=== PATIENT | male | born 1970 | race African-American/Black ===

== ENCOUNTER 2017-12-08 19:09 | Observation (INO) | payer SELFPAY ==
[2017-12-08 20:01] LABS: Absolute Monocytes 0.8 K/uL (0.1-1.3); Absolute Neutrophil 5.7 K/uL (1.8-8.0); Basophils % 0.7 % (0-1.3); Eosinophils % 4.2 % (0-4.4); Hematocrit 38.6 % (39.6-49.0); Lymphocytes % 22.3 % (15.3-44.8); MCH 29.9 pg (27.0-35.0); MCV 87.7 fL (80-100); MPV 8.3 fL (7.6-11.3); Monocytes % 9.2 % (3.3-12.3)
[2017-12-08 20:06] LABS: Protime INR 1.02
[2017-12-08 20:14] LABS: Potassium 3.6 mEq/L (3.6-5.0)
--- NOTE | 2017-12-08 20:21 | RAD REPORT ---
EXAM DESCRIPTION: CT - Head Brain Wo Cont - 12/08/2017 8:05 pm CLINICAL HISTORY: Seizure COMPARISON: none TECHNIQUE: Computed axial tomography of the head was obtained. IV contrast was not requested. All CT scans are performed using dose optimization technique as appropriate and may include automated exposure control or mA/KV adjustment according to patient size. FINDINGS: An intracranial bleed is not seen . The ventricles are normal in caliber. No extra-axial fluid collection is noted. A vague ill-defined low-density area is present within the right parietal lobe. Fluid within the sinuses/ mastoids is not seen. IMPRESSION: Vague ill-defined low-density area within the deep and subcortical white matter of the r ight parietal lobe. This is of uncertain etiology. . It is recommended that the patient have an MRI t he brain with contrast for further evaluation
--- NOTE | 2017-12-08 22:07 | EDPHYS ---
Physician Documentation [facility] Name: Vince Blackmon Age: 47 yrs Sex: Male : 1970 Arrival Date: 12/08/2017 Time: 19:10 Bed 17 Private MD: ED Physician Efra Velez HPI: 12/08 20:38 This 47 yrs old Black Male presents to ER via Ambulatory with complaints of Probable rn Seizure. 20:38 The patient presents with a history of multiple seizures. Seizure onset: 2 days ago. rn Associated injury: The patient did not suffer any apparent associated injury. Current symptoms:. The patient has experienced similar episodes in the past. Reports hx of seizures but last seizure 6 years ago, has had 2 seizures in last 2 days, last night assoc with cocaine use. Has seizures outside of cocaine use. Reports right leg weakness that is normally not present with his seizures. + headache for last week.. Historical: - Allergies: 19:24 ACETAMINOPHEN; lk1 - PMHx: 19:24 urinary stricture; Hypertension; Seizures; lk1 - PSHx: 19:24 None; lk1 - Immunization history:: Adult Immunizations up to date. - Social history:: Smoking status: Patient/guardian denies using tobacco. - Family history:: not pertinent. - Hospitalizations: : No recent hospitalization is reported. ROS: 20:38 Constitutional: Negative for fever, chills, and weight loss, Eyes: Negative for injury, rn pain, redness, and discharge, Neck: Negative for injury, pain, and swelling, Cardiovascular: Negative for chest pain, palpitations, and edema, Respiratory: Negative for shortness of breath, cough, wheezing, and pleuritic chest pain, Abdomen/GI: Negative for abdominal pain, nausea, vomiting, diarrhea, and constipation, Back: Negative for injury and pain, MS/Extremity: Negative for injury and deformity, Skin: Negative for injury, rash, and discoloration, Neuro: Negative for numbness, tingling Exam: 20:38 Constitutional: This is a well developed, well nourished patient who is awake, alert, rn and in no acute distress. Head/Face: Normocephalic, atraumatic. Eyes: Pupils equal round and reactive to light, extra-ocular motions intact. Lids and lashes normal. Conjunctiva and sclera are non-icteric and not injected. Cornea within normal limits. Periorbital areas with no swelling, redness, or edema. Neck: Trachea midline, no thyromegaly or masses palpated, and no cervical lymphadenopathy. Supple, full range of motion without nuchal rigidity, or vertebral point tenderness. No Meningismus. Cardiovascular: Regular rate and rhythm with a normal S1 and S2. No gallops, murmurs, or rubs. Normal PMI, no JVD. No pulse deficits. Respiratory: Lungs have equal breath sounds bilaterally, clear to auscultation and percussion. No rales, rhonchi or wheezes noted. No increased work of breathing, no retractions or nasal flaring. Abdomen/GI: Soft, non-tender, with normal bowel sounds. No distension or tympany. No guarding or rebound. No evidence of tenderness throughout. Skin: Warm, dry with normal turgor. Normal color with no rashes, no lesions, and no evidence of cellulitis. MS/ Extremity: Pulses equal, no cyanosis. Neurovascular intact. Neuro: Awake and alert, GCS 15, oriented to person, place, time, and situation. Cranial nerves II-XII grossly intact. Motor strength 4/5 in RLE, 5/5 in all other extremities. Sensory grossly intact. Cerebellar exam normal. Vital Signs: 19:24 BP 145 / 81; Pulse 93; Resp 15; Temp 98.1(O); Pulse Ox 98% on R/A; Weight 113.4 kg (R); lk1 Height 5 ft. 9 in. (175.26 cm) (R); Pain 0/10; 20:12 BP 165 / 92; Pulse 93; Resp 18 S; Pulse Ox 99% ; Pain 0/10; jd3 21:04 BP 127 / 98; Pulse 94; Resp 17 S; Pulse Ox 95% on R/A; jd3 22:07 BP 119 / 66; Pulse 92; Resp 17 S; Pulse Ox 99% on R/A; Pain 0/10; jd3 23:50 BP 97 / 84; Pulse 90; Resp 17 S; Pulse Ox 99% on R/A; Pain 0/10; jd3 19:24 Body Mass Index 36.92 (113.40 kg, 175.26 cm) lk1 Anil Coma Score: 19:24 Eye Response: spontaneous(4). Verbal Response: oriented(5). Motor Response: obeys lk1 commands(6). Total: 15. MDM: 19:32 Patient medically screened. rn 22:05 Differential diagnosis: cerebral vascular accident, drug overdose, seizure. Data rn reviewed: vital signs, nurses notes, lab test result(s), EKG, radiologic studies, CT scan, and as a result, I will admit patient. Counseling: I had a detailed discussion with the patient and/or guardian regarding: the historical points, exam findings, and any diagnostic results supporting the discharge/admit diagnosis, lab results, radiology results, the need for further work-up and treatment in the hospital. Admission orders: after a detailed discussion of the patient's condition and case, the admit orders are written by me. ED course: Pt with abnormal finding on ct head with weakness of RLE, will admit to Dr. Toth for mri in AM and neuro consult.. 12/08 19:40 Order name: UDS rn 12/08 19:40 Order name: Basic Metabolic Panel; Complete Time: 20:28 rn 12/08 19:40 Order name: CBC with Diff; Complete Time: 20:28 rn 12/08 19:40 Order name: Protime (+inr); Complete Time: 20:28 rn 12/08 19:40 Order name: Ptt, Activated; Complete Time: 20:28 rn 12/08 19:40 Order name: Troponin (emerg Dept Use Only); Complete Time: 20:28 rn 12/08 19:40 Order name: CT Head Brain wo Cont; Complete Time: 20:28 rn 12/08 19:40 Order name: EKG; Complete Time: 19:41 rn 12/08 19:40 Order name: Cardiac monitoring; Complete Time: 19:44 rn 12/08 19:40 Order name: EKG - Nurse/Tech; Complete Time: 19:56 rn 12/08 19:40 Order name: IV Saline Lock; Complete Time: 19:56 rn 12/08 19:40 Order name: Labs collected and sent; Complete Time: 19:56 rn 12/08 19:40 Order name: NPO; Complete Time: 19:44 rn 12/08 19:40 Order name: O2 Per Protocol; Complete Time: 19:44 rn 12/08 19:40 Order name: O2 Sat Monitoring; Complete Time: 19:44 rn Administered Medications: 22:22 Drug: Keppra 1000 mg Route: IV; Rate: 1 calculated rate; Site: right antecubital; jd3 23:51 Follow up: Response: No adverse reaction; IV Status: Completed infusion jd3 Disposition: 12/08/17 22:07 Hospitalization ordered by Elijah Burdick for Observation. Preliminary diagnosis are Epileptic seizures related to external causes, Cocaine abuse. - Bed requested for Telemetry/MedSurg (observation). - Status is Observation. jd3 - Condition is Stable. - Problem is new. - Symptoms have improved. UTI on Admission? No Signatures: Dispatcher [employer] EDRadha Hernandez RN RN kl Nieto, Roman, MD MD rn Kluge, Leah, RN RN lk1 Curly Gillespie RN RN jd3
--- NOTE | 2017-12-08 22:07 | ER ---
Nurse's Notes [facility] Name: Vince Blackmon Age: 47 yrs Sex: Male : 1970 Arrival Date: 12/08/2017 Time: 19:10 Bed 17 Private MD: Diagnosis: Epileptic seizures related to external causes;Cocaine abuse Presentation: 12/08 19:22 Presenting complaint: Patient states: "The last two nights I have had seizures. Last lk1 night I came out here, but didn't sign in. I have not had seizures in years and I am getting scared.". Transition of care: patient was not received from another setting of care. Onset of symptoms was December 06, 2017. Care prior to arrival: None. 19:22 Method Of Arrival: Ambulatory lk1 19:22 Acuity: COBY 3 lk1 Triage Assessment: 19:24 General: Appears in no apparent distress. Behavior is calm, cooperative, appropriate lk1 for age. Pain: Denies pain. Neuro: Level of Consciousness is awake, alert, obeys commands, Oriented to person, place, time, situation, Moves all extremities. Full function Gait is steady, Speech is normal, Facial symmetry appears normal. Historical: - Allergies: 19:24 ACETAMINOPHEN; lk1 - PMHx: 19:24 urinary stricture; Hypertension; Seizures; lk1 - PSHx: 19:24 None; lk1 - Immunization history:: Adult Immunizations up to date. - Social history:: Smoking status: Patient/guardian denies using tobacco. - Family history:: not pertinent. - Hospitalizations: : No recent hospitalization is reported. Screenin:12 Abuse screen: Denies threats or abuse. Nutritional screening: No deficits noted. jd3 Tuberculosis screening: No symptoms or risk factors identified. Fall Risk IV access (20 points). Ambulatory Aid- None/Bed Rest/Nurse Assist (0 pts). Gait- Normal/Bed Rest/Wheelchair (0 pts) Total Dutton Fall Scale indicates No Risk (0-24 pts). Assessment: 19:42 General: Appears in no apparent distress. Behavior is calm, cooperative, appropriate jd3 for age, Reports having seizures the last two nighsts. Pain: Denies pain. Neuro: Level of Consciousness is awake, alert, obeys commands, Oriented to person, place, time, situation, Moves all extremities. Gait is steady, Speech is normal, Facial symmetry appears normal, Pupils are PERRLA, Intact. Cardiovascular: Heart tones S1 S2 present Capillary refill < 3 seconds Patient's skin is warm and dry. Respiratory: Airway is patent Respiratory effort is even, unlabored, Respiratory pattern is regular, symmetrical, Breath sounds are clear bilaterally. GI: Abdomen is round Patient currently denies abdominal pain, diarrhea, nausea, vomiting. : No signs and/or symptoms were reported regarding the genitourinary system. EENT: No signs and/or symptoms were reported regarding the EENT system. Derm: Skin is intact, Skin is dry, Skin is normal, Skin temperature is warm. Musculoskeletal: Circulation, motion, and sensation intact. Range of motion: intact in all extremities. 20:43 Reassessment: Patient appears in no apparent distress at this time. Patient and/or jd3 family updated on plan of care and expected duration. Pain level reassessed. Patient is alert, oriented x 3, equal unlabored respirations, skin warm/dry/pink. pt calling food delivery services after being told of NPO status, pt states "I won't eat until after I am discharged." pt reminded of NPO status. 21:06 Reassessment: Patient appears in no apparent distress at this time. Patient and/or jd3 family updated on plan of care and expected duration. Pain level reassessed. Patient is alert, oriented x 3, equal unlabored respirations, skin warm/dry/pink. 22:07 Reassessment: Patient appears in no apparent distress at this time. Patient and/or jd3 family updated on plan of care and expected duration. Pain level reassessed. Patient is alert, oriented x 3, equal unlabored respirations, skin warm/dry/pink. 23:50 Reassessment: Patient appears in no apparent distress at this time. Patient and/or jd3 family updated on plan of care and expected duration. Pain level reassessed. Patient is alert, oriented x 3, equal unlabored respirations, skin warm/dry/pink. pt resting in bed with eyes closed even and unlabored respirations, no distress noted at this time. 12/09 00:45 Reassessment: Patient appears in no apparent distress at this time. Patient and/or jd3 family updated on plan of care and expected duration. Pain level reassessed. Patient is alert, oriented x 3, equal unlabored respirations, skin warm/dry/pink. 01:23 Reassessment: Patient appears in no apparent distress at this time. Patient and/or jd3 family updated on plan of care and expected duration. Pain level reassessed. Patient is alert, oriented x 3, equal unlabored respirations, skin warm/dry/pink. Vital Signs: 12/08 19:24 BP 145 / 81; Pulse 93; Resp 15; Temp 98.1(O); Pulse Ox 98% on R/A; Weight 113.4 kg (R); lk1 Height 5 ft. 9 in. (175.26 cm) (R); Pain 0/10; 20:12 BP 165 / 92; Pulse 93; Resp 18 S; Pulse Ox 99% ; Pain 0/10; jd3 21:04 BP 127 / 98; Pulse 94; Resp 17 S; Pulse Ox 95% on R/A; jd3 22:07 BP 119 / 66; Pulse 92; Resp 17 S; Pulse Ox 99% on R/A; Pain 0/10; jd3 23:50 BP 97 / 84; Pulse 90; Resp 17 S; Pulse Ox 99% on R/A; Pain 0/10; jd3 19:24 Body Mass Index 36.92 (113.40 kg, 175.26 cm) lk1 Anil Coma Score: 19:24 Eye Response: spontaneous(4). Verbal Response: oriented(5). Motor Response: obeys lk1 commands(6). Total: 15. ED Course: 19:10 Patient arrived in ED. am2 19:23 Triage completed. lk1 19:26 Arm band placed on left wrist. lk1 19:32 Efra Velez MD is Attending Physician. rn 19:41 Curly Gillespie RN is Primary Nurse. jd3 19:55 Initial lab(s) drawn, by al, sent to lab. Inserted saline lock: 18 gauge in right cb2 antecubital area, using aseptic technique. Blood collected. 20:05 CT Head Brain wo Cont In Process Unspecified. EDMS 20:13 Patient has correct armband on for positive identification. Placed in gown. Bed in low jd3 position. Call light in reach. Side rails up X2. Adult w/ patient. 20:13 Seizure precautions initiated. jd3 22:06 Elijah Burdick MD is Hospitalizing Provider. rn 12/09 00:19 No provider procedures requiring assistance completed. Patient admitted, IV remains in jd3 place. Administered Medications: 12/08 22:22 Drug: Keppra 1000 mg Route: IV; Rate: 1 calculated rate; Site: right antecubital; jd3 23:51 Follow up: Response: No adverse reaction; IV Status: Completed infusion jd3 Outcome: 22:07 Decision to Hospitalize by Provider. rn 12/09 00:50 Admitted to Med/surg accompanied by nurse, via wheelchair, room 224, with chart, Report jd3 called to Elda ESQUIVEL Condition: stable Instructed on the need for admit, Demonstrated understanding of instructions. 01:23 Patient left the ED. jd3 Signatures: Dispatcher [employer] EDMS Efra Velez MD MD rn Kluge, Leah RN RN tim1 Rebecca Jeffrey Christian cb2 Davies, Jonathon RN RN jd3
[2017-12-08] MEDS ORDERED: NA CHLORIDE 0.9% 100 ML IV ONE (22:33)
[2017-12-08] MEDS ORDERED: LEVETIRACETAM 500 MG/5 ML VIAL IV ONE (22:33)
[2017-12-09] MEDS ORDERED: ONDANSETRON 4 MG/2 ML VIAL IV PRN (01:25)
[2017-12-09 01:27] VITALS: BMI 36.6
[2017-12-09] MEDS: NA CHLORIDE 0.9% 1,000 ML IV SCH ×2 (02:00→09:51)
[2017-12-09 04:47] LABS: Absolute Lymphocytes (CBC) 1.9 K/uL (0.7-4.9); Absolute Monocytes 0.9 K/uL (0.1-1.3); Absolute Neutrophil 3.6 K/uL (1.8-8.0); Basophils % 0.5 % (0-1.3); Hematocrit 36.6 % (39.6-49.0); MCH 29.4 pg (27.0-35.0); MCV 88.8 fL (80-100); MPV 8.8 fL (7.6-11.3); Monocytes % 13.8 % (3.3-12.3); RBC Red Blood Cell Count 4.12 M/uL (4.33-5.43)
[2017-12-09 05:04] LABS: Potassium 3.9 mEq/L (3.6-5.0)
--- NOTE | 2017-12-09 05:40 | P.HP ---
Certification for Inpatient Patient admitted to: Observation With expected LOS: <2 Midnights Practitioner: I am a practitioner with admitting privileges, knowledge of patient current condition, hospital course, and medical plan of care. Services: Services provided to patient in accordance with Admission requirements found in Title 42 Section 412.3 of the Code of Federal Regulations Patient History Date of Service: 12/08/17 Reason for admission: seizure History of Present Illness: Mr Blackmon is a 47 years old male with history of HTN, seizure disorder, who discontinue his medications several years ago. Last reported seizure about 6 years ago. 2 days ago, he start having seizures again. Today he has a new seizure episode after consume cocaine. He denied any fever or chills. He is also complaining of right leg weakness which is not usual when he has seizure. In ER lab work shows normal WBC count. Chemestry remarkable for elevated creatinine 1.74. CT head was abnormal, reporting a vague ill-defined low- density area within the deep and subcortical white matter of the right parietal lobe. This is of uncertain etiology. At my encounter he was alert and oriented in non-distress. Allergies acetaminophen [From Tylenol] Allergy (Mild, Verified 12/09/17 02:17) Rash aspirin Allergy (Verified 12/09/17 02:17) Unknown ibuprofen Allergy (Verified 12/09/17 02:17) Unknown ketorolac Allergy (Verified 12/09/17 02:17) Unknown Home Medications: NK [No Home Meds] 12/09/17 - Past Medical/Surgical History Has patient received pneumonia vaccine in the past: No Diabetic: No -: htn -: urination retention -: seizures -: drug abuse -: cystoscopy - Family History Father -: Hypertension Notes: no family history of illness Mother -: Hypertension - Social History Smoking Status: Never smoker Alcohol use: No CD- Drugs: Yes Caffeine use: Yes Place of Residence: Home Review of Systems 10-point ROS is otherwise unremarkable Physical Examination - Vital Signs Temperature: 99.5 F Blood Pressure: 149/92 Pulse: 80 Respirations: 18 Pulse Ox (%): 96 - Physical Exam General: Alert, In no apparent distress HEENT: Atraumatic, PERRLA, Mucous membr. moist/pink, EOMI, Sclerae nonicteric Neck: Supple, 2+ carotid pulse no bruit, No LAD, Without JVD or thyroid abnormality Respiratory: Clear to auscultation bilaterally, Normal air movement Cardiovascular: Regular rate/rhythm, Normal S1 S2 Gastrointestinal: Normal bowel sounds, No tenderness Musculoskeletal: No tenderness Integumentary: No rashes Neurological: Normal speech, Normal tone, Normal affect, Abnormal strength ( right leg 4/5, rest of the limbs 5/5) Lymphatics: No axilla or inguinal lymphadenopathy - Studies Laboratory Data (last 24 hrs) 12/08/17 19:52: PT 12.0, INR 1.02, APTT 31.7 12/08/17 19:52: WBC 9.0, Hgb 13.2 L, Hct 38.6 L, Plt Count 391 12/08/17 19:52: Sodium 140, Potassium 3.6, BUN 17, Creatinine 1.74 H, Glucose 98 Assessment and Plan - Problems (Diagnosis) (1) Seizure disorder Current Visit: Yes Status: Acute (2) HTN (hypertension) Current Visit: Yes Status: Acute Qualifiers: Hypertension type: unspecified Qualified Code(s): I10 - Essential (primary ) hypertension (3) Cocaine abuse Current Visit: Yes Status: Acute - Plan The patient will be admitted to the hospital due to seizure episode. CT head is abnormal, will order a brain MRI for better assessment. He has been loaded with Keppra in ED, will continue this medication. Will order EEG, and neurology consult. Seizure precautions. Pending toxicology report. - Advance Directives Does patient have a Living Will: No Does patient have a Durable POA for Healthcare: No - Code Status/Comfort Care Code Status Assessed: Yes Code Status: Full Code
[2017-12-09 05:49] LABS: Magnesium 1.8 mg/dL (1.8-2.5)
[2017-12-09] MEDS ORDERED: KCL 20 MEQ/100 mL IVPB 20 MEQ/100 ML BAG IV SCH (06:00)
[2017-12-09] MEDS ORDERED: MAGNESIUM SULFATE 1 gm IVPB 1 GM/100 ML BAG IV ONE (09:00)
[2017-12-09] MEDS: levETIRAcetam 500 MG TAB PO SCH ×2 (09:51→21:00)
--- NOTE | 2017-12-09 10:09 | EKG ---
Test Date: 2017-12-08 Test Time: 19:55:49 Road Manager: AIME MEASUREMENT RESULTS: Intervals: Rate: 90 MD: 142 QRSD: 74 QT: 358 QTc: 437 [place]: P: 83 MD: 142 QRS: 40 T: -8 INTERPRETIVE STATEMENTS: Normal sinus rhythm Nonspecific T wave abnormality Abnormal ECG Compared to ECG 10/08/2017 08:45:47 T-wave abnormality now present Left ventricular hypertrophy no longer present Electronically Signed On 12-09-17 10:07:44 CDT by Mohan Rodriguez
--- NOTE | 2017-12-09 10:54 | RAD REPORT ---
EXAM DESCRIPTION: MRI - Brain Wo Cont - 12/09/2017 9:20 am CLINICAL HISTORY: Slurred speech COMPARISON: none TECHNIQUE: Axial, sagittal, and coronal magnetic images of the brain were obtained. Contrast was not requested FINDINGS: Vague curvilinear area abnormal signal is present within the white matter of the right par ietal/occipital region. This present 12 lesser extent on the left. The parahippocampal gyri are normal caliber and signal. Diffusion-weighted/ADC mapping does not reveal evidence of acute infarction. The ventricles are normal caliber. An extra-axial fluid collection is not present A mucus retention cyst is present within the right maxillary sinus. Mild ethmoid sinusitis is seen. T he mastoids are clear IMPRESSION: Curvilinear areas of abnormal signal within the parietal/occipital regions bilaterally r ight greater than left may be secondary to ischemic changes secondary to small vessel disease, a demy elinating process or inflammation. If clinically indicated further evaluation with an MRI with contra st may be helpful to determine if there is enhancement to suggest an acute process
--- NOTE | 2017-12-09 13:44 | P.DS ---
Admission Date: 12/08/17 Discharge Date: 12/09/17 Primary Care Provider: none Disposition: ROUTINE DISCHARGE Discharge Condition: FAIR Reason for Admission: seizure Consultations: Neurology Dr. Lim Brief History of Present Illness: From H&P Mr Blackmon is a 47 years old male with history of HTN, seizure disorder, who discontinue his medications several years ago. Last reported seizure about 6 years ago. 2 days ago, he start having seizures again. Today he has a new seizure episode after consume cocaine. He denied any fever or chills. He is also complaining of right leg weakness which is not usual when he has seizure. In ER lab work shows normal WBC count. Chemestry remarkable for elevated creatinine 1.74. CT head was abnormal, reporting a vague ill-defined low- density area within the deep and subcortical white matter of the right parietal lobe. This is of uncertain etiology. Hospital Course: Patient was admitted to the hospital for seizure episode after cocaine abuse. Patient to a was loaded with Keppra and was placed on seizure precautions. Neurology was consulted. EEG was ordered and MRI of the brain was done due to abnormal head CT scan MRI did not show any acute issues however may have some chronic ischemic changes related to his chronic cocaine use. Patient was counseled extensively against using cocaine however patient stated that he will continue to use cocaine and does not believe that he has any relation to his seizures. Patient was seen by neurology and was cleared for discharge. Patient have any further seizure episodes. Vital Signs/Physical Exam: Temp Pulse Resp BP Pulse Ox 99.7 F 72 16 138/90 97 12/09/17 12:00 12/09/17 12:00 12/09/17 12:00 12/09/17 12:00 12/09/17 12:00 Other Physical/Emotional Findings: Please see progress note dictated on the day of discharge for physical exam findings Laboratory Data at Discharge: WBC 6.8 K/uL (4.3-10.9) D 12/09/17 04:17 Hgb 12.1 g/dL (13.6-17.9) L 12/09/17 04:17 Hct 36.6 % (39.6-49.0) L 12/09/17 04:17 Plt Count 357 K/uL (152-406) 12/09/17 04:17 PT 12.0 SECONDS (9.5-12.5) 12/08/17 19:52 INR 1.02 12/08/17 19:52 APTT 31.7 SECONDS (24.3-36.9) 12/08/17 19:52 Sodium 138 mEq/L (135-145) 12/09/17 04:17 Potassium 3.9 mEq/L (3.6-5.0) 12/09/17 04:17 BUN 16 mg/dL (6-20) 12/09/17 04:17 Creatinine 1.35 mg/dL (0.61-1.24) H 12/09/17 04:17 Glucose 121 mg/dL (65-120) H 12/09/17 04:17 Magnesium 1.8 mg/dL (1.8-2.5) 12/09/17 04:17 Imagings Data: MRI brain: Curvilinear areas of abnormal signal within the parietal/occipital regions bilaterally right greater than left may be secondary to ischemic changes secondary to small vessel disease, a demyelinating process or inflammation. If clinically indicated further evaluation with an MRI with contrast may be helpful to determine if there is enhancement to suggest an acute process Home Medications: Levetiracetam [Keppra*] 500 mg PO BID #60 tab 12/09/17 New Medications: Levetiracetam [Keppra*] 500 mg PO BID #60 tab Patient Discharge Instructions: Establish care with a primary care physician within 1-2 weeks. Follow up with neurologist Dr. Lim in 2 weeks. Return to ER for worsening condition Diet: AHA Activity: Seizure precautions no driving [place]
[2017-12-09 15:12] LABS: Barbiturates NEGATIVE; Benzodiazepines NEGATIVE; Cocaine POSITIVE; METHAMPHETAM NEGATIVE; Opiates NEGATIVE; Phencyclidine NEGATIVE; THC Cannibis NEGATIVE
--- NOTE | 2017-12-09 15:33 | PN ---
Date of Progress Note: 12/09/2017 Subjective: The patient seen and examined, chart reviewed, and case discussed with RN. The patient states that, he has not been on his medications for several years. Review of Systems: Negative except as above. Medications: Reviewed. Physical Examination: Vital Signs: Temperature 99.5, heart rate 80, blood pressure 149/92, respirations 18, and O2 96% on room air. General: awake, alert, oriented x3. No acute distress. Obese male. BMI 36. CV: S1, S2. No murmurs. Regular rate and rhythm. Peripheral pulses present. Respiratory: Moving air well bilaterally. No wheezing. Gastrointestinal: Soft abdomen. Nontender, nondistended. Positive bowel sounds. Extremities: No clubbing, cyanosis, or edema. Neurologic: Nonfocal. Laboratory Data: Sodium 138, potassium 3.9, chloride 107, CO2 27, BUN 16, creatinine 1.35, glucose 1 21, and calcium 8.9. WBC 6.8, H and H 12.1, 36.6, and platelets 357. UDS is pending. MRI of the br ain is pending. CT scan of the head shows vague, ill-defined low-density area within the deep and regalado bcortical white matter of the right parietal lobe, uncertain etiology. Assessment And Plan: A 47-year-old male with; 1.Acute seizure. The patient is on Keppra. EEG pending. Neurology has been consulted. 2.Essential hypertension. Resume home medications. 3.Cocaine abuse, counseled. 4.Obesity, body mass index 36.7. 5.Ill-defined opacity, right parietal lobe. MRI of the brain has been obtained. 6.Acute kidney injury. Creatinine is improving. We will continue to monitor. Continue IV fluids. SA/MODL Voice ID: [id number] Report ID: [id number]
--- NOTE | 2017-12-09 16:20 | EEG ---
CHART: [id number] TEST ID#: [id number] DATE OF STUDY: 12/09/2017 THE EEG WAS RECORDED PORTABLE IN THE PATIENT'S ROOM ON A 17 CHANNEL MACHINE. ELECTRODES WERE APPLIED IN THE USUAL MANNER USING THE INTERNATIONAL 10-20 SYSTEM. THE WAKING BACKGROUND RHYTHM IN THIS RECORD CONSISTS OF FAIRLY WELL DEVELOPED AND FAIRLY WELL ORGANIZED WAVES OF 10 HZ., MAXIMAL IN THE POSTERIOR HEAD REGIONS WHICH ATTENUATE NORMALLY WITH EYE OPENING. EXCESS LOW-VOLTAGE 18-22 HZ ACTIVITY IS EXPRESSED IN ALL REGIONS. THERE ARE NO FOCAL OR LATERALIZING FEATURES. NO EPILEPTIFORM ACTIVITY APPEARS. SLEEP DID NOT OCCUR. HYPERVENTILATION WAS NOT PERFORMED. PHOTIC STIMULATION PRODUCED POOR DRIVING BILATERALLY. IMPRESSION: THIS TIA A NORMAL AWAKE EEG. THERE IS NO FOCAL, LATERALIZING OR EPILEPTIFORM ACTIVTY RECORDED. THE PRESENCE OF EXCESS FAST ACTIVITY IS CONSISTENT WITH A MEDICATION EFFECT.
[2017-12-09] MEDS ORDERED: ENOXAPARIN 30 MG/0.3 ML SQ SCH (17:00)
[2017-12-09] MEDS ORDERED: BENZONATATE 100 MG CAP PO PRN (17:38)
[2017-12-09 20:31] VITALS: BP 155/85; TEMP 100.3
[2017-12-09 21:48] VITALS: O2SAT 98
--- NOTE | 2017-12-09 22:12 | CON ---
Reason For Consultation: Consultation called because of seizures. History Of Present Illness: Mr. Blackmon is a 47-year-old patient with a long history of cocaine abuse and seizures. The patient has reported prior seizures around 6 years ago related to the usie of cocaine while not taking antiepileptic medications. His current admission followed another seizure consisting of generalized tonic-clonic activity after using cocaine. Since the seizure, he has had some right-sided weakness in the arm and leg and headache. His head CT scan at [facility] showed vague ill-defined low density area in the right parietal lobe. Subsequent brain MRI stroke protocol done today showed curvilinear areas of abnormal signal in the parietal occipital region bilaterally with the right being more noticeable than the left. These were felt to be secondary to small vessel ischemic disease thought the report indicated possible demyelinating or inflammatory process may also be of similar appearance. The patient does note that his right-sided weakness has improved slightly since his admission. He did have an EEG done and the study was normal. It was remarkable for a low voltage fast activity consistent with a medication effect. His toxicology screen was positive for cocaine and a review of the patient's prior hospitalizations did indicate he is positive for cocaine in [id number] and again today. Otherwise, his complete blood count with differential remarkable for a slightly low hematocrit, normal white blood cell, normal platelets. His coagulation panel is normal. Chemistry is remarkable for dehydration with elevated creatinine of 1.4 on admission. After hydration, creatinine of 1.35. Glucose of 221. Magnesium normal at 1.8. Sodium, potassium, chloride, carbon dioxide, and BUN were normal. The rest of his drug screen was unremarkable. His electrocardiogram showed normal sinus rhythm with nonspecific T-wave abnormalities. Past Medical History: Hypertension, epilepsy. Past Surgical History: None. Allergies: ACETAMINOPHEN. Medications: Denied medications. Social History: The patient smokes and uses cocaine on a regular basis. Family History: Noncontributory. Review of Systems: He denies any recent fevers, chills, nausea, vomiting, myalgias, arthralgias, headaches, weight change, rash, psychiatric complaints. No gastrointestinal or genitourinary issues. Physical Examination: Vital Signs: Blood pressure 139/78, pulse 81, respiratory rate 16, temperature 99.7, oxygen saturation 95%. Weight 248 pounds. Height 5 feet 9 inches. General: Mr. Strauther is resting in bed. He is in no acute distress. HEENT: He is normocephalic and atraumatic. Sclerae anicteric. Oropharynx pink and moist. Neck: Supple. Chest: Clear. Heart: Regular. Extremities: Show no clubbing, cyanosis, or edema. Neurologic: He is alert and oriented to situation, place, and person. He has no expressive or receptive aphasias. Cranial nerves 2 through 12 are intact by exam. Motor examination: The upper extremities show full strength proximally and distally 5/5. Lower extremity; right knee has 5- out of 5 strength proximally and distally. On the left side, 5/5 strength. Sensory exam is intact to light touch temperature in the arms and legs. Reflexes 1+ in the upper extremities. 1 to +2 in lower extremities and symmetric in the upper and lower extremities. Gait, some right leg circumduction. Assessment: Mr. Blackmon is a 47-year-old patient with a long history of cocaine abuse, tobacco use. He had another seizure after using cocaine. The patient said he is not planning on stopping cocaine and does not believe cocaine is the cause of his seizures. He was given a loading dose of Keppra while in the emergency room and was given magnesium, potassium and has been since hospitalization on Lovenox 40 mg subcutaneously for DVT prophylaxis. Plan: 1. The patient should go home on Keppra 500 mg twice daily. 2. He should follow up with neurologist in 2 weeks of discharge for blood level check and Keppra. 3. The patient was strongly counseled on stopping the use of cocaine. 4. The patient may be discharged home. He was told that he should also be on a small aspirin, although the chance of using the aspirin along with cocaine, his bleeding risk is high. He actually is not to take the aspirin as perhaps even the Keppra may not be taken. He plans to continue using cocaine. He may follow up again in [address] Lim's office. MAXIMILIANO/DUKE Voice ID: [id number] Report ID: [id number] ZAID
== END 2017-12-09 22:00 | disposition home or self-care (01) ==
LOC: ER 19:09 → ERHOLD 22:09 → 2ND 12-09 00:16
PROVIDERS: ADMIT Internal Medicine; ATTEND Internal Medicine
DX: G40.909 Epilepsy, unspecified, not intractable, without status epilepticus (principal); I10 Essential (primary) hypertension; F14.10 Cocaine abuse, uncomplicated; N17.9 Acute kidney failure, unspecified; E66.9 Obesity, unspecified; Z68.36 Body mass index [BMI] 36.0-36.9, adult; Z88.6 Allergy status to analgesic agent
CPT/HCPCS: 36415; 70450; 70551; 80048; 80307; 83735; 84484; 85025; 85610; 85730; 93005; 95816; 96365; 99285; G0378; J1953; J3475; J7030

== ENCOUNTER 2018-01-02 23:25 | Emergency (ER) | payer SELFPAY ==
[2018-01-03] MEDS ORDERED: NA CHLORIDE 0.9% 1,000 ML ONE (00:01)
[2018-01-03] MEDS ORDERED: LEVETIRACETAM 500 MG/5 ML VIAL IV ONE (00:01)
[2018-01-03] MEDS ORDERED: NA CHLORIDE 0.9% 250 ML ONE (00:08)
[2018-01-03 00:13] LABS: Potassium 3.8 mEq/L (3.6-5.0)
[2018-01-03 00:15] LABS: Absolute Lymphocytes (CBC) 2.5 K/uL (0.7-4.9); Absolute Neutrophil 3.2 K/uL (1.8-8.0); Basophils % 0.7 % (0-1.3); Eosinophils % 6.3 % (0-4.4); Hematocrit 39.3 % (39.6-49.0); Lymphocytes % 34.5 % (15.3-44.8); MCH 29.3 pg (27.0-35.0); Monocytes % 13.4 % (3.3-12.3); RBC Red Blood Cell Count 4.42 M/uL (4.33-5.43)
--- NOTE | 2018-01-03 01:41 | ER ---
Nurse's Notes [facility] Name: Vince Blackmon Age: 47 yrs Sex: Male : 1970 Arrival Date: 01/02/2018 Time: 23:26 Bed 24 Private MD: Diagnosis: Epileptic seizures related to external causes Presentation: 01/02 23:48 Presenting complaint: Patient states: he has hx of seizures but has had a seizure each bb of the last two nights pt states last seizure before that was 3 weeks ago. Transition of care: patient was not received from another setting of care. Onset of symptoms was December 31, 2017. Initial Sepsis Screen: Does the patient meet any 2 criteria? No. Patient's initial sepsis screen is negative. Does the patient have a suspected source of infection? No. Patient's initial sepsis screen is negative. Care prior to arrival: None. 23:48 Method Of Arrival: Ambulatory bb 23:48 Acuity: COBY 4 bb Triage Assessment: 23:58 General: Appears. General: Behavior is calm, cooperative, appropriate for age. tl3 Historical: - Allergies: 23:50 ACETAMINOPHEN; bb - Home Meds: 23:50 Keppra Oral [Active]; bb - PMHx: 23:50 Hypertension; Seizures; urinary stricture; bb - PSHx: 23:50 None; bb - Immunization history:: Adult Immunizations unknown. - Social history:: Smoking status: Patient/guardian denies using tobacco, Patient uses alcohol, occasionally. street drugs, cocaine, marijuana. - Family history:: not pertinent. - Hospitalizations: : No recent hospitalization is reported. Screenin:57 Abuse screen: Denies threats or abuse. Nutritional screening: No deficits noted. tl3 Tuberculosis screening: No symptoms or risk factors identified. Fall Risk None identified. Assessment: 23:57 Pain: Denies pain. Neuro: Level of Consciousness is awake, alert, obeys commands, tl3 Oriented to person, place, time, situation, Appropriate for age. 01/03 01:02 Reassessment: Patient appears in no apparent distress at this time. No changes from tl3 previously documented assessment. Patient and/or family updated on plan of care and expected duration. Pain level reassessed. Patient is alert, oriented x 3, equal unlabored respirations, skin warm/dry/pink. pt still unable to provide urine after several requests, EKG complete, new order for troponin placed and lab called, they have enough blood in the lab so no redraw will be required. 02:00 Reassessment: Pt. does not have a ride home \T\ this time... Per charge nurse okay for rk2 pt. to remain in room until picked up. Pt. sleeping \T\ this time, appears to be in no obvious distress. No needs voiced. 03:00 Reassessment: pt appears to be sleeping, eyes closed, resp unlabored, arouses easily bb A\T\O x 4, awaiting transport home. 05:31 Reassessment: pt appears to be sleeping, eyes closed, resp unlabored, arouses easily, bb verbalized understanding of and agrees to plan of care discharge instructions given pt ambulated with steady gait to exit spouse will be picking him up. Vital Signs: 01/02 23:50 BP 144 / 83; Pulse 70; Resp 18 S; Temp 98.2(O); Pulse Ox 99% on R/A; Weight 115.67 kg bb (R); Height 5 ft. 9 in. (175.26 cm) (R); 01/03 01:02 BP 129 / 70; Pulse 71; Resp 18; Pulse Ox 98% ; tl3 02:02 BP 125 / 68; Pulse 69; Resp 17; Pulse Ox 98% on R/A; rk2 05:32 BP 136 / 80; Pulse 71; Resp 18 S; Temp 97.8(O); Pulse Ox 100% on R/A; bb 01/02 23:50 Body Mass Index 37.66 (115.67 kg, 175.26 cm) bb [place] Coma Score: 01/02 23:58 Eye Response: spontaneous(4). Verbal Response: oriented(5). Motor Response: obeys tl3 commands(6). Total: 15. ED Course: 23:26 Patient arrived in ED. ds1 23:38 Efra Velez MD is Attending Physician. rn 23:49 Triage completed. bb 23:50 Arm band placed on Patient placed in an exam room, on a stretcher, on pulse oximetry. bb 23:57 Ivy Jordan RN is Primary Nurse. tl3 23:57 No apparent distress. Awaiting lab results. tl3 23:57 Patient has correct armband on for positive identification. Bed in low position. Call tl3 light in reach. Side rails up X 1. Pulse ox on. NIBP on. 23:57 No provider procedures requiring assistance completed. Initial lab(s) drawn, by me, tl3 sent to lab. Inserted saline lock: 22 gauge in right antecubital area, using aseptic technique. Blood collected. 23:59 Seizure precautions initiated. tl3 01/03 01:05 Report given to Eunice ESQUIVEL. tl3 05:32 IV discontinued, intact, bleeding controlled, No redness/swelling at site. Pressure bb dressing applied. Administered Medications: 00:50 Drug: NS 0.9% 1000 ml Route: IV; Rate: 1000 ml; Site: right antecubital; Delivery: tl3 Primary tubing; 01:25 Follow up: Response: No adverse reaction; IV Status: Completed infusion rk2 00:50 Drug: Keppra 1000 mg Route: IV; Rate: calculated rate; Site: right antecubital; tl3 Delivery: Primary tubing; 01:25 Follow up: Response: No adverse reaction; IV Status: Completed infusion rk2 Outcome: 01:41 Discharge ordered by . rn 02:00 Condition: good rk2 02:00 Discharged to home rk2 02:00 Discharge instructions given to patient. 05:33 Patient left the ED. bb Signatures: Natalie Basurto ds1 Sheila Madden, RN RN bb Efra Velez MD MD rn Kidder, Rhonda, RN RN rk2 Ivy Jordan RN RN tl3
--- NOTE | 2018-01-03 01:41 | EDPHYS ---
Physician Documentation [facility] Name: Vince Blackmon Age: 47 yrs Sex: Male : 1970 Arrival Date: 01/02/2018 Time: 23:26 Bed 24 Private MD: ED Physician Efra Velez HPI: 01/03 00:39 This 47 yrs old Black Male presents to ER via Ambulatory with complaints of Seizure. rn 00:39 The patient presents after having a single isolated seizure. Seizure onset: today. rn Associated injury: The patient did not suffer any apparent associated injury. The patient has experienced similar episodes in the past. The patient has been recently seen by a physician:. Recently admitted to our hospital for seizures 3 weeks ago, changed meds to keppra, neurology believes is cocaine related, patient reports compliant with keppra, had 1 seizure last night, another one tonight, no injuries. Happened while in bed. Also not sleeping much.. Historical: - Allergies: 01/02 23:50 ACETAMINOPHEN; bb - Home Meds: 23:50 Keppra Oral [Active]; bb - PMHx: 23:50 Hypertension; Seizures; urinary stricture; bb - PSHx: 23:50 None; bb - Immunization history:: Adult Immunizations unknown. - Social history:: Smoking status: Patient/guardian denies using tobacco, Patient uses alcohol, occasionally. street drugs, cocaine, marijuana. - Family history:: not pertinent. - Hospitalizations: : No recent hospitalization is reported. ROS: 01/03 00:39 Constitutional: Negative for fever, chills, and weight loss, Eyes: Negative for injury, rn pain, redness, and discharge, Neck: Negative for injury, pain, and swelling, Cardiovascular: Negative for chest pain, palpitations, and edema, Respiratory: Negative for shortness of breath, cough, wheezing, and pleuritic chest pain, Abdomen/GI: Negative for abdominal pain, nausea, vomiting, diarrhea, and constipation, Back: Negative for injury and pain, MS/Extremity: Negative for injury and deformity, Skin: Negative for injury, rash, and discoloration, Neuro: Negative for headache, weakness, numbness, tingling Exam: 00:39 Constitutional: This is a well developed, well nourished patient who is awake, alert, rn and in no acute distress. Head/Face: Normocephalic, atraumatic. Eyes: Pupils equal round and reactive to light, extra-ocular motions intact. Lids and lashes normal. Conjunctiva and sclera are non-icteric and not injected. Cornea within normal limits. Periorbital areas with no swelling, redness, or edema. Neck: Trachea midline, no thyromegaly or masses palpated, and no cervical lymphadenopathy. Supple, full range of motion without nuchal rigidity, or vertebral point tenderness. No Meningismus. Cardiovascular: Regular rate and rhythm with a normal S1 and S2. No gallops, murmurs, or rubs. Normal PMI, no JVD. No pulse deficits. Respiratory: Lungs have equal breath sounds bilaterally, clear to auscultation and percussion. No rales, rhonchi or wheezes noted. No increased work of breathing, no retractions or nasal flaring. Abdomen/GI: Soft, non-tender, with normal bowel sounds. No distension or tympany. No guarding or rebound. No evidence of tenderness throughout. MS/ Extremity: Pulses equal, no cyanosis. Neurovascular intact. Full, normal range of motion. Equal circumference. Neuro: Awake and alert, GCS 15, oriented to person, place, time, and situation. Cranial nerves II-XII grossly intact. Motor strength 5/5 in all extremities. Sensory grossly intact. Cerebellar exam normal. Normal gait. Vital Signs: 01/02 23:50 BP 144 / 83; Pulse 70; Resp 18 S; Temp 98.2(O); Pulse Ox 99% on R/A; Weight 115.67 kg bb (R); Height 5 ft. 9 in. (175.26 cm) (R); 01/03 01:02 BP 129 / 70; Pulse 71; Resp 18; Pulse Ox 98% ; tl3 02:02 BP 125 / 68; Pulse 69; Resp 17; Pulse Ox 98% on R/A; rk2 05:32 BP 136 / 80; Pulse 71; Resp 18 S; Temp 97.8(O); Pulse Ox 100% on R/A; bb 01/02 23:50 Body Mass Index 37.66 (115.67 kg, 175.26 cm) bb Anil Coma Score: 01/02 23:58 Eye Response: spontaneous(4). Verbal Response: oriented(5). Motor Response: obeys tl3 commands(6). Total: 15. MDM: 23:38 Patient medically screened. rn 01/03 01:39 Differential diagnosis: drug overdose, seizure. Data reviewed: vital signs, nurses rn notes, lab test result(s), EKG, and as a result, I will discharge patient. Counseling: I had a detailed discussion with the patient and/or guardian regarding: the historical points, exam findings, and any diagnostic results supporting the discharge/admit diagnosis, lab results, the need for outpatient follow up, to return to the emergency department if symptoms worsen or persist or if there are any questions or concerns that arise at home. Response to treatment: the patient's condition has returned to base line, the patient is now symptom free. Special discussion: I discussed with the patient/guardian in detail that at this point there is no indication for admission to the hospital. It is understood, however, that if the symptoms persist or worsen the patient needs to return immediately for re-evaluation. Based on the history and exam findings, there is no indication for further emergent testing or inpatient evaluation. I discussed with the patient/guardian the need to see the neurologist for further evaluation of the symptoms. 01:39 ED course: Pt refuses to give urine sample, will dc home with continuation of romy, rn recommended cessation of drugs and better sleep. . 01/02 23:45 Order name: CBC with Diff; Complete Time: 00:57 rn 01/02 23:45 Order name: Basic Metabolic Panel; Complete Time: 00:57 rn 01/03 01:01 Order name: Troponin (emerg Dept Use Only); Complete Time: 01:39 rn 01/02 23:45 Order name: IV Start; Complete Time: 00:00 rn 01/02 23:46 Order name: EKG - Nurse/Tech; Complete Time: 01:06 rn Administered Medications: 00:50 Drug: NS 0.9% 1000 ml Route: IV; Rate: 1000 ml; Site: right antecubital; Delivery: tl3 Primary tubing; :25 Follow up: Response: No adverse reaction; IV Status: Completed infusion rk2 00:50 Drug: Keppra 1000 mg Route: IV; Rate: calculated rate; Site: right antecubital; tl3 Delivery: Primary tubing; :25 Follow up: Response: No adverse reaction; IV Status: Completed infusion rk2 Disposition: 01/03/18 01:41 Discharged to Home. Impression: Epileptic seizures related to external causes. - Condition is Stable. - Discharge Instructions: Seizure, Adult. - Medication Reconciliation Form, Thank You Letter, Antibiotic Education, Prescription Opioid Use form. - Follow up: Private Physician; When: As needed; Reason: Recheck today's complaints, Re-evaluation by your physician. - Problem is an acute exacerbation. - Symptoms have improved. Signatures: Dispatcher [employer] Sheila Hicks, RN RN Efra Vasquez MD MD rn Lowrey, Tammy, RN RN tl3 Eunice Friedman RN rk2
[2018-01-03 05:40] VITALS: BP 136/80; TEMP 97.8; O2SAT 100
--- NOTE | 2018-01-03 07:15 | EKG ---
Test Date: 2018-01-03 Test Time: 00:57:34 Construction Grip: TL MEASUREMENT RESULTS: Intervals: Rate: 73 PA: 132 QRSD: 86 QT: 414 QTc: 456 [place]: P: 43 PA: 132 QRS: 7 T: -28 INTERPRETIVE STATEMENTS: Normal sinus rhythm Minimal voltage criteria for LVH, may be normal variant ST elevation, consider early repolarization, pericarditis, or injury T wave abnormality, consider inferior ischemia Abnormal ECG Compared to ECG 12/08/2017 19:55:49 Left ventricular hypertrophy now present ST (T wave) deviation now present Possible ischemia now present T-wave abnormality still present Electronically Signed On 01-03-18 07:14:30 CDT by Juan M Hernandez
--- NOTE | 2018-01-03 10:31 | EKG ---
Test Date: 2018-01-03 Test Time: 00:56:59 Forge Shop Supervisor: TL MEASUREMENT RESULTS: Intervals: Rate: 75 UT: 130 QRSD: 82 QT: 406 QTc: 453 [place]: P: 41 UT: 130 QRS: 6 T: -32 INTERPRETIVE STATEMENTS: Normal sinus rhythm Minimal voltage criteria for LVH, may be normal variant ST elevation, consider early repolarization, pericarditis, or injury T wave abnormality, consider inferior ischemia Abnormal ECG Compared to ECG 12/08/2017 19:55:49 Left ventricular hypertrophy now present ST (T wave) deviation now present Possible ischemia now present T-wave abnormality still present Electronically Signed On 01-03-18 10:31:25 CDT by Juan M Hernandez
== END 2018-01-03 05:33 | disposition home or self-care (01) ==
LOC: ER 23:25
DX: G40.509 Epileptic seizures related to external causes, not intractable, without status epilepticus (principal); Z88.6 Allergy status to analgesic agent
CPT/HCPCS: 36415; 80048; 84484; 85025; 93005; 96365; 99284; J1953; J7030

== ENCOUNTER 2018-01-03 10:14 | Emergency (ER) | payer SELFPAY ==
[2018-01-03] MEDS ORDERED: LORazepam 2 MG/ML VIAL ONE (10:58)
[2018-01-03 11:11] LABS: Absolute Lymphocytes (CBC) 1.8 K/uL (0.7-4.9); Absolute Monocytes 0.6 K/uL (0.1-1.3); Absolute Neutrophil 2.1 K/uL (1.8-8.0); Eosinophils % 7.4 % (0-4.4); Lymphocytes % 37.1 % (15.3-44.8); MCH 29.2 pg (27.0-35.0); MCV 89.5 fL (80-100); MPV 8.9 fL (7.6-11.3); Monocytes % 12.3 % (3.3-12.3); RBC Red Blood Cell Count 4.36 M/uL (4.33-5.43)
[2018-01-03 11:13] LABS: Protime INR 0.92
--- NOTE | 2018-01-03 11:13 | RAD REPORT ---
EXAM DESCRIPTION: CT - Head Brain Wo Cont - 01/03/2018 11:04 am CLINICAL HISTORY: Multiple seizures COMPARISON: CT December 08, MR December 09 TECHNIQUE: Axial 5 mm thick images of the head were obtained without IV contrast. All CT scans are performed using dose optimization technique as appropriate and may include automated exposure control or mA/KV adjustment according to patient size. FINDINGS: No intracranial hemorrhage, mass, edema or shift of mid-line structures. No acute cortical based infarction. Patchy ill-defined areas of diminished attenuation are present in the right cerebr al white matter and minimally on the left. These are similar to the prior studies and may be areas of old ischemic insult. No abnormal extra-axial fluid collections. Ventricles are normal. Mastoid air cells and visualized portions of the paranasal sinuses are clear. No acute bony findings. IMPRESSION: No hemorrhage, mass or acute intracranial finding. Above detailed findings are similar to prior imaging.
[2018-01-03 11:35] LABS: ALT/SGPT 28 IU/L (10-60); AST/SGOT 29 IU/L (10-42); Albumin 3.8 g/dL (3.2-5.5); Alkaline Phosphatase 90 IU/L (42-121); BUN Blood Urea Nitrogen 18 mg/dL (6-20); Bicarbonate 31 mEq/L (21-31); Bilirubin Direct 0.1 mg/dL (0-0.2); Bilirubin Total 0.6 mg/dL (0.3-1.2); CKMB Creatine Kinase MB 6.5 ng/ml (0.3-4.0); Creatine Phosphokinase 500 IU/L (22-269); Glucose Level 72 mg/dL (65-120); Magnesium 1.8 mg/dL (1.8-2.5); Potassium 3.9 mEq/L (3.6-5.0); Protein, Total 6.9 g/dL (6.0-8.3); Sodium Level 137 mEq/L (135-145)
[2018-01-03 11:39] LABS: Alcohol Serum/Plasma < 10 mg/dl; Salicylates Level < 4.0 mg/dl (<30)
--- NOTE | 2018-01-03 12:22 | RAD REPORT ---
EXAM DESCRIPTION: RAD - Chest Single View - 01/03/2018 11:49 am CLINICAL HISTORY: Seizure, shortness of breath cough and congestion COMPARISON: October 2013 TECHNIQUE: AP portable chest image was obtained 1108 hours . FINDINGS: No peripheral mass or consolidation. Heart size is upper normal. Vascular and central lung markings are minimally prominent. Trachea is midline. No measurable pleural effusion and no pneumoth orax. No gross bony abnormality seen. No acute aortic findings suspected. IMPRESSION: Central vasculature and lung markings are minimally prominent. This could be very minima l failure or volume overload if there are matching clinical findings.
--- NOTE | 2018-01-03 12:48 | EKG ---
Test Date: 2018-01-03 Test Time: 10:52:37 Electronics Processor: DOLORES MEASUREMENT RESULTS: Intervals: Rate: 64 NM: 136 QRSD: 76 QT: 406 QTc: 418 [place]: P: 50 NM: 136 QRS: 9 T: -12 INTERPRETIVE STATEMENTS: Normal sinus rhythm T wave abnormality, consider inferior ischemia Abnormal ECG Compared to ECG 01/03/2018 00:57:34 Left ventricular hypertrophy no longer present ST (T wave) deviation no longer present T-wave abnormality still present Possible ischemia still present Electronically Signed On 01-03-18 12:47:42 CDT by Juan M Hernandez
[2018-01-03 13:06] LABS: Urine Blood NEGATIVE (NEG); Urine Glucose NEGATIVE (NEG); Urine Protein TRACE (NEG); Urine Specific Gravity >1.030 (1.005-1.030)
[2018-01-03 13:09] LABS: Barbiturates NEGATIVE; Benzodiazepines NEGATIVE; Cocaine POSITIVE; Opiates NEGATIVE; Phencyclidine NEGATIVE; THC Cannibis POSITIVE
[2018-01-03 13:13] LABS: METHAMPHETAM POSITIVE
--- NOTE | 2018-01-03 13:49 | ER ---
Nurse's Notes [facility] Name: Vince Blackmon Age: 47 yrs Sex: Male : 1970 Arrival Date: 01/03/2018 Time: 10:20 Bed 8 Private MD: None, None Diagnosis: Epilepsy and recurrent seizures;Cystitis;Abuse of non-psychoactive substances;Adverse effect of amphetamines;Cocaine abuse Presentation: 01/03 10:30 Presenting complaint: Patient states: "I've had about 3 seizures in the past 24 hours, sv last one was at 730 this morning." Pt stated they switched him to Keppra about 3-4 weeks ago. Transition of care: patient was not received from another setting of care. Onset of symptoms was January 03, 2018. Care prior to arrival: None. 10:30 Method Of Arrival: Wheelchair sv 10:30 Acuity: COBY 3 sv 10:31 Initial Sepsis Screen: Does the patient meet any 2 criteria? No. Patient's initial sv sepsis screen is negative. Does the patient have a suspected source of infection? No. Patient's initial sepsis screen is negative. Triage Assessment: 10:39 General: Appears in no apparent distress. comfortable, well developed, Behavior is sv calm, cooperative, appropriate for age. Pain: Denies pain. EENT: No signs and/or symptoms were reported regarding the EENT system. Neuro: Level of Consciousness is awake, alert, obeys commands, Oriented to person, place, time, situation, Moves all extremities. Full function Gait is steady, Speech is normal, Facial symmetry appears normal. Cardiovascular: Patient's skin is warm and dry. Respiratory: Respiratory effort is even, unlabored, Respiratory pattern is regular, symmetrical. Derm: Skin is normal, black. Musculoskeletal: Range of motion: intact in all extremities. Historical: - Allergies: 10:39 ACETAMINOPHEN; sv - Home Meds: 10:39 Keppra Oral [Active]; unk BP med [Active]; sv - PMHx: 10:39 Seizures; Hypertension; urinary stricture; sv - PSHx: 10:39 None; sv - Immunization history:: Adult Immunizations up to date. - Family history:: not pertinent. Screenin:03 Abuse screen: Denies threats or abuse. Denies injuries from another. Nutritional sv screening: No deficits noted. Tuberculosis screening: No symptoms or risk factors identified. Fall Risk None identified. Assessment: 11:03 Reassessment: See triage assessment. sv 12:30 Reassessment: Patient appears in no apparent distress at this time. No changes from sv previously documented assessment. Patient and/or family updated on plan of care and expected duration. Pain level reassessed. Patient is alert, oriented x 3, equal unlabored respirations, skin warm/dry/pink. 14:02 Reassessment: Pt to get Keppra infusion and antibiotic before discharge. sv 19:03 Reassessment: attempted to call patient to tell him that he left discharge papers with hb two prescriptions in ER department. The number on file is not a working number. Vital Signs: 10:40 BP 145 / 98; Pulse 69; Resp 18; Temp 97(TE); Pulse Ox 100% on R/A; Weight 113.4 kg (R); sv Height 5 ft. 9 in. (175.26 cm) (R); Pain 0/10; 12:45 BP 143 / 105; Pulse 72; Resp 17; Pulse Ox 99% on R/A; jb1 13:50 BP 145 / 84; Pulse 66; Resp 12; Pulse Ox 100% ; sv 10:40 Body Mass Index 36.92 (113.40 kg, 175.26 cm) sv [place] Coma Score: 10:39 Eye Response: spontaneous(4). Verbal Response: oriented(5). Motor Response: obeys sv commands(6). Total: 15. ED Course: 10:20 Patient arrived in ED. sb2 10:31 Piyush Khan MD is Attending Physician. gs 10:35 Patient has correct armband on for positive identification. Bed in low position. Call sv light in reach. Side rails up X2. Seizure precautions initiated. Pulse ox on. NIBP on. Door closed. Head of bed elevated. 10:36 Jeanne Amaya, ALVIN is Primary Nurse. sv 10:38 Triage completed. sv 10:41 Arm band placed on right wrist. sv 10:42 None, None is Private Physician. sv 10:44 Attending Physician role handed off by Piyush Khan MD james 10:44 Nato Francois MD is Attending Physician. james 11:04 CT Head Brain wo Cont In Process Unspecified. EDMS 11:04 CT completed. Patient tolerated procedure well. Patient moved to CT via stretcher. Patient moved back from CT. 11:04 EKG done, by biotechnician. reviewed by Nato Francois MD. at1 11:49 XRAY Chest (1 view) In Process Unspecified. EDMS 12:45 Urine collected: clean catch specimen, cloudy, anastasia colored. jb1 13:50 Reynold Hughes MD is Referral Physician. james 15:09 No provider procedures requiring assistance completed. IV discontinued, intact, hb bleeding controlled, No redness/swelling at site. Pressure dressing applied. Administered Medications: 11:08 Drug: Ativan 1 mg Route: IVP; Site: right antecubital; sv 13:50 CANCELLED (Duplicate Order): Rocephin - (cefTRIAXone) 1 grams IVPB once over 30 mins; sv (mix in 50 mL NS) 14:39 Drug: Keppra 1000 mg Route: IV; Rate: per protocol; Site: right antecubital; sv 14:40 Drug: Rocephin 1 grams Route: IV; Rate: calculated rate; Site: right antecubital; sv Outcome: 13:49 Discharge ordered by MD. james 15:09 Patient left the ED. sg 15:09 Discharged to home ambulatory. hb 15:09 Condition: good 15:09 Discharge instructions given to patient, family, Instructed on discharge instructions, follow up and referral plans. medication usage, Demonstrated understanding of instructions, follow-up care, medications, Prescriptions given X 2. Signatures: Dispatcher [employer] EDMS Demetris Rawls jb1 Jeanne Amaya RN RN sv Blade Munguia RN RN Nato Francois MD MD cha Jones, Susan sj gonzales, Amanda, circus agent EKG Tat1 Tasneem Forbes, ALVIN RN Piyush Khan MD MD gs Billeau, Sheri sb2
--- NOTE | 2018-01-03 13:49 | EDPHYS ---
Physician Documentation [facility] Name: Vince Blackmon Age: 47 yrs Sex: Male : 1970 Arrival Date: 01/03/2018 Time: 10:20 Bed 8 Private MD: None, None ED Physician Nato Francois HPI: 01/03 13:45 This 47 yrs old Black Male presents to ER via Wheelchair with complaints of Probable james Seizure. 13:45 The patient presents after having a single isolated seizure, that lasted 1 minute(s), james with a history of multiple seizures, a total of 3. Character of seizure(s): Loss of consciousness: the patient did not lose consciousness, Motor activity: generalized. Seizure onset: past 24 hours. Context: the seizure(s) was witnessed, by family, occurred at home. Seizure Hx: Last seizure: The patient's last seizure was approximately 1 day(s) ago. Associated injury: The patient did not suffer any apparent associated injury. The patient has experienced similar episodes in the past, multiple times. Historical: - Allergies: 10:39 ACETAMINOPHEN; sv - Home Meds: 10:39 Keppra Oral [Active]; unk BP med [Active]; sv - PMHx: 10:39 Seizures; Hypertension; urinary stricture; sv - PSHx: 10:39 None; sv - Immunization history:: Adult Immunizations up to date. - Family history:: not pertinent. ROS: 13:45 Constitutional: Negative for fever, chills, and weight loss, Eyes: Negative for injury, james pain, redness, and discharge, ENT: Negative for injury, pain, and discharge, Neck: Negative for injury, pain, and swelling, Cardiovascular: Negative for chest pain, palpitations, and edema, Respiratory: Negative for shortness of breath, cough, wheezing, and pleuritic chest pain, Abdomen/GI: Negative for abdominal pain, nausea, vomiting, diarrhea, and constipation, Back: Negative for injury and pain, : Negative for injury, bleeding, discharge, and swelling, MS/Extremity: Negative for injury and deformity, Skin: Negative for injury, rash, and discoloration, Psych: Negative for depression, anxiety, suicide ideation, homicidal ideation, and hallucinations, Allergy/Immunology: Negative for hives, rash, and allergies, Endocrine: Negative for neck swelling, polydipsia, polyuria, polyphagia, and marked weight changes, Hematologic/Lymphatic: Negative for swollen nodes, abnormal bleeding, and unusual bruising. 13:45 Neuro: Positive for seizure activity, weakness. Exam: 13:45 Constitutional: This is a well developed, well nourished patient who is awake, alert, james and in no acute distress. Head/Face: Normocephalic, atraumatic. Eyes: Pupils equal round and reactive to light, extra-ocular motions intact. Lids and lashes normal. Conjunctiva and sclera are non-icteric and not injected. Cornea within normal limits. Periorbital areas with no swelling, redness, or edema. ENT: Nares patent. No nasal discharge, no septal abnormalities noted. Tympanic membranes are normal and external auditory canals are clear. Oropharynx with no redness, swelling, or masses, exudates, or evidence of obstruction, uvula midline. Mucous membranes moist. Neck: Trachea midline, no thyromegaly or masses palpated, and no cervical lymphadenopathy. Supple, full range of motion without nuchal rigidity, or vertebral point tenderness. No Meningismus. Chest/axilla: Normal chest wall appearance and motion. Nontender with no deformity. No lesions are appreciated. Cardiovascular: Regular rate and rhythm with a normal S1 and S2. No gallops, murmurs, or rubs. Normal PMI, no JVD. No pulse deficits. Respiratory: Lungs have equal breath sounds bilaterally, clear to auscultation and percussion. No rales, rhonchi or wheezes noted. No increased work of breathing, no retractions or nasal flaring. Abdomen/GI: Soft, non-tender, with normal bowel sounds. No distension or tympany. No guarding or rebound. No evidence of tenderness throughout. Back: No spinal tenderness. No costovertebral tenderness. Full range of motion. Male : Normal genitalia with no discharge or lesions. Skin: Warm, dry with normal turgor. Normal color with no rashes, no lesions, and no evidence of cellulitis. MS/ Extremity: Pulses equal, no cyanosis. Neurovascular intact. Full, normal range of motion. Neuro: Awake and alert, GCS 15, oriented to person, place, time, and situation. Cranial nerves II-XII grossly intact. Motor strength 5/5 in all extremities. Sensory grossly intact. Cerebellar exam normal. Normal gait. Psych: Awake, alert, with orientation to person, place and time. Behavior, mood, and affect are within normal limits. Vital Signs: 10:40 BP 145 / 98; Pulse 69; Resp 18; Temp 97(TE); Pulse Ox 100% on R/A; Weight 113.4 kg (R); sv Height 5 ft. 9 in. (175.26 cm) (R); Pain 0/10; 12:45 BP 143 / 105; Pulse 72; Resp 17; Pulse Ox 99% on R/A; jb1 13:50 BP 145 / 84; Pulse 66; Resp 12; Pulse Ox 100% ; sv 10:40 Body Mass Index 36.92 (113.40 kg, 175.26 cm) sv [place] Coma Score: 10:39 Eye Response: spontaneous(4). Verbal Response: oriented(5). Motor Response: obeys sv commands(6). Total: 15. MDM: 10:44 Patient medically screened. [facility] 13:47 Data reviewed: vital signs, nurses notes, lab test result(s), EKG, radiologic studies, [facility] CT scan, plain films. 01/03 10:46 Order name: Basic Metabolic Panel; Complete Time: 13:01/03 10:46 Order name: BNP; Complete Time: 13:01/03 10:46 Order name: CBC with Diff; Complete Time: :01/03 10:46 Order name: Ckmb; Complete Time: 13:01/03 10:46 Order name: CPK; Complete Time: 13:43 01/03 10:46 Order name: LFT's; Complete Time: 13:01/03 10:46 Order name: Magnesium; Complete Time: 13:43 01/03 10:46 Order name: PT-INR; Complete Time: 13:43 [facility] 01/03 10:46 Order name: Ptt, Activated; Complete Time: 13:43 [facility] 01/03 10:46 Order name: Troponin (emerg Dept Use Only); Complete Time: 13:43 01/03 10:46 Order name: Acetaminophen; Complete Time: 13:43 01/03 10:46 Order name: ETOH Level; Complete Time: 13:43 01/03 10:46 Order name: Salicylate; Complete Time: 13:01/03 10:46 Order name: Urine Drug Screen; Complete Time: 13:43 [facility] 01/03 10:46 Order name: XRAY Chest (1 view); Complete Time: 13:43 [facility] 01/03 10:46 Order name: EKG; Complete Time: 10:47 [facility] 01/03 10:46 Order name: Cardiac monitoring; Complete Time: 10:54 [facility] 01/03 10:46 Order name: EKG - Nurse/Tech; Complete Time: 10:54 [facility] 01/03 10:46 Order name: IV Saline Lock; Complete Time: 10:55 [facility] 01/03 10:46 Order name: Labs collected and sent; Complete Time: 10:55 [facility] 01/03 10:46 Order name: O2 Per Protocol; Complete Time: 10:55 [facility] 01/03 10:46 Order name: O2 Sat Monitoring; Complete Time: 10:55 [facility] 01/03 10:46 Order name: Urine Dipstick-Ancillary (obtain specimen); Complete Time: 12:45 [facility] 01/03 10:46 Order name: CT Head Brain wo Cont; Complete Time: 13:43 [facility] 01/03 10:46 Order name: Urine Culture 01/03 12:46 Order name: Urine Dipstick--Ancillary (enter results); Complete Time: 13:43 01/03 10:46 Order name: Seizure Precautions; Complete Time: 10:48 [facility] Administered Medications: 11:08 Drug: Ativan 1 mg Route: IVP; Site: right antecubital; sv 13:50 CANCELLED (Duplicate Order): Rocephin - (cefTRIAXone) 1 grams IVPB once over 30 mins; sv (mix in 50 mL NS) 14:39 Drug: Keppra 1000 mg Route: IV; Rate: per protocol; Site: right antecubital; sv 14:40 Drug: Rocephin 1 grams Route: IV; Rate: calculated rate; Site: right antecubital; sv Disposition: 01/03/18 13:49 Discharged to Home. Impression: Epilepsy and recurrent seizures, Cystitis, Abuse of non-psychoactive substances, Adverse effect of amphetamines, Cocaine abuse. - Condition is Stable. - Discharge Instructions: Stimulant Use Disorder-Cocaine, Dysuria, Polysubstance Abuse, Seizure, Adult, Urinary Tract Infection, Methamphetamine Mouth. - Prescriptions for Bactrim DS 800- 160 mg Oral Tablet - take 1 tablet by ORAL route every 12 hours for 7 days; 14 tablet. Keppra 750 mg Oral Tablet - take 1 tablet by ORAL route every 12 hours; 20 tablet. - Medication Reconciliation Form, Thank You Letter, Antibiotic Education, Prescription Opioid Use form. - Follow up: Private Physician; When: 2 - 3 days; Reason: Recheck today's complaints, Continuance of care, Re-evaluation by your physician. Follow up: Reynold Hughes MD; When: 2 - 3 days; Reason: Recheck today's complaints, Continuance of care, Re-evaluation by your physician. - Problem is new. - Symptoms have improved. Signatures: Dispatcher [employer] Jeanne Banda RN RN sv Gay, Steven, RN RN sg Anderson, Corey, MD MD cha Corrections: (The following items were deleted from the chart) 13:50 13:45 Rocephin - (cefTRIAXone) 1 grams IVPB once over 30 mins; (mix in 50 mL NS) sv ordered. james
[2018-01-03] MEDS ORDERED: CEFTRIAXONE/SWI 1gm 1 GM/10 ML SYR ONE (13:58)
[2018-01-03] MEDS ORDERED: levETIRAcetam 1,000 MG in NA CHLORIDE 0.9% 100 ML IV ONE (14:00)
[2018-01-03 15:13] VITALS: TEMP 97
[2018-01-03 15:15] VITALS: BP 145/84; O2SAT 100
== END 2018-01-03 15:09 | disposition home or self-care (01) ==
LOC: ER 10:14
DX: G40.802 Other epilepsy, not intractable, without status epilepticus (principal); N30.90 Cystitis, unspecified without hematuria; F55.8 Abuse of other non-psychoactive substances; F14.10 Cocaine abuse, uncomplicated; I10 Essential (primary) hypertension; T43.625A Adverse effect of amphetamines, initial encounter; Z88.6 Allergy status to analgesic agent
CPT/HCPCS: 36415; 70450; 71045; 80048; 80076; 80307; 80320; 80329; 81003; 82550; 82553; 83735; 83880; 84484; 85025; 85610; 85730; 87086; 87088; 93005; 96374; 96375; 99284; J0696; J1953

== ENCOUNTER 2018-01-20 17:48 | Emergency (ER) | payer SELFPAY ==
--- NOTE | 2018-01-20 18:37 | ER ---
Nurse's Notes [facility] Name: Vince Blackmon Age: 47 yrs Sex: Male : 1970 Arrival Date: 01/20/2018 Time: 17:52 Bed Waiting Private MD: Diagnosis: ED Course: 01/20 17:52 Patient arrived in ED. mr 18:24 Patient's name was called from ER lobby. No response. aj 18:28 Patient's name was called from ER lobby. No response. aj 18:36 Efra Velez MD is Attending Physician. aj 18:36 Patient's name was called from ER lobby. No response. aj Administered Medications: No medications were administered Outcome: 18:36 Patient left the ED. aj Signatures: Rebecca Heller, RN RN Drea Thompson mr
== END 2018-01-20 18:36 | disposition left against medical advice (07) ==
LOC: ER 17:48
DX: Z53.21 Procedure and treatment not carried out due to patient leaving prior to being seen by health care provider (principal)

== ENCOUNTER 2018-02-19 11:00 | Emergency (ER) | payer SELFPAY ==
--- NOTE | 2018-02-19 14:28 | ER ---
Nurse's Notes [facility] Name: Vince Blackmon Age: 47 yrs Sex: Male : 1970 Arrival Date: 02/19/2018 Time: 11:03 Bed 23 Private MD: None, None Diagnosis: Unspecified urinary incontinence Presentation: 02/19 11:18 Presenting complaint: Patient states: Unable to urinate effeciently since 0100 today. sv Pt reports having a hx of a stricture. Denies hematuria. Transition of care: patient was not received from another setting of care. Onset of symptoms was February 19, 2018 at 01:00. Care prior to arrival: None. 11:18 Method Of Arrival: Ambulatory sv 11:18 Acuity: COBY 3 sv 13:14 Risk Assessment: Do you want to hurt yourself or someone else? Patient reports no kr2 desire to harm self or others. Initial Sepsis Screen: Does the patient meet any 2 criteria? No. Patient's initial sepsis screen is negative. Does the patient have a suspected source of infection? No. Patient's initial sepsis screen is negative. Triage Assessment: 11:18 General: Appears in no apparent distress. uncomfortable, Behavior is calm, cooperative, sv appropriate for age. Pain: Complains of pain in pelvis Pain currently is 6 out of 10 on a pain scale. EENT: No signs and/or symptoms were reported regarding the EENT system. Neuro: Level of Consciousness is awake, alert, obeys commands, Oriented to person, place, time, situation, Moves all extremities. Gait is steady, Speech is normal. Respiratory: Respiratory effort is even, unlabored, Respiratory pattern is regular, symmetrical. : Reports pain with urination. Derm: Skin is normal. Historical: - Allergies: 11:19 ACETAMINOPHEN; sv - Home Meds: 11:19 Keppra Oral [Active]; unk BP med [Active]; sv - PMHx: 11:19 Hypertension; Seizures; urinary stricture; sv - PSHx: 11:19 None; sv - Immunization history:: Adult Immunizations up to date. - Social history:: Smoking status: Patient/guardian denies using tobacco. - Ebola Screening: : No symptoms or risks identified at this time. Screenin:14 Abuse screen: Denies threats or abuse. Denies injuries from another. Nutritional kr2 screening: No deficits noted. Tuberculosis screening: No symptoms or risk factors identified. Fall Risk None identified. Assessment: 13:12 General: Appears in no apparent distress. comfortable, well groomed, well developed, kr2 well nourished, Behavior is calm, cooperative, appropriate for age. Pain: Complains of pain in pelvis Pain does not radiate. Pain currently is 6 out of 10 on a pain scale. Quality of pain is described as pressure, tender, Is continuous, Alleviated by urination Aggravated by bladder filling. Neuro: Level of Consciousness is awake, alert, obeys commands, Oriented to person, place, time, situation, Appropriate for age. Cardiovascular: Capillary refill < 3 seconds in bilateral fingers Patient's skin is warm and dry. Respiratory: Airway is patent Respiratory effort is even, unlabored, Respiratory pattern is regular, symmetrical. GI: Abdomen is flat, non-distended. : Reports inability to void, history of strictures. EENT: Oral mucosa is moist. Derm: Skin is intact, is healthy with good turgor, Skin is pink, warm \T\ dry. Musculoskeletal: Circulation, motion, and sensation intact. 14:08 Reassessment: Patient appears in no apparent distress at this time. Patient and/or kr2 family updated on plan of care and expected duration. Pain level reassessed. Patient is alert, oriented x 3, equal unlabored respirations, skin warm/dry/pink. Prepared to insert thurman catheter and patient states that he does not want thurman inserted and wants to speak with the provider again. Huber Yuan NP notified. 14:38 Reassessment: Patient became angry and left facility without signing discharge kr2 paperwork. Provider notified. Vital Signs: 11:19 BP 145 / 99; Pulse 74; Resp 18; Temp 98.2; Pulse Ox 99% ; Weight 109.77 kg (M); Height sv 5 ft. 8 in. (172.72 cm); Pain 6/10; 13:15 BP 139 / 91; Pulse 60; Resp 16; Pulse Ox 100% on R/A; kr2 11:19 Body Mass Index 36.80 (109.77 kg, 172.72 cm) sv ED Course: 11:03 Patient arrived in ED. sb2 11:03 None, None is Private Physician. sb2 11:19 Triage completed. sv 11:21 Arm band placed on left wrist. Patient placed in waiting room, Patient notified of wait sv time. 12:08 Patient's name was called from ER lobby. No response. sv 13:02 [facility] pm1 13:02 Piyush Khan MD is Attending Physician. pm1 13:11 Antionette Berkowitz, RN is Primary Nurse. kr2 13:14 Patient has correct armband on for positive identification. Bed in low position. Call kr2 light in reach. Side rails up X 1. Pulse ox on. NIBP on. Door closed. Warm blanket given. Head of bed elevated. 13:30 Bladder scan completed. 312mL. kr2 14:27 Torrey Ocampo MD is Referral Physician. pm1 14:38 No provider procedures requiring assistance completed. Patient did not have IV access kr2 during this emergency room visit. Administered Medications: No medications were administered Outcome: 14:28 Discharge ordered by MD. pm1 14:39 Discharged to kr2 14:39 Discharged to home 14:39 Condition: stable 14:39 Discharge instructions given to Patient left without receiving instructions and without signing paperwork 14:40 Patient left the ED. kr2 Signatures: Jeanne Amaya RN RN sv Mayito Duran NP UTILITY SALES REPRESENTATIVE pm1 Antionette Berkowitz RN RN kr2 Jaqueline Wilson sb2 Corrections: (The following items were deleted from the chart) 11:21 11:19 BP 145 / 99; Pulse 74bpm; Resp 18bpm; Pulse Ox 99%; Temp 98.2F; Height 5 ft. 8 sv in.; Pain 6/10; sv
--- NOTE | 2018-02-19 14:29 | EDPHYS ---
Physician Documentation [facility] Name: Vince Blackmon Age: 47 yrs Sex: Male : 1970 Arrival Date: 02/19/2018 Time: 11:03 Bed 23 Private MD: None, None ED Physician Piyush Khan HPI: 02/19 14:00 This 47 yrs old Black Male presents to ER via Ambulatory with complaints of Urinary pm1 Problem. 14:00 The patient presents with urinary symptoms, dribbling of urine, incontinence of urine. pm1 Onset: The symptoms/episode began/occurred today. Modifying factors: The symptoms are alleviated by nothing, the symptoms are aggravated by nothing. Associated signs and symptoms: Pertinent negatives: abdominal pain, dysuria, fever, nausea, vomiting. Severity of symptoms: in the emergency department the symptoms are actually worse. The patient has experienced similar episodes in the past, chronically. Patient with complaints of dribbling urine. Patient with a history of urinary retention for multiple years. Patient last seen by urology in October. Patient did not follow up as directed by Dr. Ocampo to [facility] for urethroplasty. Historical: - Allergies: 11:19 ACETAMINOPHEN; sv - Home Meds: 11:19 Keppra Oral [Active]; unk BP med [Active]; sv - PMHx: 11:19 Hypertension; Seizures; urinary stricture; sv - PSHx: 11:19 None; sv - Immunization history:: Adult Immunizations up to date. - Social history:: Smoking status: Patient/guardian denies using tobacco. - Ebola Screening: : No symptoms or risks identified at this time. ROS: 14:00 Constitutional: Negative for fever, chills, and weight loss, Eyes: Negative for injury, pm1 pain, redness, and discharge, ENT: Negative for injury, pain, and discharge, Neck: Negative for injury, pain, and swelling, Cardiovascular: Negative for chest pain, palpitations, and edema, Respiratory: Negative for shortness of breath, cough, wheezing, and pleuritic chest pain, Abdomen/GI: Negative for abdominal pain, nausea, vomiting, diarrhea, and constipation, Back: Negative for injury and pain. 14:00 MS/Extremity: Negative for injury and deformity, Skin: Negative for injury, rash, and discoloration, Neuro: Negative for headache, weakness, numbness, tingling, and seizure. 14:00 : Positive for difficulty urinating, Negative for burning with urination. Exam: 14:00 Constitutional: This is a well developed, well nourished patient who is awake, alert, pm1 and in no acute distress. Head/Face: Normocephalic, atraumatic. Eyes: Pupils equal round and reactive to light, extra-ocular motions intact. Lids and lashes normal. Conjunctiva and sclera are non-icteric and not injected. Cornea within normal limits. Periorbital areas with no swelling, redness, or edema. ENT: Nares patent. No nasal discharge, no septal abnormalities noted. Tympanic membranes are normal and external auditory canals are clear. Oropharynx with no redness, swelling, or masses, exudates, or evidence of obstruction, uvula midline. Mucous membranes moist. Neck: Trachea midline, no thyromegaly or masses palpated, and no cervical lymphadenopathy. Supple, full range of motion without nuchal rigidity, or vertebral point tenderness. No Meningismus. Chest/axilla: Normal chest wall appearance and motion. Nontender with no deformity. No lesions are appreciated. Cardiovascular: Regular rate and rhythm with a normal S1 and S2. No gallops, murmurs, or rubs. Normal PMI, no JVD. No pulse deficits. Respiratory: Lungs have equal breath sounds bilaterally, clear to auscultation and percussion. No rales, rhonchi or wheezes noted. No increased work of breathing, no retractions or nasal flaring. 14:00 Back: No spinal tenderness. No costovertebral tenderness. Full range of motion. Skin: Warm, dry with normal turgor. Normal color with no rashes, no lesions, and no evidence of cellulitis. MS/ Extremity: Pulses equal, no cyanosis. Neurovascular intact. Full, normal range of motion. 14:00 Abdomen/GI: Inspection: abdomen appears normal, Bowel sounds: normal, Palpation: abdomen is soft and non-tender, in the suprapubic area, right upper quadrant, left upper quadrant, right lower quadrant and left lower quadrant, mass, is not appreciated, rebound tenderness, is not appreciated. 14:00 Neuro: Orientation: is normal, Motor: is normal, Sensation: is normal, no obvious gross deficits. Vital Signs: 11:19 BP 145 / 99; Pulse 74; Resp 18; Temp 98.2; Pulse Ox 99% ; Weight 109.77 kg (M); Height sv 5 ft. 8 in. (172.72 cm); Pain 6/10; 13:15 BP 139 / 91; Pulse 60; Resp 16; Pulse Ox 100% on R/A; kr2 11:19 Body Mass Index 36.80 (109.77 kg, 172.72 cm) sv MDM: 13:03 Patient medically screened. pm1 14:00 ED course: Discussed the case with Attending physician. Patient without abdominal pm1 tenderness and the ability to urinate and empty his bladder. Patient discharged to follow up with Dr. Ocampo or go to [facility] as planned in October 2017. Patient refused thurman catheter. 14:25 Data reviewed: vital signs. Data interpreted: Pulse oximetry: on room air is 100 %. pm1 Interpretation: normal. Counseling: I had a detailed discussion with the patient and/or guardian regarding: the historical points, exam findings, and any diagnostic results supporting the discharge/admit diagnosis, the need for outpatient follow up, a urologist, to return to the emergency department if symptoms worsen or persist or if there are any questions or concerns that arise at home. 02/19 13:19 Order name: Bladder Scanner; Complete Time: 13:49 pm1 Administered Medications: No medications were administered Disposition: 19:05 Co-signature as Attending Physician, Piyush Khan MD. Disposition: 02/19/18 14:28 Discharged to Home. Impression: Unspecified urinary incontinence. - Condition is Stable. - Discharge Instructions: Urinary Incontinence. - Medication Reconciliation Form, Thank You Letter form. - Follow up: Emergency Department; When: As needed; Reason: Worsening of condition. Follow up: Torrey Ocampo MD; When: 2 - 3 days; Reason: Recheck today's complaints, Continuance of care, Re-evaluation by your physician. - Problem is new. - Symptoms are unchanged. Signatures: Jeanne Amaya, ALVIN RN Mayito Duran, SAF[employer] VAULT INSTALLER S[employer] INSTALLER pm1 Piyush Khan MD MD Antionette Berkowitz RN RN kr2 Corrections: (The following items were deleted from the chart) 14:40 14:28 02/19/2018 14:28 Discharged to Home. Impression: Unspecified urinary kr2 incontinence. Condition is Stable. Forms are Medication Reconciliation Form, Thank You Letter, Antibiotic Education, Prescription Opioid Use. Follow up: Emergency Department; When: As needed; Reason: Worsening of condition. Follow up: Torrey Ocampo; When: 2 - 3 days; Reason: Recheck today's complaints, Continuance of care, Re-evaluation by your physician. Problem is new. Symptoms are unchanged. pm1
[2018-02-19 15:29] VITALS: TEMP 98.2
[2018-02-19 15:30] VITALS: BP 139/91; O2SAT 100
== END 2018-02-19 14:40 | disposition home or self-care (01) ==
LOC: ER 11:00
DX: R32 Unspecified urinary incontinence (principal); I10 Essential (primary) hypertension; G40.909 Epilepsy, unspecified, not intractable, without status epilepticus; Z88.6 Allergy status to analgesic agent
CPT/HCPCS: 99283

== ENCOUNTER 2018-12-07 03:33 | Emergency (ER) | payer SELFPAY ==
--- OUTSIDE RECORDS SUMMARY | 2018-12-07 03:35 | XMS REPORT ---
:1970 [facility] Address [address] [place] [address] Dr. England [address] [place] [id number] Care Team Providers Name Role Phone Unavailable Unavailable Unavailable Problems This patient has no known problems. Allergies, Adverse Reactions, Alerts This patient has no known allergies or adverse reactions. Medications This patient has no known medications.
[2018-12-07 04:04] LABS: Absolute Monocytes 0.9 K/uL (0.1-1.3); Absolute Neutrophil 6.2 K/uL (1.8-8.0); Basophils % 0.5 % (0-1.3); Eosinophils % 1.7 % (0-4.4); Hematocrit 39.9 % (39.6-49.0); Lymphocytes % 21.5 % (15.3-44.8); MPV 8.8 fL (7.6-11.3); Monocytes % 9.8 % (3.3-12.3); RBC Red Blood Cell Count 4.48 M/uL (4.33-5.43)
[2018-12-07 04:13] LABS: Protime INR 1.05
[2018-12-07 04:25] LABS: ALT/SGPT 32 U/L (12-78); AST/SGOT 22 U/L (15-37); Albumin 4.1 g/dL (3.4-5.0); Alkaline Phosphatase 113 U/L (45-117); BUN Blood Urea Nitrogen 18 mg/dL (7-18); Bicarbonate 28 mmol/L (21-32); Bilirubin Direct 0.1 mg/dL (0-0.2); Bilirubin Total 0.5 mg/dL (0.2-1.0); Glucose Level 93 mg/dL (74-106); Magnesium 2.2 mg/dL (1.8-2.4); NT PRO-BNP 192 pg/mL (<125); Potassium 3.7 mmol/L (3.5-5.1); Sodium Level 143 mmol/L (136-145); Troponin (Emerg Dept Use Only) < 0.02 ng/mL (0.0-0.045)
--- NOTE | 2018-12-07 04:40 | EDPHYS ---
Physician Documentation [facility] Name: Vince Blackmon Age: 48 yrs Sex: Male : 1970 Arrival Date: 12/07/2018 Time: 03:34 Bed 16 Private MD: ED Physician Buster Padilla HPI: 12/07 06:04 This 48 yrs old Black Male presents to ER via EMS with complaints of Chest Pain. tw4 06:04 The patient or guardian reports chest pain that is located primarily in the anterior tw4 chest wall. Onset: yesterday. The pain does not radiate. Associated signs and symptoms: The patient has no apparent associated signs or symptoms. The chest pain is described as dull. Duration: The patient or guardian reports a single episode, that is now resolved. Modifying factors: The symptoms are alleviated by nothing. the symptoms are aggravated by nothing. Severity of pain: At its worst the pain was moderate in the emergency department the pain is unchanged. Historical: - Allergies: 03:37 ACETAMINOPHEN; tl2 03:59 Toradol; cc3 - Home Meds: 03:37 Keppra Oral [Active]; tl2 - PMHx: 03:37 Hypertension; Seizures; urinary stricture; tl2 - Immunization history:: Adult Immunizations up to date. - Social history:: Smoking status: Patient uses tobacco products. - Ebola Screening: : No symptoms or risks identified at this time. ROS: 06:04 Constitutional: Negative for fever, chills, and weight loss, Eyes: Negative for injury, tw4 pain, redness, and discharge, Respiratory: Negative for shortness of breath, cough, wheezing, and pleuritic chest pain. 06:04 Abdomen/GI: Negative for abdominal pain, nausea, vomiting, diarrhea, and constipation, Back: Negative for injury and pain, MS/Extremity: Negative for injury and deformity, Skin: Negative for injury, rash, and discoloration, Neuro: Negative for headache, weakness, numbness, tingling, and seizure. 06:04 Cardiovascular: Positive for chest pain, Negative for edema, orthopnea, palpitations. Exam: 06:04 Constitutional: This is a well developed, well nourished patient who is awake, alert, tw4 and in no acute distress. Head/Face: Normocephalic, atraumatic. Cardiovascular: Regular rate and rhythm with a normal S1 and S2. No gallops, murmurs, or rubs. Normal PMI, no JVD. No pulse deficits. Respiratory: Lungs have equal breath sounds bilaterally, clear to auscultation and percussion. No rales, rhonchi or wheezes noted. No increased work of breathing, no retractions or nasal flaring. Abdomen/GI: Soft, non-tender, with normal bowel sounds. No distension or tympany. No guarding or rebound. No evidence of tenderness throughout. Back: No spinal tenderness. No costovertebral tenderness. Full range of motion. MS/ Extremity: Pulses equal, no cyanosis. Neurovascular intact. Full, normal range of motion. Neuro: Awake and alert, GCS 15, oriented to person, place, time, and situation. Cranial nerves II-XII grossly intact. Motor strength 5/5 in all extremities. Sensory grossly intact. Cerebellar exam normal. Normal gait. 06:04 Chest/axilla: Inspection: normal, Palpation: tenderness, that is moderate, that totally reproduces the patient's complaints. Vital Signs: 03:37 BP 129 / 95; Pulse 100; Resp 18; Temp 98.2(O); Pulse Ox 99% on R/A; Weight 113.4 kg; tl2 Height 6 ft. 0 in. (182.88 cm); Pain 8/10; 04:25 BP 125 / 87; Pulse 101; Resp 18 S; Pulse Ox 99% on R/A; cc3 03:37 Body Mass Index 33.91 (113.40 kg, 182.88 cm) tl2 MDM: 03:41 Patient medically screened. tw4 06:04 Differential diagnosis: abnormal EKG, acute myocardial infarction, acute pericarditis, tw4 cholecystitis, Cholelithiasis costochondritis, herpes zoster, hiatal hernia, pulmonary embolus, stable angina, thoracic aortic disection. Data reviewed: vital signs, nurses notes. Data interpreted: hospice community liaison: not applicable for this patient encounter. Test interpretation: by ED physician or midlevel provider: ECG. Counseling: I had a detailed discussion with the patient and/or guardian regarding: the historical points, exam findings, and any diagnostic results supporting the discharge/admit diagnosis. Refusal of service: The patient/guardian displays adequate decision making capability and despite a detailed discussion of alternatives, benefits, risks, and consequences refuses: Admission to the hospital for further work-up and treatment, CT Scan, all lab tests. 12/07 03:38 Order name: Basic Metabolic Panel tw4 12/07 03:38 Order name: CBC with Diff; Complete Time: 04:33 tw4 12/07 04:33 Interpretation: Within normal limits. 12/07 03:38 Order name: LFT's; Complete Time: 04:33 4 12/07 04:33 Interpretation: Normal except: GLOB 3.9. 12/07 03:38 Order name: Magnesium; Complete Time: 04:33 4 12/07 03:38 Order name: NT PRO-BNP; Complete Time: 04:33 tw4 12/07 04:33 Interpretation: Normal except: NT PRO-BNP 192. 12/07 03:38 Order name: PT-INR; Complete Time: 04:33 tw4 12/07 04:34 Interpretation: Normal except: PT 12.4. 12/07 03:38 Order name: Troponin (emerg Dept Use Only) 12/07 03:38 Order name: XRAY Chest (1 view) 12/07 03:38 Order name: EKG; Complete Time: 03:38 4 12/07 03:38 Order name: Cardiac monitoring; Complete Time: 03:54 tw4 12/07 03:38 Order name: EKG - Nurse/Tech; Complete Time: 03:55 tw4 12/07 03:38 Order name: IV Saline Lock; Complete Time: 03:55 tw4 12/07 03:38 Order name: Labs collected and sent; Complete Time: 03:58 tw4 12/07 03:38 Order name: O2 Per Protocol; Complete Time: 03:55 tw4 12/07 03:38 Order name: O2 Sat Monitoring; Complete Time: 03:55 tw4 Administered Medications: No medications were administered Disposition: 12/07/18 04:40 Patient has left against medical advice. Impression: atypical chest pain. - Patients states they are going to Home. - Condition is Stable. Follow up: Private Physician; When: Upon discharge from the Emergency Department; Reason: If symptoms return, Recheck today's complaints, Continuance of care. - Problem is an ongoing problem. - Symptoms are unchanged. Signatures: Dispatcher [employer] EDRain Jauregui, RN RN tl2 Buster Padilla MD MD tw4 Tasha Vance cc3 Corrections: (The following items were deleted from the chart) 04:41 04:40 12/07/2018 04:40 Patients has left against medical advice. Impression: atypical cc3 chest pain. Patient states they are going to Home. Condition is Stable. Follow up: Private Physician; When: Upon discharge from the Emergency Department; Reason: If symptoms return, Recheck today's complaints, Continuance of care. Problem is an ongoing problem. Symptoms are unchanged. tw4
--- NOTE | 2018-12-07 04:40 | ER ---
Nurse's Notes [facility] Name: Vince Blackmon Age: 48 yrs Sex: Male : 1970 Arrival Date: 12/07/2018 Time: 03:34 Bed 16 Private MD: Diagnosis: atypical chest pain Presentation: 12/07 03:34 Presenting complaint: Patient states: left sided chest pain that radiates to left tl2 shoulder. constant for 2 days but worse today. Transition of care: patient was not received from another setting of care. Onset of symptoms was December 05, 2018. Risk Assessment: Do you want to hurt yourself or someone else? Patient reports no desire to harm self or others. Initial Sepsis Screen: Does the patient meet any 2 criteria? No. Patient's initial sepsis screen is negative. Does the patient have a suspected source of infection? No. Patient's initial sepsis screen is negative. Care prior to arrival: None. 03:34 Method Of Arrival: EMS: [facility] tl2 03:34 Acuity: COBY 3 tl2 Triage Assessment: 03:37 General: Appears in no apparent distress. uncomfortable, Behavior is calm, cooperative, tl2 appropriate for age. Pain: Complains of pain in anterior aspect of left upper chest and left breast Pain radiates to anterior aspect of left shoulder Pain currently is 8 out of 10 on a pain scale. Pain began 2-3 days ago. Is continuous. Neuro: Level of Consciousness is awake, alert, obeys commands, Oriented to person, place, time, situation. Historical: - Allergies: 03:37 ACETAMINOPHEN; tl2 03:59 Toradol; cc3 - Home Meds: 03:37 Keppra Oral [Active]; tl2 - PMHx: 03:37 Hypertension; Seizures; urinary stricture; tl2 - Immunization history:: Adult Immunizations up to date. - Social history:: Smoking status: Patient uses tobacco products. - Ebola Screening: : No symptoms or risks identified at this time. Screenin:50 Abuse screen: Denies threats or abuse. Denies injuries from another. Nutritional cc3 screening: No deficits noted. Tuberculosis screening: No symptoms or risk factors identified. Fall Risk Ambulatory Aid- None/Bed Rest/Nurse Assist (0 pts). Gait- Normal/Bed Rest/Wheelchair (0 pts) Mental Status- Oriented to own ability (0 pts). Assessment: 03:50 General: Appears in no apparent distress. comfortable, Behavior is calm, cooperative, cc3 appropriate for age. Pain: Complains of pain in left arm and anterior aspect of left upper chest Pain radiates to left arm. Neuro: Level of Consciousness is awake, alert, obeys commands, Oriented to person, place, time, situation, Appropriate for age. Cardiovascular: Patient's skin is warm and dry. Respiratory: Airway is patent Respiratory effort is even, unlabored, Respiratory pattern is regular, symmetrical. GI: Abdomen is round non-distended. : No signs and/or symptoms were reported regarding the genitourinary system. EENT: No signs and/or symptoms were reported regarding the EENT system. Derm: No signs and/or symptoms reported regarding the dermatologic system. Musculoskeletal: Circulation, motion, and sensation intact. Range of motion: intact in all extremities. 04:28 Reassessment: Patient appears in no apparent distress at this time. Patient and/or cc3 family updated on plan of care and expected duration. Pain level reassessed. Patient is alert, oriented x 3, equal unlabored respirations, skin warm/dry/pink. Patient asking for pain medication Dr. Padilla said to give Motrin but patient said he cannot take Motrin nor Advil. Asked if what he's taking for pain but he cannot tell. Dr. Padilla said he cannot just give narcotics to the patient. Asked Dr. Padilla to come and talk to the patient but he said he'll not come again to the patient's room. 04:35 Reassessment: Patient now wanting to remove his IV cannula then leave, informed Dr. aarti Padilla and charge nurse Елена. Dr. Padilla said he'll not come to the patient anymore and if the patient wants to leave let him sign the AMA form. Patient opted to sign the AMA form though risks and consequences explained. IV cannula removed and patient left ER vitally stable and ambulatory. Charge nurse Елена aware. Vital Signs: 03:37 BP 129 / 95; Pulse 100; Resp 18; Temp 98.2(O); Pulse Ox 99% on R/A; Weight 113.4 kg; tl2 Height 6 ft. 0 in. (182.88 cm); Pain 8/10; 04:25 BP 125 / 87; Pulse 101; Resp 18 S; Pulse Ox 99% on R/A; cc3 03:37 Body Mass Index 33.91 (113.40 kg, 182.88 cm) tl2 ED Course: 03:30 EKG completed in triage. Results shown to MD. franci 03:34 Patient arrived in ED. tl2 03:35 Triage completed. tl2 03:37 Arm band placed on right wrist. tl2 03:40 Initial lab(s) drawn, by me, sent to lab. EKG done, by ED staff, reviewed by Buster Padilla MD. Inserted saline lock: 20 gauge in left forearm, using aseptic technique. Blood collected. 03:41 Buster Padilla MD is Attending Physician. tw4 03:50 Tasha Vance is Primary Nurse. cc3 03:50 Patient has correct armband on for positive identification. Placed in gown. Bed in low cc3 position. Call light in reach. Side rails up X 1. fisher gill net on. Pulse ox on. NIBP on. 03:50 Patient maintains SpO2 saturation greater than 95% on room air. cc3 03:57 X-ray completed. Portable x-ray completed in exam room. Patient tolerated procedure kw well. 03:58 XRAY Chest (1 view) In Process Unspecified. EDMS 04:35 No provider procedures requiring assistance completed. IV discontinued, intact, cc3 bleeding controlled, No redness/swelling at site. Pressure dressing applied. Administered Medications: No medications were administered Outcome: 04:35 AMA AMA form signed cc3 04:35 Condition: stable 04:35 Discharge instructions given to patient, Instructed on discharge instructions, follow up and referral plans. Demonstrated understanding of instructions. 04:41 Patient left the ED. cc3 Signatures: Dispatcher [employer] EDMS Sheila Madden RN RN Licha Woody Taylor RN RN 2 Buster Padilla MD MD tw4 Tasha Vance cc3 Corrections: (The following items were deleted from the chart) 05:16 04:28 Reassessment: Patient asking for pain medication Dr. Padilla said to give Motrin cc3 but patient said he cannot take Motrin nor Advil. Asked if what he's taking for pain but he cannot tell. Dr. Padilla said he cannot just give narcotics to the patient. cc3 05:21 04:28 Reassessment: Patient asking for pain medication Dr. Padilla said to give Motrin cc3 but patient said he cannot take Motrin nor Advil. Asked if what he's taking for pain but he cannot tell. Dr. Padilla said he cannot just give narcotics to the patient. Asked Dr. Padilla to come and talk to the patient but he said he'll not come again to the patient's room. cc3
--- NOTE | 2018-12-07 08:22 | RAD REPORT ---
EXAM DESCRIPTION: RAD - Chest Single View - 12/07/2018 3:58 am CLINICAL HISTORY: CHEST PAIN Chest pain. COMPARISON: Chest Single View dated 01/03/2018; CHEST SINGLE VIEW dated 10/29/2013; CHEST SINGLE VIEW dated 06/25/2012; CHEST SINGLE VIEW dated 07/02/2010 FINDINGS: Portable technique limits examination quality. The lungs are grossly clear. The heart is normal in size. No displaced fractures. IMPRESSION: No acute intrathoracic process suspected.
[2018-12-07 13:02] VITALS: BP 129/95; TEMP 98.2; O2SAT 99
== END 2018-12-07 04:41 | disposition left against medical advice (07) ==
LOC: ER 03:33
DX: R07.9 Chest pain, unspecified (principal); I10 Essential (primary) hypertension; Z72.0 Tobacco use; Z53.29 Procedure and treatment not carried out because of patient's decision for other reasons
CPT/HCPCS: 36415; 71045; 80048; 80076; 83735; 83880; 84484; 85025; 85610; 93005; 99285

== ENCOUNTER 2019-01-12 03:03 | Emergency (ER) | payer SELFPAY ==
--- OUTSIDE RECORDS SUMMARY | 2019-01-12 03:05 | XMS REPORT ---
:1970 [facility] Address [address] [place] [address] Dr. England [address] [place] [id number] Care Team Providers Name Role Phone Unavailable Unavailable Unavailable Problems This patient has no known problems. Allergies, Adverse Reactions, Alerts This patient has no known allergies or adverse reactions. Medications This patient has no known medications.
--- NOTE | 2019-01-12 04:29 | EDPHYS ---
Physician Documentation [facility] Name: Vince Blackmon Age: 48 yrs Sex: Male : 1970 Arrival Date: 01/12/2019 Time: 03:08 Bed 18 Private MD: ED Physician Piyush Khan HPI: 01/12 06:10 This 48 yrs old Black Male presents to ER via EMS with complaints of Chest Pain. gs 06:10 The patient or guardian reports chest pain that is located primarily in the anterior gs chest wall. Onset: 1 week(s) ago. The pain does not radiate. Associated signs and symptoms: Pertinent negatives: diaphoresis, shortness of breath. The chest pain is described as dull. Duration: The patient or guardian reports multiple episodes, that are intermittent, that wax and wane, with no pattern. Modifying factors: the symptoms are aggravated by movement, twisting torso. Severity of pain: At its worst the pain was moderate in the emergency department the pain is unchanged. The patient has experienced similar episodes in the past, multiple times. Historical: - Allergies: 03:11 ACETAMINOPHEN; bb 03:11 Toradol; bb 03:11 Ibuprofen; bb - Home Meds: 03:11 Dilantin Oral [Active]; bb - PMHx: 03:11 Hypertension; Seizures; urinary stricture; bb - PSHx: 03:11 None; bb - Immunization history:: Adult Immunizations up to date. - Social history:: Smoking status: Patient uses tobacco products, denies chronic smoking, but will smoke occasionally, Patient uses alcohol, occasionally. Patient/guardian denies using street drugs. - Ebola Screening: : No symptoms or risks identified at this time. ROS: 06:10 All other systems are negative. gs Exam: 06:10 Head/Face: Normocephalic, atraumatic. Eyes: Pupils equal round and reactive to light, gs extra-ocular motions intact. Lids and lashes normal. Conjunctiva and sclera are non-icteric and not injected. Cornea within normal limits. Periorbital areas with no swelling, redness, or edema. ENT: Nares patent. No nasal discharge, no septal abnormalities noted. Tympanic membranes are normal and external auditory canals are clear. Oropharynx with no redness, swelling, or masses, exudates, or evidence of obstruction, uvula midline. Mucous membranes moist. Neck: Trachea midline, no thyromegaly or masses palpated, and no cervical lymphadenopathy. Supple, full range of motion without nuchal rigidity, or vertebral point tenderness. No Meningismus. Chest/axilla: Normal chest wall appearance and motion. Nontender with no deformity. No lesions are appreciated. Cardiovascular: Regular rate and rhythm with a normal S1 and S2. No gallops, murmurs, or rubs. Normal PMI, no JVD. No pulse deficits. Respiratory: Lungs have equal breath sounds bilaterally, clear to auscultation and percussion. No rales, rhonchi or wheezes noted. No increased work of breathing, no retractions or nasal flaring. Abdomen/GI: Soft, non-tender, with normal bowel sounds. No distension or tympany. No guarding or rebound. No evidence of tenderness throughout. Back: No spinal tenderness. No costovertebral tenderness. Full range of motion. Skin: Warm, dry with normal turgor. Normal color with no rashes, no lesions, and no evidence of cellulitis. MS/ Extremity: Pulses equal, no cyanosis. Neurovascular intact. Full, normal range of motion. Neuro: Awake and alert, GCS 15, oriented to person, place, time, and situation. Cranial nerves II-XII grossly intact. Motor strength 5/5 in all extremities. Sensory grossly intact. Cerebellar exam normal. Normal gait. 06:10 Constitutional: The patient appears alert, awake. 06:10 ECG was reviewed by the Attending Physician. Vital Signs: 03:11 BP 163 / 95; Pulse 96; Resp 18 S; Temp 98.4(O); Pulse Ox 97% on R/A; Weight 117.93 kg bb (R); Height 5 ft. 9 in. (175.26 cm) (R); Pain 7/10; 03:30 BP 152 / 78; Pulse 92; Resp 18; Pulse Ox 99% on R/A; lp1 04:00 BP 155 / 95; Pulse 87; Resp 20; Pulse Ox 100% on R/A; lp1 04:30 BP 161 / 91; Pulse 83; Resp 14; Pulse Ox 99% on R/A; Pain 1/10; lp1 03:11 Body Mass Index 38.39 (117.93 kg, 175.26 cm) franci MDM: 03:18 Patient medically screened. gs 06:10 Differential diagnosis: abnormal EKG, acute myocardial infarction, coronary artery gs disease chest wall pain. HEART Score: History: Slightly Suspicious (0), ECG: Non specific repolarization disturbance / LBTB / PM (1), Age: > 45 and < 65 years (1), Risk Factors: 1 or 2 risk factors (1), [Hypertension] Troponin: < or = 1 x Normal Limit (0). Data reviewed: vital signs, nurses notes. Counseling: I had a detailed discussion with the patient and/or guardian regarding: the historical points, exam findings, and any diagnostic results supporting the discharge/admit diagnosis, the need for outpatient follow up. Response to treatment: the patient's symptoms have resolved after treatment, the patient's pain is gone, the patient's condition has returned to base line. 01/12 03:21 Order name: Troponin (emerg Dept Use Only); Complete Time: 04:14 01/12 03:21 Order name: EKG - Nurse/Tech; Complete Time: 03:45 EC:10 Rate is 98 beats/min. Rhythm is regular. CT interval is normal. QRS interval is normal. gs QT interval is normal. T waves are Inverted. Clinical impression: NSR w/ Non-specific ST/T Changes and Abnormal EKG without significant change. No change from previous ECG on December 07, 2018. Interpreted by me. Administered Medications: 03:50 Drug: Dilaudid 0.5 mg Route: IVP; Site: left antecubital; lp1 04:30 Follow up: Response: Pain is decreased lp1 Disposition: 01/12/19 04:28 Discharged to Home. Impression: Chest pain, unspecified, Essential (primary) hypertension. - Condition is Stable. - Discharge Instructions: Nonspecific Chest Pain, Managing Your Hypertension. - Work release form, Medication Reconciliation Form, Thank You Letter, Antibiotic Education, Prescription Opioid Use form. - Follow up: Juan M Hernandez MD; When: 2 - 3 days; Reason: Re-evaluation by your physician. Signatures: Dispatcher [employer] EDMS Sheila Madden RN RN bb Fina Oneil RN RN 1 Piyush Khan MD MD Corrections: (The following items were deleted from the chart) 04:48 04:28 01/12/2019 04:28 Discharged to Home. Impression: Chest pain, unspecified; lp1 Essential (primary) hypertension. Condition is Stable. Forms are Medication Reconciliation Form, Thank You Letter, Antibiotic Education, Prescription Opioid Use. Follow up: Juan M Hernandez; When: 2 - 3 days; Reason: Re-evaluation by your physician. gs
--- NOTE | 2019-01-12 04:29 | ER ---
Nurse's Notes [facility] Name: Vince Blackmon Age: 48 yrs Sex: Male : 1970 Arrival Date: 01/12/2019 Time: 03:08 Bed 18 Private MD: Diagnosis: Chest pain, unspecified;Essential (primary) hypertension Presentation: 01/12 03:08 Presenting complaint: EMS states: they were toned out for report of pt having chest bb pain since yesterday worsening tonight. Transition of care: patient was not received from another setting of care. Onset of symptoms was January 11, 2019. Risk Assessment: Do you want to hurt yourself or someone else? Patient reports no desire to harm self or others. Initial Sepsis Screen: Does the patient meet any 2 criteria? No. Patient's initial sepsis screen is negative. Does the patient have a suspected source of infection? No. Patient's initial sepsis screen is negative. Care prior to arrival: None. 03:08 Method Of Arrival: EMS: [facility] bb 03:08 Acuity: COBY 3 bb Historical: - Allergies: 03:11 ACETAMINOPHEN; bb 03:11 Toradol; bb 03:11 Ibuprofen; bb - Home Meds: 03:11 Dilantin Oral [Active]; bb - PMHx: 03:11 Hypertension; Seizures; urinary stricture; bb - PSHx: 03:11 None; bb - Immunization history:: Adult Immunizations up to date. - Social history:: Smoking status: Patient uses tobacco products, denies chronic smoking, but will smoke occasionally, Patient uses alcohol, occasionally. Patient/guardian denies using street drugs. - Ebola Screening: : No symptoms or risks identified at this time. Screenin:44 Abuse screen: Denies threats or abuse. Denies injuries from another. Nutritional lp1 screening: No deficits noted. Tuberculosis screening: No symptoms or risk factors identified. Fall Risk None identified. Assessment: 03:42 General: Appears uncomfortable, Behavior is appropriate for age. Pain: Complains of lp1 pain in chest Pain does not radiate. Pain currently is 8 out of 10 on a pain scale. Quality of pain is described as sharp, Pain began 2-3 days ago. Neuro: Level of Consciousness is awake, alert, obeys commands, Oriented to person, place, time, situation. Cardiovascular: Patient's skin is warm and dry. Respiratory: Respiratory effort is even, unlabored, Breath sounds are clear bilaterally. GI: No signs and/or symptoms were reported involving the gastrointestinal system. : No signs and/or symptoms were reported regarding the genitourinary system. EENT: No signs and/or symptoms were reported regarding the EENT system. Derm: Skin is intact, Skin is dry, Skin is normal. Musculoskeletal: No deficits noted. 04:47 Reassessment: Patient appears in no apparent distress at this time. Patient and/or lp1 family updated on plan of care and expected duration. Pain level reassessed. Patient is alert, oriented x 3, equal unlabored respirations, skin warm/dry/pink. Patient denies pain at this time. Patient states feeling better. Patient states symptoms have improved. Vital Signs: 03:11 BP 163 / 95; Pulse 96; Resp 18 S; Temp 98.4(O); Pulse Ox 97% on R/A; Weight 117.93 kg bb (R); Height 5 ft. 9 in. (175.26 cm) (R); Pain 7/10; 03:30 BP 152 / 78; Pulse 92; Resp 18; Pulse Ox 99% on R/A; lp1 04:00 BP 155 / 95; Pulse 87; Resp 20; Pulse Ox 100% on R/A; lp1 04:30 BP 161 / 91; Pulse 83; Resp 14; Pulse Ox 99% on R/A; Pain 1/10; lp1 03:11 Body Mass Index 38.39 (117.93 kg, 175.26 cm) bb ED Course: 03:08 Patient arrived in ED. bb 03:09 Triage completed. bb 03:11 Arm band placed on Patient placed in an exam room, on a stretcher, on monitoring and evaluation advisor, bb on pulse oximetry. EKG completed in triage. Results shown to MD. 03:13 Torrey Ocampo MD is Private Physician. ds1 03:14 Piyush Khan MD is Attending Physician. gs 03:21 Fina Oneil, ALVIN is Primary Nurse. lp1 03:44 Patient has correct armband on for positive identification. Placed in gown. Bed in low lp1 position. school lunch monitor on. Pulse ox on. NIBP on. 03:44 Patient maintains SpO2 saturation greater than 95% on room air. lp1 03:47 Inserted saline lock: 20 gauge in left antecubital area, using aseptic technique. Blood ar5 collected. 04:28 Juan M Hernandez MD is Referral Physician. 04:48 No provider procedures requiring assistance completed. IV discontinued, No lp1 redness/swelling at site. Pressure dressing applied. Administered Medications: 03:50 Drug: Dilaudid 0.5 mg Route: IVP; Site: left antecubital; lp1 04:30 Follow up: Response: Pain is decreased lp1 Outcome: 04:28 Discharge ordered by . 04:48 Discharged to home ambulatory, with friend. lp1 04:48 Condition: good 04:48 Discharge instructions given to patient, Instructed on discharge instructions, follow up and referral plans. Demonstrated understanding of instructions, follow-up care. 04:48 Patient left the ED. lp1 Signatures: Natalie Basurto ds1 Sheila Madden RN RN bb Fina Oneil RN RN lp1 Piyush Khan MD MD gs Robles, Autumn ar5
[2019-01-12 04:53] VITALS: TEMP 98.4
[2019-01-12 04:57] VITALS: BP 161/91; O2SAT 99
--- NOTE | 2019-01-12 08:34 | EKG ---
Test Date: 2019-01-12 Test Time: 03:07:07 Regulatory Affairs Specialist: GAEL MEASUREMENT RESULTS: Intervals: Rate: 98 RI: 148 QRSD: 78 QT: 348 QTc: 444 [place]: P: 58 RI: 148 QRS: 13 T: -36 INTERPRETIVE STATEMENTS: Normal sinus rhythm Minimal voltage criteria for LVH, may be normal variant T wave abnormality, consider inferior ischemia Abnormal ECG Compared to ECG 12/07/2018 03:33:10 No significant changes Electronically Signed On 01-12-19 08:33:40 CDT by Mohan Rodriguez
== END 2019-01-12 04:48 | disposition home or self-care (01) ==
LOC: ER 03:03
DX: R07.9 Chest pain, unspecified (principal); I10 Essential (primary) hypertension; Z88.6 Allergy status to analgesic agent; Z72.0 Tobacco use
CPT/HCPCS: 36415; 84484; 93005; 96374; 99285

== ENCOUNTER 2019-03-01 17:19 | Emergency (ER) | payer SELFPAY ==
--- OUTSIDE RECORDS SUMMARY | 2019-03-01 17:23 | XMS REPORT ---
:1970 [facility] Address [address] [place] [address] Dr. England [address] [place] [id number] Care Team Providers Name Role Phone Unavailable Unavailable Unavailable Problems This patient has no known problems. Allergies, Adverse Reactions, Alerts This patient has no known allergies or adverse reactions. Medications This patient has no known medications.
[2019-03-01] MEDS ORDERED: NA CHLORIDE 0.9% 100 ML IV ONE (18:51)
[2019-03-01] MEDS ORDERED: NA CHLORIDE 0.9% 1,000 ML ONE (18:51)
[2019-03-01 19:19] LABS: Potassium 3.9 mmol/L (3.5-5.1)
--- NOTE | 2019-03-01 20:14 | ER ---
Nurse's Notes [facility] Name: Vince Blackmon Age: 48 yrs Sex: Male : 1970 Arrival Date: 03/01/2019 Time: 17:23 Bed 27 Private MD: Diagnosis: Epilepsy and recurrent seizures Presentation: 03/01 17:33 Presenting complaint: Patient states: Reports seizure today while sleeping. Patient has aj not had seizure medication for 1 year. Care prior to arrival: None. 17:33 Acuity: COBY 3 aj 19:15 Transition of care: patient was not received from another setting of care. Onset of mg2 symptoms was March 01, 2019. Risk Assessment: Do you want to hurt yourself or someone else? Patient reports no desire to harm self or others. Initial Sepsis Screen: Does the patient meet any 2 criteria? No. Patient's initial sepsis screen is negative. Does the patient have a suspected source of infection? No. Patient's initial sepsis screen is negative. 19:15 Method Of Arrival: Ambulatory mg2 Triage Assessment: 17:34 General: Appears in no apparent distress. comfortable, Behavior is calm, cooperative, aj appropriate for age. Neuro: Level of Consciousness is awake, alert, obeys commands, Oriented to person, place, time, situation, Appropriate for age Seizure activity reported prior to arrival. Historical: - Allergies: 17:34 ACETAMINOPHEN; aj 17:34 Toradol; aj 17:34 Ibuprofen; aj - PMHx: 17:34 Hypertension; Seizures; urinary stricture; aj - Immunization history:: Flu vaccine status is unknown. - Family history:: not pertinent. - Social history:: Smoking status: unknown. - Ebola Screening: : No symptoms or risks identified at this time. - Hospitalizations: : No recent hospitalization is reported. Screenin:48 Abuse screen: Denies threats or abuse. Denies injuries from another. Nutritional mg2 screening: No deficits noted. Tuberculosis screening: No symptoms or risk factors identified. Fall Risk Secondary diagnosis (15 points) seizures, IV access (20 points). Assessment: 19:13 General: Appears in no apparent distress. comfortable, Behavior is calm, cooperative. mg2 Pain: Denies pain. Neuro: Level of Consciousness is awake, alert, obeys commands, Oriented to person, place, time, situation. Neuro: Seizure activity reported prior to arrival. Cardiovascular: Capillary refill < 3 seconds Patient's skin is warm and dry. Respiratory: Airway is patent Respiratory effort is even, unlabored, Respiratory pattern is regular, symmetrical. GI: No signs and/or symptoms were reported involving the gastrointestinal system. : No signs and/or symptoms were reported regarding the genitourinary system. EENT: No signs and/or symptoms were reported regarding the EENT system. Derm: Skin is intact, is healthy with good turgor, Skin is pink, warm \T\ dry. normal. Musculoskeletal: Circulation, motion, and sensation intact. Capillary refill < 3 seconds. 19:15 Reassessment: Patient appears in no apparent distress at this time. Patient and/or cc3 family updated on plan of care and expected duration. Pain level reassessed. Patient is alert, oriented x 3, equal unlabored respirations, skin warm/dry/pink. Received this male patient from morning shift ALVIN Bernal as a case of seizure with IV cannula gauge 20 at the right ACV with ongoing IVF bolus of NS 1 liter and Phenytoin 1 gram both infusing well. Patient denies pain at this time. 20:20 Reassessment: Patient appears in no apparent distress at this time. Patient and/or cc3 family updated on plan of care and expected duration. Pain level reassessed. Patient is alert, oriented x 3, equal unlabored respirations, skin warm/dry/pink. Dr. Velez discharged the patient home with prescription given. IV cannula removed and patient left ER vitally stable and ambulatory. No valuables left bedside. Patient denies pain at this time. Patient states feeling better. Patient states symptoms have improved. Vital Signs: 17:34 BP 146 / 83; Pulse 86; Resp 19; Temp 97.8; Pulse Ox 99% on R/A; Weight 117.93 kg; aj Height 5 ft. 9 in. (175.26 cm); 19:25 BP 139 / 87; Pulse 85; Resp 17 S; Temp 97.9(O); Pulse Ox 98% on R/A; cc3 20:10 BP 141 / 82; Pulse 88; Resp 18 S; Pulse Ox 98% on R/A; cc3 17:34 Body Mass Index 38.39 (117.93 kg, 175.26 cm) aj Webster Coma Score: 17:34 Eye Response: spontaneous(4). Verbal Response: oriented(5). Motor Response: obeys aj commands(6). Total: 15. ED Course: 17:23 Patient arrived in ED. rg4 17:33 Triage completed. aj 17:34 Arm band placed on left wrist. Patient placed in an exam room. aj 17:37 Felicity Salamanca, RN is Primary Nurse. ca1 18:22 Efra Velez MD is Attending Physician. rn 18:48 No provider procedures requiring assistance completed. Inserted saline lock: 20 gauge mg2 in right antecubital area, using aseptic technique. Blood collected. 19:16 Seizure precautions initiated. radiation monitor on. Pulse ox on. NIBP on. Door closed. mg2 Warm blanket given. 20:20 IV discontinued, intact, bleeding controlled, No redness/swelling at site. Pressure cc3 dressing applied. Administered Medications: 18:47 Drug: Phenytoin 1 grams Route: IVPB; Site: right antecubital; mg2 20:00 Follow up: Response: No adverse reaction; IV Status: Completed infusion cc3 18:47 Drug: NS 0.9% 1000 ml Route: IV; Rate: 1000 ml; Site: right antecubital; mg2 20:15 Follow up: Response: No adverse reaction; IV Status: Completed infusion; IV Intake: cc3 1000ml Intake: 20:15 IV: 1000ml; Total: 1000ml. cc3 Outcome: 20:13 Discharge ordered by . rn 20:20 Discharged to home ambulatory. cc3 20:20 Condition: stable 20:20 Discharge instructions given to patient, Instructed on discharge instructions, follow up and referral plans. medication usage, Demonstrated understanding of instructions, follow-up care, medications, Prescriptions given X 1. 20:23 Patient left the ED. cc3 Signatures: Rebecca Heller RN Efra Akhtar MD MD rn Garcia, Rubi rg4 Gabe Rose RN RN mg2 Tasha Vance cc3 Felicity Salamanca, RN RN ca1 Corrections: (The following items were deleted from the chart) 22:50 19:15 Reassessment: Patient appears in no apparent distress at this time. Patient cc3 and/or family updated on plan of care and expected duration. Pain level reassessed. Patient is alert, oriented x 3, equal unlabored respirations, skin warm/dry/pink. Received this male patient from morning shift ALVIN Bernal as a case of seizure with IV cannula gauge 20 at the right ACV with ongoing IVF bolus of NS 1 liter and cc3
--- NOTE | 2019-03-01 20:14 | EDPHYS ---
Physician Documentation [facility] Name: Vince Blackmon Age: 48 yrs Sex: Male : 1970 Arrival Date: 03/01/2019 Time: 17:23 Bed 27 Private MD: ED Physician Efra Velez HPI: 03/01 18:41 This 48 yrs old Black Male presents to ER via Unassigned with complaints of Probable rn Seizure. 18:41 The patient presents after having a single isolated seizure. Seizure onset: today. rn Associated injury: The patient did not suffer any apparent associated injury. Current symptoms: Currently, the patient is not experiencing any symptoms. The patient has experienced similar episodes in the past. Reports not taking dilantin for 1 year, thinks had another seizure today, found on ground by brother, reports has seizures every 2-3 weeks, reports diarrhea yesterday, no fever, no injury or trauma previous to seizure or after seizure. Denies chest pain/sob/abd pain/vomiting. No focal neurological complaint.. Historical: - Allergies: 17:34 ACETAMINOPHEN; aj 17:34 Toradol; aj 17:34 Ibuprofen; aj - PMHx: 17:34 Hypertension; Seizures; urinary stricture; aj - Immunization history:: Flu vaccine status is unknown. - Family history:: not pertinent. - Social history:: Smoking status: unknown. - Ebola Screening: : No symptoms or risks identified at this time. - Hospitalizations: : No recent hospitalization is reported. ROS: 18:41 Constitutional: Negative for fever, chills, and weight loss, Eyes: Negative for injury, rn pain, redness, and discharge, Neck: Negative for injury, pain, and swelling, Cardiovascular: Negative for chest pain, palpitations, and edema, Respiratory: Negative for shortness of breath, cough, wheezing, and pleuritic chest pain, Abdomen/GI: Negative for abdominal pain, nausea, vomiting, and constipation, MS/Extremity: Negative for injury and deformity, Skin: Negative for injury, rash, and discoloration, Neuro: Negative for headache, weakness, numbness, tingling Exam: 18:41 Constitutional: This is a well developed, well nourished patient who is awake, alert, rn and in no acute distress. Laying on side using cell phone. Head/Face: Normocephalic, atraumatic. Eyes: Pupils equal round and reactive to light, extra-ocular motions intact. Lids and lashes normal. Conjunctiva and sclera are non-icteric and not injected. Cornea within normal limits. Periorbital areas with no swelling, redness, or edema. ENT: dry MM, no tongue or oral trauma. Neck: Trachea midline, no thyromegaly or masses palpated, and no cervical lymphadenopathy. Supple, full range of motion without nuchal rigidity, or vertebral point tenderness. No Meningismus. Cardiovascular: Regular rate and rhythm. No pulse deficits. Respiratory: Lungs have equal breath sounds bilaterally, clear to auscultation Abdomen/GI: Soft, non-tender MS/ Extremity: Pulses equal, no cyanosis. Neurovascular intact. Full, normal range of motion. Equal circumference. Neuro: Awake and alert, GCS 15, oriented to person, place, time, and situation. Cranial nerves II-XII grossly intact. Motor strength 5/5 in all extremities. Sensory grossly intact. Cerebellar exam normal. Vital Signs: 17:34 BP 146 / 83; Pulse 86; Resp 19; Temp 97.8; Pulse Ox 99% on R/A; Weight 117.93 kg; aj Height 5 ft. 9 in. (175.26 cm); 19:25 BP 139 / 87; Pulse 85; Resp 17 S; Temp 97.9(O); Pulse Ox 98% on R/A; cc3 20:10 BP 141 / 82; Pulse 88; Resp 18 S; Pulse Ox 98% on R/A; cc3 17:34 Body Mass Index 38.39 (117.93 kg, 175.26 cm) Anil Coma Score: 17:34 Eye Response: spontaneous(4). Verbal Response: oriented(5). Motor Response: obeys aj commands(6). Total: 15. MDM: 18:22 Patient medically screened. rn 20:13 Differential diagnosis: seizure. Data reviewed: vital signs, nurses notes, lab test rn result(s), EKG, and as a result, I will discharge patient. Counseling: I had a detailed discussion with the patient and/or guardian regarding: the historical points, exam findings, and any diagnostic results supporting the discharge/admit diagnosis, lab results, radiology results, the need for outpatient follow up, to return to the emergency department if symptoms worsen or persist or if there are any questions or concerns that arise at home. Response to treatment: the patient's condition has returned to base line, the patient is now symptom free, and as a result, I will discharge patient. Special discussion: I discussed with the patient/guardian in detail that at this point there is no indication for admission to the hospital. It is understood, however, that if the symptoms persist or worsen the patient needs to return immediately for re-evaluation. 03/01 18:28 Order name: BMP; Complete Time: 20:05 rn 03/01 18:28 Order name: IV Start; Complete Time: 18:47 rn 03/01 18:28 Order name: EKG; Complete Time: 18:36 rn 03/01 18:28 Order name: EKG - Nurse/Tech; Complete Time: 18:47 rn Administered Medications: 18:47 Drug: Phenytoin 1 grams Route: IVPB; Site: right antecubital; mg2 20:00 Follow up: Response: No adverse reaction; IV Status: Completed infusion cc3 18:47 Drug: NS 0.9% 1000 ml Route: IV; Rate: 1000 ml; Site: right antecubital; mg2 20:15 Follow up: Response: No adverse reaction; IV Status: Completed infusion; IV Intake: cc3 1000ml Disposition: 03/01/19 20:13 Discharged to Home. Impression: Epilepsy and recurrent seizures. - Condition is Stable. - Discharge Instructions: Seizure, Adult. - Prescriptions for Phenytoin Sodium Extended 100 mg Oral Capsule - take 1 capsule by ORAL route every 8 hours; 60 capsule. - Medication Reconciliation Form, Thank You Letter, Antibiotic Education, Prescription Opioid Use form. - Follow up: Private Physician; When: As needed; Reason: Recheck today's complaints, Re-evaluation by your physician. - Problem is new. - Symptoms have improved. Signatures: Dispatcher [employer] Rebecca Hendricks RN RN aj Nieto, Roman, MD MD rn Gardose, Michele, RN RN mg2 Cordel, Charlene cc3 Corrections: (The following items were deleted from the chart) 20:23 20:13 03/01/2019 20:13 Discharged to Home. Impression: Epilepsy and recurrent seizures. cc3 Condition is Stable. Forms are Medication Reconciliation Form, Thank You Letter, Antibiotic Education, Prescription Opioid Use. Follow up: Private Physician; When: As needed; Reason: Recheck today's complaints, Re-evaluation by your physician. Problem is new. Symptoms have improved. rn
[2019-03-01 20:33] VITALS: BP 146/83; TEMP 97.8; O2SAT 99
--- NOTE | 2019-03-02 10:09 | EKG ---
Test Date: 2019-03-01 Test Time: 18:57:11 Petroleum Production Engineer: MEASUREMENT RESULTS: Intervals: Rate: 75 DE: 142 QRSD: 80 QT: 372 QTc: 415 [place]: P: 51 DE: 142 QRS: 6 T: -20 INTERPRETIVE STATEMENTS: Normal sinus rhythm Minimal voltage criteria for LVH, may be normal variant Borderline ECG Compared to ECG 01/12/2019 03:07:07 T-wave abnormality no longer present Possible ischemia no longer present Electronically Signed On 03-02-19 10:09:00 CDT by Mohan Rodriguez
== END 2019-03-01 20:23 | disposition home or self-care (01) ==
LOC: ER 17:19
DX: G40.909 Epilepsy, unspecified, not intractable, without status epilepticus (principal); Z88.6 Allergy status to analgesic agent; I10 Essential (primary) hypertension
CPT/HCPCS: 36415; 80048; 93005; 96365; 99284; J1165; J7030

== ENCOUNTER 2019-04-06 09:13 | Emergency (ER) | payer SELFPAY ==
--- OUTSIDE RECORDS SUMMARY | 2019-04-06 09:18 | XMS REPORT ---
:1970 [facility] Address [address] [place] [address] Dr. England [address] [place] [id number] Care Team Providers Name Role Phone Unavailable Unavailable Unavailable Problems This patient has no known problems. Allergies, Adverse Reactions, Alerts This patient has no known allergies or adverse reactions. Medications This patient has no known medications.
--- NOTE | 2019-04-06 10:22 | EDPHYS ---
Physician Documentation [facility] Name: Vince Blackmon Age: 48 yrs Sex: Male : 1970 Arrival Date: 04/06/2019 Time: 09:16 Bed 8 Private MD: ED Physician Daryl Ashley HPI: 04/06 09:41 This 48 yrs old Black Male presents to ER via Ambulatory with complaints of Urinary jr8 Retention. 09:41 Onset: The symptoms/episode began/occurred acutely, today. Associated signs and jr8 symptoms: The patient has no apparent associated signs or symptoms. Modifying factors: The patient symptoms are alleviated by nothing, the patient symptoms are aggravated by nothing. The patient has experienced similar episodes in the past, several times. The patient has not recently seen a physician. Patient with history of urethral stricture. Stated that he has not been able to urinate. Stopped at Dr. Parks office who is out of town till Wednesday. Patient has been to ED several times for this and has to go to OR to have stricture removed and then thurman placed. Unable to pass any sort of catheter in ED. Historical: - Allergies: 09:30 ACETAMINOPHEN; ss 09:30 Ibuprofen; ss 09:30 Toradol; ss - PMHx: 09:30 Hypertension; Seizures; urinary stricture; ss - Immunization history:: Adult Immunizations up to date. - Social history:: Smoking status: Patient/guardian denies using tobacco. - Ebola Screening: : Patient denies exposure to infectious person Patient denies travel to an Ebola-affected area in the 21 days before illness onset. ROS: 09:41 Eyes: Negative for injury, pain, redness, and discharge, ENT: Negative for injury, jr8 pain, and discharge, Neck: Negative for injury, pain, and swelling, Cardiovascular: Negative for chest pain, palpitations, and edema, Respiratory: Negative for shortness of breath, cough, wheezing, and pleuritic chest pain, Abdomen/GI: Negative for abdominal pain, nausea, vomiting, diarrhea, and constipation, Back: Negative for injury and pain, MS/Extremity: Negative for injury and deformity, Skin: Negative for injury, rash, and discoloration, Neuro: Negative for headache, weakness, numbness, tingling, and seizure. 09:41 : Positive for urinary symptoms, difficulty urinating. Exam: 09:41 Eyes: Pupils equal round and reactive to light, extra-ocular motions intact. Lids and jr8 lashes normal. Conjunctiva and sclera are non-icteric and not injected. Cornea within normal limits. Periorbital areas with no swelling, redness, or edema. ENT: Nares patent. No nasal discharge, no septal abnormalities noted. Tympanic membranes are normal and external auditory canals are clear. Oropharynx with no redness, swelling, or masses, exudates, or evidence of obstruction, uvula midline. Mucous membranes moist. Neck: Trachea midline, no thyromegaly or masses palpated, and no cervical lymphadenopathy. Supple, full range of motion without nuchal rigidity, or vertebral point tenderness. No Meningismus. Cardiovascular: Regular rate and rhythm with a normal S1 and S2. No gallops, murmurs, or rubs. Normal PMI, no JVD. No pulse deficits. Respiratory: Lungs have equal breath sounds bilaterally, clear to auscultation and percussion. No rales, rhonchi or wheezes noted. No increased work of breathing, no retractions or nasal flaring. Abdomen/GI: Soft, non-tender, with normal bowel sounds. No distension or tympany. No guarding or rebound. No evidence of tenderness throughout. Back: No spinal tenderness. No costovertebral tenderness. Full range of motion. Skin: Warm, dry with normal turgor. Normal color with no rashes, no lesions, and no evidence of cellulitis. MS/ Extremity: Pulses equal, no cyanosis. Neurovascular intact. Full, normal range of motion. Neuro: Awake and alert, GCS 15, oriented to person, place, time, and situation. Cranial nerves II-XII grossly intact. Motor strength 5/5 in all extremities. Sensory grossly intact. Cerebellar exam normal. Normal gait. Vital Signs: 09:30 Pulse 88; Resp 18; Temp 97.4(TE); Pulse Ox 96% on R/A; Height 5 ft. 9 in. (175.26 cm); ss Pain 6/10; 09:31 BP 166 / 98; ss MDM: 09:32 Patient medically screened. jr8 10:20 Data reviewed: vital signs, nurses notes, and as a result, I will discharge patient. jr8 Data interpreted: Pulse oximetry: on room air is 96 %. Interpretation: normal. Counseling: I had a detailed discussion with the patient and/or guardian regarding: the historical points, exam findings, and any diagnostic results supporting the discharge/admit diagnosis, the need to transfer to another facility, [facility] does not immediately have the required specialist. ED course: Spoke with Urology at [place] who excepted to ED for thurmna placement . 04/06 09:43 Order name: Bladder Scanner; Complete Time: 09:50 jr8 Administered Medications: No medications were administered Disposition: 14:21 Co-signature as Attending Physician, Daryl Ashley MD I agree with the assessment and kdr plan of care. Disposition: 04/06/19 10:22 Transfer ordered to [facility]. Diagnosis are Retention of urine, Other urethral stricture. - Reason for transfer: Higher level of care. - Accepting physician is Dr. Virgen . - Condition is Stable. - Problem is new. - Symptoms are unchanged. Signatures: Daryl Ashley MD MD [facility] [place] Colon RN RN Rocael Gama PA PA jr8 Tasneem Forbes RN RN hb Corrections: (The following items were deleted from the chart) 09:43 09:43 Thurman ordered. jr8 jr8 11:13 10:22 04/06/2019 10:22 Transfer ordered to [facility]. jr8 Diagnosis is Retention of urine; Other urethral stricture. Reason for transfer: Higher level of care. Accepting physician is Mir. Condition is Stable. Problem is new. Symptoms are unchanged. jr8 11:52 11:13 04/06/2019 10:22 Transfer ordered to [facility]. hb Diagnosis is Retention of urine; Other urethral stricture. Reason for transfer: Higher level of care. Accepting physician is Dr. Virgen . Condition is Stable. Problem is new. Symptoms are unchanged. jr8
--- NOTE | 2019-04-06 10:22 | ER ---
Nurse's Notes [facility] Name: Vince Blackmon Age: 48 yrs Sex: Male : 1970 Arrival Date: 04/06/2019 Time: 09:16 Bed 8 Private MD: Diagnosis: Retention of urine;Other urethral stricture Presentation: 04/06 09:28 Presenting complaint: Patient states: unable to urinate since last night. PAtient has a ss history of urinary retention and attempted to see Dr. Ocampo with urology, but reports he is out of town. Transition of care: patient was not received from another setting of care. Onset of symptoms was April 05, 2019. Risk Assessment: Do you want to hurt yourself or someone else? Patient reports no desire to harm self or others. Initial Sepsis Screen: Does the patient meet any 2 criteria? No. Patient's initial sepsis screen is negative. Does the patient have a suspected source of infection? No. Patient's initial sepsis screen is negative. Care prior to arrival: None. 09:28 Method Of Arrival: Ambulatory ss 09:28 Acuity: COBY 3 ss Historical: - Allergies: 09:30 ACETAMINOPHEN; ss 09:30 Ibuprofen; ss 09:30 Toradol; ss - PMHx: 09:30 Hypertension; Seizures; urinary stricture; ss - Immunization history:: Adult Immunizations up to date. - Social history:: Smoking status: Patient/guardian denies using tobacco. - Ebola Screening: : Patient denies exposure to infectious person Patient denies travel to an Ebola-affected area in the 21 days before illness onset. Screenin:43 Abuse screen: Denies threats or abuse. Denies injuries from another. Nutritional sv screening: No deficits noted. Tuberculosis screening: No symptoms or risk factors identified. Fall Risk None identified. Assessment: 09:40 General: Appears in no apparent distress. Behavior is calm, cooperative. Pain: Pain hb currently is 6 out of 10 on a pain scale. Neuro: Level of Consciousness is awake, alert, obeys commands, Oriented to person, place, time, situation. Cardiovascular: Capillary refill < 3 seconds Patient's skin is warm and dry. Respiratory: Airway is patent Respiratory effort is even, unlabored, Respiratory pattern is regular, symmetrical. GI: No signs and/or symptoms were reported involving the gastrointestinal system. : Reports inability to void, since last night. EENT: No signs and/or symptoms were reported regarding the EENT system. Derm: Skin is intact, is healthy with good turgor, Skin is pink, warm \T\ dry. Musculoskeletal: No signs and/or symptoms reported regarding the musculoskeletal system. 10:30 Reassessment: Patient appears in no apparent distress at this time. No changes from hb previously documented assessment. Patient and/or family updated on plan of care and expected duration. Pain level reassessed. Patient is alert, oriented x 3, equal unlabored respirations, skin warm/dry/pink. Vital Signs: 09:30 Pulse 88; Resp 18; Temp 97.4(TE); Pulse Ox 96% on R/A; Height 5 ft. 9 in. (175.26 cm); ss Pain 6/10; 09:31 BP 166 / 98; ss ED Course: 09:16 Patient arrived in ED. as 09:29 Triage completed. ss 09:30 Arm band placed on right wrist. ss 09:32 [facility] jr8 09:32 Daryl Ashley MD is Attending Physician. jr8 09:43 Jeanne Amaya, RN is Primary Nurse. sv 09:43 Patient has correct armband on for positive identification. Bed in low position. Call sv light in reach. Door closed. Head of bed elevated. 09:46 initiated a transfer with Talisha at the [facility] transfer center. eb 09:50 Bladder scan completed. 263 ml. hb 09:58 Talisha from [facility] called to decline patient in transfer due to the facility being at eb capacity. 10:01 initiated a transfer with Hawa from the [facility]. eb 10:16 connected the urologist hotel concierge Dr. Virgen for [facility] with Rocael ZAMORA for patient transfer consultation. 10:20 administrative approval given by Hawa Whaley transfer coord/ patient has been accepted to [facility] ER/ Keturah Underwood has accepted the patient in transfer/ report to be called to [phone]. 11:52 No provider procedures requiring assistance completed. Patient did not have IV access sv during this emergency room visit. Administered Medications: No medications were administered Outcome: 10:22 ER care complete, transfer ordered by . jr8 11:52 Patient left the ED. hb 11:52 Transferred by ground EMS to [facility], Transfer form completed. 11:52 Condition: stable 11:52 Instructed on the need for transfer. Signatures: Jeanne Amaya, RN Akila Wick Shelby, RN RN Rocael Gama PA PA jr8 Tasneem Forbes RN RN Ashlee Andre Corrections: (The following items were deleted from the chart) 09:33 09:28 Acuity: COBY 2 [facility]
[2019-04-06 12:22] VITALS: TEMP 97.4; O2SAT 96
[2019-04-06 12:23] VITALS: BP 166/98
== END 2019-04-06 11:52 | disposition short-term general hospital (02) ==
LOC: ER 09:13
DX: R33.9 Retention of urine, unspecified (principal); N35.819 Other urethral stricture, male, unspecified site; I10 Essential (primary) hypertension; Z88.6 Allergy status to analgesic agent
CPT/HCPCS: 99285

== ENCOUNTER 2019-04-11 21:42 | Observation (INO) | payer SELFPAY ==
--- OUTSIDE RECORDS SUMMARY | 2019-04-11 21:44 | XMS REPORT ---
:1970 [facility] Address [address] [place] [address] Dr. England [address] [place] [id number] Care Team Providers Name Role Phone Unavailable Unavailable Unavailable Problems This patient has no known problems. Allergies, Adverse Reactions, Alerts This patient has no known allergies or adverse reactions. Medications This patient has no known medications. Encounters Start End Encounter Admission Attending Care Care Encounter Date/Time Date/Time Type Type Clinicians Facility Department ID 2019-04-06 2019-04-[address] [facility] [id number] 11:15:00 11:15:00
--- NOTE | 2019-04-12 00:21 | ER ---
Nurse's Notes [facility] Name: Vince Blackmon Age: 48 yrs Sex: Male : 1970 Arrival Date: 04/11/2019 Time: 21:45 Bed 14 Private MD: Diagnosis: Urinary retention;Urethral stricture Presentation: 04/11 21:47 Presenting complaint: Patient states: "I'm having problems urinating" Patient reports aj1 that the last time he peed was sometime today but he is unsure when. Reports that he was just here last week for the same issue. Reports that he see's Dr. Ocampo. Transition of care: patient was not received from another setting of care. Onset of symptoms was April 11, 2019. Risk Assessment: Do you want to hurt yourself or someone else? Patient reports no desire to harm self or others. Initial Sepsis Screen: Does the patient meet any 2 criteria? No. Patient's initial sepsis screen is negative. Does the patient have a suspected source of infection? No. Patient's initial sepsis screen is negative. Care prior to arrival: None. 21:47 Method Of Arrival: Ambulatory aj1 21:47 Acuity: COBY 3 aj1 21:56 Note Patient states that he has to run home to unlock his door, and he will be back. aj1 Triage Assessment: 21:49 General: Appears in no apparent distress. uncomfortable, Behavior is calm, cooperative, aj1 appropriate for age. Pain: Complains of pain in suprapubic area Pain currently is 7 out of 10 on a pain scale. Neuro: Level of Consciousness is awake, alert, obeys commands, Oriented to person, place, time, situation. Cardiovascular: Patient's skin is warm and dry. Respiratory: Airway is patent Respiratory effort is even, unlabored, Respiratory pattern is regular, symmetrical. Historical: - Allergies: 21:49 ACETAMINOPHEN; aj1 21:49 Ibuprofen; aj1 21:49 Toradol; aj1 - Home Meds: 21:49 Dilantin Oral [Active]; Keppra Oral [Active]; aj1 - PMHx: 21:49 Hypertension; Seizures; urinary stricture; aj1 - Immunization history:: Flu vaccine is not up to date. - Social history:: Smoking status: Patient/guardian denies using tobacco. - Ebola Screening: : Patient denies travel to an Ebola-affected area in the 21 days before illness onset. - Family history:: not pertinent. - Hospitalizations: : Patient was recently seen at [facility]. Screenin:45 Abuse screen: Denies threats or abuse. Denies injuries from another. Nutritional aa1 screening: No deficits noted. Tuberculosis screening: No symptoms or risk factors identified. Fall Risk None identified. Assessment: 23:45 General: Appears in no apparent distress. comfortable, Behavior is calm, cooperative, aa1 appropriate for age. Pain: Complains of pain in suprapubic area. Neuro: Level of Consciousness is awake, alert, obeys commands, Oriented to person, place, time, situation, Gait is steady. Respiratory: Airway is patent Respiratory effort is even, unlabored, Respiratory pattern is regular, symmetrical. GI: No signs and/or symptoms were reported involving the gastrointestinal system. : Reports difficulty voiding. EENT: No signs and/or symptoms were reported regarding the EENT system. Derm: Skin is intact, is healthy with good turgor, Skin is pink, warm \\T\\ dry. Musculoskeletal: Circulation, motion, and sensation intact. Capillary refill < 3 seconds. 04/12 00:30 Reassessment: Patient appears in no apparent distress at this time. Patient and/or aa1 family updated on plan of care and expected duration. Pain level reassessed. Patient is alert, oriented x 3, equal unlabored respirations, skin warm/dry/pink. Pt to be admitted; awaiting bed assignment. 01:30 Reassessment: Patient appears in no apparent distress at this time. Patient is alert, aa1 oriented x 3, equal unlabored respirations, skin warm/dry/pink. Pt taken to 228 at this time. Vital Signs: 04/11 21:49 BP 162 / 84; Pulse 92; Resp 18; Temp 97.9; Pulse Ox 98% on R/A; Weight 124.28 kg (R); aj1 Height 5 ft. 9 in. (175.26 cm) (R); 23:55 BP 155 / 70; Pulse 73; Resp 20; Pulse Ox 100% on R/A; aa1 04/12 01:17 BP 144 / 75; Pulse 69; Resp 18; Temp 98.1; Pulse Ox 99% on R/A; Pain 6/10; aa1 04/11 21:49 Body Mass Index 40.46 (124.28 kg, 175.26 cm) aj1 ED Course: 04/11 21:45 Patient arrived in ED. cl3 21:49 Triage completed. aj1 21:49 Arm band placed on Patient placed in waiting room. aj1 22:41 Efra Velez MD is Attending Physician. rn 23:45 Patient has correct armband on for positive identification. Bed in low position. Call aa1 light in reach. Pulse ox on. NIBP on. Warm blanket given. 04/12 00:15 Moshe Reed DO is Hospitalizing Provider. rn 00:50 Inserted saline lock: 20 gauge in right antecubital area, using aseptic technique. aa1 01:16 Gaviota Covarrubias, ALVIN is Primary Nurse. aa1 01:30 No provider procedures requiring assistance completed. Patient admitted, IV remains in aa1 place. Administered Medications: No medications were administered Outcome: 00:15 Decision to Hospitalize by Provider. rn 01:30 Admitted to Med/surg accompanied by nurse, via wheelchair, room 228, with chart, Report aa1 called to ALVIN Nair 01:30 Condition: good 01:30 Discharge instructions given to patient, Instructed on the need for admit, Demonstrated understanding of instructions. 01:34 Patient left the ED. aa1 Signatures: Abeba Cardoso RN RN aj Gaviota Covarrubias RN RN aa1 Efra Velez MD MD rn Lewis, Charde cl3
--- NOTE | 2019-04-12 00:22 | EDPHYS ---
Physician Documentation [facility] Name: Vince Blackmon Age: 48 yrs Sex: Male : 1970 Arrival Date: 04/11/2019 Time: 21:45 Bed 14 Private MD: ED Physician Efra Velez HPI: 04/12 00:10 This 48 yrs old Black Male presents to ER via Ambulatory with complaints of Urinary rn Problem. 00:10 The patient presents with urinary symptoms, retention, unable to void. Onset: The rn symptoms/episode began/occurred today. Modifying factors: The symptoms are alleviated by nothing, the symptoms are aggravated by nothing. Severity of symptoms: At their worst the symptoms were mild. The patient has experienced similar episodes in the past. Reports unable to urinate today, recently seen at [facility] and refused suprapubic cath. Has seen dr ocampo several times and states we are never able to get thurman in, has ureteral strictures and needs OR. . Historical: - Allergies: 04/11 21:49 ACETAMINOPHEN; aj1 21:49 Ibuprofen; aj1 21:49 Toradol; aj1 - Home Meds: 21:49 Dilantin Oral [Active]; Keppra Oral [Active]; aj1 - PMHx: 21:49 Hypertension; Seizures; urinary stricture; aj1 - Immunization history:: Flu vaccine is not up to date. - Social history:: Smoking status: Patient/guardian denies using tobacco. - Ebola Screening: : Patient denies travel to an Ebola-affected area in the 21 days before illness onset. - Family history:: not pertinent. - Hospitalizations: : Patient was recently seen at [facility]. ROS: 04/12 00:10 Constitutional: Negative for fever, chills, and weight loss, Cardiovascular: Negative rn for chest pain, palpitations, and edema, Respiratory: Negative for shortness of breath, cough, wheezing, and pleuritic chest pain, Abdomen/GI: + lower abd pain : unable to urinate Exam: 00:10 Constitutional: This is a well developed, well nourished patient who is awake, alert, rn and in no acute distress. Abdomen/GI: soft, + mild suprapubic tenderness and fullness Neuro: Awake and alert, GCS 15, oriented to person, place, time, and situation. Cranial nerves II-XII grossly intact. Motor strength 5/5 in all extremities. Sensory grossly intact. Cerebellar exam normal. Normal gait. Vital Signs: 04/11 21:49 BP 162 / 84; Pulse 92; Resp 18; Temp 97.9; Pulse Ox 98% on R/A; Weight 124.28 kg (R); aj1 Height 5 ft. 9 in. (175.26 cm) (R); 23:55 BP 155 / 70; Pulse 73; Resp 20; Pulse Ox 100% on R/A; aa1 04/12 01:17 BP 144 / 75; Pulse 69; Resp 18; Temp 98.1; Pulse Ox 99% on R/A; Pain 6/10; aa1 04/11 21:49 Body Mass Index 40.46 (124.28 kg, 175.26 cm) aj1 MDM: 04/11 22:41 Patient medically screened. rn 04/12 00:10 Differential diagnosis: urinary retention. Data reviewed: vital signs, nurses notes, rn and as a result, I will admit patient. Counseling: I had a detailed discussion with the patient and/or guardian regarding: the historical points, exam findings, and any diagnostic results supporting the discharge/admit diagnosis, the need for further work-up and treatment in the hospital. Admission orders: after a detailed discussion of the patient's condition and case, the admit orders are written by me. ED course: Consulted with Dr. Ocampo, states admit to hospitalist, fluid restriction and pain meds, and will take to OR in AM.. Administered Medications: No medications were administered Disposition: 04/12/19 00:15 Hospitalization ordered by Moshe Reed for Observation. Preliminary diagnosis are Urinary retention, Urethral stricture. - Bed requested for Telemetry/MedSurg (observation). - Status is Observation. aa1 - Condition is Stable. - Problem is new. - Symptoms are unchanged. UTI on Admission? No Signatures: Abeba Cardoso RN RN aj1 Carola Jones RN RN Gaviota Covarrubias RN RN aa1 Efra Velez MD MD inspector returned materials: (The following items were deleted from the chart) 00:31 00:15 Hospitalization Ordered by Moshe Reed DO for Observation. Preliminary diagnosis is Urinary retention; Urethral stricture. Bed requested for Telemetry/MedSurg (observation). Status is Observation. Condition is Stable. Problem is new. Symptoms are unchanged. UTI on Admission? No. rn 01:34 00:31 04/12/2019 00:15 Hospitalization Ordered by Moshe Reed DO for Observation. aa1 Preliminary diagnosis is Urinary retention; Urethral stricture. Bed requested for Telemetry/MedSurg (observation). Status is Observation. Condition is Stable. Problem is new. Symptoms are unchanged. UTI on Admission? No. mw
--- NOTE | 2019-04-12 00:32 | P.HP ---
Certification for Inpatient Patient admitted to: Observation With expected LOS: <2 Midnights Patient will require the following post-hospital care: None Practitioner: I am a practitioner with admitting privileges, knowledge of patient current condition, hospital course, and medical plan of care. Services: Services provided to patient in accordance with Admission requirements found in Title 42 Section 412.3 of the Code of Federal Regulations Patient History Date of Service: 04/12/19 Primary Care Provider: Dr. Ocampo-Urology Reason for admission: Urinary retention History of Present Illness: 48-year-old male presented to the emergency room with urinary retention. Patient with history of urinary strictures requiring Walter catheter. Patient was recently evaluated in the emergency room and transferred to [facility] for evaluation of his urinary strictures. He actually had been sent home with a Walter catheter. He decided to remove the catheter earlier today as it was irritating him. After that this event patient noted urinary retention. Patient came to the ER for further evaluation. In the ER patient evaluated. ER physician discussed case with Urology. Urology recommends to a admit patient to the hospital for urological intervention in the morning. Anticipate further evaluation of urinary strictures likely with placement of Walter catheter. Patient with underlying hypertension and seizure disorder. Patient is well-known to urology. Allergies acetaminophen [From Tylenol] Allergy (Mild, Verified 12/09/17 02:17) Rash aspirin Allergy (Verified 12/09/17 02:17) Unknown ibuprofen Allergy (Verified 12/09/17 02:17) Unknown ketorolac Allergy (Verified 12/09/17 02:17) Unknown Home medications list reviewed: Yes Home Medications: levETIRAcetam [Keppra*] 500 mg PO BID #60 tab 12/09/17 - Past Medical/Surgical History Diabetic: No -: Hypertension -: Urinary retention -: Seizure disorder -: History of drug abuse -: cystoscopy Psychosocial/ Personal History: Patient is single - Family History Family History: Reviewed- Non-Contributory - Family History Father -: Hypertension Notes: no family history of illness Mother -: Hypertension - Social History Smoking Status: Current every day smoker Counseled patient to stop smoking for: less than 10 minutes Smoking therapy provided: Yes Patient receptive to therapy: Yes Alcohol use: No CD- Drugs: Yes Caffeine use: Yes Place of Residence: Home Review of Systems General: As per HPI Eyes: Unremarkable ENT: Unremarkable Respiratory: Unremarkable Cardiovascular: Unremarkable Gastrointestinal: Unremarkable Genitourinary: Retention, As per HPI Musculoskeletal: Unremarkable Integumentary: Unremarkable Neurological: Unremarkable Lymphatics: Unremarkable Physical Examination - Physical Exam General: Alert, In no apparent distress, Oriented x3, Cooperative HEENT: Atraumatic, Normocephalic, PERRLA, Mucous membr. moist/pink Neck: Supple, No Thyromegaly Respiratory: Clear to auscultation bilaterally Cardiovascular: Normal pulses, Regular rate/rhythm Gastrointestinal: Normal bowel sounds, Soft and benign, Non-distended, No tenderness, No masses, No rebound, No guarding Musculoskeletal: No erythema, No tenderness, No warmth Integumentary: No erythema, No warmth, No cyanosis Neurological: Normal speech, Normal strength at 5/5 x4 extr, Normal tone, Normal affect Assessment and Plan - Plan Impression: Urinary retention with history of urinary strictures Hypertension Seizure disorder Plan: Urinary retention with history of urinary strictures: Patient will be admitted for further evaluation and treatment by urology. ER discuss case with Urology. Urological intervention is planned in the morning. Will keep the patient NPO. No IV fluids is recommended at this time. Anticipate placement of Walter catheter. Likely discharge later today if okay with urology. Daytime hospitalist team will follow along with urology. Hypertension: Continue medication of Norvasc. Will monitor and adjust appropriately. Seizure disorder: Continue home medication of Dilantin 100 mg b.i.d.. Discharge Plan: Home Plan to discharge in: 24 Hours - Advance Directives Does patient have a Living Will: No Does patient have a Durable POA for Healthcare: No - Code Status/Comfort Care Code Status Assessed: Yes (Patient is full code) Time Spent Managing Pts Care (In Minutes): 55
[2019-04-12] MEDS: MORPHINE 2 MG/ML SYR IV PRN ×2 (02:12→11:37)
[2019-04-12 02:50] VITALS: BMI 40.4
[2019-04-12] MEDS ORDERED: MORPHINE 2 MG/ML SYR IV ONE (06:01)
[2019-04-12 06:11] LABS: Absolute Lymphocytes (CBC) 2.6 K/uL (0.7-4.9); Basophils % 0.6 % (0-1.3); Hematocrit 37.2 % (39.6-49.0); Lymphocytes % 41.1 % (15.3-44.8); MPV 8.7 fL (7.6-11.3); RBC Red Blood Cell Count 4.13 M/uL (4.33-5.43)
[2019-04-12 06:33] LABS: Magnesium 2.2 mg/dL (1.8-2.4); Potassium 3.9 mmol/L (3.5-5.1)
[2019-04-12] MEDS ORDERED: PHENYTOIN ER 100 MG CAP PO SCH (09:00)
[2019-04-12] MEDS ORDERED: AMLODIPINE 5 MG TAB PO SCH (09:00)
[2019-04-12] MEDS ORDERED: Ringers Lactate 1,000 ML IV ONE (12:22)
[2019-04-12] MEDS ORDERED: PROPOFOL 200 MG/20 ML VIAL IV ONE (13:12)
[2019-04-12] MEDS ORDERED: FENTANYL CITR 100 MCG/2 ML ONE (13:13)
[2019-04-12] MEDS ORDERED: ONDANSETRON 4 MG/2 ML VIAL ONE (13:14)
[2019-04-12] MEDS ORDERED: MIDAZOLAM HCL 2 MG/2 ML INJ ONE (13:14)
[2019-04-12] MEDS ORDERED: GENTAMICIN 100 MG/100 ML BAG 100 ML IV ONE (13:14)
[2019-04-12] MEDS ORDERED: LIDOCAINE 1% MPF 5 ML VIAL ONE (13:14)
[2019-04-12] MEDS ORDERED: Phenylephrine HCl 10 MG/ML 1 ML VIAL ONE (13:53)
[2019-04-12] MEDS ORDERED: NS 0.9% VIAL 10 ML ONE (13:53)
[2019-04-12] MEDS ORDERED: EPHEDRINE SULF 50 MG/ML VIAL ONE (13:54)
[2019-04-12 14:59] VITALS: O2SAT 96
[2019-04-12 16:15] VITALS: BP 151/71; TEMP 97.1
--- NOTE | 2019-04-12 18:46 | CON ---
History Of Present Illness: A 48-year-old gentleman with history of urethral stricture, history of b eing in and out of retirement. He had a DVIU, Walter catheter placement for urine at [place]. He present s tonight with obstruction, cannot be able to pee. It was impossible to pass a catheter in the ER, s o I am going to do a cysto, DVIU. I am going to cath the patient. He just recently got a job, but t he plan was also to start working today, so I gave him a Walter plug to go home. Allergies: TYLENOL, ASPIRIN, IBUPROFEN, KETOROLAC. Medications: Takes Keppra 500 b.i.d. Past Medical History: Hypertension, urinary retention, urethral stricture, seizure disorder, history of drug abuse, cystoscopy, DVIU, Walter catheter placement. Family History: Mother has hypertension. Father has hypertension. Social History: Smokes every day, was told to stop. Review of Systems: Otherwise unremarkable. Physical Examination: Vital Signs: Afebrile. General: No acute distress. Oriented x3. Cooperative. HEENT: Atraumatic, normocephalic. Respiratory: Clear. Cardiovascular: S1, S2. Gastrointestinal: Normal bowel sounds. Looks to be slightly distended. Urinary retention. Laboratory Data: White count normal at 6.3, H and H 12 and 37, platelet count 334. Chemistry: [place] um 142, potassium 3.9, chloride 108, carbon dioxide 28, BUN 18, creatinine 1.26, GFR 74, glucose 91, calcium 8.1. Magnesium 2.2. Assessment: Urinary retention, urethral stricture. Plan: For cysto, DVIU, and Walter placement. CHARO/MODL Voice ID: [id number] Report ID: [id number]
--- NOTE | 2019-04-12 18:55 | RAD REPORT ---
EXAM DESCRIPTION: RAD - Urethrocystogrphy Retrograde - 04/12/2019 2:34 pm FINDINGS: There were 7 fluoroscopic KUB images obtained. Fluoro time was 7 seconds. Images show wire catheter placement and scoping of the bladder. No suspicious or unexpected finding.
== END 2019-04-12 18:46 | disposition home or self-care (01) ==
LOC: ER 21:42 → ERHOLD 04-12 00:18 → 2ND 04-12 01:17
PROVIDERS: ADMIT Family Medicine; ATTEND Family Medicine
PROC: 0TND8ZZ Release Urethra, Via Natural or Artificial Opening Endoscopic (ICD-10-PCS; principal; 2019-04-12 12:30)
DX: N35.919 Unspecified urethral stricture, male, unspecified site (principal); R33.8 Other retention of urine; I10 Essential (primary) hypertension; G40.909 Epilepsy, unspecified, not intractable, without status epilepticus; F17.200 Nicotine dependence, unspecified, uncomplicated; Z79.899 Other long term (current) drug therapy; Z91.19 Patient's noncompliance with other medical treatment and regimen
CPT/HCPCS: 36415; 51610; 74450; 80048; 80185; 83735; 85025; 99285; G0378; J1580; J2250; J2270; J2370; J2405; J2704; J3010

== ENCOUNTER 2019-05-13 04:32 | Emergency (ER) | payer SELFPAY ==
--- OUTSIDE RECORDS SUMMARY | 2019-05-13 04:36 | XMS REPORT | Continuity of Care Document ---
:1970 Author Organization [employer] Care Team Providers Name Role Phone [employer] Unavailable Unavailable Problems Problem Status Onset Classification Date Comments Source Date Reported ACUTE URINARY Active 04/06/20 [facility] RETENTION [address] [place] [address] Cocaine abuse Active 12/10/19 Finding 12/10/[address] [facility] [place] Seizure disorder Active 12/10/19 Finding 12/10/[address] [facility] [place] HTN Active 12/10/19 Finding 12/10/[address] [facility] (hypertension[facility] 18 - [place] Hypertension Active 12/10/19 Finding 12/10/[address] [facility] [place] Urethral Active 07/07/20 Finding 12/10/[address] [facility] stricture [facility] - [place] Urinary Active 07/07/20 Finding 12/10/[address] [facility] retention 16 - [place] Hypertensive Active Problem 04/09/2019 [facility] arterial (disorder) OTHER RETENTION Active [facility] Medications Medication Details Route Status Patient Ordering Order Source Instructions Provider Date metoprolol 50 mg, 1 Inactive [facility] extended release tab, 019 Medical Route: [place] PO, Drug form: ERTAB, Daily, Start date: 04/07/19 9:00:00 CDT, Duration: 30 day, Stop date: 05/06/19 9:00:00 CDT, 0 Dilantin 100 mg, 1 Inactive [facility] cap, 019 Medical Route: [place] PO, Drug form: ERCAP, Q8H, Dosing Weight 122.727, kg, Start date: 04/07/19 0:00:00 CDT, Duration: 30 day, Stop date: 05/06/19 16:00:00 CDT, 0Notes: (Same as: Dilantin) Do not open, crush, or chew. Ibuprofen 400 mg, 1 No Longer [facility] tab, Active 019 Medical Route: [place] PO, Drug form: TAB, Q4H, Dosing Weight 122.727, kg, PRN Pain Score 1-3, Start date: 04/06/19 22:05:00 CDT, Duration: 30 day, Stop date: 05/06/19 22:04:00 CDT, 0Notes: (Same as: Motrin) "Do Not Crush" Give with food. Dextrose 50% 25 gm, 50 No Longer [facility] Syringe mL, Active [facility] Medical Route: Center IVP, Drug Form: INJ, Dosing Weight 122.727, kg, PRN, PRN Blood Glucose Results, Start date: 04/06/19 19:17:00 CDT, Duration: 30 day, Stop date: 05/06/19 19:16:00 CDT, 0 Glucagon 1 mg, No Longer [facility] Route: Active [address] [place] [address] IM, Drug Center form: PDR/INJ, PRN, Dosing Weight 122.727, kg, PRN Blood Glucose Results, Start date: 04/06/19 19:17:00 CDT, Duration: 30 day, Stop date: 05/06/19 19:16:00 CDT, 0 morphine 0.5 4 mg, Inactive [facility] mg/mL Route: [address] [place] [address] preservative-ciara IVP, [place] e injectable ONCE, solution Dosing Weight 122.727, kg, Priority: STAT, Start date: 04/06/19 18:30:00 CDT, Stop date: 04/06/19 18:30:00 CDT Epinephrine 0.01 20 mL, Inactive [facility] MG/ML / Route: [address] [place] [address] Lidocaine SUB-Q, [place] Hydrochloride 10 Drug MG/ML Injectable Form: Solution INJ, Dosing Weight 122.727, kg, ONCALL, Start date: 04/06/19 16:00:00 CDT, Duration: 30 day, Stop date: 05/06/19 15:59:00 CDT, 0 EPINEPHrine-lido 20 mL, Inactive Pauline joe Route: [facility] Medical 1:100,000-2% SUB-Q, Center injectable Dosing solution Weight 122.727, kg, ONCALL, PRN Procedure , Start date: 04/06/19 15:09:00 CDT, Duration: 30 day, Stop date: 05/06/19 15:08:00 CDT Levetiracetam TWICE Active [facility] [place] Allergies, Adverse Reactions, Alerts Substance Category Reaction Severity Reaction Status Date Comments Source type Reported acetaminophen Rash Mild Allergy to Active [facility] [place] aspirin Unknown Allergy to Active [facility] [place] ketorolac Unknown Allergy to Active [facility] [place] ibuprofen Assertion Drug Active [facility] Tylenol Assertion Drug Active [facility] Immunizations No Data Provided for This Section Results Order Name Results Value Reference Date Interpretation Comments Source Range CHEM PANEL eGFR 84 04/07 Result Comment: The Medical eGFR is Center calculated using the CKD-EPI formula. In most young, healthy individuals the eGFR will be >90 mL/min/1.73m2 . The eGFR declines with age. An eGFR of 60-89 may be normal in some populations, particularly the elderly, for whom the CKD-EPI formula has not been extensively validated. Use of the eGFR is not recommended in the following populations:< br/>
Sharmila viduals with unstable creatinine concentration s, including patients and those with serious co-morbid conditions.<b r/>
Patie nts with extremes in muscle mass or diet.

The data above are obtained from the National Kidney Disease Education Program (NKDEP) which additionally recommends that when the eGFR is used in patients with extremes of body mass index for purposes of drug dosing, the eGFR should be multiplied by the estimated BMI. CHEM PANEL Bili Total 0.6 0.2 - 1.3 04/07 [facility] CHEM PANEL AST 13 0 - 37 04/07 [facility]2018 [facility] CHEM PANEL Alk Phos 104 39 - 136 04/07 [facility]2018 [facility] CHEM PANEL Sodium Lvl 139 135 - 145 04/[address] CHEM PANEL Creatinine 1.17 0.50 - 08 [facility] 1.40 [facility] CHEM PANEL Potassium 3.8 3.5 - 5.1 04/07 [facility] CHEM PANEL Chloride Lvl 104 95 - 109 04/[address] CHEM PANEL Glucose Lvl 82 70 - 99 04/[address] CHEM PANEL BUN 16 7 - 22 04/[address] CHEM PANEL ALT 27 0 - [address] CHEM PANEL Albumin Lvl 3.3 3.5 - 5.0 04/[address] CHEM PANEL CO2 26 24 - 32 04/[address] CHEM PANEL Calcium Lvl 8.5 8.5 - 10.5 04/[address] CHEM PANEL Total 6.9 6.4 - 8.4 04/07 [facility] Protein [facility] CHEM PANEL A/G Ratio 0.9 0.7 - 1.6 04/[address] CHEM PANEL B/C Ratio 14 6 - 25 04/[address] CHEM PANEL AGAP 12.8 10.0 - 08 [place] 20.0 [facility] CHEM PANEL Globulin 3.6 2.7 - 4.2 04/[address] HEMATOLOGY WBC 5.9 3.7 - 10.4 04/[address] HEMATOLOGY Hgb 13.2 14.0 - 08 [facility] 18.0 2019 [facility] HEMATOLOGY RBC 4.29 4.70 - 04/07 [facility] 6.10 [facility] HEMATOLOGY RDW 14.1 11.5 - 08 [facility] 14.5 2019 [facility] HEMATOLOGY MCHC 34.5 32.0 - 08 [place] 36.0 2019 [facility] HEMATOLOGY MCH 30.7 27.0 - 08 [facility] 31.0 2019 [facility] HEMATOLOGY MCV 89.2 80.0 - 04/07 [facility] 94.0 2019 [facility] HEMATOLOGY Hct 38.2 42.0 - 08 [place] 54.0 2019 [facility] HEMATOLOGY MPV 8.6 7.4 - 10.4 04/[address] HEMATOLOGY Platelet 346 133 - [address] HEMATOLOGY Neutrophils 2.6 1.5 - 8.1 04/07 [facility] # /2018 [facility] HEMATOLOGY Basophils 0.7 0.0 - 1.0 04/07 [facility]2018 [facility] HEMATOLOGY Eosinophils 5.5 0.0 - 4.0 04/07 [facility] /2019 [facility] HEMATOLOGY Lymphocytes 2.3 1.0 - 5.5 08/ [facility] /2019 [facility] HEMATOLOGY Eosinophils 0.3 0.0 - 0.5 08/ [facility] # /2019 [facility] HEMATOLOGY Monocytes # 0.7 0.0 - 0.8 08/ [facility] /2019 [facility] HEMATOLOGY Lymphocytes 38.7 20.0 - 08/ [facility] 40.0 /2019 [facility] HEMATOLOGY Monocytes 11.4 2.0 - 12.0 08/ [facility] /2018 [facility] HEMATOLOGY Segs 43.7 45.0 - 08/ [facility] 75.0 /2019 [facility] Laboratory Urine Urine 12/[address] [facility] St Studies Phencyclidin Phencyclid /2017 [facility] - e Screen ine Screen [place] Laboratory Urine Urine 12/09 [facility] Studies Barbiturates Barbiturat /2017 [facility] - Screen es Screen [place] Laboratory Ur Ur 12/09 [facility] Studies Tetrahydroca Tetrahydro /2017 [facility] - nnabinol cannabinol [place] (THC) Scrn (THC) Scrn Laboratory Oxycodone Oxycodone 12/[address] [facility] St. Studies Screen Screen /2018 [facility] [place] Laboratory Opiates Opiates 12/[address] [facility] St. Studies Screen Screen /2018 [facility] [place] Laboratory MDMA MDMA 12/09 [facility]. Studies (Ecstasy) (Ecstasy) /2018 [facility] - Screen Screen [place] Laboratory Cocaine Cocaine 12/[address] [facility] St. Studies Screen Screen /2018 [facility] [place] Laboratory Benzodiazepi Benzodiaze 12/09 [facility]. Studies martin Screen pines /2017 [facility] - Screen [place] Laboratory Amphetamines Amphetamin 12/[address] [facility] St. Studies Screen es Screen /2018 [facility] [place] Laboratory Magnesium 1.8 1.8 - 2.5 12/[address] [facility] St. Studies Level /2018 [facility] [place] Laboratory Sodium Level 138 135 - 145 12/[address] [facility] St. Studies /2018 [facility] [place] Laboratory Potassium 3.9 3.6 - 5.0 12/[address] [facility] St. Studies Level /2018 [facility] [place] Laboratory Glucose 121 65 - [address] [facility] St. Studies Level /2018 [facility] [place] Laboratory Estimat 68 [address] [facility] St. Studies Glomerular /2018 [facility] - Filtration [place] Rate Laboratory Creatinine 1.35 0.61 - 04 [facility]. Studies 1.24 /2017 [facility] [place] Laboratory Chloride 107 101 - 111 12/[address] [facility] St. Studies Level /2017 [facility] [place] Laboratory Carbon 27 21 - 31 04 [facility]. Studies Dioxide /2017 [facility] - Level [place] Laboratory Calcium 8.9 8.5 - 10.5 12/[address] [facility] St. Studies Level /2017 [facility] [place] Laboratory Blood Urea 16 6 - 20 04 [facility]. Studies Nitrogen /2017 [facility] [place] Laboratory White Blood 6.8 4.3 - 10.9 12/09 [facility]. Studies Count /2017 [facility] [place] Laboratory Red Cell 13.5 12.1 - 12/09 [facility]. Studies Distribution 15.2 /2017 [facility] - Width [place] Laboratory Red Blood 4.12 4.33 - 04 [facility]. Studies Count 5.43 /2017 [facility] [place] Laboratory Platelet 357 152 - 406 12/09 [facility]. Studies Count /2017 [facility] [place] Laboratory Neutrophils 52.7 41.7 - 04 [facility]. Studies % 73.7 /2017 [facility] [place] Laboratory Monocytes % 13.8 3.3 - 12.3 12/09 [facility]. Studies /2018 [facility] [place] Laboratory Mean 8.8 7.6 - 11.3 12/09 [facility]. Studies Platelet /2017 [facility] - Volume [place] Laboratory Mean 88.8 80 - 100 12/09 [facility]. Studies Corpuscular /2017 [facility] - Volume [place] Laboratory Mean 33.1 32.0 - 04 [facility]. Studies Corpuscular 36.0 /2017 [facility] - Hemoglobin [place] Concent Laboratory Mean 29.4 27.0 - 04 [facility]. Studies Corpuscular 35.0 /2017 [facility] - Hemoglobin [place] Laboratory Lymphocytes 28.0 15.3 - 12/09 [facility]. Studies % 44.8 /2017 [facility] [place] Laboratory Hemoglobin 12.1 13.6 - [address] [facility] St. Studies 17.9 /2017 [facility] [place] Laboratory Hematocrit 36.6 39.6 - 12/[address] [facility] St. Studies 49.0 /2017 [facility] [place] Laboratory Eosinophils 5.0 0 - 4.4 12/[address] Studies % /2018 [facility] [place] Laboratory Basophils % 0.5 0 - 1.3 12/[address] Studies /2017 [facility] [place] Laboratory Absolute 3.6 1.8 - 8.0 12/[address] Studies Neutrophil /2017 [facility] [place] Laboratory Absolute 0.9 0.1 - 1.3 12/[address] [facility] St. Studies Monocytes /2017 [facility] - (CBC) [place] Laboratory Absolute 1.9 0.7 - 4.9 12/[address] [facility] St. Studies Lymphocytes /2017 [facility] - (CBC) [place] Laboratory Absolute 0.3 0 - 0.5 12/[address] [facility] St. Studies Eosinophils /2017 [facility] - (CBC) [place] Laboratory Absolute 0.0 0 - 0.5 12/[address] [facility] St. Studies Basophils [facility] - (CBC) [place] Laboratory Rapid <0.[address] [facility] St. Studies Troponin I /2017 [facility] [place] Laboratory Prothrombin 12.0 9.5 - 12.5 12/[address] [facility] St. Studies Time /2017 [facility] [place] Laboratory INR 1.02 12/[address] [facility] St. Studies Internationa [facility] - l Normalized [place] Ratio Laboratory Activated 31.7 24.3 - 12/[address] [facility] St. Studies Partial 36.9 2018 [facility] - Thromboplast [place] Time Pathology Reports No Data Provided for This Section Diagnostic Reports No Data Provided for This Section Consultation Notes No Data Provided for This Section Discharge Summaries No Data Provided for This Section History and Physicals No Data Provided for This Section Vital Signs Vital Sign Value Date Comments Source Heart Rate 70 04/07/2019 [facility] Respitory Rate 18 04/07/2019 [facility] Temperature Oral (F) 97.1 F 04/07/2019 [facility] Systolic (mm Hg) 135 04/07/2019 [facility] Diastolic (mm Hg) 96 04/07/2019 [facility] Respitory Rate 18 04/07/2019 [facility] Heart Rate 73 04/07/2019 [facility] Temperature Oral (F) 97.8 F 04/07/2019 [facility] Systolic (mm Hg) 137 04/07/2019 [facility] Diastolic (mm Hg) 86 04/07/2019 [facility] Systolic (mm Hg) 148 04/07/2019 [facility] Diastolic (mm Hg) 93 04/07/2019 [facility] Respitory Rate 18 04/07/2019 [facility] Heart Rate 69 04/07/2019 [facility] Temperature Oral (F) 96.6 F 04/07/2019 [facility] Weight 122.727 04/06/2019 [facility] BMI Calculated 39.96 04/06/2019 [facility] Height 175.26 cm 04/06/2019 [facility] Temperature Oral (F) 100.3 F 12/09/[address] [facility] [place] Heart Rate 82 12/09/[address] [facility] [place] Respitory Rate 20 12/09/[address] [facility] [place] Systolic (mm Hg) 155 12/09/[address] [facility] [place] Diastolic (mm Hg) 85 12/09/[address] [facility] [place] Height 69 12/09/[address] [facility] [place] Weight 248 12/09/[address] [facility] [place] Encounters Location Location Encounter Encounter Reason Attending ADM DC Status Source Details Type Number For Provider Date Date Visit [facility] [id number] 09/11 09/[address] [facility] [place] [facility] [id number] 10[facility]08 10/[address] [facility] [place] [facility] [id number] 10/08 10/[address] [facility] [place] [facility] [place] [facility] [id number] 12/08 12/[address] [facility] [place] [facility] [id number] Daryl 04/06 04/07 [facility] 3 [facility] Procedures Procedure Code Date Perfomer Comments Source Head Brain Wo [id number] [facility] St[facility] Vicki - Cont 8 [place] RELEASE [id number] [facility] URETHRA, ENDO 8 [place] CYSTOSCOPY [place] [id number] [facility] - TREATMENT 8 [place] Assessment and Plan Assessment and Plan Date Source Extracted from:Title: History and Physical 04/07/2019 [facility] Author: Luisa Ramsey MD Date: 04/06/19 1.Acute urinary retention(R33.8) Urology consulted IR consulted plan for SPC in AM Ordered: Admit/Condition, 04/06/19 19:17:00 CDT, Status: Out Patient with Observation Services, Acute, Expected LOS: 1 Midnight, Fabian Escobar MD, Admit MD Review/Approve Yes, Isolation: No Isolation/Standard Precautions, Acute urinary retention 2.Hypertension(I10) resumeBB 3.Seizure(R56.9) resume dilantin scds dc likely in AM Extracted from:Title: Urology consultation note Author: Terry Rivera MD Date: 04/06/19 Urology Consultation Note Attenging: Dr. Carolina Chief Complaint: Acute urinary retention HPI: 48 yo male with 10+ year hx of urethral stricture managed by serial dilation at OSH present with Acute urinary retention. Patient report last urination was around 11PM last night with mild dribbling. Ilia matson last surgery was about 7 months ago with primary urology DVIU vs Balloon dilation. Patient stated every time he had urinary retention, he would present to the ED where his primary urologist would perform urethral dilation. He did not receive any definitive surgery for urethral stricture due to insurance reason. Has a hx of indwelling SPT however, patient is very hesitant on manage his urethral s tricture with SPT. Currently, patient complains of mild discomfort. Denies any recent fever, chill, nausea, emesis, hematuria. ROS: 12 point ROS negative other than noted in HPI Problems Active Hypertension No qualifying data available Tobacco Details: Use: Unknown if ever smoked. Tobacco smoke exposure: None. Did the Patient Smoke Cigarettes Anytime During the Last 365 Days? Unable to obtain. Cessation Counseling Provided? No. Substance Abuse Details: Use: Current. Type: Cocaine. No qualifying data available Objective: Vitals Tmp(F) Pulse BP RR SpO2 FIO2 04/06 14:16 ---- 64 151/95 14 95 --- 04/06 12:55 97.3 68 157/94 18 100 --- 24 Hr Tmax: 97.3F (36.28c) at 04/06 12:55 Vital Signs are the last 5 in the past 48 hours. Physical Exam General: Alert and oriented, No acute distress. Eye: Extraocular movements are intact. HENT: Normocephalic. Respiratory: Lungs are clear to auscultation, Respirations are non-labored, Breath sounds are equal, Symmetrical chest wall expansion. Cardiovascular: Normal rate, Regular rhythm, No murmur, No edema, bilateral symmetrical radial pulses Gastrointestinal: Soft, Non-tender, mildly distended in the lower abdomen Integumentary: Warm, Dry. Neurologic: Alert, Oriented, Psychiatric: Cooperative, Medications (0) Active Scheduled Meds: None Unscheduled Meds: None PRN Meds: None One Time Meds: None Continuous Infusions: None No qualifying data available. No qualifying data available. Imaging Studies (last 36 hours) Assessment/Plan: 48 yo male with 10+ year hx of urethral stricture managed by serial dilation at OSH present with Acute urinary retention Plan: - Discussed possible option in ED with patient. strongly recommend SPT placement for urinary diversion prior to definitive procedure. However, patient refused bedside SPT placement. Patient is hesitant regarding penitentiary drainage tube placement. - Bedside catheter placement attempted, patient was unable to tolerate placement and refused any further intervention from urology team at bedside - Recommend IR consult for evaluation of SPT placement under sedation Terry Quiroga MD PGY-2 Urology Plan of Care Plan of Care Date Source Instructions 12/10/[address] [facility] [place] Stimulant Use Disorder-Cocaine Levetiracetam tablets Seizure, Adult Instructions 12/10/[address] [facility] [place] Stimulant Use Disorder-Cocaine Levetiracetam tablets Seizure, Adult Social History Social History Date Source Social History TypeResponse 04/06/2019 [facility] Substance Abuse Use: Current. Type: Cocaine. Alcohol Alcohol use interferes with work or home: No. Smoking Status Unknown if ever smoked; Exposure to Tobacco Smoke None; Cigarette Smoking Last 365 Days Unable to obtain; Reg Smoking Cessation Counseling No entered on: 04/06/19 Query Response Date Recorded Comment 12/10/[address] [facility] [place] Alcohol Use? No December 09, 2017 5:45am CD- Drugs? Yes December 09, 2017 5:45am Query Response Start Date Stop Date Smoking Status Never smoker Family History Value Date Source Query Response Instance Date Recorded Comment 12/10/2017 [facility] Burch Nurses notes no family history of illness Father December 09, 2017 5:45am Medical History Hypertension Mother December 09, 2017 5:45am Medical History Hypertension Father December 09, 2017 5:45am Nurses notes no family history of illness July 07, 2016 2:34pm Advance Directives Order Name Results Value Date Source Advance Directives Advance Directives Advance Directive Response Recorded Date/Time 12/10/2017 BANG Martínez - Does Patient Have Living Will [place] No December 09, 2017 6:00pm Durable Power of Supervisor [facility] No December 09, 2017 5:45am Would you like additional information No December 09, 2017 2:30am Functional Status No Data Provided for This Section
--- OUTSIDE RECORDS SUMMARY | 2019-05-13 04:37 | XMS REPORT ---
:1970 [facility] Address [address] [place] [address] Dr. England [address] [place] [id number] Care Team Providers Name Role Phone Unavailable Unavailable Unavailable Problems This patient has no known problems. Allergies, Adverse Reactions, Alerts This patient has no known allergies or adverse reactions. Medications This patient has no known medications. Encounters Start End Encounter Admission Attending Care Care Encounter Date/Time Date/Time Type Type Clinicians Facility Department ID 2019-04-06 2019-04-06 Outpatient E [facility] [id number] 11:15:00 11:15:00
--- OUTSIDE RECORDS SUMMARY | 2019-05-13 04:37 | XMS REPORT | Summary of Care ---
:1970 Author Organization [facility] Address [address] [place] [id number]- Encounter HQ Encntr_rosemary(FIN) [id number] Date(s): 04/06/19 - 04/07/[address] Professional Services provided by [facility] [place] [address]- Discharge Disposition: Home or Self Care Attending Physician: Fabian Escobar MD Admitting Physician: Fabian Escobar MD Referring Physician: Daryl Ashley MD Vital Signs Most recent to oldest [Reference 1 2 3 Range]: Height 175.26 cm (04/06/19 12:55 PM) Temperature Oral [96.4-99.1 DegF] 97.1 DegF 97.8 DegF 96.6 DegF (04/07/19 11:18 AM) (04/07/19 7:21 AM) (04/07/19 4:04 AM) Blood Pressure [90-140/60-90 135/96 mmHg 137/86 mmHg 148/93 mmHg mmHg] (04/07/19 11:18 AM) (04/07/19 7:21 AM) *HI* (04/07/19 4:04 AM) Respiratory Rate [14-20 BRMIN] 18 BRMIN 18 BRMIN 18 BRMIN (04/07/19 11:18 AM) (04/07/19 7:21 AM) (04/07/19 4:04 AM) Peripheral Pulse Rate [60-100 70 bpm 73 bpm 69 bpm bpm] (04/07/19 11:18 AM) (04/07/19 7:21 AM) (04/07/19 4:04 AM) Weight 122.727 kg (04/06/19 12:55 PM) Body Mass Index 39.96 m2 (04/06/19 12:55 PM) Problem List Condition Effective Dates Status Health Status Informant Hypertension(Confirmed) Active Allergies, Adverse Reactions, Alerts Substance Reaction Severity Status ibuprofen Active Tylenol Active Medications Dextrose 50% Syringe 25 gm, 50 mL, Route: IVP, Drug Form: INJ, Dosing Weight 122.727, kg, PRN, PRN Blood Glucose Results,Start date: 04/06/19 19:17:00 CDT, Duration: 30 day, Stop date: 05/06/19 19:16:00 CDT, 0 Start Date: 04/06/19 Stop Date: 04/07/19 Status: DiscontinuedDextrose 50% Syringe 12.5 gm, 25 mL, Route: IVP, Drug Form: INJ, Dosing Weight 122.727, kg, PRN, PRN Blood Glucose Results, Start date: 04/06/19 19:17:00 CDT, Duration: 30 day, Stop date: 05/06/19 19:16:00 CDT, 0 Start Date: 04/06/19 Stop Date: 04/07/19 Status: DiscontinuedDilantin 100 mg, 1 cap, Route: PO, Drug form: ERCAP, Q8H, Dosing Weight 122.727, kg, Start date: 04/07/19 0:00:00 CDT, Duration: 30 day, Stop date: 05/06/19 16:00: 00 CDT, 0 Notes: (Same as: Dilantin) Do not open, crush, or chew. Start Date: 04/07/19 Stop Date: 04/07/19 Status: DiscontinuedEPINEPHrine-lidocaine 1:100,000-1% injectable solution 20 mL, Route: SUB-Q, Drug Form: INJ, Dosing Weight 122.727, kg, ONCALL, Start date: 04/06/19 16:00:00 CDT, Duration: 30 day, Stop date: 05/06/19 15:59:00 CDT , 0 Start Date: 04/06/19 Stop Date: 04/06/19 Status: CompletedEPINEPHrine-lidocaine 1:100,000-2% injectable solution 20 mL, Route: SUB-Q, Dosing Weight 122.727, kg, ONCALL, PRN Procedure, Start date: 04/06/19 15:09:00CDT, Duration: 30 day, Stop date: 05/06/19 15:08:00 CDT Start Date: 04/06/19 Stop Date: 04/06/19 Status: Discontinuedglucagon 1 mg, Route: IM, Drug form: PDR/INJ, PRN, Dosing Weight 122.727, kg, PRN Blood Glucose Results, Start date: 04/06/19 19:17:00 CDT, Duration: 30 day, Stop date : 05/06/19 19:16:00 CDT, 0 Start Date: 04/06/19 Stop Date: 04/07/19 Status: Discontinuedibuprofen 400 mg, 1 tab, Route: PO, Drug form: TAB, Q4H, Dosing Weight 122.727, kg, PRN Pain Score 1-3, Start date: 04/06/19 22:05:00 CDT, Duration: 30 day, Stop date: 05/06/19 22:04:00 CDT, 0 Notes: (Same as: Motmarian)"Do Not Crush" Give with food. Start Date: 04/06/19 Stop Date: 04/07/19 Status: Discontinuedmetoprolol extended release 50 mg, 1 tab, Route: PO, Drug form: ERTAB, Daily, Start date: 04/07/19 9:00:00 CDT, Duration: 30 day, Stop date: 05/06/19 9:00:00 CDT, 0 Start Date: 04/07/19 Stop Date: 04/07/19 Status: Discontinuedmorphine 0.5 mg/mL preservative-free injectable solution 4 mg, Route: IVP, ONCE, Dosing Weight 122.727, kg, Priority: STAT, Start date: 04/06/19 18:30:00 CDT, Stop date: 04/06/19 18:30:00 CDT Start Date: 04/06/19 Stop Date: 04/06/19 Status: Completed Results Most recent to oldest [Reference Range]: 1 Neutrophils # [1.5-8.1 K/CMM] 2.6 K/CMM (04/07/19 4:12 AM) Lymphocytes # [1.0-5.5 K/CMM] 2.3 K/CMM (04/07/19 4:12 AM) Monocytes # [0.0-0.8 K/CMM] 0.7 K/CMM (04/07/19 4:12 AM) Eosinophils # [0.0-0.5 K/CMM] 0.3 K/CMM (04/07/19 4:12 AM) eGFR 84 mL/min/1.73m2 1 *NA* (04/07/19 4:12 AM) A/G Ratio [0.7-1.6] 0.9 (04/07/19 4:12 AM) Albumin Lvl [3.5-5.0 g/dL] 3.3 g/dL *LOW* (04/07/19 4:12 AM) Alk Phos [39-136 unit/L] 104 unit/L (04/07/19 4:12 AM) ALT [0-65 unit/L] 27 unit/L (04/07/19 4:12 AM) AGAP [10.0-20.0 mEq/L] 12.8 mEq/L (04/07/19 4:12 AM) AST [0-37 unit/L] 13 unit/L (04/07/19 4:12 AM) B/C Ratio [6-25] 14 (04/07/19 4:12 AM) Basophils [0.0-1.0 %] 0.7 % (04/07/19 4:12 AM) BUN [7-22 mg/dL] 16 mg/dL (04/07/19 4:12 AM) Calcium Lvl [8.5-10.5 mg/dL] 8.5 mg/dL (04/07/19 4:12 AM) Chloride Lvl [95-109 mEq/L] 104 mEq/L (04/07/19 4:12 AM) CO2 [24-32 mEq/L] 26 mEq/L (04/07/19 4:12 AM) Creatinine Lvl [0.50-1.40 mg/dL] 1.17 mg/dL (04/07/19 4:12 AM) Eosinophils [0.0-4.0 %] 5.5 % *HI* (04/07/19 4:12 AM) Globulin [2.7-4.2 g/dL] 3.6 g/dL (04/07/19 4:12 AM) Glucose Lvl [70-99 mg/dL] 82 mg/dL (04/07/19 4:12 AM) Hct [42.0-54.0 %] 38.2 % *LOW* (04/07/19 4:12 AM) Hgb [14.0-18.0 g/dL] 13.2 g/dL *LOW* (04/07/19 4:12 AM) Potassium Lvl [3.5-5.1 mEq/L] 3.8 mEq/L (04/07/19 4:12 AM) Lymphocytes [20.0-40.0 %] 38.7 % (04/07/19 4:12 AM) MCH [27.0-31.0 pg] 30.7 pg (04/07/19 4:12 AM) MCHC [32.0-36.0 g/dL] 34.5 g/dL (04/07/19 4:12 AM) MCV [80.0-94.0 fL] 89.2 fL (04/07/19 4:12 AM) Monocytes [2.0-12.0 %] 11.4 % (04/07/19 4:12 AM) MPV [7.4-10.4 fL] 8.6 fL (04/07/19 4:12 AM) Sodium Lvl [135-145 mEq/L] 139 mEq/L (04/07/19 4:12 AM) Platelet [133-450 K/CMM] 346 K/CMM (04/07/19 4:12 AM) Segs [45.0-75.0 %] 43.7 % *LOW* (04/07/19 4:12 AM) Total Protein [6.4-8.4 g/dL] 6.9 g/dL (04/07/19 4:12 AM) RBC [4.70-6.10 M/CMM] 4.29 M/CMM *LOW* (04/07/19 4:12 AM) RDW [11.5-14.5 %] 14.1 % (04/07/19 4:12 AM) Bili Total [0.2-1.3 mg/dL] 0.6 mg/dL (04/07/19 4:12 AM) WBC [3.7-10.4 K/CMM] 5.9 K/CMM (04/07/19 4:12 AM) 1Result Comment: The eGFR is calculated using the CKD-EPI formula. In most young , healthy individualsthe eGFR will be >90 mL/min/1.73m2. The eGFR declines with age. An eGFR of 60-89 may be normal insome populations, particularly the elderly, for whom the CKD-EPI formula has not been extensively validated. Use of the eGFR is not recommended in the following populations: Individuals with unstable creatinine concentrations, including patients and those with serious co-morbid conditions. Patients with extremes in muscle mass or diet. The data above are obtained from the National Kidney Disease Education Program ( NKDEP) which additionally recommends that when the eGFR is used in patients with extremes of body mass index for purposesof drug dosing, the eGFR should be multiplied by the estimated BMI. Immunizations No data available for this section Procedures No data available for this section Social History Social History Type Response Substance Abuse Use: Current. Type: Cocaine. Alcohol Alcohol use interferes with work or home: No. Smoking Status Unknown if ever smoked; Exposure to Tobacco Smoke None; Cigarette Smoking Last 365 Days Unable to obtain; Reg Smoking Cessation Counseling No entered on: 04/06/19 Assessment and Plan Extracted from: Title: History and Physical Author: Luisa Ramsey MD Date: 04/06/19 1.Acute urinary retention(R33.8) Urology consulted IR consulted plan for SPC in AM Ordered: Admit/Condition, 04/06/19 19:17:00 CDT, Status: Out Patient with Observation Services, Acute, Expected LOS: 1 Midnight, Fabian Escobar MD, Admit MD Review/Approve Yes, Isolation: No Isolation/Standard Precautions, Acute urinary retention 2.Hypertension(I10) resumeBB 3.Seizure(R56.9) resume dilantin scds dc likely in AM Extracted from: Title: Urology consultation note Author: Terry Rivera MD [...] bedside SPT placement. Patient is hesitant regarding long-term drainage tube placement. - Bedside catheter placement attempted, patient was unable to tolerate placement and refused any further intervention from urology team at bedside - Recommend IR consult for evaluation of SPT placement under sedation Terry Quiroga MD PGY-2 Urology
[2019-05-13] MEDS ORDERED: ALBUTEROL 2.5 MG/3 ML NEB SOL ONE (05:31)
[2019-05-13 05:58] LABS: Absolute Lymphocytes (CBC) 2.1 K/uL (0.7-4.9); Basophils % 0.4 % (0-1.3); Hematocrit 39.7 % (39.6-49.0); Lymphocytes % 18.5 % (15.3-44.8); MPV 8.5 fL (7.6-11.3); RBC Red Blood Cell Count 4.42 M/uL (4.33-5.43)
[2019-05-13 05:59] LABS: Protime INR 1.18
[2019-05-13 06:25] LABS: ALT/SGPT 33 U/L (12-78); AST/SGOT 15 U/L (15-37); Albumin 4.3 g/dL (3.4-5.0); Alkaline Phosphatase 139 U/L (45-117); BUN Blood Urea Nitrogen 11 mg/dL (7-18); Bicarbonate 28 mmol/L (21-32); Bilirubin Direct 0.2 mg/dL (0-0.2); Bilirubin Total 0.4 mg/dL (0.2-1.0); Glucose Level 104 mg/dL (74-106); Magnesium 2.1 mg/dL (1.8-2.4); NT PRO-BNP 104 pg/mL (<125); Potassium 3.8 mmol/L (3.5-5.1); Protein, Total 8.1 g/dL (6.4-8.2); Sodium Level 140 mmol/L (136-145); Troponin (Emerg Dept Use Only) < 0.02 ng/mL (0.0-0.045)
[2019-05-13] MEDS ORDERED: DIAZEPAM 10 MG/2 ML INJ SYRINGE ONE (06:32)
[2019-05-13 07:08] LABS: Phenytoin (Dilantin) Level < 0.4 ug/mL (10.0-20.0)
[2019-05-13] MEDS ORDERED: METOPROLOL TAR 25 MG TAB ONE (07:31)
[2019-05-13] MEDS ORDERED: FOSPHENYTOIN PE 1,000 MG in NA CHLORIDE 0.9% 100 ML IV ONE (08:00)
[2019-05-13] MEDS ORDERED: DIPHENHYDRAMINE 50 MG/ML VIAL ONE (08:01)
--- NOTE | 2019-05-13 09:44 | ER ---
Nurse's Notes [facility] Name: Vince Blackmon Age: 48 yrs Sex: Male : 1970 Arrival Date: 05/13/2019 Time: 04:35 Bed 20 Private MD: Diagnosis: Chest pain, unspecified;Subtherapeutic dilantin level Presentation: 05/13 04:37 Presenting complaint: EMS states: " he has been having difficulty breathing X 30 min. jd3 he reports that he doesn't really have any pain, just shortness of breath.". Transition of care: patient was not received from another setting of care. Onset of symptoms was May 13, 2019. Risk Assessment: Do you want to hurt yourself or someone else? Patient reports no desire to harm self or others. Initial Sepsis Screen: Does the patient meet any 2 criteria? No. Patient's initial sepsis screen is negative. Does the patient have a suspected source of infection? No. Patient's initial sepsis screen is negative. Care prior to arrival: None. 04:37 Method Of Arrival: EMS: [facility] jd3 04:37 Acuity: COBY 3 jd3 Triage Assessment: 04:35 General: Appears in no apparent distress. comfortable, Behavior is calm, cooperative, cc3 appropriate for age. Pain: Denies pain. EENT: No signs and/or symptoms were reported regarding the EENT system. Neuro: Level of Consciousness is awake, alert, obeys commands, Oriented to person, place, time, situation, Appropriate for age. Cardiovascular: Denies chest pain, Heart tones S1 S2 present Capillary refill < 3 seconds Patient's skin is warm and dry. Respiratory: Reports shortness of breath at rest on exertion since 30 minutes ago Airway is patent Respiratory effort is even, unlabored, Respiratory pattern is regular, symmetrical, Onset: The symptoms/episode began/occurred suddenly, the patient has mild shortness of breath. GI: Abdomen is round non-distended. : No signs and/or symptoms were reported regarding the genitourinary system. Derm: Skin is intact, is healthy with good turgor, Skin is normal, black, noticed a lump at the right scapular area which has been there for 3 years as per patient. Musculoskeletal: Circulation, motion, and sensation intact. Range of motion: intact in all extremities. Historical: - Allergies: 04:42 ACETAMINOPHEN; jd3 04:42 Ibuprofen; jd3 04:42 Toradol; jd3 - Home Meds: 04:42 Dilantin Oral [Active]; jd3 - PMHx: 04:42 Hypertension; Seizures; urinary stricture; jd3 - PSHx: 04:42 None; jd3 - Immunization history:: Adult Immunizations up to date. - Social history:: Smoking status: Patient uses tobacco products, smokes one-half pack cigarettes per day. - Ebola Screening: : Patient negative for fever greater than or equal to 101.5 degrees Fahrenheit, and additional compatible Ebola Virus Disease symptoms. Screenin:35 Abuse screen: Denies threats or abuse. Denies injuries from another. Nutritional cc3 screening: No deficits noted. Tuberculosis screening: No symptoms or risk factors identified. Fall Risk Ambulatory Aid- None/Bed Rest/Nurse Assist (0 pts). Gait- Normal/Bed Rest/Wheelchair (0 pts) Mental Status- Oriented to own ability (0 pts). Assessment: 04:35 Cardiovascular: Rhythm is sinus tachycardia. Respiratory: Airway is patent Respiratory cc3 effort is even, unlabored, Respiratory pattern is regular, symmetrical, Breath sounds are clear bilaterally. 05:35 Reassessment: Patient appears in no apparent distress at this time. Patient and/or cc3 family updated on plan of care and expected duration. Pain level reassessed. Patient is alert, oriented x 3, equal unlabored respirations, skin warm/dry/pink. Patient said he doesn't have chest pain earlier but he's beginning now to have mild chest pain, ECG done and shown to Dr. Khan. 06:10 Reassessment: Patient appears in no apparent distress at this time. Patient and/or cc3 family updated on plan of care and expected duration. Pain level reassessed. Patient is alert, oriented x 3, equal unlabored respirations, skin warm/dry/pink. Patient said he felt relief from the breathing treatment. Patient states feeling better. Patient states symptoms have improved. 06:18 Reassessment: Patient complains of chest pain, Dr. Khan and [employer] Charlette informed. cc3 07:10 Reassessment: Received call from lab for a Dilantin level <0.4. COY Whittington notified. rb1 07:15 Reassessment: reports mid substernal chest pain, denies nausea vomiting, rates pain em 03/15, provider notified. 08:00 Reassessment: Patient appears in no apparent distress at this time. Patient and/or em family updated on plan of care and expected duration. Pain level reassessed. Patient is alert, oriented x 3, equal unlabored respirations, skin warm/dry/pink. 09:20 Reassessment: Patient appears in no apparent distress at this time. Patient and/or em family updated on plan of care and expected duration. Pain level reassessed. Patient is alert, oriented x 3, equal unlabored respirations, skin warm/dry/pink. 09:20 Reassessment: called dietary to notify them of pt tray, no answer, will call again back em later. 09:40 Reassessment: called dietary to notify them of pt tray, no answer, will call again back em later. 10:00 Reassessment: pt not in room at this time. em 10:11 Reassessment: Patient appears in no apparent distress at this time. Patient and/or em family updated on plan of care and expected duration. Pain level reassessed. Patient is alert, oriented x 3, equal unlabored respirations, skin warm/dry/pink. pt reports going to the cafeteria looking for coffee and his breakfast tray. 10:15 Reassessment: breakfast tray given. em Vital Signs: 04:43 BP 147 / 86; Pulse 104; Resp 20 S; Temp 98.6(O); Pulse Ox 98% on R/A; Weight 120.2 kg jd3 (R); Height 5 ft. 9 in. (175.26 cm) (R); Pain 2/10; 05:39 BP 160 / 91; Pulse 101; Resp 22 S; Pulse Ox 100% on R/A; cc3 06:00 BP 171 / 106; Pulse 104; Resp 23 S; Pulse Ox 100% on R/A; cc3 06:51 BP 154 / 97; Pulse 102; Resp 22 S; Pulse Ox 98% on R/A; cc3 07:20 BP 155 / 86; Pulse 100; Resp 20; Pulse Ox 99% on R/A; Pain 7/10; em 08:05 BP 153 / 89; Pulse 91; Resp 18; Pulse Ox 99% on R/A; Pain 7/10; em 09:00 BP 156 / 90; Pulse 92; Resp 20; Pulse Ox 100% on R/A; em 10:00 em 04:43 Body Mass Index 39.13 (120.20 kg, 175.26 cm) jd3 10:00 not in room at this time em ED Course: 04:35 Patient arrived in ED. ds1 04:35 Patient has correct armband on for positive identification. Bed in low position. Call cc3 light in reach. Side rails up X 1. Pulse ox on. NIBP on. 04:36 Curly Gillespie, RN is Primary Nurse. jd3 04:36 Primary Nurse role handed off by Curly Gillespie RN cc3 04:36 Tasha Vance is Primary Nurse. cc3 04:40 Triage completed. jd3 04:44 Arm band placed on. jd3 05:35 Inserted saline lock: 20 gauge in right antecubital area, using aseptic technique. cc3 Blood collected. 05:50 XRAY Chest (1 view) In Process Unspecified. EDMS 06:11 Charlette Gannon FNP-C is PHCP. snw 06:12 Piyush Khan MD is Attending Physician. snw 07:00 Report given to COY Whittington. cc3 07:03 Pk Vuong LVN is Primary Nurse. em 09:01 Repeat lab(s) drawn. by me, sent to lab. EKG done, by ED staff, reviewed by Charlette em Teressa LYNN. 10:17 No provider procedures requiring assistance completed. IV discontinued, intact, em bleeding controlled, No redness/swelling at site. Pressure dressing applied. Administered Medications: 05:30 Drug: Albuterol 2.5 mg Route: Inhalation; cc3 06:03 Follow up: Response: No adverse reaction; Marked relief of symptoms cc3 06:30 Drug: Valium 5 mg Route: IVP; Site: right antecubital; cc3 06:38 Follow up: Response: No adverse reaction cc3 07:32 Drug: Metoprolol 25 mg Route: PO; em 08:43 Follow up: Response: No adverse reaction em 07:44 Drug: Fosphenytoin 1 grams Route: IVPB; Site: right antecubital; em 07:55 Follow up: Response: Other; reports itchiness, denies shortness of breath, no hives em noted, provider notified, new medication orders received 08:10 Follow up: IV Status: Completed infusion; IV Intake: 100ml em 08:05 Drug: Benadryl 12.5 mg Route: IVP; Site: right antecubital; ss 08:18 Follow up: Response: No adverse reaction; Marked relief of symptoms em Intake: 08:10 IV: 100ml; Total: 100ml. em Outcome: 09:43 Discharge ordered by MD. moct[place] 10:17 Discharged to home ambulatory. em 10:17 Condition: good 10:17 Discharge instructions given to patient, Instructed on discharge instructions, follow up and referral plans. medication usage, Demonstrated understanding of instructions, follow-up care, medications, Prescriptions given X 10:29 Patient left the ED. em Signatures: Dispatcher [employer] EDMS Charlette Gannon, ANDRE-C NEEDLE LOOM TENDER-Csnw Pk Vuong, SHIPPING RECEIVING MANAGER SHIPPING RECEIVING MANAGER em Natalie Basurto ds1 Brooklyn Colon RN RN Isabel Duckworth, RN RN rb1 Curly Gillespie RN RN jd3 Tasha Vance cc3 Corrections: (The following items were deleted from the chart) 06:04 04:35 Cardiovascular: Rhythm is regular cc3 cc3 06:15 04:35 Derm: Skin is intact, is healthy with good turgor, Skin is normal, black, cc3 cc3 06:19 06:10 Reassessment: Patient appears in no apparent distress at this time. Patient cc3 and/or family updated on plan of care and expected duration. Pain level reassessed. Patient is alert, oriented x 3, equal unlabored respirations, skin warm/dry/pink. Patient said he felt relief from the breathing treatment. cc3 10:18 09:20 Reassessment: called dietary to notify them of pt tray, no answer, will call em again back later em
--- NOTE | 2019-05-13 09:45 | EDPHYS ---
Physician Documentation [facility] Name: Vince Blackmon Age: 48 yrs Sex: Male : 1970 Arrival Date: 05/13/2019 Time: 04:35 Bed 20 Private MD: ED Physician Piyush Khan HPI: 05/13 06:47 This 48 yrs old Black Male presents to ER via EMS with complaints of Breathing snw Difficulty. 06:47 The patient has shortness of breath at rest. Onset: The symptoms/episode began/occurred snw suddenly, this morning, and improved post neb tx in ED. Duration: The symptoms are continuous. Associated signs and symptoms: The patient has no apparent associated signs or symptoms. Severity of symptoms: At their worst the symptoms were moderate in the emergency department the symptoms have improved. The patient has experienced similar episodes in the past. The patient has not recently seen a physician, and does not have an established primary care provider, the patient generally uses the emergency department for all medical complaints. Historical: - Allergies: 04:42 ACETAMINOPHEN; jd3 04:42 Ibuprofen; jd3 04:42 Toradol; jd3 - Home Meds: 04:42 Dilantin Oral [Active]; jd3 - PMHx: 04:42 Hypertension; Seizures; urinary stricture; jd3 - PSHx: 04:42 None; jd3 - Immunization history:: Adult Immunizations up to date. - Social history:: Smoking status: Patient uses tobacco products, smokes one-half pack cigarettes per day. - Ebola Screening: : Patient negative for fever greater than or equal to 101.5 degrees Fahrenheit, and additional compatible Ebola Virus Disease symptoms. ROS: 06:39 Constitutional: Negative for fever, chills, and weight loss, Eyes: Negative for injury, snw pain, redness, and discharge, ENT: Negative for injury, pain, and discharge, Neck: Negative for injury, pain, and swelling. 06:39 Respiratory: Negative for cough, wheezing, and pleuritic chest pain, positive sudden shortness of breath this am Abdomen/GI: Negative for abdominal pain, nausea, vomiting, diarrhea, and constipation, Back: Negative for injury and pain, : Negative for injury, bleeding, discharge, and swelling, MS/Extremity: Negative for injury and deformity, Skin: Negative for injury, rash, and discoloration, Neuro: Negative for headache, weakness, numbness, tingling, and seizure. 06:39 Cardiovascular: Positive for chest pain, described as sharp, intermittent. Exam: 06:37 Constitutional: This is a well developed, well nourished patient who is awake, alert, snw and in no acute distress. Head/Face: Normocephalic, atraumatic. Eyes: Pupils equal round and reactive to light, extra-ocular motions intact. Lids and lashes normal. Conjunctiva and sclera are non-icteric and not injected. Cornea within normal limits. Periorbital areas with no swelling, redness, or edema. ENT: Nares patent. No nasal discharge, no septal abnormalities noted. Tympanic membranes are normal and external auditory canals are clear. Oropharynx with no redness, swelling, or masses, exudates, or evidence of obstruction, uvula midline. Mucous membranes moist. Neck: Trachea midline, no thyromegaly or masses palpated, and no cervical lymphadenopathy. Supple, full range of motion without nuchal rigidity, or vertebral point tenderness. No Meningismus. Chest/axilla: Normal chest wall appearance and motion. Nontender with no deformity. No lesions are appreciated. 06:37 Respiratory: Lungs have equal breath sounds bilaterally, clear to auscultation and percussion. No rales, rhonchi or wheezes noted. No increased work of breathing, no retractions or nasal flaring. Abdomen/GI: Soft, non-tender, with normal bowel sounds. No distension or tympany. No guarding or rebound. No evidence of tenderness throughout. Back: No spinal tenderness. No costovertebral tenderness. Full range of motion. Skin: Warm, dry with normal turgor. Normal color with no rashes, no lesions, and no evidence of cellulitis. MS/ Extremity: Pulses equal, no cyanosis. Neurovascular intact. Full, normal range of motion. Neuro: Awake and alert, GCS 15, oriented to person, place, time, and situation. Cranial nerves II-XII grossly intact. Motor strength 5/5 in all extremities. Sensory grossly intact. Cerebellar exam normal. Normal gait. 06:37 Cardiovascular: Rate: tachycardic, Rhythm: regular, Pulses: no pulse deficits are appreciated, Heart sounds: normal. Vital Signs: 04:43 BP 147 / 86; Pulse 104; Resp 20 S; Temp 98.6(O); Pulse Ox 98% on R/A; Weight 120.2 kg jd3 (R); Height 5 ft. 9 in. (175.26 cm) (R); Pain 2/10; 05:39 BP 160 / 91; Pulse 101; Resp 22 S; Pulse Ox 100% on R/A; cc3 06:00 BP 171 / 106; Pulse 104; Resp 23 S; Pulse Ox 100% on R/A; cc3 06:51 BP 154 / 97; Pulse 102; Resp 22 S; Pulse Ox 98% on R/A; cc3 07:20 BP 155 / 86; Pulse 100; Resp 20; Pulse Ox 99% on R/A; Pain 7/10; em 08:05 BP 153 / 89; Pulse 91; Resp 18; Pulse Ox 99% on R/A; Pain 7/10; em 09:00 BP 156 / 90; Pulse 92; Resp 20; Pulse Ox 100% on R/A; em 10:00 em 04:43 Body Mass Index 39.13 (120.20 kg, 175.26 cm) jd3 10:00 not in room at this time em MDM: 06:12 Patient medically screened. snw 09:46 Data reviewed: vital signs, nurses notes. Data interpreted: Pulse oximetry: on room air snw is 99 %. Interpretation: normal. Counseling: I had a detailed discussion with the patient and/or guardian regarding: the historical points, exam findings, and any diagnostic results supporting the discharge/admit diagnosis, the presence of at least one elevated blood pressure reading (>120/80) during this emergency department visit, lab results, radiology results, the need for outpatient follow up, to return to the emergency department if symptoms worsen or persist or if there are any questions or concerns that arise at home. Response to treatment: the patient's symptoms have markedly improved after treatment. Special discussion: Based on the patient's history, exam, and Dx evaluation, there is no indication for emergent intervention or inpatient Tx. It is understood by the patient/guardian that if the Sx's persist or worsen they need to return immediately for re-evaluation. I have referred the patient to see his PCP for further evaluation of high blood pressure. Based on the history and exam findings, there is no indication for further emergent testing or inpatient evaluation. I discussed with the patient/guardian the need to see the primary care provider for further evaluation of the symptoms. 05/13 05:27 Order name: Basic Metabolic Panel; Complete Time: 07:23 gs 05/13 05:27 Order name: CBC with Diff; Complete Time: 06:18 gs 05/13 05:27 Order name: LFT's; Complete Time: 07:23 gs 05/13 05:27 Order name: Magnesium; Complete Time: 07:23 gs 05/13 05:27 Order name: NT PRO-BNP; Complete Time: 07:23 gs 05/13 05:27 Order name: PT-INR; Complete Time: 06:18 gs 05/13 05:27 Order name: Troponin (emerg Dept Use Only); Complete Time: 07:23 gs 05/13 05:27 Order name: XRAY Chest (1 view) gs 05/13 05:38 Order name: D-Dimer; Complete Time: 06:18 gs 05/13 06:25 Order name: Add On-Lab snw 05/13 06:34 Order name: Phenytoin (Dilantin) Level; Complete Time: 07:23 EDMS 05/13 08:44 Order name: Troponin (emerg Dept Use Only); Complete Time: 09:42 em 05/13 05:27 Order name: EKG; Complete Time: 05:28 gs 05/13 05:27 Order name: Cardiac monitoring; Complete Time: 05:28 gs 05/13 05:27 Order name: EKG - Nurse/Tech; Complete Time: 05:38 gs 05/13 05:27 Order name: IV Saline Lock; Complete Time: 05:53 gs 05/13 05:27 Order name: Labs collected and sent; Complete Time: 05:53 gs 05/13 05:27 Order name: O2 Per Protocol; Complete Time: 05:28 gs 05/13 05:27 Order name: O2 Sat Monitoring; Complete Time: 05:28 gs 05/13 08:44 Order name: EKG - Nurse/Tech; Complete Time: 09:00 em 05/13 08:44 Order name: EKG; Complete Time: 08:45 em 05/13 09:00 Order name: Diet Heart Healthy; Complete Time: 09:01 em Administered Medications: 05:30 Drug: Albuterol 2.5 mg Route: Inhalation; cc3 06:03 Follow up: Response: No adverse reaction; Marked relief of symptoms cc3 06:30 Drug: Valium 5 mg Route: IVP; Site: right antecubital; cc3 06:38 Follow up: Response: No adverse reaction cc3 07:32 Drug: Metoprolol 25 mg Route: PO; em 08:43 Follow up: Response: No adverse reaction em 07:44 Drug: Fosphenytoin 1 grams Route: IVPB; Site: right antecubital; em 07:55 Follow up: Response: Other; reports itchiness, denies shortness of breath, no hives em noted, provider notified, new medication orders received 08:10 Follow up: IV Status: Completed infusion; IV Intake: 100ml em 08:05 Drug: Benadryl 12.5 mg Route: IVP; Site: right antecubital; ss 08:18 Follow up: Response: No adverse reaction; Marked relief of symptoms em Disposition: 05/13/19 09:43 Discharged to Home. Impression: Chest pain, unspecified, Subtherapeutic dilantin level. - Condition is Stable. - Discharge Instructions: Nonspecific Chest Pain, Hypertension, Form - Blood Pressure Record Sheet. - Prescriptions for Protonix 40 mg Oral Tablet - take 1 tablet by ORAL route once daily; 30 tablet. - Work release form, Medication Reconciliation Form, Thank You Letter, Antibiotic Education, Prescription Opioid Use form. - Follow up: Private Physician; When: 2 - 3 days; Reason: Recheck today's complaints, Continuance of care, Re-evaluation by your physician. Follow up: Emergency Department; When: As needed; Reason: Worsening of condition. Signatures: Dispatcher [employer] EDNC Charlette Gannon, ANDRE-C DEMAND INSPECTOR-Csnw Pk Vuong, DRILL PUNCH OPERATOR DRILL PUNCH OPERATOR em Brooklyn Colon RN RN ss Piyush Khan MD MD gs Davies, Jonathon, RN RN Tasha Mckenzie cc3 Corrections: (The following items were deleted from the chart) 10:29 09:43 05/13/2019 09:43 Discharged to Home. Impression: Chest pain, unspecified; em Subtherapeutic dilantin level. Condition is Stable. Forms are Medication Reconciliation Form, Thank You Letter, Antibiotic Education, Prescription Opioid Use. Follow up: Private Physician; When: 2 - 3 days; Reason: Recheck today's complaints, Continuance of care, Re-evaluation by your physician. Follow up: Emergency Department; When: As needed; Reason: Worsening of condition. w
--- NOTE | 2019-05-13 10:38 | RAD REPORT ---
EXAM DESCRIPTION: RAD - Chest Single View - 05/13/2019 5:49 am CLINICAL HISTORY: Shortness of breath COMPARISON: December 07, 2018 TECHNIQUE: AP portable chest image was obtained 0540 hours . FINDINGS: No focal lung parenchymal process. Lung markings match comparison. Heart and vasculature a re normal. No measurable pleural effusion and no pneumothorax. No acute bony abnormality seen. No acu te aortic findings suspected. IMPRESSION: No acute cardiopulmonary process. No significant interval change.
[2019-05-13 10:45] VITALS: TEMP 98.6
[2019-05-13 10:51] VITALS: BP 156/90; O2SAT 100
--- NOTE | 2019-05-13 15:33 | EKG ---
Test Date: 2019-05-13 Test Time: 05:36:08 Supervisor Tan Room: GAVINO MEASUREMENT RESULTS: Intervals: Rate: 102 VA: 150 QRSD: 80 QT: 350 QTc: 456 [place]: P: 62 VA: 150 QRS: 7 T: -1 INTERPRETIVE STATEMENTS: Sinus tachycardia Minimal voltage criteria for LVH, may be normal variant Nonspecific T wave abnormality Abnormal ECG Compared to ECG 03/01/2019 18:57:11 T-wave abnormality now present Sinus rhythm no longer present Electronically Signed On 05-13-19 15:32:55 CDT by Juan M Hernandez
--- NOTE | 2019-05-14 09:33 | EKG ---
Test Date: 2019-05-13 Test Time: 08:50:54 Supervisor [employer]: EVELIN MEASUREMENT RESULTS: Intervals: Rate: 75 OH: 152 QRSD: 82 QT: 386 QTc: 431 [place]: P: 65 OH: 152 QRS: 12 T: -16 INTERPRETIVE STATEMENTS: Normal sinus rhythm T wave abnormality, consider inferior ischemia Abnormal ECG Compared to ECG 05/13/2019 05:36:08 Possible ischemia now present Sinus tachycardia no longer present Left ventricular hypertrophy no longer present T-wave abnormality still present Electronically Signed On 05-14-19 09:33:00 CDT by Juan M Hernandez
== END 2019-05-13 10:29 | disposition home or self-care (01) ==
LOC: ER 04:32
DX: R07.9 Chest pain, unspecified (principal); F17.210 Nicotine dependence, cigarettes, uncomplicated
CPT/HCPCS: 36415; 71045; 80048; 80076; 80185; 83735; 83880; 84484; 85025; 85379; 85610; 93005; 96365; 96375; 99285; J3360; Q2009

== ENCOUNTER 2019-07-27 13:39 | Emergency (ER) | payer SELFPAY ==
--- OUTSIDE RECORDS SUMMARY | 2019-07-27 13:40 | XMS REPORT ---
:1970 [facility] Address [address] [place] [address] [address] Care Team Providers Name Role Phone Unavailable Unavailable Unavailable Problems This patient has no known problems. Allergies, Adverse Reactions, Alerts This patient has no known allergies or adverse reactions. Medications This patient has no known medications. Encounters Start End Encounter Admission Attending Care Care Encounter Date/Time Date/Time Type Type Clinicians Facility Department ID 2019-04-06 2019-04-06 Outpatient E [facility] [id number] 11:15:00 11:15:00
--- NOTE | 2019-07-27 15:13 | ER ---
Nurse's Notes [facility] Name: Vince Blcakmon Age: 48 yrs Sex: Male : 1970 Arrival Date: 07/27/2019 Time: 13:41 Bed Waiting Private MD: None, None Diagnosis: Presentation: 07/27 13:49 Presenting complaint: Patient states: I have a urethral stricture and I cannot urinate, la1 have not been able to since 0900 this morning. Transition of care: patient was not received from another setting of care. Onset of symptoms was July 27, 2019. Risk Assessment: Do you want to hurt yourself or someone else? Patient reports no desire to harm self or others. Initial Sepsis Screen: Does the patient meet any 2 criteria? No. Patient's initial sepsis screen is negative. Does the patient have a suspected source of infection? No. Patient's initial sepsis screen is negative. Care prior to arrival: None. 13:49 Method Of Arrival: Ambulatory la1 13:49 Acuity: COBY 3 la1 Historical: - Allergies: 13:50 ACETAMINOPHEN; la1 13:50 Ibuprofen; la1 13:50 Toradol; la1 - PMHx: 13:50 Seizures; Hypertension; urinary stricture; la1 - Immunization history:: Adult Immunizations up to date. - Social history:: Smoking status: Patient/guardian denies using tobacco. - Ebola Screening: : No symptoms or risks identified at this time. Vital Signs: 13:50 BP 139 / 92; Pulse 88; Resp 16; Temp 98.2; Pulse Ox 100% on R/A; Weight 117.93 kg; la1 Height 5 ft. 8 in. (172.72 cm); 13:50 Body Mass Index 39.53 (117.93 kg, 172.72 cm) la1 ED Course: 13:41 Patient arrived in ED. ag5 13:41 None, None is Private Physician. ag5 13:49 Triage completed. la1 13:50 Arm band placed on right wrist. la1 14:46 Isabel Duckworth, RN is Primary Nurse. rb1 Administered Medications: No medications were administered Outcome: 15:12 Patient left the ED. la1 Signatures: Yrn Calvert RN RN la1 Isabel Duckworth RN RN rb1 Lenora, Ajare ag5
[2019-07-27 16:09] VITALS: BP 139/92; TEMP 98.2; O2SAT 100
== END 2019-07-27 15:12 | disposition left against medical advice (07) ==
LOC: ER 13:39
DX: Z53.21 Procedure and treatment not carried out due to patient leaving prior to being seen by health care provider (principal)
CPT/HCPCS: 99281

== ENCOUNTER 2019-09-07 16:54 | Emergency (ER) | payer SELFPAY ==
--- OUTSIDE RECORDS SUMMARY | 2019-09-07 16:55 | XMS REPORT ---
:1970 [facility] Address [address] [place] [address] [address] Care Team Providers Name Role Phone Unavailable Unavailable Unavailable Problems This patient has no known problems. Allergies, Adverse Reactions, Alerts This patient has no known allergies or adverse reactions. Medications This patient has no known medications. Encounters Start End Encounter Admission Attending Care Care Encounter Date/Time Date/Time Type Type Clinicians Facility Department ID 2019-04-06 2019-04-[address] [facility] [id number] 11:15:00 11:15:00
[2019-09-07] MEDS ORDERED: MORPHINE 4 MG/ML SYR ONE ×3 (17:35→21:21)
[2019-09-07 17:40] LABS: Basophils % 1.1 % (0-1.3); Hematocrit 39.4 % (39.6-49.0); Lymphocytes % 32.4 % (15.3-44.8); MPV 8.9 fL (7.6-11.3)
[2019-09-07 17:55] LABS: Potassium 4.1 mmol/L (3.5-5.1)
[2019-09-07] MEDS ORDERED: PIPER/TAZO/NS 3.375gm 3.375 GM/100 ML BAG ONE (20:19)
--- NOTE | 2019-09-07 20:31 | EDPHYS ---
Physician Documentation [facility] Name: Vince Blackmon Age: 49 yrs Sex: Male : 1970 Arrival Date: 09/07/2019 Time: 16:55 Bed 7 Private MD: ED Physician Daryl Ashley HPI: 09/07 17:20 This 49 yrs old Black Male presents to ER via Ambulatory with complaints of Urinary snw Retention. 17:20 Onset: The symptoms/episode began/occurred at 10:00. Associated signs and symptoms: snw Pertinent positives: abdominal pain. Modifying factors: The patient symptoms are alleviated by nothing. The patient has experienced a previous episode. It is unknown whether or not the patient has recently seen a physician. Pt states last seizure 2 weeks ago, has not taken BP medications x 2-3 months. Historical: - Allergies: 17:00 ACETAMINOPHEN; sv 17:00 Ibuprofen; sv 17:00 Toradol; sv - PMHx: 17:00 Hypertension; Seizures; urinary stricture; sv - Immunization history:: Adult Immunizations up to date. - Ebola Screening: : Patient denies travel to an Ebola-affected area in the 21 days before illness onset. ROS: 17:18 Constitutional: Negative for fever, chills, and weight loss, Eyes: Negative for injury, snw pain, redness, and discharge, ENT: Negative for injury, pain, and discharge, Neck: Negative for injury, pain, and swelling, Cardiovascular: Negative for chest pain, palpitations, and edema, Respiratory: Negative for shortness of breath, cough, wheezing, and pleuritic chest pain, Abdomen/GI: Negative for abdominal pain, nausea, vomiting, diarrhea, and constipation, Back: Negative for injury and pain, MS/Extremity: Negative for injury and deformity, Skin: Negative for injury, rash, and discoloration, Neuro: Negative for headache, weakness, numbness, tingling, and seizure, Psych: Negative for depression, anxiety, suicide ideation, homicidal ideation, and hallucinations. 17:18 : Positive for difficulty urinating, recent urinary retention with transfer to [place]. Told he needs procedure second to urinary stricture. Pt declined. Exam: 17:16 Constitutional: This is a well developed, well nourished patient who is awake, alert, snw and in no acute distress. Head/Face: Normocephalic, atraumatic. Eyes: Pupils equal round and reactive to light, extra-ocular motions intact. Lids and lashes normal. Conjunctiva and sclera are non-icteric and not injected. Cornea within normal limits. Periorbital areas with no swelling, redness, or edema. ENT: Nares patent. No nasal discharge, no septal abnormalities noted. Tympanic membranes are normal and external auditory canals are clear. Oropharynx with no redness, swelling, or masses, exudates, or evidence of obstruction, uvula midline. Mucous membranes moist. Neck: Trachea midline, no thyromegaly or masses palpated, and no cervical lymphadenopathy. Supple, full range of motion without nuchal rigidity, or vertebral point tenderness. No Meningismus. Chest/axilla: Normal chest wall appearance and motion. Nontender with no deformity. No lesions are appreciated. Cardiovascular: Regular rate and rhythm with a normal S1 and S2. No gallops, murmurs, or rubs. Normal PMI, no JVD. No pulse deficits. Respiratory: Lungs have equal breath sounds bilaterally, clear to auscultation and percussion. No rales, rhonchi or wheezes noted. No increased work of breathing, no retractions or nasal flaring. Abdomen/GI: Soft, tender, with normal bowel sounds. Pt moving about the room, uncomfortble. No distension or tympany. Back: No spinal tenderness. No costovertebral tenderness. Full range of motion. Skin: Warm, dry with normal turgor. Normal color with no rashes, no lesions, and no evidence of cellulitis. MS/ Extremity: Pulses equal, no cyanosis. Neurovascular intact. Full, normal range of motion. Neuro: Awake and alert, GCS 15, oriented to person, place, time, and situation. Cranial nerves II-XII grossly intact. Motor strength 5/5 in all extremities. Sensory grossly intact. Cerebellar exam normal. Normal gait. Psych: Awake, alert, with orientation to person, place and time. Behavior, mood, and affect are within normal limits. Vital Signs: 17:00 BP 159 / 90; Pulse 83; Resp 20; Temp 97.8; Pulse Ox 96% ; Weight 117.93 kg; Height 5 sv ft. 9 in. (175.26 cm); 18:00 BP 175 / 92; Pulse 92; Resp 18; Pulse Ox 97% ; aj1 19:00 BP 157 / 95; Pulse 75; Resp 20; Pulse Ox 98% on R/A; aj1 20:34 BP 145 / 93; Pulse 72; Resp 20; Temp 98.0(O); Pulse Ox 97% on R/A; oe 17:00 Body Mass Index 38.39 (117.93 kg, 175.26 cm) sv MDM: 17:05 Patient medically screened. snw 19:01 Data reviewed: vital signs, nurses notes. Data interpreted: Pulse oximetry: on room air snw is 96 %. Interpretation: acceptable. Counseling: I had a detailed discussion with the patient and/or guardian regarding: the historical points, exam findings, and any diagnostic results supporting the discharge/admit diagnosis, the presence of at least one elevated blood pressure reading (>120/80) during this emergency department visit, lab results, the need to transfer to another facility, [facility] does not immediately have the required specialist. 20:24 Physician consultation: Dr. Larose was called at 19:50, was contacted at 19:50, snw regarding regarding transfer, Dr. Larose kindly accepts pt but requests admission to Hospitalist services 2nd to hx of seizure disorder. Spoke with Dr. Meek and he kindly accepts pt in transfer. patient's condition. 09/07 17:04 Order name: Basic Metabolic Panel; Complete Time: 18:27 snw 09/07 17:04 Order name: CBC with Diff; Complete Time: 18:27 snw 09/07 17:24 Order name: Dilantin; Complete Time: 18:27 snw 09/07 17:04 Order name: IV Saline Lock; Complete Time: 17:29 snw 09/07 17:04 Order name: Labs collected and sent; Complete Time: 17:30 snw 09/07 17:24 Order name: Bladder Scanner; Complete Time: 17:49 snw 09/07 19:52 Order name: NPO; Complete Time: 20:03 snw Administered Medications: 17:49 Drug: morphine 4 mg Route: IVP; Site: left antecubital; aj1 21:26 Follow up: Response: No adverse reaction; RASS: Alert and Calm (0) aj 20:26 Drug: Zosyn 3.375 grams Route: IVPB; Infused Over: 60 mins; Site: right antecubital; 21:26 Follow up: IV Status: Completed infusion; IV Intake: 100ml :22 Drug: morphine 4 mg Route: IVP; Site: right antecubital; 21:26 Follow up: Response: No adverse reaction; RASS: Alert and Calm (0) Disposition: 09/08 07:32 Co-signature as Attending Physician, Daryl Ashley MD I agree with the assessment and kdr plan of care. Disposition: 09/07/19 20:30 Transfer ordered to [facility]. Diagnosis are Urethral stricture, Urinary retention. - Reason for transfer: Specialty. - Accepting physician is Dr. Meek. - Condition is Stable. - Problem is an acute exacerbation. - Symptoms are unchanged. Signatures: Dispatcher [employer] EDAbeba Jin RN RN aj1 Jeanne Amaya RN RN sv Rittger, Kevin, MD MD [facility] Charlette Gannon, CARE ASST-C CARE ASST-Csnw Corrections: (The following items were deleted from the chart) 09/07 21:27 20:30 09/07/2019 20:30 Transfer ordered to [facility]. Diagnosis is aj1 Urethral stricture; Urinary retention. Reason for transfer: Specialty. Accepting physician is Dr. Meek. Condition is Stable. Problem is an acute exacerbation. Symptoms are unchanged. snw
--- NOTE | 2019-09-07 20:31 | ER ---
Nurse's Notes [facility] Name: Vince Blackmon Age: 49 yrs Sex: Male : 1970 Arrival Date: 09/07/2019 Time: 16:55 Bed 7 Private MD: Diagnosis: Urethral stricture;Urinary retention Presentation: 09/07 16:59 Presenting complaint: Patient states: unable to urinate since 1000 today, reports he's sv had this happen before and they never found out what was going on. Transition of care: patient was not received from another setting of care. Onset of symptoms was September 07, 2019. Care prior to arrival: None. 16:59 Method Of Arrival: Ambulatory sv 16:59 Acuity: COBY 3 sv 20:34 Risk Assessment: Do you want to hurt yourself or someone else? Patient reports no aj1 desire to harm self or others. Initial Sepsis Screen: Does the patient meet any 2 criteria? No. Patient's initial sepsis screen is negative. Does the patient have a suspected source of infection? Yes: Other: urinary retention. Historical: - Allergies: 17:00 ACETAMINOPHEN; sv 17:00 Ibuprofen; sv 17:00 Toradol; sv - PMHx: 17:00 Hypertension; Seizures; urinary stricture; sv - Immunization history:: Adult Immunizations up to date. - Ebola Screening: : Patient denies travel to an Ebola-affected area in the 21 days before illness onset. Screenin:30 Abuse screen: Denies threats or abuse. Denies injuries from another. Nutritional aj1 screening: No deficits noted. Tuberculosis screening: No symptoms or risk factors identified. 21:26 Fall Risk None identified. aj1 Assessment: 17:30 General: Appears in no apparent distress. uncomfortable, Behavior is cooperative, aj1 restless. Pain: Complains of pain in suprapubic area Pain does not radiate. Pain currently is 9 out of 10 on a pain scale. Neuro: Level of Consciousness is awake, alert, obeys commands, Oriented to person, place, time, situation. Cardiovascular: Patient's skin is warm and dry. Respiratory: Airway is patent Respiratory effort is even, unlabored, Respiratory pattern is regular, symmetrical. GI: No signs and/or symptoms were reported involving the gastrointestinal system. : Reports inability to void. EENT: No signs and/or symptoms were reported regarding the EENT system. Derm: No signs and/or symptoms reported regarding the dermatologic system. Skin is pink, warm \T\ dry. normal. Musculoskeletal: No signs and/or symptoms reported regarding the musculoskeletal system. Circulation, motion, and sensation intact. 17:50 Reassessment: Attempted to place 12 F thurman, unable to advance catheter. Patient states aj1 that they are never able to get a catheter, he has strictures and they have to take him to the OR to place the thurman. 18:30 Reassessment: Patient appears in no apparent distress at this time. No changes from aj1 previously documented assessment. Patient and/or family updated on plan of care and expected duration. Pain level reassessed. Patient is alert, oriented x 3, equal unlabored respirations, skin warm/dry/pink. 19:30 Reassessment: Patient and/or family updated on plan of care and expected duration. Pain aj1 level reassessed. General: Appears in no apparent distress. uncomfortable, Behavior is calm, cooperative, appropriate for age. Pain: Complains of pain in suprapubic area. Neuro: Level of Consciousness is awake, alert, obeys commands, Oriented to person, place, time, situation. Cardiovascular: Patient's skin is warm and dry. Respiratory: Airway is patent Respiratory effort is even, unlabored, Respiratory pattern is regular, symmetrical. : Reports inability to void. Derm: Skin is pink, warm \T\ dry. normal. Musculoskeletal: Circulation, motion, and sensation intact. 20:28 Reassessment: Patient appears in no apparent distress at this time. No changes from aj1 previously documented assessment. Patient and/or family updated on plan of care and expected duration. Pain level reassessed. Patient is alert, oriented x 3, equal unlabored respirations, skin warm/dry/pink. Patient is agitated that he has not been transferred yet. Explained transfer process to patient and that we will get him to another facility as quickly as possible. Patient remains agitated at this time. 21:26 Reassessment: Patient appears in no apparent distress at this time. No changes from aj1 previously documented assessment. Patient and/or family updated on plan of care and expected duration. Pain level reassessed. Patient is alert, oriented x 3, equal unlabored respirations, skin warm/dry/pink. Vital Signs: 17:00 BP 159 / 90; Pulse 83; Resp 20; Temp 97.8; Pulse Ox 96% ; Weight 117.93 kg; Height 5 sv ft. 9 in. (175.26 cm); 18:00 BP 175 / 92; Pulse 92; Resp 18; Pulse Ox 97% ; aj1 19:00 BP 157 / 95; Pulse 75; Resp 20; Pulse Ox 98% on R/A; aj1 20:34 BP 145 / 93; Pulse 72; Resp 20; Temp 98.0(O); Pulse Ox 97% on R/A; oe 17:00 Body Mass Index 38.39 (117.93 kg, 175.26 cm) sv ED Course: 16:55 Patient arrived in ED. as 17:00 Triage completed. sv 17:00 Arm band placed on. sv 17:03 Charlette Gannon FNP-C is PHCP. snw 17:03 Daryl Ashley MD is Attending Physician. snw 17:20 Abeba Cardoso, ALVIN is Primary Nurse. aj1 17:30 Patient has correct armband on for positive identification. Bed in low position. Call aj1 light in reach. 17:30 No provider procedures requiring assistance completed. aj1 19:54 Bladder scan completed. 371 mLs. bb 21:26 Patient transferred, IV remains in place. aj1 Administered Medications: 17:49 Drug: morphine 4 mg Route: IVP; Site: left antecubital; aj1 21:26 Follow up: Response: No adverse reaction; RASS: Alert and Calm (0) aj1 20:26 Drug: Zosyn 3.375 grams Route: IVPB; Infused Over: 60 mins; Site: right antecubital; aj1 21:26 Follow up: IV Status: Completed infusion; IV Intake: 100ml aj1 21:22 Drug: morphine 4 mg Route: IVP; Site: right antecubital; aj1 21:26 Follow up: Response: No adverse reaction; RASS: Alert and Calm (0) aj1 Intake: 21:26 IV: 100ml; Total: 100ml. aj1 Outcome: 20:30 ER care complete, transfer ordered by . snw 21:27 Transferred by ground EMS to [facility]. aj1 21:27 Condition: good 21:27 Discharge instructions given to patient, Instructed on the need for transfer, Demonstrated understanding of instructions. 21:27 Patient left the ED. aj1 Signatures: Abeba Cardoso, RN RN aj1 Jeanne Amaya RN RN Charlette Sanchez, DOG CATCHER-C DOG CATCHER-Csnw Akila Miller Brenda, RN RN Ganga Balbuena
[2019-09-07 21:41] VITALS: BP 145/93; TEMP 98; O2SAT 97
== END 2019-09-07 21:27 | disposition short-term general hospital (02) ==
LOC: ER 16:54
DX: N35.919 Unspecified urethral stricture, male, unspecified site (principal); I10 Essential (primary) hypertension; Z88.5 Allergy status to narcotic agent; Z88.6 Allergy status to analgesic agent
CPT/HCPCS: 36415; 80048; 80185; 85025; 99285; J2543

== ENCOUNTER 2019-10-11 08:08 | Emergency (ER) | payer SELFPAY ==
--- OUTSIDE RECORDS SUMMARY | 2019-10-11 08:10 | XMS REPORT ---
:1970 [facility] Address [address] [place] [address] [address] [place] [address] Care Team Providers Name Role Phone LIBBY ALCARAZ Unavailable Unavailable Problems This patient has no known problems. Allergies, Adverse Reactions, Alerts This patient has no known allergies or adverse reactions. Medications This patient has no known medications. Encounters Start End Encounter Admission Attending Care Care Encounter Date/Time Date/Time Type Type Clinicians Facility Department ID 2019-04-06 2019-04-06 Outpatient E [facility] MED [id number] 11:15:00 11:15:00 Results Test Description Test Time Test Comments Text Results Atomic Results Result Comments FLCHRISTIANO, 2019-09-08 Reason for FINAL REPORT PATIENT NON-SPECIFIC, UP TO 07:34:00 exam:->Cystoscopy, direct ID: [id number] A 1 HOUR vision internal fluoroscopic unit was utilized for a procedure performed in the operating room. No interpretation was requested. Please refer to the operative report regarding findings. Please refer to PACS for patient radiation dose information. Signed: JR Velázquez Robert MDReport Verified Date/Time: 09/08/2019 07:34:46 Reading Location: [facility] Radiology Reading Room TIC FUNCTION PANEL 2019-09-08 01:57:00 Test Item Value Reference Range Comments TOTAL PROTEIN (BEAKER) (test zqza=057) 7.5 gm/dL 6.0-8.3 ALBUMIN (BEAKER) (test eihq=6390) 4.3 g/dL 3.5-5.0 BILIRUBIN TOTAL (BEAKER) (test qvvu=194) 0.3 mg/dL 0.2-1.2 BILIRUBIN DIRECT (BEAKER) (test zpul=812) 0.1 mg/dL 0.1-0.5 ALKALINE PHOSPHATASE (BEAKER) (test jcbr=620) 95 U/L 40-150 AST (SGOT) (BEAKER) (test lgwq=602) 28 U/L 5-34 ALT (SGPT) (BEAKER) (test zizu=845) 29 U/L 6-55 BASIC METABOLIC [id number] 01:57:00 Test Item Value Reference Range Comments SODIUM (BEAKER) (test 139 meq/L 136-145 pvxh=084) POTASSIUM (BEAKER) (test 4.0 meq/L 3.5-5.1 auva=759) CHLORIDE (BEAKER) (test 104 meq/L 98-107 zlgn=829) CO2 (BEAKER) (test 26 meq/L 22-29 kljm=457) BLOOD UREA NITROGEN 18 mg/dL 7-21 (BEAKER) (test dvel=819) CREATININE (BEAKER) (test 1.42 mg/dL 0.57-1.25 gwgn=741) GLUCOSE RANDOM (BEAKER) 89 mg/dL 70-105 (test obgr=394) CALCIUM (BEAKER) (test 9.2 mg/dL 8.4-10.2 dqag=920) EGFR (BEAKER) (test 64 mL/min/1.73 sq m ESTIMATED GFR IS NOT ugxy=0299) ACCURATE CREATININE CLEARANCE IN PREDICTING GLOMERULAR FILTRATION RATE. ESTIMATED GFR IS NOT APPLICABLE FOR DIALYSIS PATIENTS. PROTHROMBIN TIME/[id number] 01:55:00 Test Item Value Reference Range Comments PROTIME (BEAKER) (test bfsw=490) 13.0 seconds 11.9-14.2 INR (BEAKER) (test wthc=269) 1.0 <=5.9 Effective 02/01/2019: PT Reference Range ChangeNew: 11.9-14.2 Previous: 11.7- 14.7RECOMMENDED COUMADIN/WARFARIN INR THERAPY RANGESSTANDARD DOSE: 2.0-3.0 Includes: PROPHYLAXIS for venous thrombosis, systemic embolization; TREATMENT for venous thrombosis and/or pulmonary embolus.HIGH RISK: Target INR is2.5-3.5 for patients wiht mechanical heart valves.CBC W/PLT COUNT & AUTO [id number] 01:33:00 Test Item Value Reference Range Comments WHITE BLOOD CELL COUNT (BEAKER) (test squb=723) 6.9 K/ L 3.5-10.5 RED BLOOD CELL COUNT (BEAKER) (test bhgl=388) 4.25 M/ L 4.63-6.08 HEMOGLOBIN (BEAKER) (test zxrm=643) 12.8 GM/DL 13.7-17.5 HEMATOCRIT (BEAKER) (test jjmb=027) 38.8 % 40.1-51.0 MEAN CORPUSCULAR VOLUME (BEAKER) (test jicy=601) 91.3 fL 79.0-92.2 MEAN CORPUSCULAR HEMOGLOBIN (BEAKER) (test 30.1 pg 25.7-32.2 ouke=195) MEAN CORPUSCULAR HEMOGLOBIN CONC (BEAKER) (test 33.0 GM/DL 32.3-36.5 mjbm=222) RED CELL DISTRIBUTION WIDTH (BEAKER) (test 14.3 % 11.6-14.4 buvu=782) PLATELET COUNT (BEAKER) (test buqw=027) 418 K/CU MM 150-450 MEAN PLATELET VOLUME (BEAKER) (test zetd=840) 10.3 fL 9.4-12.4 NUCLEATED RED BLOOD CELLS (BEAKER) (test 0 /100 WBC 0-0 prax=743) NEUTROPHILS RELATIVE PERCENT (BEAKER) (test 45 % yovp=539) LYMPHOCYTES RELATIVE PERCENT (BEAKER) (test 42 % qegg=946) MONOCYTES RELATIVE PERCENT (BEAKER) (test 10 % szhw=025) EOSINOPHILS RELATIVE PERCENT (BEAKER) (test 3 % bdkc=330) BASOPHILS RELATIVE PERCENT (BEAKER) (test 1 % aujg=069) NEUTROPHILS ABSOLUTE COUNT (BEAKER) (test 3.06 K/ L 1.78-5.38 sypd=766) LYMPHOCYTES ABSOLUTE COUNT (BEAKER) (test 2.84 K/ L 1.32-3.57 ymlq=511) MONOCYTES ABSOLUTE COUNT (BEAKER) (test 0.70 K/ L 0.30-0.82 uuvc=598) EOSINOPHILS ABSOLUTE COUNT (BEAKER) (test 0.18 K/ L 0.04-0.54 ugcd=514) BASOPHILS ABSOLUTE COUNT (BEAKER) (test 0.05 K/ L 0.01-0.08 kcie=867) IMMATURE GRANULOCYTES-RELATIVE PERCENT (BEAKER) 0 % 0-1 (test eiyl=1568)
[2019-10-11] MEDS ORDERED: TETRACAINE HCL 0.5% 4ML OPTH ONE (08:30)
--- NOTE | 2019-10-11 08:31 | EDPHYS ---
Physician Documentation [facility] Name: Vince Blackmon Age: 49 yrs Sex: Male : 1970 Arrival Date: 10/11/2019 Time: 08:11 Bed 7 Private MD: ED Physician Efra Velez HPI: 10/11 08:26 This 49 yrs old Black Male presents to ER via Ambulatory with complaints of Facial pain.[facility] 08:26 The patient presents with pain. Onset: The symptoms/episode began/occurred just prior jm to arrival. Modifying factors: The symptoms are alleviated by nothing, the symptoms are aggravated by nothing. This is a 49 year old male with a history of htn that presents to the ED with complaints of right ear pain. patient states pain began this morning and radiates across the right side of his face. Denies fever, denies cough. . Historical: - Allergies: 08:22 ACETAMINOPHEN; tw2 08:22 Ibuprofen; tw2 08:22 Toradol; tw2 08:22 Aspirin; tw2 - Home Meds: 08:22 Dilantin Oral [Active]; tw2 - PMHx: 08:22 Hypertension; Seizures; urinary stricture; drug abuse - cocaine; tw2 08:31 epilepsy; tw2 - Immunization history:: Adult Immunizations. - Coronavirus screen:: The patient has NOT traveled to [place], [place], or [place] in the past 14 days. - Social history:: Smoking status: . - Ebola Screening: : Patient denies travel to an Ebola-affected area in the 21 days before illness onset. ROS: 08:26 Constitutional: Negative for fever, chills, and weight loss. jmm 08:26 ENT: Positive for ear pain. 08:26 Neuro: Positive for headache. 08:26 All other systems are negative. Exam: 08:26 Head/Face: atraumatic. Eyes: EOMI, no conjunctival erythema appreciated jmm 08:26 Neck: Trachea midline, Supple Chest/axilla: Normal chest wall appearance and motion. Cardiovascular: Regular rate and rhythm. No edema appreciated Respiratory: Normal respirations, no respiratory distress appreciated Abdomen/GI: Non distended, soft Back: Normal ROM Skin: General appearance color normal MS/ Extremity: Moves all extremities, no obvious deformities appreciated, no edema noted to the lower extremities Neuro: Awake and alert, normal gait Psych: Behavior is normal, Mood is normal, Patient is cooperative and pleasant 08:26 Constitutional: The patient appears in no acute distress, alert, awake. 08:26 ENT: TM's: erythema, that is moderate, on the right. Vital Signs: 08:20 BP 158 / 116; Pulse 83; Resp 18; Pulse Ox 95% on R/A; Weight 117.93 kg (R); Height 5 tw2 ft. 9 in. (175.26 cm); Pain 10/10; 08:23 Temp 97.6(TE); tw2 08:35 BP 134 / 90; tw2 08:20 Body Mass Index 38.39 (117.93 kg, 175.26 cm) tw2 MDM: 08:23 Patient medically screened. [facility] 08:28 Data reviewed: vital signs, nurses notes. Counseling: I had a detailed discussion with isma the patient and/or guardian regarding: the historical points, exam findings, and any diagnostic results supporting the discharge/admit diagnosis, the need for outpatient follow up, to return to the emergency department if symptoms worsen or persist or if there are any questions or concerns that arise at home. ED course: PE exam findings consistent with OM. Patient exhibits drug seeking behavior. Advised to follow up with pcp for reevaluation. Patient is otherwise given strict return precautions. patient understood and agrees with the plan of care. . Administered Medications: 08:26 Not Given (contraindicated): traMADol 50 mg PO once; RASS on ADMIN: Combtv4, Very jmm Agttd3, Agttd2, Rstlss1, AlertClm0, Drwsy-1, Lt Sdtn-2, Mod Sdtn-3, Dp Sdtn-4, UnArsble-5 08:30 Drug: Tetracaine Solution (0.5 %) 1 application {Note: RIGHT ear per NOAH Lopez.} tw2 Route: Topical; Site: wound; Disposition: 12:12 Co-signature as Attending Physician, Efra Velez MD. rn Disposition: 10/11/19 08:31 Discharged to Home. Impression: Acute serous otitis media. - Condition is Stable. - Discharge Instructions: Otitis Media, Adult. - Prescriptions for Augmentin 875- 125 mg Oral Tablet - take 1 tablet by ORAL route every 12 hours for 10 days; 20 tablet. - Medication Reconciliation Form, Thank You Letter, Antibiotic Education, Prescription Opioid Use, Work release form form. - Follow up: Private Physician; When: 2 - 3 days; Reason: Recheck today's complaints, Continuance of care, Re-evaluation by your physician. Signatures: Oscar Paez PA PA jmm Nieto, Roman, MD MD rn Walton, ALVIN Howard RN tw2 Corrections: (The following items were deleted from the chart) 08:36 08:31 10/11/2019 08:31 Discharged to Home. Impression: Acute serous otitis media. tw2 Condition is Stable. Forms are Work release form, Medication Reconciliation Form, Thank You Letter, Antibiotic Education, Prescription Opioid Use. Follow up: Private Physician; When: 2 - 3 days; Reason: Recheck today's complaints, Continuance of care, Re-evaluation by your physician. isma
--- NOTE | 2019-10-11 08:31 | ER ---
Nurse's Notes [facility] Name: Vince Blackmon Age: 49 yrs Sex: Male : 1970 Arrival Date: 10/11/2019 Time: 08:11 Bed 7 Private MD: Diagnosis: Acute serous otitis media Presentation: 10/11 08:19 Presenting complaint: Patient states: right ear pain and pain on right side of head and tw2 face started 1 am. Transition of care: patient was not received from another setting of care. Onset of symptoms was October 11, 2019. Risk Assessment: Do you want to hurt yourself or someone else? Patient reports no desire to harm self or others. Initial Sepsis Screen: Does the patient meet any 2 criteria? No. Patient's initial sepsis screen is negative. Does the patient have a suspected source of infection? No. Patient's initial sepsis screen is negative. Care prior to arrival: None. 08:19 Method Of Arrival: Ambulatory tw2 08:19 Acuity: COBY 4 tw2 Triage Assessment: 08:20 General: Appears in no apparent distress. Behavior is calm, cooperative, appropriate tw2 for age. Pain: Complains of pain in right ear. Historical: - Allergies: 08:22 ACETAMINOPHEN; tw2 08:22 Ibuprofen; tw2 08:22 Toradol; tw2 08:22 Aspirin; tw2 - Home Meds: 08:22 Dilantin Oral [Active]; tw2 - PMHx: 08:22 Hypertension; Seizures; urinary stricture; drug abuse - cocaine; tw2 08:31 epilepsy; tw2 - Immunization history:: Adult Immunizations. - Coronavirus screen:: The patient has NOT traveled to [place], [place], or [place] in the past 14 days. - Social history:: Smoking status: . - Ebola Screening: : Patient denies travel to an Ebola-affected area in the 21 days before illness onset. Screenin:31 Abuse screen: Denies threats or abuse. Nutritional screening: No deficits noted. tw2 Tuberculosis screening: No symptoms or risk factors identified. Fall Risk None identified. Assessment: 08:31 General: Appears in no apparent distress. Behavior is calm, cooperative, appropriate tw2 for age. Pain: Complains of pain in right ear. Neuro: Level of Consciousness is awake, alert, obeys commands, Oriented to person, place, time, situation. Cardiovascular: Capillary refill < 3 seconds Patient's skin is warm and dry. Respiratory: Airway is patent Respiratory effort is even, unlabored, Respiratory pattern is regular, symmetrical, Denies cough. GI: No signs and/or symptoms were reported involving the gastrointestinal system. : No signs and/or symptoms were reported regarding the genitourinary system. EENT: Reports pain in right ear Denies nasal congestion, nasal discharge. Derm: No signs and/or symptoms reported regarding the dermatologic system. Musculoskeletal: Range of motion: intact in all extremities. 08:35 Reassessment: during discharge process pt states "you mean to tell me this is all they tw2 are going to give me, man, my momma told me not to bring my ass up here". Vital Signs: 08:20 BP 158 / 116; Pulse 83; Resp 18; Pulse Ox 95% on R/A; Weight 117.93 kg (R); Height 5 tw2 ft. 9 in. (175.26 cm); Pain 10/10; 08:23 Temp 97.6(TE); tw2 08:35 BP 134 / 90; tw2 08:20 Body Mass Index 38.39 (117.93 kg, 175.26 cm) tw2 ED Course: 08:11 Patient arrived in ED. mr 08:14 Oscar Paez PA is PHCP. jmm 08:14 Efra Velez MD is Attending Physician. jmm 08:19 Anita Walton, RN is Primary Nurse. tw2 08:19 Bed in low position. Call light in reach. tw2 08:20 Triage completed. tw2 08:20 Arm band placed on. tw2 08:35 No provider procedures requiring assistance completed. Patient did not have IV access tw2 during this emergency room visit. Administered Medications: 08:26 Not Given (contraindicated): traMADol 50 mg PO once; RASS on ADMIN: Combtv4, Very jmm Agttd3, Agttd2, Rstlss1, AlertClm0, Drwsy-1, Lt Sdtn-2, Mod Sdtn-3, Dp Sdtn-4, UnArsble-5 08:30 Drug: Tetracaine Solution (0.5 %) 1 application {Note: RIGHT ear per NOAH Lopez.} tw2 Route: Topical; Site: wound; Outcome: 08:31 Discharge ordered by . isma 08:36 Discharged to home ambulatory. tw2 08:36 Condition: stable 08:36 Discharge instructions given to patient, Instructed on discharge instructions, follow up and referral plans. medication usage, Demonstrated understanding of instructions, follow-up care, medications, Prescriptions given X 1. 08:36 Patient left the ED. tw2 Signatures: Oscar Paez PA PA jmm Rivera, Mary mr Anita Walton, RN RN tw2
[2019-10-11 11:15] VITALS: BP 158/116; O2SAT 95
[2019-10-11 11:16] VITALS: TEMP 97.6
== END 2019-10-11 08:36 | disposition home or self-care (01) ==
LOC: ER 08:08
DX: H65.01 Acute serous otitis media, right ear (principal); Z88.6 Allergy status to analgesic agent
CPT/HCPCS: 99283

== ENCOUNTER 2019-10-20 19:37 | Emergency (ER) | payer SELFPAY ==
--- OUTSIDE RECORDS SUMMARY | 2019-10-20 19:39 | XMS REPORT ---
:1970 Author Organization [facility] Address [address] [place] [address] [address] [place] [address] Care Team Providers Name Role Phone LIBBY ALCARAZ Unavailable Unavailable Problems This patient has no known problems. Allergies, Adverse Reactions, Alerts This patient has no known allergies or adverse reactions. Medications This patient has no known medications. Encounters Start End Encounter Admission Attending Care Care Encounter Date/Time Date/Time Type Type Clinicians Facility Department ID 2019-04-06 2019-04-06 Outpatient E [facility] MED [id number] 11:15:00 11:15:00 Results Test Description Test Time Test Comments Text Results Atomic Results Result Comments FLCHRISTIANO, 2019-09-08 Reason for FINAL REPORT PATIENT NON-SPECIFIC, UP TO 07:34:00 exam:->Cystoscopy, direct ID: [id number] A 1 HOUR vision internal fluoroscopic unit was utilized for a procedure performed in the operating room. No interpretation was requested. Please refer to the operative report regarding findings. Please refer to PACS for patient radiation dose information. Signed: JR Velázquez Robert MDReport Verified Date/Time: 09/08/2019 07:34:46 Reading Location: [facility] Radiology Reading Room TIC FUNCTION PANEL 2019-09-08 01:57:00 Test Item Value Reference Range Comments TOTAL PROTEIN (BEAKER) (test gznx=661) 7.5 gm/dL 6.0-8.3 ALBUMIN (BEAKER) (test puct=3612) 4.3 g/dL 3.5-5.0 BILIRUBIN TOTAL (BEAKER) (test brth=751) 0.3 mg/dL 0.2-1.2 BILIRUBIN DIRECT (BEAKER) (test wfpn=803) 0.1 mg/dL 0.1-0.5 ALKALINE PHOSPHATASE (BEAKER) (test ijkc=972) 95 U/L 40-150 AST (SGOT) (BEAKER) (test rhjo=476) 28 U/L 5-34 ALT (SGPT) (BEAKER) (test xyix=680) 29 U/L 6-55 BASIC METABOLIC [id number] 01:57:00 Test Item Value Reference Range Comments SODIUM (BEAKER) (test 139 meq/L 136-145 uopv=322) POTASSIUM (BEAKER) (test 4.0 meq/L 3.5-5.1 tnqx=861) CHLORIDE (BEAKER) (test 104 meq/L 98-107 sihk=941) CO2 (BEAKER) (test 26 meq/L 22-29 tcdg=199) BLOOD UREA NITROGEN 18 mg/dL 7-21 (BEAKER) (test fyek=481) CREATININE (BEAKER) (test 1.42 mg/dL 0.57-1.25 lzaj=592) GLUCOSE RANDOM (BEAKER) 89 mg/dL 70-105 (test kkca=178) CALCIUM (BEAKER) (test 9.2 mg/dL 8.4-10.2 hslu=875) EGFR (BEAKER) (test 64 mL/min/1.73 sq m ESTIMATED GFR IS NOT gvvl=3753) ACCURATE CREATININE CLEARANCE IN PREDICTING GLOMERULAR FILTRATION RATE. ESTIMATED GFR IS NOT APPLICABLE FOR DIALYSIS PATIENTS. PROTHROMBIN [id number] 01:55:00 Test Item Value Reference Range Comments PROTIME (BEAKER) (test zany=981) 13.0 seconds 11.9-14.2 INR (BEAKER) (test vwyp=137) 1.0 <=5.9 Effective 02/01/2019: PT Reference Range ChangeNew: 11.9-14.2 Previous: 11.7- 14.7RECOMMENDED COUMADIN/WARFARIN INR THERAPY RANGESSTANDARD DOSE: 2.0-3.0 Includes: PROPHYLAXIS for venous thrombosis, systemic embolization; TREATMENT for venous thrombosis and/or pulmonary embolus.HIGH RISK: Target INR is2.5-3.5 for patients wiht mechanical heart valves.CBC W/PLT COUNT & AUTO [id number] 01:33:00 Test Item Value Reference Range Comments WHITE BLOOD CELL COUNT (BEAKER) (test xmwg=085) 6.9 K/ L 3.5-10.5 RED BLOOD CELL COUNT (BEAKER) (test erup=978) 4.25 M/ L 4.63-6.08 HEMOGLOBIN (BEAKER) (test ofeq=380) 12.8 GM/DL 13.7-17.5 HEMATOCRIT (BEAKER) (test zomp=067) 38.8 % 40.1-51.0 MEAN CORPUSCULAR VOLUME (BEAKER) (test zjgg=347) 91.3 fL 79.0-92.2 MEAN CORPUSCULAR HEMOGLOBIN (BEAKER) (test 30.1 pg 25.7-32.2 jkud=489) MEAN CORPUSCULAR HEMOGLOBIN CONC (BEAKER) (test 33.0 GM/DL 32.3-36.5 mvkf=828) RED CELL DISTRIBUTION WIDTH (BEAKER) (test 14.3 % 11.6-14.4 hjyt=136) PLATELET COUNT (BEAKER) (test zrxh=697) 418 K/CU MM 150-450 MEAN PLATELET VOLUME (BEAKER) (test jflq=962) 10.3 fL 9.4-12.4 NUCLEATED RED BLOOD CELLS (BEAKER) (test 0 /100 WBC 0-0 ankg=576) NEUTROPHILS RELATIVE PERCENT (BEAKER) (test 45 % rupd=044) LYMPHOCYTES RELATIVE PERCENT (BEAKER) (test 42 % gwmb=053) MONOCYTES RELATIVE PERCENT (BEAKER) (test 10 % pbps=655) EOSINOPHILS RELATIVE PERCENT (BEAKER) (test 3 % gdii=180) BASOPHILS RELATIVE PERCENT (BEAKER) (test 1 % jcwv=515) NEUTROPHILS ABSOLUTE COUNT (BEAKER) (test 3.06 K/ L 1.78-5.38 ttba=246) LYMPHOCYTES ABSOLUTE COUNT (BEAKER) (test 2.84 K/ L 1.32-3.57 ooby=559) MONOCYTES ABSOLUTE COUNT (BEAKER) (test 0.70 K/ L 0.30-0.82 bhmf=869) EOSINOPHILS ABSOLUTE COUNT (BEAKER) (test 0.18 K/ L 0.04-0.54 gnsf=117) BASOPHILS ABSOLUTE COUNT (BEAKER) (test 0.05 K/ L 0.01-0.08 mjil=406) IMMATURE GRANULOCYTES-RELATIVE PERCENT (BEAKER) 0 % 0-1 (test umto=8436)
[2019-10-20] MEDS ORDERED: LIDOCAINE VISCOUS 2% SOLN 15 ML UDC ONE (20:08)
--- NOTE | 2019-10-20 20:41 | ER ---
Nurse's Notes [facility] Name: Vince Blackmon Age: 49 yrs Sex: Male : 1970 Arrival Date: 10/20/2019 Time: 19:41 Bed 23 Private MD: Diagnosis: Urinary stricture;Retention of urine-100ml Presentation: 10/20 19:42 Presenting complaint: Patient states: "I'm having problems urinating and I'm having a aj1 real bad headache" Patient states that he has been unable to void since 1400 today. Transition of care: patient was not received from another setting of care. Onset of symptoms was October 20, 2019. Risk Assessment: Do you want to hurt yourself or someone else? Patient reports no desire to harm self or others. Initial Sepsis Screen: Does the patient meet any 2 criteria? HR > 90 bpm. No. Patient's initial sepsis screen is negative. Does the patient have a suspected source of infection? No. Patient's initial sepsis screen is negative. Care prior to arrival: None. 19:42 Method Of Arrival: Ambulatory aj 19:42 Acuity: COBY 3 aj1 Triage Assessment: 19:43 Headache History: Denies prior headaches. General: Appears in no apparent distress. aj1 uncomfortable, Behavior is calm, cooperative, appropriate for age. Pain: Complains of pain in forehead Pain currently is 7 out of 10 on a pain scale. Pain began 2 hours ago. Also complains of no other associated symptoms. Neuro: Level of Consciousness is awake, alert, obeys commands. Cardiovascular: Patient's skin is warm and dry. Respiratory: Airway is patent Respiratory effort is even, unlabored, Respiratory pattern is regular, symmetrical. Historical: - Allergies: 19:43 ACETAMINOPHEN; aj1 19:43 Aspirin; aj1 19:43 Ibuprofen; aj1 19:43 Toradol; aj1 - Home Meds: 19:43 Dilantin Oral [Active]; aj1 - PMHx: 19:43 drug abuse - cocaine; epilepsy; Hypertension; Seizures; urinary stricture; aj1 - Immunization history:: Flu vaccine is not up to date. - Coronavirus screen:: The patient has NOT traveled to [place] in the past 14 days. - Social history:: Smoking status: Patient/guardian denies using tobacco. - Ebola Screening: : Patient denies travel to an Ebola-affected area in the 21 days before illness onset. Screenin:22 Abuse screen: Denies threats or abuse. Denies injuries from another. Nutritional hb screening: No deficits noted. Tuberculosis screening: No symptoms or risk factors identified. Fall Risk None identified. Assessment: 20:00 General: Appears in no apparent distress. Behavior is calm, cooperative. Pain: Pain hb currently is 5 out of 10 on a pain scale. Neuro: Level of Consciousness is awake, alert, obeys commands, Oriented to person, place, time, situation. 20:00 Cardiovascular: Capillary refill < 3 seconds Patient's skin is warm and dry. hb Respiratory: Airway is patent Respiratory effort is even, unlabored, Respiratory pattern is regular, symmetrical. GI: No signs and/or symptoms were reported involving the gastrointestinal system. : Reports suprapubic pain, difficulty urinating. EENT: No signs and/or symptoms were reported regarding the EENT system. Derm: Skin is healthy with good turgor. Musculoskeletal: No signs and/or symptoms reported regarding the musculoskeletal system. 21:00 Reassessment: Patient appears in no apparent distress at this time. No changes from hb previously documented assessment. Patient and/or family updated on plan of care and expected duration. Pain level reassessed. Patient is alert, oriented x 3, equal unlabored respirations, skin warm/dry/pink. 21:04 Reassessment: Discharge ordered, pt awaiting transportation at this time. hb Vital Signs: 19:43 BP 189 / 10; Pulse 110; Resp 20; Temp 98.2; Pulse Ox 100% on R/A; Weight 113.4 kg (R); aj1 Height 5 ft. 9 in. (175.26 cm) (R); Pain 7/10; 19:43 Body Mass Index 36.92 (113.40 kg, 175.26 cm) aj1 ED Course: 19:41 Patient arrived in ED. es 19:43 Triage completed. aj1 19:43 Arm band placed on Patient placed in an exam room. aj1 19:47 [facility]C [facility] snw 19:47 Nato Francois MD is Attending Physician. snw 19:55 Patient has correct armband on for positive identification. Placed in gown. Bed in low hb position. Call light in reach. Side rails up X 1. 20:18 Tasneem Forbes, RN is Primary Nurse. hb 20:20 attempted to insert 12f thurman catheter, was unsuccessful. Pt tolerated fair. DIE TURNER Charlette hb notified. 20:20 Bladder scan completed. 111 mls, DIE TURNER Charlette notified. hb 20:39 Torrey Ocampo MD is Referral Physician. snw 21:02 No provider procedures requiring assistance completed. Patient did not have IV access hb during this emergency room visit. Administered Medications: 20:39 Drug: Valium 5 mg Route: PO; hb 21:10 Follow up: Response: No adverse reaction hb Outcome: 20:40 Discharge ordered by . snw 21:02 Discharged to home ambulatory. hb 21:02 Condition: stable 21:02 Discharge instructions given to patient, Instructed on discharge instructions, follow up and referral plans. Demonstrated understanding of instructions, follow-up care. 21:14 Patient left the ED. hb Signatures: Abeba Cardoso RN RN aj1 Charlette Gannon, SIX HORSE HITCH DRIVER-C SIX HORSE HITCH DRIVER-Csnw Katiana Parker Heather, RN RN hb
[2019-10-20] MEDS ORDERED: DIAZEPAM 5 MG TABLET ONE (20:42)
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
[2019-10-20 23:03] VITALS: BP 189/10; TEMP 98.2; O2SAT 100
== END 2019-10-20 21:14 | disposition home or self-care (01) ==
LOC: ER 19:37
DX: N35.919 Unspecified urethral stricture, male, unspecified site (principal); R33.9 Retention of urine, unspecified; Z88.6 Allergy status to analgesic agent
CPT/HCPCS: 99283

== ENCOUNTER 2019-10-21 16:42 | Emergency (ER) | payer SELFPAY ==
--- OUTSIDE RECORDS SUMMARY | 2019-10-21 16:44 | XMS REPORT ---
:1970 Author Organization [facility] Address [address] [place] [address] [place] [address] Care Team Providers Name Role Phone LIBBY ALCARAZ Unavailable Unavailable Problems This patient has no known problems. Allergies, Adverse Reactions, Alerts This patient has no known allergies or adverse reactions. Medications This patient has no known medications. Encounters Start End Encounter Admission Attending Care Care Encounter Date/Time Date/Time Type Type Clinicians Facility Department ID 2019-04-06 2019-04-06 Outpatient E [facility] MED [id number] 11:15:00 11:15:00 Results Test Description Test Time Test Comments Text Results Atomic Results Result Comments FLCHRISTIANO, 2019-09-08 Reason for FINAL REPORT PATIENT NON-SPECIFIC, UP TO 07:34:00 exam:->Cystoscopy, direct ID: [id number] A 1 HOUR vision internal fluoroscopic unit was utilized for a procedure performed in the operating room. No interpretation was requested. Please refer to the operative report regarding findings. Please refer to PACS for patient radiation dose information. Signed: JR Velázquez Robert MDReport Verified Date/Time: 09/08/2019 07:34:46 Reading Location: [facility] Radiology Reading Room TIC FUNCTION PANEL 2019-09-08 01:57:00 Test Item Value Reference Range Comments TOTAL PROTEIN (BEAKER) (test irog=679) 7.5 gm/dL 6.0-8.3 ALBUMIN (BEAKER) (test gcjq=8204) 4.3 g/dL 3.5-5.0 BILIRUBIN TOTAL (BEAKER) (test kklw=590) 0.3 mg/dL 0.2-1.2 BILIRUBIN DIRECT (BEAKER) (test fzjm=697) 0.1 mg/dL 0.1-0.5 ALKALINE PHOSPHATASE (BEAKER) (test ewvj=071) 95 U/L 40-150 AST (SGOT) (BEAKER) (test ukmv=006) 28 U/L 5-34 ALT (SGPT) (BEAKER) (test ogtn=547) 29 U/L 6-55 BASIC METABOLIC [id number] 01:57:00 Test Item Value Reference Range Comments SODIUM (BEAKER) (test 139 meq/L 136-145 uprr=035) POTASSIUM (BEAKER) (test 4.0 meq/L 3.5-5.1 cjkr=130) CHLORIDE (BEAKER) (test 104 meq/L 98-107 fval=419) CO2 (BEAKER) (test 26 meq/L 22-29 dpsq=658) BLOOD UREA NITROGEN 18 mg/dL 7-21 (BEAKER) (test mbkf=308) CREATININE (BEAKER) (test 1.42 mg/dL 0.57-1.25 jkmk=307) GLUCOSE RANDOM (BEAKER) 89 mg/dL 70-105 (test pdmy=826) CALCIUM (BEAKER) (test 9.2 mg/dL 8.4-10.2 mezt=841) EGFR (BEAKER) (test 64 mL/min/1.73 sq m ESTIMATED GFR IS NOT dfqs=7437) ACCURATE CREATININE CLEARANCE IN PREDICTING GLOMERULAR FILTRATION RATE. ESTIMATED GFR IS NOT APPLICABLE FOR DIALYSIS PATIENTS. PROTHROMBIN [id number] 01:55:00 Test Item Value Reference Range Comments PROTIME (BEAKER) (test fply=782) 13.0 seconds 11.9-14.2 INR (BEAKER) (test godv=514) 1.0 <=5.9 Effective 02/01/2019: PT Reference Range ChangeNew: 11.9-14.2 Previous: 11.7- 14.7RECOMMENDED COUMADIN/WARFARIN INR THERAPY RANGESSTANDARD DOSE: 2.0-3.0 Includes: PROPHYLAXIS for venous thrombosis, systemic embolization; TREATMENT for venous thrombosis and/or pulmonary embolus.HIGH RISK: Target INR is2.5-3.5 for patients wiht mechanical heart valves.CBC W/PLT COUNT & AUTO [id number] 01:33:00 Test Item Value Reference Range Comments WHITE BLOOD CELL COUNT (BEAKER) (test vdvb=396) 6.9 K/ L 3.5-10.5 RED BLOOD CELL COUNT (BEAKER) (test zzog=890) 4.25 M/ L 4.63-6.08 HEMOGLOBIN (BEAKER) (test tsjo=459) 12.8 GM/DL 13.7-17.5 HEMATOCRIT (BEAKER) (test mesd=750) 38.8 % 40.1-51.0 MEAN CORPUSCULAR VOLUME (BEAKER) (test hwdq=129) 91.3 fL 79.0-92.2 MEAN CORPUSCULAR HEMOGLOBIN (BEAKER) (test 30.1 pg 25.7-32.2 rmuu=269) MEAN CORPUSCULAR HEMOGLOBIN CONC (BEAKER) (test 33.0 GM/DL 32.3-36.5 bnhd=929) RED CELL DISTRIBUTION WIDTH (BEAKER) (test 14.3 % 11.6-14.4 ujgk=422) PLATELET COUNT (BEAKER) (test ppop=843) 418 K/CU MM 150-450 MEAN PLATELET VOLUME (BEAKER) (test wjjn=829) 10.3 fL 9.4-12.4 NUCLEATED RED BLOOD CELLS (BEAKER) (test 0 /100 WBC 0-0 zmjm=126) NEUTROPHILS RELATIVE PERCENT (BEAKER) (test 45 % lgzl=000) LYMPHOCYTES RELATIVE PERCENT (BEAKER) (test 42 % zmdl=032) MONOCYTES RELATIVE PERCENT (BEAKER) (test 10 % hjim=060) EOSINOPHILS RELATIVE PERCENT (BEAKER) (test 3 % kksc=228) BASOPHILS RELATIVE PERCENT (BEAKER) (test 1 % kwqn=454) NEUTROPHILS ABSOLUTE COUNT (BEAKER) (test 3.06 K/ L 1.78-5.38 qpjn=501) LYMPHOCYTES ABSOLUTE COUNT (BEAKER) (test 2.84 K/ L 1.32-3.57 jrxn=412) MONOCYTES ABSOLUTE COUNT (BEAKER) (test 0.70 K/ L 0.30-0.82 vtkt=282) EOSINOPHILS ABSOLUTE COUNT (BEAKER) (test 0.18 K/ L 0.04-0.54 ifdo=709) BASOPHILS ABSOLUTE COUNT (BEAKER) (test 0.05 K/ L 0.01-0.08 bimx=192) IMMATURE GRANULOCYTES-RELATIVE PERCENT (BEAKER) 0 % 0-1 (test jcdc=8127)
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
[2019-10-21 17:56] VITALS: BP 157/80; TEMP 97.4; O2SAT 98
[2019-10-21] MEDS ORDERED: FUROSEMIDE 40 MG/4 ML VIAL ONE (18:36)
[2019-10-21] MEDS ORDERED: ASPIRIN 81 MG CHEWABLE TABLET ONE (18:36)
[2019-10-21] MEDS ORDERED: FAMOTIDINE 20 MG/2 ML VIAL IV ONE (18:36)
[2019-10-21] MEDS ORDERED: ENOXAPARIN 100 MG/ML SYR SQ ONE (18:36)
== END 2019-10-21 17:50 | disposition home or self-care (01) ==
LOC: ER 16:42
DX: S00.90XA Unspecified superficial injury of unspecified part of head, initial encounter (principal); S70.01XA Contusion of right hip, initial encounter; V43.52XA Car driver injured in collision with other type car in traffic accident, initial encounter; Y93.89 Activity, other specified; Y92.410 Unspecified street and highway as the place of occurrence of the external cause; Z88.6 Allergy status to analgesic agent; R56.9 Unspecified convulsions
CPT/HCPCS: 99284; J1650; J1940

== ENCOUNTER 2020-04-01 07:31 | Emergency (ER) | payer SELFPAY ==
--- OUTSIDE RECORDS SUMMARY | 2020-04-01 07:35 | XMS REPORT | Clinical Summary ---
:1970 Author Organization [facility] Address [address] [place] [address] Care Team Providers Name Role Phone Unavailable Primary Care Provider Unavailable Allergies Active Allergy Reactions Severity Noted Date Comments Acetaminophen Itching Medium 09/07/2019 Pt gets itchy Medications Medication Sig Dispensed Refills Start Date End Date Status Missing or . 0 Active Non-Formulary MedicationIndicat ions: pt takes dilantin, does not know dose traMADol (ULTRAM) Take 2 tablets (100 30 tablet 0 09/08/2019 0 09/18/2019 50 mg tablet mg total) by mouth every 6 (six) hours as needed for up to 10 days. Max Daily Amount: 400 mg docusate sodium Take 1 capsule (100 10 capsule 0 09/08/2019 (COLACE) 100 MG mg total) by mouth capsule 2 (two) times daily for 10 days. sulfamethoxazole- Take 1 tablet (80 20 tablet 0 09/08/2019 trimethoprim mg of trimethoprim (BACTRIM,SEPTRA) total) by mouth 2 400-80 mg per (two) times daily tablet for 10 days. Active Problems Problem Noted Date Urethral stricture 09/08/2019 Encounters Date Type Specialty Care Team Description 09/08/2019 Anesthesia Event Nikhil Rice, LUMBER PILER 09/08/2019 Surgery Manuel Larose CYSTOSCOPY,BA ROOSEVELT Arana MD DILATION URETER AL STRICTURE 09/08/2019 Orders Only General Internal Medicine 09/08/2019 Travel 09/07/2019 - Hospital Encounter General Internal Neo Meek Stri cture of male urethra, unspecified stricture type; 09/08/2019 Medicine Urinary retention Hortencia Mckeon MD after 04/01/2019 Social History Tobacco Use Types Packs/Day Years Used Date Never Smoker Smokeless Tobacco: Never Used Alcohol Use Drinks/Week oz/Week Comments No Alcohol Habits Answer Date Recorded How often do you have a drink containing alcohol? Never 09/08/2019 How many drinks containing alcohol do you have on a typical Not asked day when you are drinking? How often do you have six or more drinks on one occasion? No t asked Sex Assigned at Date Recorded Not on file Job Start Date Occupation Industry Not on file Not on file Not on file Travel History Travel Start Travel End No recent travel history available. Last Filed Vital Signs Vital Sign Reading Time Taken Blood Pressure 166/81 09/08/2019 8:[address] [facility] Pulse 77 09/08/2019 8:[address] [facility] Temperature 35 C (95 F) 09/08/2019 8:[address] [facility] Respiratory Rate 18 09/08/2019 8:[address] [facility] Oxygen Saturation 100% 09/08/2019 8:[address] [facility] Inhaled Oxygen Concentration - - Weight 117.9 kg (260 lb) 09/08/2019 12:[address] [facility] Height 175.3 cm (5' 9") 09/08/2019 12:[address] [facility] Body Mass Index 38.4 09/08/2019 12:[address] [facility] Plan of Treatment Not on file Procedures Procedure Name Priority Date/Time Associated Diagnosis Comme nts RHYTHM STRIP - SCAN 09/12/2019 10:[address] [facility] [place] FLUORO STAT 09/08/2019 7:15 AM Results for this NON-SPECIFIC UP TO [facility] procedure are in 1 HOUR the results section. CYSTOSCOPY,DIRECT 09/08/2019 5:30 AM Ureteral strictu re VISION INTERNAL [facility] URETHROTOMY/DVIU Special Needs REQ 0530AM;REQ 24 Fr Balloon Dilator(ureteral),Amplatz Dilator Set(straight),Amplatz Dilato r Set(curved),C-Arm,Resectoscope, Peoictric Cystoscope,Flexible Cystosco pe,5 [id number],Sersorwire CYSTOSCOPY,BALLOON DILATION URETERAL 09/08/2019 5:[address] [facility] Ureteral stricture STRICTURE Special Needs REQ 0530AM;REQ 24 Fr Balloon Dilator(ureteral),Amplatz Dilator Set(straight),Amplatz Dilato r Set(curved),C-Arm,Resectoscope, Peoictric Cystoscope,Flexible Cystosco pe,5 [id number],Sersorwire ECG 12-LEAD Routine 09/08/2019 4:[address] [facility] Procedure Note - Interface, External Ris In - 09/08/2019 4:[address] [facility] Ventricular Rate 74 BPM Atrial Rate 74 BPM P-R Interval 148 ms QRS Duration 86 ms Q-T Interval 380 ms QTC Calculation(Bazett) 421 ms P [place] 75 degrees R [place] 4 degrees T [place] -1 degrees Normal sinus rhythm Normal ECG No previous ECGs available ECG 12-LEAD Routine 09/08/2019 4:[address] [facility] Resu lts for this procedure are i n the results section . CBC W/PLT COUNT & AUTO STAT 09/08/2019 1:[address] [facility] Results for this DIFFERENTIAL procedure are i n the results section . PROTHROMBIN TIME/INR STAT 09/08/2019 1:[address] [facility] Results for this procedure are i n the results section . HEPATIC FUNCTION PANEL STAT 09/08/2019 1:[address] [facility] Results for this procedure are i n the results section . CBC W/PLT COUNT & AUTO STAT 09/08/2019 1:[address] [facility] Results for this DIFFERENTIAL procedure are i n the results section . BASIC METABOLIC PANEL (7) STAT 09/08/2019 1:[address] [facility] Results for this procedure are i n the results section . after 04/01/2019 Results RHYTHM STRIP - SCAN (09/12/2019 10:[address] [facility]) Narrative Performed At This result has an attachment that is no t available. [place] fluoro non-specific up to 1 hour (09/08/2019 7:[address] [facility]) Specimen Narrative Performed At FINAL REPORT RIS A fluoroscopic unit was utilized for a p rocedure performed in the operating room. No interpretation was re quested. Please refer to the operative report regarding findings. Ple ase refer to PACS for patient radiation dose information. Signed: JR Velázquez Robert MD Report Verified Date/Time:09/08/2019 07:34:46 Reading Location: [facility] Reading Room Procedure Note Interface, External Ris In - 09/08/2019 7:[address] [facility] FINAL REPORT A fluoroscopic unit was utilized for a p rocedure performed in the operating room. No interpretation was re quested. Please refer to the operative report regarding findings. Ple ase refer to PACS for patient radiation dose information. Signed: JR Velázquez Robert MD Report Verified Date/Time: 09/08/2019 0 7:34:46 Reading Location: [facility] Reading Room Performing Organization Address City/[facility] Cent[facility] Phone Number [facility]ES[facility] RIS ECG 12 lead (09/08/2019 4:[address] [facility]) Specimen Narrative Performed At Ventricular Rate 74 BPM GE MUSE Atrial Rate 74 BPM P-R Interval 148 ms QRS Duration 86 ms Q-T Interval 380 ms QTC Calculation(Bazett) 421 ms P [place] 75 degrees R Wal[place] 4 degrees T [place] -1 degrees Normal sinus rhythm Normal ECG No previous ECGs available Confirmed by MD PARRA MAJID ([id number]) on 09/08/19 8:34:50 AM Procedure Note Interface, External Ris In - 09/08/2019 8:[address] [facility] Ventricular Rate 74 BPM Atrial Rate 74 BPM P-R Interval 148 ms QRS Duration 86 ms Q-T Interval 380 ms QTC Calculation(Bazett) 421 ms P [place] 75 degrees R Walcott 4 degrees T [place] -1 degrees Normal sinus rhythm Normal ECG No previous ECGs available Confirmed by MD PARRA MAJID ( [id number]) on 09/08/2019 8:34:50 AM Performing Organization Address City/[facility] Phone Number GE MUSE CBC with platelet count + automated diff (09/08/2019 1:[address] [facility]) WBC 6.9 3.5 - 10.5 K/L [facility] RBC 4.25 (L) 4.63 - 6.08 M/L [facility] Hemoglobin 12.8 (L) 13.7 - 17.5 GM/DL [facility] Hematocrit 38.8 (L) 40.1 - 51.0 % [facility] MCV 91.3 79.0 - 92.2 fL [facility] MCH 30.1 25.7 - 32.2 pg [facility] MCHC 33.0 32.3 - 36.5 GM/DL [facility] RDW 14.3 11.6 - 14.4 % [facility] Platelets 418 150 - 450 K/CU MM [facility] MPV 10.3 9.4 - 12.[address] [facility] nRBC 0 0 - 0 /[address] [facility] % Neutros 45 % [facility] % Lymphs 42 % [facility] % Monos 10 % [facility] % Eos 3 % [facility] % Baso 1 % [facility] # Neutros 3.06 1.78 - 5.38 K/L [facility] # Lymphs 2.84 1.32 - 3.57 K/L [facility] # Monos 0.70 0.30 - 0.82 K/L [facility] # Eos 0.18 0.04 - 0.54 K/L [facility] # Baso 0.05 0.01 - 0.08 K/L [facility] Immature Granulocytes-Relative 0 0 - 1 % C HI [facility] Specimen Blood Performing Organization Address City/State/Zipcode Phone Number [facility] [address] [place] [address] CENTER Prothrombin time/INR (09/08/2019 1:[address] [facility]) Protime 13.0 11.9 - 14.2 seconds [facility] INR 1.0 <=5.9 [facility] Specimen Blood Narrative Performed At Effective 02/01/2019: PT Reference Range [facility] Change New: 11.9-14.2Previous: 11.7-14.7 RECOMMENDED COUMADIN/WARFARIN INR THERAPY RANGES STANDARD DOSE: 2.0-3.0Includes: PROPHYLAXIS for venous thrombosis, systemic embolization; TREATMENT for venous thrombosis and/or pulmonary embolus. HIGH RISK: Target INR is 2.5-3.5 for patients wiht mechanical heart valves. Performing Organization Address [facility] Phone Number [address] [address] [place] Hepatic function panel (09/08/2019 1:[address] [facility]) Protein, Total 7.5 6.0 - 8.3 gm/dL [facility] Albumin 4.3 3.5 - 5.0 g/dL [facility] Total Bilirubin 0.3 0.2 - 1.2 mg/dL [facility] Bilirubin, Direct 0.1 0.1 - 0.5 mg/dL [facility] Alkaline Phosphatase 95 40 - 150 U/L [facility] AST 28 5 - 34 U/L [facility] ALT 29 6 - 55 U/L [facility] Specimen Blood Performing Organization Address [facility] Phone Number [address] [address] [place] Basic Metabolic Panel (09/08/2019 1:[address] [facility]) Sodium 139 136 - 145 meq/L [facility] Potassium 4.0 3.5 - 5.1 meq/L [facility] Chloride 104 98 - 107 meq/L [facility] CO2 26 22 - 29 meq/L [facility] BUN 18 7 - 21 mg/dL [facility] Creatinine 1.42 (H) 0.57 - 1.25 mg/dL [facility] Glucose 89 70 - 105 mg/dL [facility] HE [facility] Calcium 9.2 8.4 - 10.2 mg/dL [facility] EGFR 64Comment: ESTIMATED GFR IS mL/min/1.73 sq m [facility] NOT ACCURATE CREATININE [facility] CENTER CLEARANCE IN PREDICTING GLOMERULAR FILTRATION RATE. ESTIMATED GFR IS NOT APPLICABLE FOR DIALYSIS PATIENTS. Specimen Blood Performing Organization Address City/State/Zipcode Phone Number [address] [phone] CENTER after 04/01/2019 Advance Directives For more information, please contact:[address] [phone] Code Status Date Activated Date Inactivated Comments Full Code 09/08/2019 8:25 AM 09/08/2019 11:52 AM This code status was determined by: Patient Full Code 09/08/2019 12:06 AM 09/08/2019 8:25 AM This code status was determined by: Patient
--- OUTSIDE RECORDS SUMMARY | 2020-04-01 07:36 | XMS REPORT | Continuity of Care Document ---
:1970 Author Organization [employer] Care Team Providers Name Role Phone [employer] Unavailable Un available Problems Problem Status Onset Classification Date Comments Sourc e Date Reported ACUTE URINARY Active [facility] Hypertensive Active Problem 04/09/2019 Shay as disorder, Medical systemic Center arterial (disorder) OTHER RETENTION Active [place] [facility] Medications Medication Details Route Status Patient Ordering Order Source Instructions Provider Date metoprolol 50 mg, 1 Inactive Pauline extended release tab, 019 Medical Route: PO, Center Drug form: ERTAB, Daily, Start date: 04/07/19 9:00:00 CDT, Duration: 30 day, Stop date: 05/06/19 9:00:00 CDT, 0 Dilantin Notes: Inactive [facility] (Same as: 019 [facility] Dilantin) Center Do not open, crush, or chew. Ibuprofen Notes: No Longer [facility] (Same as: Active [address] [place] [address] Motrin) Center "Do Not Crush" Give with food. Dextrose 50% 25 gm, 50 [facility] mL, Route: Active 019 Medical IVP, Drug Center Form: INJ, Dosing Weight 122.727, kg, PRN, PRN Blood Glucose Results, Start date: 04/06/19 19:17:00 CDT, Duration: 30 day, Stop date: 05/06/19 19:16:00 CDT, 0 Glucagon 1 mg, No Longer Pauline Route: IM, Active [facility] form: Center PDR/INJ, PRN, Dosing Weight 122.727, kg, PRN Blood Glucose Results, Start date: 04/06/19 19:17:00 CDT, Duration: 30 day, Stop date: 05/06/19 19:16:00 CDT, 0 morphine 0.5 4 mg, Inactive [place] mg/mL Route: 019 Medical preservative-ciara IVP, ONCE, Cent er e injectable Dosing solution Weight 122.727, kg, Priority: STAT, Start date: 04/06/19 18:30:00 CDT, Stop date: 04/06/19 18:30:00 CDT Epinephrine 0.01 20 mL, Inactive Shay as MG/ML / Route: 019 Medical Lidocaine SUB-Q, Center Hydrochloride 10 Drug Form: MG/ML Injectable INJ, Solution Dosing Weight 122.727, kg, ONCALL, Start date: 04/06/19 16:00:00 CDT, Duration: 30 day, Stop date: 05/06/19 15:59:00 CDT, 0 EPINEPHrine-lido 20 mL, Inactive Shay as joe Route: 019 Medical 1:100,000-2% SUB-Q, Center injectable Dosing solution Weight 122.727, kg, ONCALL, PRN Procedure, Start date: 04/06/19 15:09:00 CDT, Duration: 30 day, Stop date: 05/06/19 15:08:00 CDT Allergies, Adverse Reactions, Alerts Substance Category Reaction Severity Reaction Status Date Comments S ource type Reported ibuprofen Assertion Drug Active [place] allergy [facility] Tylenol Assertion Drug Active Shay as allergy [facility] Immunizations No Data Provided for This Section Results Order Name Results Value Reference Date Interpretation Comments Bethanie rce Range CHEM PANEL eGFR 84 04/07/ Result Pauline 2018 Comment: The Medical eGFR is Center calculated [...] PANEL Bili Total 0.6 0.2 - 1.[address] CHEM PANEL AST 13 0 - [address] CHEM PANEL Alk Phos 104 39 - [address] CHEM PANEL Sodium Lvl 139 135 - [address] CHEM PANEL Creatinine 1.17 0.50 - 1.40 [facility] as [address] CHEM PANEL Potassium Lvl 3.8 3.5 - 5.[address] CHEM PANEL Chloride Lvl 104 95 - [address] CHEM PANEL Glucose Lvl 82 70 - [address] CHEM PANEL BUN 16 7 - [address] CHEM PANEL ALT 27 0 - [address] CHEM PANEL Albumin Lvl 3.3 3.5 - 5.[address] CHEM PANEL CO2 26 24 - [address] CHEM PANEL Calcium Lvl 8.5 8.5 - 10.[address] CHEM PANEL Total Protein 6.9 6.4 - 8.[address] CHEM PANEL A/G Ratio 0.9 0.7 - 1.[address] CHEM PANEL B/C Ratio 14 6 - [address] CHEM PANEL AGAP 12.8 10.0 - 20.[address] CHEM PANEL Globulin 3.6 2.7 - 4.[address] HEMATOLOGY WBC 5.9 3.7 - 10.[address] HEMATOLOGY Hgb 13.2 14.0 - 18.[address] HEMATOLOGY RBC 4.29 4.70 - 6.[address] HEMATOLOGY RDW 14.1 11.5 - 14.[address] HEMATOLOGY MCHC 34.5 32.0 - 36.[address] HEMATOLOGY MCH 30.7 27.0 - 31.[address] HEMATOLOGY MCV 89.2 80.0 - 94.[address] HEMATOLOGY Hct 38.2 42.0 - 54.[address] HEMATOLOGY MPV 8.6 7.4 - 10.[address] HEMATOLOGY Platelet 346 133 - [address] HEMATOLOGY Neutrophils # 2.6 1.5 - 8.[address] HEMATOLOGY Basophils 0.7 0.0 - 1.[address] HEMATOLOGY Eosinophils 5.5 0.0 - 4.[address] HEMATOLOGY Lymphocytes # 2.3 1.0 - 5.[address] HEMATOLOGY Eosinophils # 0.3 0.0 - 0.[address] HEMATOLOGY Monocytes # 0.7 0.0 - 0.[address] HEMATOLOGY Lymphocytes 38.7 20.0 - 40.[address] HEMATOLOGY Monocytes 11.4 2.0 - 12.[address] HEMATOLOGY Segs 43.7 45.0 - 75.[address] Pathology Reports No Data Provided for This Section Diagnostic Reports No Data Provided for This Section Consultation Notes No Data Provided for This Section Discharge Summaries No Data Provided for This Section History and Physicals No Data Provided for This Section Vital Signs Vital Sign Value Date Comments Source Heart Rate 70 04/07/2019 [facility] Respitory Rate 18 04/07/2019 [facility] Temperature Oral (F) 97.1 F 04/07/2019 [facility] Systolic (mm Hg) 135 04/07/2019 [facility] Diastolic (mm Hg) 96 04/07/2019 [facility] Respitory Rate 18 04/07/2019 [facility] Heart Rate 73 04/07/2019 [facility] Temperature Oral (F) 97.8 F 04/07/2019 [facility] Systolic (mm Hg) 137 04/07/2019 [facility] Diastolic (mm Hg) 86 04/07/2019 [facility] Systolic (mm Hg) 148 04/07/2019 [facility] Diastolic (mm Hg) 93 04/07/2019 [facility] Respitory Rate 18 04/07/2019 [facility] Heart Rate 69 04/07/2019 [facility] Temperature Oral (F) 96.6 F 04/07/2019 [facility] Weight 122.727 04/06/2019 [facility] BMI Calculated 39.96 04/06/2019 [facility] Height 175.26 cm 04/06/2019 [facility] Encounters Location Location Encounter Encounter Reason Attending ADM DC Stat us Source Details Type Number For Provider Date Date Visit [facility] [id number] [facility] Procedures No Data Provided for This Section Assessment and Plan Assessment and Plan Date Source Extracted from:Title: History and Physical 04/07/2019 [facility] Author: Luisa Ramsey MD Date: [...] matson last surgery was about 7 months ag o with primary urology DVIU vs Balloon dilation. Patient stated every time he had urinary retention, he would present to the ED where his primary urologist would perform urethral dilation. He did not re ceive any definitive surgery for urethral stricture due to insurance reason. Has a hx of indwelling SPT however, patient is very hesitant on manage his urethral s tricture with SPT. Currently, patient co mplains of mild discomfort. Denies any recent fever, chill, nausea, emesis, hematuria. ROS: 12 point ROS negative other than noted in HPI Problems Active Hypertension No qualifying data available Tobacco Details: Use: Unknown if ever smoked. T obacco smoke exposure: None. Did the Patient Smoke Cigarettes Anytime During the Last 365 Days? Unable to obtain. Cessation Counseling Provided? No. Substance Abuse Details: Use: Current. Type: Cocaine. No qualifying data available Objective: Vitals Tmp(F) Pulse BP RR SpO2 FIO2 04/06 14:16 ---- 64 151/95 14 95 --- 04/06 12:55 97.3 68 157/94 18 100 --- 24 Hr Tmax: 97.3F (36.28c) at 04/06 12:5 5 Vital Signs are the last 5 in the past 48 hours. Physical Exam General: Alert and oriented, No acute distress . Eye: Extraocular movements are intact. HENT: Normocephalic. Respiratory: Lungs are clear to ausculta tion, Respirations are non-labored, Breath sounds are equal, Symmetrical chest wall expansion. Cardiovascular: Normal rate, Regular rhy thm, No murmur, No edema, bilateral symmetrical radial [...] - Discussed possible option in ED with p blanca. strongly recommend SPT placement for urinary diversion prior to definitive procedure. However, patient refused bedside SPT placement. 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 - Bedside catheter placement attempted, patient was unable to tolerate placement and refused any further intervention from urology team at bedside - Recommend IR consult for evaluation of SPT placement under sedation Terry Quiroga MD PGY-2 Urology Plan of Care No Data Provided for This Section Social History Social History Date Source Social History TypeResponse 04/06/2019 [facility] Substance Abuse Use: Current. Type: Cocaine. Alcohol Alcohol use interferes with work or home: No. 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
--- OUTSIDE RECORDS SUMMARY | 2020-04-01 07:37 | XMS REPORT | Continuity of Care Document ---
:1970 Author Organization [facility] t Address [address] [place] [address] Care Team Providers Name Role Phone Fantasma CRYSTAL Attending Clinician Linda CRYSTAL Attending Clinician Madeleine Rice CRNA Attending Clinician Sumit Larose MD Attending Clinician FANTASMA Attending Clinician Unavailable Harshil Escobar Attending Clinician FANTASMA Admitting Clinician Unavailable Harshil Escobar Admitting Clinician Problems Condition Condition Condition Status Onset Resolution Last Treating Co mments Source Name Details Category Date Date Treatment Clinician Date 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 ACUTE Diagnosis Active 2019-04-17 Mem [facility] URINARY 04-06 22:22:00 l RETENTION ACUTE 00:00: Ever n URINARY 00 RETENTION Active 04/06/2019 [facility] Hypertensi Problem Active 2019-04-09 M emoria ve 21:51:20 l disorder, [place] systemic Hypertensi arterial ve (disorder) disorder, systemic arterial (disorder) Active Problem 04/09/2019 [facility] OTHER Diagnosis Active 2019-04-17 Mem oria RETENTION 22:22:00 l OF URINE OTHER [place] RETENTION OF URINE Active [facility] Allergies, Adverse Reactions, Alerts Allergy Allergy Status Severity Reaction(s) Onset Inactive Treating Comm ents Source Name Type Date Date Clinician Acetamin Drug Active Itching Pt gets [facility] Allergy 1-02 [facility]chy [facility] ibuprofe ibuprofe Active [facility] Tylenol Tylenol Active [facility] Social History Social Habit Start Date Stop Date Quantity Comments Source History SDOH Alcohol [facility] - Std Drinks [facility] History SDOH Alcohol [facility] Binge [facility] Sex Assigned At [facility] kes - [facility] History SDOH Alcohol 2019-09-08 2019-09-08 1 [facility] - Frequency 00:00:00 00:00:00 Medical Leon Social History 2019-04-06 2019-04-06 [facility] surinder 18:26:15 18:26:15 Smoking Status Start Date Stop Date Source Never smoker [facility] Ordered Filled Start Stop Current Ordering Indication Dosage Frequency Signature Comments Components Source Medication Medication Date Date Medication? Clinician (SIG) Name Name Missing or Yes . [facility] Non-Formula 09-08 [facility] - ry :: Medical Medication 31 Leon traMADol 2019- No 100mg Take 2 [facility] (ULTRAM) 50 09-08 tablets Luke s - mg tablet 00:00: 23:59 (100 mg Medi shannon 00 :00 total) by Center mouth every 6 (six) hours as needed for up to 10 days. Max Daily Amount: 400 mg docusate No 100mg Q.5D Take 1 [facility] sodium 09-08 capsule [facility] - (COLACE) 00:00: 23:59 (100 mg Medic al 100 MG 00 :00 total) by Center capsule mouth 2 (two) times daily for 10 days. sulfamethox No 80mg{tr Q.5D Take 1 [facility] azole-trime 09-08 imethop tablet (80 [facility] - thoprim 00:00: 23:59 rim} mg of Medical (BACTRIM,SE 00 :00 trimethopr Ce nter PTRA) im total) 400-80 mg by mouth 2 per tablet (two) times daily for 10 days. metoprolol No 50 mg, 1 Mem oria extended 04-07 tab, l release 14:00: Route: PO, Herm braeden Drug form: ERTAB, Daily, Start date: 04/07/19 9:00:00 CDT, Duration: 30 day, Stop date: 05/06/19 9:00:00 CDT, 0 Dilantin 2019-0 No Notes: Memoria 04-07 (Same as: l 05:00: Dilantin) [place] 00 Do not open, crush, or chew. Ibuprofen 2018-0 No Notes: Memori a 04-07 (Same as: l 03:05: Motrin) [place] 00 "Do Not Crush" Give with food. Dextrose 2018-0 No 25 gm, 50 Rowdy chela 50% Syringe 04-07 mL, Route: l 00:17: IVP, Drug Mir 00 Form: INJ, Dosing Weight 122.727, kg, PRN, PRN Blood Glucose Results, Start date: 04/06/19 19:17:00 CDT, Duration: 30 day, Stop date: 05/06/19 19:16:00 CDT, 0 Glucagon 2018-0 No 1 mg, Memoria 04-07 Route: IM, l 00:17: Drug form: [place] PDR/INJ, PRN, Dosing Weight 122.727, kg, PRN Blood Glucose Results, Start date: 04/06/19 19:17:00 CDT, Duration: 30 day, Stop date: 05/06/19 19:16:00 CDT, 0 morphine 2019-0 No 4 mg, Memoria 0.5 mg/mL 04-06 Route: l preservativ 23:30: IVP, ONCE, [place] e-free Dosing injectable Weight solution 122.727, kg, Priority: STAT, Start date: 04/06/19 18:30:00 CDT, Stop date: 04/06/19 18:30:00 CDT Epinephrine 2019-0 No 20 mL, Rowdy chela 0.01 MG/ML 04-06 Route: l / Lidocaine 21:00: SUB-Q, Herm braeden Hydrochlori Drug Form: de 10 MG/ML INJ, Injectable Dosing Solution Weight 122.727, kg, ONCALL, Start date: 04/06/19 16:00:00 CDT, Duration: 30 day, Stop date: 05/06/19 15:59:00 CDT, 0 EPINEPHrine 2019-0 No 20 mL, Rowdy chela -lidocaine 04-06 Route: l 1:100,000-2 20:09: SUB-Q, Herm braeden % 00 Dosing injectable Weight solution 122.727, kg, ONCALL, PRN Procedure, Start date: 04/06/19 15:09:00 CDT, Duration: 30 day, Stop date: 05/06/19 15:08:00 CDT Vital Signs Vital Name Observation Time Observation Value Comments Source Systolic blood 2019-09-08 08:30:00 166 mm[Hg] [facility] Diastolic blood 2019-09-08 08:30:00 81 mm[Hg] [facility] Heart rate 2019-09-08 08:30:00 77 /min [facility] Body temperature 2019-09-08 08:30:00 35 Alisha [facility] Respiratory rate 2019-09-08 08:30:00 18 /min [facility] Oxygen saturation in 2019-09-08 08:30:00 100 /min [facility] Arterial blood by Medical Ce nter Pulse oximetry Body height 2019-09-08 00:00:00 175.3 cm [facility] Body weight Measured 2019-09-08 00:00:00 117.935 kg [facility] BMI 2019-09-08 00:00:00 38.40 kg/m2 [facility] Heart Rate 2019-04-07 16:18:00 [facility] Respitory Rate 2019-04-07 16:18:00 Memori al Mir Temperature Oral (F) 2019-04-07 16:18:00 97.1 F [facility] Systolic (mm Hg) 2019-04-07 16:18:00 Rowdy rial Mir Diastolic (mm Hg) 2019-04-07 16:18:00 Mem orial Mir Respitory Rate 2019-04-07 12:21:00 Memori al [place] Heart Rate 2019-04-07 12:21:00 [facility] Temperature Oral (F) 2019-04-07 12:21:00 97.8 F [facility] Systolic (mm Hg) 2019-04-07 12:21:00 Rowdy rial [place] Diastolic (mm Hg) 2019-04-07 12:21:00 Mem orial [place] Systolic (mm Hg) 2019-04-07 09:04:00 Rowdy Hester Diastolic (mm Hg) 2019-04-07 09:04:00 Sage [place] Respitory Rate 2019-04-07 09:04:00 Julius Veloz Heart Rate 2019-04-07 09:04:00 Hany [place] Temperature Oral (F) 2019-04-07 09:04:00 96.6 F Hany [place] Weight 2019-04-06 17:55:00 Hany [place] BMI Calculated 2019-04-06 17:55:00 Julius Veloz Height 2019-04-06 17:55:00 175.26 cm [facility] Procedures Procedure Date / Time Performed Performing Clinician [facility] e RHYTHM STRIP - SCAN 2019-09-12 10:50:46 Provider, Bhumi [facility] FL FLUORO NON-SPECIFIC 2019-09-08 07:15:00 Manuel Larose [facility] UP TO 1 HOUR [facility] CYSTOSCOPY,BALLOON 2019-09-08 05:30:00 Manuel Larose [facility] DILATION URETERAL [facility] STRICTURE CYSTOSCOPY,DIRECT VISION 2019-09-08 05:30:00 Manuel Larose [facility] INTERNAL [facility] URETHROTOMY/DVIU ECG 12-LEAD 2019-09-08 04:22:34 Unknown, Hl7 Doctor [facility] BASIC METABOLIC PANEL 2019-09-08 [facility]:27[facility] () [facility] HEPATIC FUNCTION PANEL 2019-09-08 01:27:00 Rudy Walden [facility] PROTHROMBIN TIME/INR 2019-09-08 01:27:00 Rudy Walden [facility] CBC W/PLT COUNT & AUTO 2019-09-08 01:27:00 [facility] Encounters Start End Encounter Admission Attending Care Care Encounter Source Date/Time Date/Time Type Type Clinicians Facility Department ID 2019-04-06 2019-04-07 Outpatient KONSTANTIN Escobar [facility] [id number] 11:15:00 14:45:00 Fabian Chua 2019-04-06 2019-04-06 Outpatient [facility] [id number] [facility] 11:15:00 11:15:00 Results Test Description Test Time Test Comments Results Result Sourc e Comments ECG 12 lead Interface, External Ris [facility] In - 09/08/2019 8:34 Sania es - 08:34:51 AM CSTVentricular Rate Me dical 74 BPMAtrial Rate 74 Cent er BPMP-R Interval 148 msQRS Duration 86 msQ-T Interval 380 msQTC Calculation(Bazett) 421 msP [place] 75 degreesR [place] 4 degreesT [place] -1 degreesNormal sinus rhythmNormal ECGNo previous ECGs availableConfirmed by MD FIDEL, TAYLOR ([id number]) on 09/08/2019 8:34:50 AM FL, FLUORO, Reason for FINAL REPORT PATIENT NON-SPECIFIC, UP 3 exam:->Cystos ID: [id number] A TO 1 HOUR 07:34:00 copy, direct fluoroscopic unit was vision utilized for a internal procedure performed in the operating room. No interpretation was requested. Please refer to the operative report regarding findings. Please refer to PACS for patient radiation dose information. Signed: JR Velázquez Robert MDReport Verified Date/Time: 09/08/2019 07:34:46 Reading Location: [facility] Reading Room fluoro Interface, External Ris [facility] non-specific up 3 In - 09/08/2019 7:36 [facility] - to 1 hour 07:34:00 AM CSTFINAL REPORT Medica l Ce nter A fluoroscopic unit was utilized for a procedure performed in the operating room. No interpretation was requested. Please refer to the operative report regarding findings. Please refer to PACS for patient radiation dose information. Signed: JR Velázquez Robert MDReport Verified Date/Time: 09/08/2019 07:34:46 Reading Location: [facility] Reading Room Basic Metabolic Panel 2019-09-08 01:57:00 Test Item Value Reference Range Interpretation Comme nts Sodium (test code = 2951-2) 139 meq/L 136-145 Potassium (test code = 2823-3) 4.0 meq/L 3.5-5.1 Chloride (test code = 2075-0) 104 meq/L 98-107 CO2 (test code = 2027-9) 26 meq/L 22-29 BUN (test code = 3094-0) 18 mg/dL 7-21 Creatinine (test code = 1.42 mg/dL 0.57-1.25 H 2160-0) Glucose (test code = 2345-7) 89 mg/dL 70-105 Calcium (test code = 91478-6) 9.2 mg/dL 8.4-10.2 EGFR (test code = 15984-2) 64 mL/min/1.73 sq m ESTIMATED GFR IS NOT ACCURATE CRE ATININE CLEARANCE IN [place] EDICTING GLOMERULAR FILT RATION RATE. ESTIMATED GFR IS NOT APPLICABLE FOR DIALYSIS PATIEN TS. Lab Interpretation (test code Abnormal = 26407-2) [facility] [id number] 01:57:00 Test Item Value Reference Range Interpretation Comments Protein, Total (test code = 2885-2) 7.5 6.0- 8.3 gm/dL Albumin (test code = 95756-8) 4.3 g/dL 3.5-5 Total Bilirubin (test code = 0.3 mg/dL 0.2-1.2 1974-2) Bilirubin, Direct (test code = 0.1 mg/dL 0.1-0.5 1967-7) Alkaline Phosphatase (test code = 95 U/L 40-150 6768-6) AST (test code = 1920-8) 28 U/L 5-34 ALT (test code = 1742-6) 29 U/L 6-55 Lab Interpretation (test code = Normal 07608-1) [facility] FUNCTION [id number] 01:57:00 Test Item Value Reference Range Interpretation Comments TOTAL PROTEIN (BEAKER) (test code = 7.5 gm/dL 6.0-8.3 770) ALBUMIN (BEAKER) (test code = 1145) 4.3 g/dL 3.5-5.0 BILIRUBIN TOTAL (BEAKER) (test code 0.3 mg/dL 0.2-1.2 = 377) BILIRUBIN DIRECT (BEAKER) (test 0.1 mg/dL 0.1-0.5 code = 706) ALKALINE PHOSPHATASE (BEAKER) (test 95 U/L 40-150 code = 346) AST (SGOT) (BEAKER) (test code = 28 U/L 5-34 353) ALT (SGPT) (BEAKER) (test code = 29 U/L 6-55 347) BASIC METABOLIC [id number] 01:57:00 Test Item Value Reference Range Interpretation Comments SODIUM (BEAKER) 139 meq/L 136-145 (test code = 381) POTASSIUM (BEAKER) 4.0 meq/L 3.5-5.1 (test code = 379) CHLORIDE (BEAKER) 104 meq/L 98-107 (test code = 382) CO2 (BEAKER) (test 26 meq/L 22-29 code = 355) BLOOD UREA NITROGEN 18 mg/dL 7-21 (BEAKER) (test code = 354) CREATININE (BEAKER) 1.42 mg/dL 0.57-1.25 H (test code = 358) GLUCOSE RANDOM 89 mg/dL 70-105 (BEAKER) (test code = 652) CALCIUM (BEAKER) 9.2 mg/dL 8.4-10.2 (test code = 697) EGFR (BEAKER) (test 64 mL/min/1.73 ESTIMA TARA GFR IS code = 1092) sq m NOT ACCURATE CREATININE CLEARANCE IN PREDICTING GLOMERULAR FILTRATION RATE . ESTIMATED GFR I S NOT APPLICABLE FOR DIALYSIS PATIEN TS. Prothrombin time/[id number] 01:55:00 Test Item Value Reference Range Interpretation Comments Protime (test code = 13.0 11.9- 14.2 5902-2) seconds INR (test code = 1.0 <=5.9 6301-6) FILIBERTO (test code = FILIBERTO) Effective 02/01/2019: PT Reference Range ChangeNew: 11.9-14.2 Previous: 11.7-14.7 RECOMMENDED COUMADIN/WARFARIN INR THERAPY RANGESSTANDARD DOSE: 2.0-3.0 Includes: PROPHYLAXIS for venous thrombosis, systemic embolization; TREATMENT for venous thrombosis and/or pulmonary embolus.HIGH RISK: Target INR is 2.5-3.5 for patients wiht mechanical heart valves. Lab Interpretation Normal (test code = 86600-8) [facility]ilion[facility] TIME/[id number] 01:55:00 Test Item Value Reference Range Interpretation Comments PROTIME (BEAKER) (test code = 13.0 seconds 11.9-14.2 759) INR (BEAKER) (test code = 370) 1.0 <=5.9 Effective 02/01/2019: PT Reference Range ChangeNew: 11.9-14.2 Previous: 11.7- 14.7RECOMMENDED COUMADIN/WARFARIN INR THERAPY RANGESSTANDARD DOSE: 2.0-3.0 Includes: PROPHYLAXIS for venous thrombosis, systemic embolization; TREATMENT for venous thrombosis and/or pulmonary embolus.HIGH RISK: Target INR is2.5-3.5 for patients wiht mechanical heart valves.CBC with platelet count + automated [id number] 01:33:00 Test Item Value Reference Range Interpretation Comments WBC (test code = 6690-2) 6.9 3.5- 10.5 K/L RBC (test code = 789-8) 4.25 4.63- 6.08 M/L L MCHC (test code = 786-4) 33.0 32.3- 36.5 GM/DL L Hematocrit (test code = 4544-3) 38.8 % 40.1-51 L MCV (test code = 787-2) 91.3 fL 79-92.2 MCH (test code = 785-6) 30.1 pg 25.7-32.2 RDW (test code = 788-0) 14.3 % 11.6-14.4 Platelets (test code = 777-3) 418 150- 450 K/CU MM MPV (test code = 90944-8) 10.3 fL 9.4-12.4 nRBC (test code = 413) 0 0- 0 /100 WBC % Neutros (test code = 429) 45 % % Lymphs (test code = 430) 42 % % Monos (test code = 431) 10 % % Eos (test code = 432) 3 % % Baso (test code = 437) 1 % # Neutros (test code = 670) 3.06 1.78- 5.38 K/L # Lymphs (test code = 414) 2.84 1.32- 3.57 K/L # Monos (test code = 415) 0.70 0.30- 0.82 K/L # Eos (test code = 416) 0.18 0.04- 0.54 K/L # Baso (test code = 417) 0.05 0.01- 0.08 K/L Immature Granulocytes-Relative 0 % 0-1 (test code = 2801) Lab Interpretation (test code = Abnormal 05274-6) [facility] W/PLT COUNT & AUTO [id number] 01:33:00 Test Item Value Reference Range Interpretation Comments WHITE BLOOD CELL COUNT (BEAKER) 6.9 K/ L 3.5-10.5 (test code = 775) RED BLOOD CELL COUNT (BEAKER) 4.25 M/ L 4.63-6.08 L (test code = 761) HEMOGLOBIN (BEAKER) (test code = 12.8 GM/DL 13.7-17.5 L 410) HEMATOCRIT (BEAKER) (test code = 38.8 % 40.1-51.0 L 411) MEAN CORPUSCULAR VOLUME (BEAKER) 91.3 fL 79.0-92.2 (test code = 753) MEAN CORPUSCULAR HEMOGLOBIN 30.1 pg 25.7-32.2 (BEAKER) (test code = 751) MEAN CORPUSCULAR HEMOGLOBIN CONC 33.0 GM/DL 32.3-36.5 (BEAKER) (test code = 752) RED CELL DISTRIBUTION WIDTH 14.3 % 11.6-14.4 (BEAKER) (test code = 412) PLATELET COUNT (BEAKER) (test 418 K/CU MM 150-450 code = 756) MEAN PLATELET VOLUME (BEAKER) 10.3 fL 9.4-12.4 (test code = 754) NUCLEATED RED BLOOD CELLS 0 /100 WBC 0-0 (BEAKER) (test code = 413) NEUTROPHILS RELATIVE PERCENT 45 % (BEAKER) (test code = 429) LYMPHOCYTES RELATIVE PERCENT 42 % (BEAKER) (test code = 430) MONOCYTES RELATIVE PERCENT 10 % (BEAKER) (test code = 431) EOSINOPHILS RELATIVE PERCENT 3 % (BEAKER) (test code = 432) BASOPHILS RELATIVE PERCENT 1 % (BEAKER) (test code = 437) NEUTROPHILS ABSOLUTE COUNT 3.06 K/ L 1.78-5.38 (BEAKER) (test code = 670) LYMPHOCYTES ABSOLUTE COUNT 2.84 K/ L 1.32-3.57 (BEAKER) (test code = 414) MONOCYTES ABSOLUTE COUNT (BEAKER) 0.70 K/ L 0.30-0.82 (test code = 415) EOSINOPHILS ABSOLUTE COUNT 0.18 K/ L 0.04-0.54 (BEAKER) (test code = 416) BASOPHILS ABSOLUTE COUNT (BEAKER) 0.05 K/ L 0.01-0.08 (test code = 417) IMMATURE GRANULOCYTES-RELATIVE 0 % 0-1 PERCENT (BEAKER) (test code = 2801) CHEM [id number] 09:12:0084[facility] [id number] 09:12:000.6 [facility]ann[facility] [id number] 09:12:0013[facility] HermannCHEM PANEL 2019-04-07 09:12:11574Gjxeegdt HermannCHEM [id number] 09:12:38013Akyxkcdv HermannCHEM [id number] 09:12:001.17[facility]annCHE[facility] [id number] 09:12:003.8[facility] [id number] 09:12:25777Xjvexzzs HermannCHEM [id number] 09:12:0082[facility]annCHEM [id number] 09:12:0016 [facility]ann[facility] [id number] 09:12:0027[facility]annCHEM PANEL 2019-04-07 09:12:003.3[facility]annCHEM [id number] 09:12:0026[facility]annCHE[facility] [id number] 09:12:008.5[facility]annCHE[facility] [id number] 09:12:006.9[facility] [id number] 09:12:00 Test Item Value Reference Range Interpretation Comments A/G Ratio (test code = A/G Ratio) 0.9 1 0.7-1.6 [facility] [id number] 09:12:00 Test Item Value Reference Range Interpretation Comments B/C Ratio (test code = B/C Ratio) 14 1 6-25 [facility] [id number] 09:12:0012.8[facility]annCHEM PANEL 2019-04-07 09:12:003.6[facility]orial [id number] 09:12:005.9[facility]orial VfsvcdkJHXVNDJBYW5442-02-83 09:12:0013.2[facility]orial AkzglpkRYLBEZWFVY6730-05-79 09:12:004.29[facility]orial LlfiageYMGNPDMIXS5747-10-51 09:12:0014.1[facility] Mir UXRVVCYLQW1445-11-28 09:12:0034.5[facility] [id number] 09:12:00 Test Item Value Reference Range Interpretation Comments MCH (test code = MCH) 30.7 pg 27.0-31.0 Memorial [id number] 09:12:0089.2[facility] HermannHEMATOLOGY 2019-04-07 09:12:0038.2[facility]orial NbtlzfsXRUORCGEVC8945-82-05 09:12:008.6[facility]orial [id number] 09:12:53508Vkhqgqdf XkndpxfVFGRWAYZHB1444-95-01 09:12:002.6[facility]orial SqqvnuuYJWWKHELZR4740-88-55 09:12:000.7[facility] Mir [id number] 09:12:005.5[facility] CgehedvWIEOUDSTFG2863-52-63 09:12:002.3 Memorial BeqlnnwNRKJYKCYVI1385-82-01 09:12:000.3[facility] HermannHEMATOLOGY 2019-04-07 09:12:000.7[facility]orial RyybkdaUIKBIDZYFI1496-19-77 09:12:0038.7[facility]orial QxodbxmFXWOOAHGCO4499-33-69 09:12:0011.4[facility] MekyeinOZMKPMPBHL5565-86-97 09:12:0043.7[facility] Mir
--- NOTE | 2020-04-01 08:31 | EDPHYS ---
Physician Documentation [facility] Name: Vince Blackmon Age: 49 yrs Sex: Male : 1970 Arrival Date: 04/01/2020 Time: 07:35 Bed 20 Private MD: ED Physician Efra Velez HPI: 04/01 07:42 This 49 yrs old Black Male presents to ER via Unassigned with complaints of Urinary rn Problem. 07:42 The patient presents with urinary symptoms, retention. Onset: The symptoms/episode rn began/occurred this morning. Modifying factors: The symptoms are alleviated by nothing, the symptoms are aggravated by nothing. Severity of symptoms: At their worst the symptoms were mild, in the emergency department the symptoms are unchanged. The patient has experienced similar episodes in the past. Reports last urinated at 0200, got to [facility], has not been able to urinate since then, no fever, no trauma, no back pain, has hx of urinary strictures with last admission for dilation a few months ago. . Historical: - Allergies: 07:58 ACETAMINOPHEN; jl7 07:58 Aspirin; jl7 07:58 Ibuprofen; jl7 07:58 Toradol; jl7 - Home Meds: 07:58 Dilantin Oral [Active]; jl7 - PMHx: 07:58 drug abuse - cocaine; epilepsy; Hypertension; Seizures; urinary stricture; jl7 - Immunization history:: Adult Immunizations not up to date. - Social history:: Smoking status: Patient denies any tobacco usage or history of. - Family history:: not pertinent. - Hospitalizations: : No recent hospitalization is reported. ROS: 07:42 Constitutional: Negative for fever, chills, and weight loss, Eyes: Negative for injury, rn pain, redness, and discharge, Cardiovascular: Negative for chest pain, palpitations, and edema, Respiratory: Negative for shortness of breath, cough, wheezing, and pleuritic chest pain, Abdomen/GI: Negative for nausea, vomiting, diarrhea, and constipation, : Negative for injury, bleeding, discharge, and swelling, MS/Extremity: Negative for injury and deformity, Skin: Negative for injury, rash, and discoloration, Neuro: Negative for headache, weakness, numbness, tingling, and seizure. Exam: 07:42 Constitutional: This is a well developed, well nourished patient who is awake, alert, rn and in no acute distress. Abdomen/GI: soft, non-tender Neuro: Awake and alert, GCS 15, oriented to person, place, time, and situation. Cranial nerves II-XII grossly intact. Motor strength 5/5 in all extremities. Sensory grossly intact. Cerebellar exam normal. Normal gait. Vital Signs: 07:56 BP 170 / 113; Pulse 75; Resp 17; Temp 97.8; Pulse Ox 99% ; Weight 108.86 kg; Pain 7/10; jl7 08:00 BP 173 / 107; Pulse 76; Resp 17; Pulse Ox 96% ; jl7 09:35 BP 148 / 93; Pulse 70; Resp 17; Pulse Ox 100% ; Pain 7/10; jl7 MDM: 07:36 Patient medically screened. rn 08:26 Differential diagnosis: urinary retention, urethral stricture. Data reviewed: vital rn signs, nurses notes, and as a result, I will admit patient. Counseling: I had a detailed discussion with the patient and/or guardian regarding: the historical points, exam findings, and any diagnostic results supporting the discharge/admit diagnosis, the need to transfer to another facility, for higher level of care, [facility] does not immediately have the required specialist. 08:27 ED course: Unable to pass thurman catheter, tried 8F and 12F, has happened multiple times rn in past, has required urological placement of thurman and procedure for stricture. Pt refuses to allow more attempts, will transfer given no urology here for further care. . 10:35 ED course: Pt now refuses transfer to [facility] or anywhere when EMS arrived, rn understands that needs dilation of stricture and likely not going to urinate until then, when notified that police were going to accompany him for transfer and not getting out of custody patient refused transfer. Told that would go to [facility], post bail, and then drive himself to [facility]. . 04/01 08:27 Order name: CBC with Diff; Complete Time: 09:01 rn 04/01 08:27 Order name: Basic Metabolic Panel; Complete Time: 09:01 rn 04/01 07:42 Order name: Bladder Scanner; Complete Time: 08:00 rn 04/01 08:27 Order name: IV Start; Complete Time: 08:43 rn Administered Medications: 08:42 Drug: Demerol 25 mg Route: IVP; Site: right antecubital; jl7 09:00 Follow up: Response: No adverse reaction; Pain is decreased jl7 08:43 Drug: Zofran (Ondansetron) 4 mg Route: IVP; Site: right antecubital; jl7 09:00 Follow up: Response: No adverse reaction jl7 Disposition: 04/01/20 11:02 Patient has left against medical advice. Impression: Urinary Retention, Other urethral stricture. - Patients states they are going to Home. - Condition is Stable. - Discharge Instructions: Acute Urinary Retention, Male. Follow up: Private Physician; When: As needed; Reason: Recheck today's complaints, Re-evaluation by your physician. - Problem is new. - Symptoms are unchanged. Signatures: Dispatcher [employer] EDMS Efra Velez MD MD rn Leal, Jahala, RN RN jl7 Corrections: (The following items were deleted from the chart) 11:02 08:30 04/01/2020 08:30 Transfer ordered to [facility]. rn Diagnosis is Urinary retention; Other urethral stricture. Reason for transfer: Higher level of care. Accepting physician is . Condition is Stable. Problem is chronic. Symptoms are unchanged. rn 11:05 11:02 04/01/2020 11:02 Patients has left against medical advice. Impression: Urinary jl7 Retention; Other urethral stricture. Patient states they are going to Home. Condition is Stable. Follow up: Private Physician; When: As needed; Reason: Recheck today's complaints, Re-evaluation by your physician. Problem is new. Symptoms are unchanged. rn
--- NOTE | 2020-04-01 08:31 | ER ---
Nurse's Notes [facility] Name: Vince Blackmon Age: 49 yrs Sex: Male : 1970 Arrival Date: 04/01/2020 Time: 07:35 Bed 20 Private MD: Diagnosis: Urinary Retention;Other urethral stricture Presentation: 04/01 07:56 Chief complaint: Patient states: Unable to void, last void about 0200. Coronavirus jl7 screen: Patient denies a cough. Patient denies shortness of breath or difficulty breathing. Patient denies measured and/or subjective temperature greater than 100.4F prior to today's visit. Patient denies travel on a cruise ship or to a country the [facility] currently lists as an affected area. Patient denies contact with known and/or suspected case of COVID-19. Proceed with normal triage. Ebola Screen: No symptoms or risks identified at this time. Initial Sepsis Screen: Does the patient meet any 2 criteria? No. Patient's initial sepsis screen is negative. Does the patient have a suspected source of infection? No. Patient's initial sepsis screen is negative. Risk Assessment: Do you want to hurt yourself or someone else? Patient reports no desire to harm self or others. Onset of symptoms was April 01, 2020 at 02:00. Care prior to arrival: None. Transition of care: patient was not received from another setting of care. 07:56 Method Of Arrival: Law Enforcement: [place] [id number] 07:56 Acuity: COBY 3 jl7 Triage Assessment: 07:58 General: Appears in no apparent distress. uncomfortable, Behavior is calm, cooperative. jl7 Pain: Complains of pain in groin Pain currently is 7 out of 10 on a pain scale. Neuro: Level of Consciousness is awake, alert, obeys commands, Oriented to person, place, time, situation. Cardiovascular: Patient's skin is warm and dry. Respiratory: Airway is patent Respiratory effort is even, unlabored, Respiratory pattern is regular, symmetrical. : Reports inability to void. Derm: Skin is pink, warm \T\ dry. Musculoskeletal: No signs and/or symptoms reported regarding the musculoskeletal system. Historical: - Allergies: 07:58 ACETAMINOPHEN; 7 07:58 Aspirin; 7 07:58 Ibuprofen; 07:58 Toradol; jl7 - Home Meds: 07:58 Dilantin Oral [Active]; jl7 - PMHx: 07:58 drug abuse - cocaine; epilepsy; Hypertension; Seizures; urinary stricture; jl7 - Immunization history:: Adult Immunizations not up to date. - Social history:: Smoking status: Patient denies any tobacco usage or history of. - Family history:: not pertinent. - Hospitalizations: : No recent hospitalization is reported. Screenin:59 Abuse screen: Denies threats or abuse. Denies injuries from another. Nutritional jl7 screening: No deficits noted. Tuberculosis screening: No symptoms or risk factors identified. Fall Risk None identified. Assessment: 07:59 General: See triage assessment. jl7 08:18 Reassessment: Attempted to place a thurman; unable to advance an 8 Fr and a 12 Fr at this jl7 time. TERRANCE notified. Pt reports Dr. Ocampo always has to take him to surgery to remove scar tissue. 10:30 Reassessment: [employer] at bedside to transport pt, pt refusing transport; ERD notified. A jl7 form signed. Vital Signs: 07:56 BP 170 / 113; Pulse 75; Resp 17; Temp 97.8; Pulse Ox 99% ; Weight 108.86 kg; Pain 7/10; jl7 08:00 BP 173 / 107; Pulse 76; Resp 17; Pulse Ox 96% ; jl7 09:35 BP 148 / 93; Pulse 70; Resp 17; Pulse Ox 100% ; Pain 7/10; jl7 ED Course: 07:35 Patient arrived in ED. jl7 07:36 Efra Velez MD is Attending Physician. rn 07:56 Rafaela Todd RN is Primary Nurse. jl7 07:57 Triage completed. jl7 07:58 Arm band placed on right wrist. jl7 07:59 Patient has correct armband on for positive identification. Bed in low position. Call [facility] light in reach. Side rails up X 1. Security at bedside. Pulse ox on. NIBP on. Warm blanket given. 07:59 Bladder scan completed. 487 mL. jl7 08:30 Initial lab(s) drawn, by me, sent to lab. Inserted saline lock: 20 gauge in right 7 antecubital area, using aseptic technique. Blood collected. 09:35 No provider procedures requiring assistance completed. Patient transferred, IV remains jl7 in place. intact, No redness/swelling at site. Administered Medications: 08:42 Drug: Demerol 25 mg Route: IVP; Site: right antecubital; jl7 09:00 Follow up: Response: No adverse reaction; Pain is decreased jl7 08:43 Drug: Zofran (Ondansetron) 4 mg Route: IVP; Site: right antecubital; jl7 09:00 Follow up: Response: No adverse reaction jl7 Outcome: 08:30 ER care complete, transfer ordered by . rn 10:30 AMA AMA form signed jl7 11:05 Patient left the ED. jl7 Signatures: Efra Velez MD MD rn Leal, Jahala, RN RN jl7
[2020-04-01] MEDS ORDERED: ONDANSETRON 4 MG/2 ML VIAL ONE (08:49)
[2020-04-01] MEDS ORDERED: MEPERIDINE HCL 50 MG/ML ONE (08:49)
[2020-04-01 08:51] LABS: Absolute Lymphocytes (CBC) 1.9 K/uL (0.7-4.9); Basophils % 0.7 % (0-1.3); Hematocrit 39.3 % (39.6-49.0); Lymphocytes % 20.1 % (15.3-44.8); RBC Red Blood Cell Count 4.41 M/uL (4.33-5.43)
[2020-04-01 08:59] LABS: BUN Blood Urea Nitrogen 19 mg/dL (7-18); Bicarbonate 28 mmol/L (21-32); Glucose Level 92 mg/dL (74-106); Potassium 3.9 mmol/L (3.5-5.1); Sodium Level 140 mmol/L (136-145)
[2020-04-01 11:18] VITALS: TEMP 97.8
[2020-04-01 11:28] VITALS: BP 148/93; O2SAT 100
== END 2020-04-01 11:05 | disposition left against medical advice (07) ==
LOC: ER 07:31
DX: N35.819 Other urethral stricture, male, unspecified site (principal); I10 Essential (primary) hypertension; G40.909 Epilepsy, unspecified, not intractable, without status epilepticus; Z88.5 Allergy status to narcotic agent; Z88.6 Allergy status to analgesic agent
CPT/HCPCS: 36415; 80048; 85025; 96374; 96375; 99284; J2175; J2405

== ENCOUNTER 2020-04-04 18:22 | Emergency (ER) | payer SELFPAY ==
--- OUTSIDE RECORDS SUMMARY | 2020-04-04 18:24 | XMS REPORT | Clinical Summary ---
:1970 Author Organization [facility] Address [address] [place] [address] Care Team Providers Name Role Phone Unavailable [...] Team Description 09/08/2019 Anesthesia Event Nikhil Rice, STATE APPELLATE CLERK 09/08/2019 Surgery Manuel Larose CYSTOSCOPY,BA ROOSEVELT Arana MD DILATION URETER AL STRICTURE 09/08/2019 Orders Only General Internal Medicine 09/08/2019 Travel 09/07/2019 - Hospital Encounter General Internal Neo Meek Stri cture of male urethra, unspecified stricture type; 09/08/2019 Medicine Urinary retention Hortencia Mckeon MD after 04/04/2019 Social History Tobacco Use Types Packs/Day Years [...] Taken Blood Pressure 166/81 09/08/2019 8:30 AM MECHANICAL ENGINEERING DRAFTSPERSON Pulse 77 09/08/2019 8:30 AM MECHANICAL ENGINEERING DRAFTSPERSON Temperature 35 C (95 F) 09/08/2019 8:30 AM MECHANICAL ENGINEERING DRAFTSPERSON Respiratory Rate 18 09/08/2019 8:30 AM MECHANICAL ENGINEERING DRAFTSPERSON Oxygen Saturation 100% 09/08/2019 8:30 AM MECHANICAL ENGINEERING DRAFTSPERSON Inhaled Oxygen Concentration - - Weight 117.9 kg (260 lb) 09/08/2019 12:00 AM MECHANICAL ENGINEERING DRAFTSPERSON Height 175.3 cm (5' 9") 09/08/2019 12:00 AM MECHANICAL ENGINEERING DRAFTSPERSON Body Mass Index 38.4 09/08/2019 12:00 AM MECHANICAL ENGINEERING DRAFTSPERSON Plan of Treatment Not on file Procedures Procedure Name Priority Date/Time Associated Diagnosis Comme nts RHYTHM STRIP - SCAN 09/12/2019 10:50 AM MECHANICAL ENGINEERING DRAFTSPERSON FL FLUORO STAT 09/08/2019 7:15 AM Results for this NON-SPECIFIC UP TO MECHANICAL ENGINEERING DRAFTSPERSON procedure are in 1 HOUR the results section. CYSTOSCOPY,DIRECT 09/08/2019 5:30 AM Ureteral strictu re VISION INTERNAL MECHANICAL ENGINEERING DRAFTSPERSON URETHROTOMY/DVIU Special Needs REQ 0530AM;REQ 24 Fr Balloon Dilator(ureteral),Amplatz Dilator Set(straight),Amplatz Dilato r Set(curved),C-Arm,Resectoscope, Peoictric Cystoscope,Flexible Cystosco pe,5 [id number],Sersorwire CYSTOSCOPY,BALLOON DILATION URETERAL 09/08/2019 5:30 AM MECHANICAL ENGINEERING DRAFTSPERSON Ureteral stricture STRICTURE Special Needs REQ 0530AM;REQ 24 Fr Balloon Dilator(ureteral),Amplatz Dilator Set(straight),Amplatz Dilato r Set(curved),C-Arm,Resectoscope, Peoictric Cystoscope,Flexible Cystosco pe,5 [id number],Sersorwire ECG 12-LEAD Routine 09/08/2019 4:22 AM MECHANICAL ENGINEERING DRAFTSPERSON Procedure Note - Interface, External Ris In - 09/08/2019 4:22 AM MECHANICAL ENGINEERING DRAFTSPERSON Ventricular Rate 74 BPM Atrial Rate 74 BPM P-R Interval 148 ms QRS Duration 86 ms Q-T Interval 380 ms QTC Calculation(Bazett) 421 ms P Luf[place] 75 degrees R Lufkin 4 degrees T [place]uf[place] -1 degrees Normal sinus rhythm Normal ECG No previous ECGs available ECG 12-LEAD Routine 09/08/2019 4:22 AM MECHANICAL ENGINEERING DRAFTSPERSON Resu lts for this procedure are i n the results section . CBC W/PLT COUNT & AUTO STAT 09/08/2019 1:27 AM MECHANICAL ENGINEERING DRAFTSPERSON Results for this DIFFERENTIAL procedure are i n the results section . PROTHROMBIN TIME/INR STAT 09/08/2019 1:27 AM MECHANICAL ENGINEERING DRAFTSPERSON Results for this procedure are i n the results section . HEPATIC FUNCTION PANEL STAT 09/08/2019 1:27 AM MECHANICAL ENGINEERING DRAFTSPERSON Results for this procedure are i n the results section . CBC W/PLT COUNT & AUTO STAT 09/08/2019 1:27 AM MECHANICAL ENGINEERING DRAFTSPERSON Results for this DIFFERENTIAL procedure are i n the results section . BASIC METABOLIC PANEL (7) STAT 09/08/2019 1:27 AM MECHANICAL ENGINEERING DRAFTSPERSON Results for this procedure are i n the results section . after 04/04/2019 Results RHYTHM STRIP - SCAN (09/12/2019 10:50 AM MECHANICAL ENGINEERING DRAFTSPERSON) Narrative Performed At This result has an attachment that is no t available. FL fluoro non-specific up to 1 hour (09/08/2019 7:15 AM MECHANICAL ENGINEERING DRAFTSPERSON) Specimen Narrative Performed At FINAL REPORT RIS A fluoroscopic unit was utilized for a p rocedure performed in the operating room. No interpretation was re quested. Please refer to the operative report regarding findings. Ple ase refer to PACS for patient radiation dose information. Signed: JR Velázquez Robert MD Report Verified Date/Time:09/08/2019 07:34:46 Reading Location: [facility] Reading Room Procedure Note Interface, External Ris In - 09/08/2019 7:36 AM MECHANICAL ENGINEERING DRAFTSPERSON FINAL REPORT A fluoroscopic unit was utilized for a p rocedure performed in the operating room. No interpretation was re quested. Please refer to the operative report regarding findings. Ple ase refer to PACS for patient radiation dose information. Signed: JR Velázquez Robert MD Report Verified Date/Time: 09/08/2019 0 7:34:46 Reading Location: [facility] Reading Room Performing Organization Address City/[facility] Phone Number [facility] [employer] RIS ECG 12 lead (09/08/2019 4:22 AM MECHANICAL ENGINEERING DRAFTSPERSON) Specimen Narrative Performed At Ventricular Rate 74 BPM GE MUSE Atrial Rate 74 BPM P-R Interval 148 ms QRS Duration 86 ms Q-T Interval 380 ms QTC Calculation(Bazett) 421 ms P Luf[place] 75 degrees R [place]uf[place] 4 degrees T [place]uf[place] -1 degrees Normal sinus rhythm Normal ECG No previous ECGs available Confirmed by MD PARRA MAJID ([id number]) on 09/08/19 8:34:50 AM Procedure Note Interface, External Ris In - 09/08/2019 8:34 AM MECHANICAL ENGINEERING DRAFTSPERSON Ventricular Rate 74 BPM Atrial Rate 74 BPM P-R Interval 148 ms QRS Duration 86 ms Q-T Interval 380 ms QTC Calculation(Bazett) 421 ms P [place] 75 degrees R [place]uf[place] 4 degrees T [place] -1 degrees Normal sinus rhythm Normal ECG No previous ECGs available Confirmed by MD PARRA MAJID ( [id number]) on 09/08/2019 8:34:50 AM Performing Organization Address City/[facility] Phone Number GE MUSE CBC with platelet count + automated diff (09/08/2019 1:27 AM MECHANICAL ENGINEERING DRAFTSPERSON) WBC 6.9 3.5 - 10.5 K/L [facility] RBC 4.25 (L) 4.63 - 6.08 M/L [facility] Hemoglobin 12.8 (L) 13.7 - 17.5 GM/DL [facility] Hematocrit 38.8 (L) 40.1 - 51.0 % [facility] MCV 91.3 79.0 - 92.2 fL [facility] MCH 30.1 25.7 - 32.2 pg [facility] MCHC 33.0 32.3 - 36.5 GM/DL [facility] RDW 14.3 11.6 - 14.4 % [facility] Platelets 418 150 - 450 K/CU MM [facility] MPV 10.3 9.4 - 12.4 fL [facility] nRBC 0 0 - 0 /100 WBC [facility] % Neutros 45 % [facility] % Lymphs 42 % [facility] % Monos 10 % [facility] % Eos 3 % [facility] % Baso 1 % [facility] # Neutros 3.06 1.78 - 5.38 K/L [facility] # Lymphs 2.84 1.32 - 3.57 K/L [facility] # Monos 0.70 0.30 - 0.82 K/L [facility] # Eos 0.18 0.04 - 0.54 K/L [facility] # Baso 0.05 0.01 - 0.08 K/L [facility] Immature Granulocytes-Relative 0 0 - 1 % C HI [facility] Specimen Blood Performing Organization Address City/State/Zipcode Phone Number [facility] [address] [place] [address] CENTER Prothrombin time/INR (09/08/2019 1:27 AM MECHANICAL ENGINEERING DRAFTSPERSON) Protime 13.0 11.9 - 14.2 seconds [facility] INR 1.0 <=5.9 [facility] Specimen Blood Narrative Performed At Effective 02/01/2019: PT Reference Range [facility] Change New: 11.9-14.2Previous: 11.7-14.7 RECOMMENDED COUMADIN/WARFARIN INR THERAPY RANGES STANDARD DOSE: 2.0-3.0Includes: PROPHYLAXIS for venous thrombosis, systemic embolization; TREATMENT for venous thrombosis and/or pulmonary embolus. HIGH RISK: Target INR is 2.5-3.5 for patients wiht mechanical heart valves. Performing Organization Address [facility] Phone Number [address] [address] [place] Hepatic function panel (09/08/2019 1:27 AM MECHANICAL ENGINEERING DRAFTSPERSON) Protein, Total 7.5 6.0 - 8.3 gm/dL [facility] Albumin 4.3 3.5 - 5.0 g/dL [facility] Total Bilirubin 0.3 0.2 - 1.2 mg/dL [facility] Bilirubin, Direct 0.1 0.1 - 0.5 mg/dL [facility] Alkaline Phosphatase 95 40 - 150 U/L [facility] AST 28 5 - 34 U/L [facility] ALT 29 6 - 55 U/L [facility] Specimen Blood Performing Organization Address [facility] Phone Number [address] [address] [place] Basic Metabolic Panel (09/08/2019 1:27 AM MECHANICAL ENGINEERING DRAFTSPERSON) Sodium 139 136 - 145 meq/L [facility] Potassium 4.0 3.5 - 5.1 meq/L [facility] Chloride 104 98 - 107 meq/L [facility] CO2 26 22 - 29 meq/L [facility] BUN 18 7 - 21 mg/dL [facility] Creatinine 1.42 (H) 0.57 - 1.25 mg/dL [facility] Glucose 89 70 - 105 mg/dL [facility] HE [facility] Calcium 9.2 8.4 - 10.2 mg/dL [facility] EGFR 64Comment: ESTIMATED GFR IS mL/min/1.73 sq m [facility] NOT ACCURATE CREATININE [facility] CLEARANCE IN PREDICTING GLOMERULAR FILTRATION RATE. ESTIMATED GFR IS NOT APPLICABLE FOR DIALYSIS PATIENTS. Specimen Blood Performing Organization Address City/State/Zipcode Phone Number [address] [phone] CENTER after 04/04/2019 Advance Directives For more information, please contact:[address] [phone] Code Status Date Activated Date Inactivated Comments Full Code 09/08/2019 8:25 AM 09/08/2019 11:52 AM This code status was determined by: Patient Full Code 09/08/2019 12:06 AM 09/08/2019 8:25 AM This code status was determined by: Patient
--- OUTSIDE RECORDS SUMMARY | 2020-04-04 18:24 | XMS REPORT | Continuity of Care Document ---
:1970 Author Organization [facility] Care Team Providers Name Role Phone [facility] Unavailable Un available Problems Problem Status Onset [...] 05/06/19 9:00:00 CDT, 0 Dilantin Notes: Inactive [facility] (Same as: 019 [facility] Dilantin) Center Do not open, crush, or chew. Ibuprofen Notes: No Longer [facility] (Same as: Active [address] [place] [address] Motrin) Center "Do Not Crush" Give with food. Dextrose 50% 25 gm, 50 [facility], Route: Active 019 Medical [...] ibuprofen Assertion Drug Active [place] allergy [facility] Tylenol Assertion Drug Active Shay as allergy [facility] Immunizations No Data Provided for This [...] PANEL Bili Total 0.6 0.2 - 1.[address] CHEM PANEL AST 13 0 - [address] CHEM PANEL Alk Phos 104 39 - [address] CHEM PANEL Sodium Lvl 139 135 - [address] CHEM PANEL Creatinine 1.17 0.50 - 1.40 [facility] as [address] CHEM PANEL Potassium Lvl 3.8 3.5 - 5.[address] CHEM PANEL Chloride Lvl 104 95 - [address] CHEM PANEL Glucose Lvl 82 70 - [address] CHEM PANEL BUN 16 7 - [address] CHEM PANEL ALT 27 0 - [address] CHEM PANEL Albumin Lvl 3.3 3.5 - 5.[address] CHEM PANEL CO2 26 24 - [address] CHEM PANEL Calcium Lvl 8.5 8.5 - 10.[address] CHEM PANEL Total Protein 6.9 6.4 - 8.[address] CHEM PANEL A/G Ratio 0.9 0.7 - 1.[address] CHEM PANEL B/C Ratio 14 6 - [address] CHEM PANEL AGAP 12.8 10.0 - 20.[address] CHEM PANEL Globulin 3.6 2.7 - 4.[address] HEMATOLOGY WBC 5.9 3.7 - 10.[address] HEMATOLOGY Hgb 13.2 14.0 - 18.[address] HEMATOLOGY RBC 4.29 4.70 - 6.[address] HEMATOLOGY RDW 14.1 11.5 - 14.[address] HEMATOLOGY MCHC 34.5 32.0 - 36.[address] HEMATOLOGY MCH 30.7 27.0 - 31.[address] HEMATOLOGY MCV 89.2 80.0 - 94.[address] HEMATOLOGY Hct 38.2 42.0 - 54.[address] HEMATOLOGY MPV 8.6 7.4 - 10.[address] HEMATOLOGY Platelet 346 133 - [address] HEMATOLOGY Neutrophils # 2.6 1.5 - 8.[address] HEMATOLOGY Basophils 0.7 0.0 - 1.[address] HEMATOLOGY Eosinophils 5.5 0.0 - 4.[address] HEMATOLOGY Lymphocytes # 2.3 1.0 - 5.[address] HEMATOLOGY Eosinophils # 0.3 0.0 - 0.[address] HEMATOLOGY Monocytes # 0.7 0.0 - 0.[address] HEMATOLOGY Lymphocytes 38.7 20.0 - 40.[address] HEMATOLOGY Monocytes 11.4 2.0 - 12.[address] HEMATOLOGY Segs 43.7 45.0 - 75.[address] Pathology Reports No Data Provided for This Section Diagnostic Reports No Data Provided for This Section Consultation Notes No Data Provided for This Section Discharge Summaries No Data Provided for This Section History and Physicals No Data Provided for This Section Vital Signs Vital Sign Value Date Comments Source Heart Rate 70 04/07/2019 [facility] Respitory Rate 18 04/07/2019 [facility] Temperature Oral (F) 97.1 F 04/07/2019 [facility] Systolic (mm Hg) 135 04/07/2019 [facility] Diastolic (mm Hg) 96 04/07/2019 [facility] Respitory Rate 18 04/07/2019 [facility] Heart Rate 73 04/07/2019 [facility] Temperature Oral (F) 97.8 F 04/07/2019 [facility] Systolic (mm Hg) 137 04/07/2019 [facility] Diastolic (mm Hg) 86 04/07/2019 [facility] Systolic (mm Hg) 148 04/07/2019 [facility] Diastolic (mm Hg) 93 04/07/2019 [facility] Respitory Rate 18 04/07/2019 [facility] Heart Rate 69 04/07/2019 [facility] Temperature Oral (F) 96.6 F 04/07/2019 [facility] Weight 122.727 04/06/2019 [facility] BMI Calculated 39.96 04/06/2019 [facility] Height 175.26 cm 04/06/2019 [facility] Encounters Location Location Encounter Encounter Reason Attending ADM DC Stat us Source Details Type Number For Provider Date Date Visit [facility] [id number] [facility] Procedures No Data Provided for This Section Assessment and Plan Assessment and Plan Date Source Extracted from:Title: History and Physical 04/07/2019 [facility] Author: Luisa Ramsey MD [...] bedside SPT placement. Patient is hesitant regarding termite treater helper drainage tube placement. - Bedside catheter placement attempted, patient was unable to tolerate placement and refused any further intervention from urology team at bedside - Recommend IR consult for evaluation of SPT placement under sedation Terry Quiroga MD PGY-2 Urology Plan of Care No Data Provided for This Section Social History Social History Date Source Social History TypeResponse 04/06/2019 [facility] Substance Abuse Use: Current. Type: Cocaine. Alcohol Alcohol use interferes with work or home: No. 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
--- OUTSIDE RECORDS SUMMARY | 2020-04-04 18:26 | XMS REPORT | Continuity of Care Document ---
:1970 Author Organization [facility] t Address [address] [place] [address] Care Team Providers Name Role Phone Fantasma [...] stricture 1-03 Luke s - 00:00: Medical 00 Center ACUTE Diagnosis Active 2019-04-17 Mem oria URINARY 04-06 22:22:00 l RETENTION ACUTE 00:00: Ever n URINARY 00 RETENTION Active 04/06/2019 [facility] Hypertensi Problem Active 2019-04-09 M emoria ve 21:51:20 l disorder, Mir systemic Hypertensi arterial ve (disorder) disorder, systemic arterial (disorder) Active Problem 04/09/2019 [facility] OTHER Diagnosis Active 2019-04-17 Mem oria RETENTION 22:22:00 l OF URINE OTHER [place] RETENTION OF URINE Active [facility] Allergies, Adverse Reactions, Alerts Allergy Allergy Status [...] Date Quantity Comments Source History SDOH Alcohol [facility] - Std Drinks [facility] History SDOH Alcohol [facility] - Binge [facility] Sex Assigned At [facility] kes - [facility] History SDOH Alcohol 2019-09-08 2019-09-08 1 [facility] - Frequency 00:00:00 00:00:00 Medical Tranquillity Social History 2019-04-06 2019-04-06 [facility] surinder 18:26:15 18:26:15 Smoking Status Start Date Stop Date Source Never smoker [facility] Ordered Filled Start Stop Current Ordering Indication Dosage Frequency Signature Comments Components Source Medication Medication Date Date Medication? Clinician (SIG) Name Name Missing or Yes . [facility] Non-Formula 09-08 [facility] - ry :: Medical Medication 31 Center traMADol No 100mg Take 2 [facility] [...] days. sulfamethox No 80mg{tr Q.5D Take [address] [facility] azole-trime 09-08 imethop tablet (80 [facility] - thoprim 00:00: 23:59 rim} mg of Medical (BACTRIM,SE 00 :00 trimethopr Ce nter PTRA) im total) 400-80 mg by mouth 2 per tablet (two) times daily for 10 days. metoprolol No 50 mg, 1 Mem oria extended 04-07 tab, l release 14:00: Route: PO, braeden Drug form: ERTAB, Daily, Start date: 04/07/19 9:00:00 CDT, Duration: 30 day, Stop date: 05/06/19 9:00:00 CDT, 0 Dilantin 2019-0 No Notes: Memoria 04-07 (Same as: l 05:00: Dilantin) Cidra 00 Do not open, crush, or chew. Ibuprofen 2018-0 No Notes: Memori a 04-07 (Same as: l 03:05: Motrin) Mir 00 "Do Not Crush" Give with food. Dextrose 2018-0 No 25 gm, 50 Rowdy chela 50% Syringe 04-07 mL, Route: l 00:17: IVP, Drug [place] 00 Form: INJ, Dosing Weight 122.727, kg, PRN, PRN Blood Glucose Results, Start date: 04/06/19 19:17:00 CDT, Duration: 30 day, Stop date: 05/06/19 19:16:00 CDT, 0 Glucagon 2018-0 No 1 mg, Memoria 04-07 Route: IM, l 00:17: Drug form: Mir PDR/INJ, PRN, Dosing Weight 122.727, kg, PRN Blood Glucose Results, Start date: 04/06/19 19:17:00 CDT, Duration: 30 day, Stop date: 05/06/19 19:16:00 CDT, 0 morphine 2019-0 No 4 mg, Memoria 0.5 mg/mL 04-06 Route: l preservativ 23:30: IVP, ONCE, C[place]ra e-free Dosing injectable Weight solution 122.727, kg, [...] Source Systolic blood 2019-09-08 08:30:00 166 mm[Hg] [facility] Diastolic blood 2019-09-08 08:30:00 81 mm[Hg] [facility] Heart rate 2019-09-08 08:30:00 77 /min [facility] Body temperature 2019-09-08 08:30:00 35 Alisha [facility] Respiratory rate 2019-09-08 08:30:00 18 /min [facility] Oxygen saturation in 2019-09-08 08:30:00 100 /min [facility] Arterial blood by Medical Ce nter Pulse oximetry Body height 2019-09-08 00:00:00 175.3 cm [facility] Body weight Measured 2019-09-08 00:00:00 117.935 kg [facility] BMI 2019-09-08 00:00:00 38.40 kg/m2 [facility] Heart Rate 2019-04-07 16:18:00 [facility] Respitory Rate 2019-04-07 16:18:00 Memori al [place] Temperature Oral (F) 2019-04-07 16:18:00 97.1 F [facility] Systolic (mm Hg) 2019-04-07 16:18:00 Rowdy rial [facility] Diastolic (mm Hg) 2019-04-07 16:18:00 Mem orial [place] Respitory Rate 2019-04-07 12:21:00 Memori al [place] Heart Rate 2019-04-07 12:21:00 [facility] Temperature Oral (F) 2019-04-07 12:21:00 97.8 F [facility] Systolic (mm Hg) 2019-04-07 12:21:00 Rowdy rial [facility] Diastolic (mm Hg) 2019-04-07 12:21:00 Mem orial [place] Systolic (mm Hg) 2019-04-07 09:04:00 Rowdy Hester Diastolic (mm Hg) 2019-04-07 09:04:00 Mem donavon Everettann Respitory Rate 2019-04-07 09:04:00 Julius Veloz Heart Rate 2019-04-07 09:04:00 Hany Hester Temperature Oral (F) 2019-04-07 09:04:00 96.6 F Hany Hester Weight 2019-04-06 17:55:00 Hany Hester BMI Calculated 2019-04-06 17:55:00 Julius Veloz Height 2019-04-06 17:55:00 175.26 [facility] Procedures Procedure Date / Time Performed Performing Clinician [facility] e RHYTHM STRIP - SCAN 2019-09-12 10:50:46 Provider, [facility] FL FLUORO NON-SPECIFIC 2019-09-08 07:15:[address] [facility] UP TO 1 HOUR [facility] CYSTOSCOPY,BALLOON 2019-09-08 05:30:00 Manuel Larose [facility] - DILATION URETERAL [facility] STRICTURE CYSTOSCOPY,DIRECT VISION 2019-09-08 05:30:[address] [facility] INTERNAL [facility] URETHROTOMY/DVIU ECG 12-LEAD 2019-09-08 04:22:34 Unknown, Hl7 Doctor [facility] BASIC METABOLIC PANEL 2019-09-08 01:27:00 [facility] () [facility] HEPATIC FUNCTION PANEL 2019-09-08 01:27:00 Rudy Walden [facility] PROTHROMBIN TIME/INR 2019-09-08 01:27:00 Rudy Walden [facility] CBC W/PLT COUNT & AUTO 2019-09-08 01:27:00 [facility] Encounters Start End Encounter Admission Attending Care Care Encounter Source Date/Time Date/Time Type Type Clinicians Facility Department ID 2019-04-06 2019-04-07 Outpatient [facility] [id number] 11:15:00 14:45:00 Fabian Chua 2019-04-06 2019-04-06 Outpatient E [facility] MED [id number] [facility] 11:15:00 11:15:00 Results Test Description Test Time Test Comments Results Result Sourc e Comments ECG 12 lead Interface, External Ris [facility] In - 09/08/2019 8:34 Sania es - 08:34:51 AM CSTVentricular Rate Me dical 74 BPMAtrial Rate 74 Cent er BPMP-R Interval 148 msQRS Duration 86 msQ-T Interval 380 msQTC Calculation(Bazett) 421 msP [place] 75 degreesR [place] 4 degreesT [place] -1 degreesNormal sinus rhythmNormal ECGNo previous ECGs availableConfirmed by MD PARRA MAJID ([id number]) on 09/08/2019 8:34:50 AM FL, FLUORO, Reason for FINAL REPORT PATIENT NON-SPECIFIC, UP 3 exam:->Cystos ID: [id number] A TO 1 HOUR 07:34:00 copy, direct fluoroscopic unit was vision utilized for a internal procedure performed in the operating room. No interpretation was requested. Please refer to the operative report regarding findings. Please refer to PACS for patient radiation dose information. Signed: JR Velázquez Robert MDReport Verified Date/Time: 09/08/2019 07:34:46 Reading Location: [facility] Radiology Reading Room fluoro Interface, External Ris [...] MDReport Verified Date/Time: 09/08/2019 07:34:46 Reading Location: [facility] Radiology Reading Room Basic Metabolic Panel 2019-09-08 [...] 89 mg/dL 70-105 Calcium (test code = 24363-4) 9.2 mg/dL 8.4-10.2 EGFR (test code = 55599-5) 64 mL/min/1.73 sq m ESTIMATED GFR IS NOT ACCURATE CRE ATININE CLEARANCE IN [place] EDICTING GLOMERULAR FILT RATION RATE. ESTIMATED GFR IS NOT APPLICABLE FOR DIALYSIS PATIEN TS. Lab Interpretation (test code Abnormal = 28698-2) [facility] [id number] 01:57:00 Test Item Value Reference Range Interpretation Comments Protein, Total (test code = 2885-2) 7.5 6.0- 8.3 gm/dL Albumin (test code = 85752-9) 4.3 g/dL 3.5-5 Total Bilirubin (test code = 0.3 mg/dL 0.2-1.2 1974-2) Bilirubin, Direct (test code = 0.1 mg/dL 0.1-0.5 1967-7) Alkaline Phosphatase (test code = 95 U/L 40-150 6768-6) AST (test code = 1920-8) 28 U/L 5-34 ALT (test code = 1742-6) 29 U/L 6-55 Lab Interpretation (test code = Normal 51151-8) [facility] [id number] 01:57:00 Test Item Value Reference Range Interpretation [...] = 29 U/L 6-55 347) BASIC METABOLIC [id number] 01:57:00 Test Item Value Reference Range Interpretation [...] NOT APPLICABLE FOR DIALYSIS PATIEN TS. Prothrombin time/[id number] 01:55:00 Test Item Value Reference Range Interpretation [...] valves. Lab Interpretation Normal (test code = 70057-5) [facility]PROT[facility] TIME/[id number] 01:55:00 Test Item Value Reference Range Interpretation [...] heart valves.CBC with platelet count + automated [id number] 01:33:00 Test Item Value Reference Range Interpretation [...] 450 K/CU MM MPV (test code = 49514-5) 10.3 fL 9.4-12.4 nRBC (test code = [...] 2801) Lab Interpretation (test code = Abnormal 08259-8) [facility] W/PLT COUNT & AUTO [id number] 01:33:00 Test Item Value Reference Range Interpretation [...] PERCENT (BEAKER) (test code = 2801) CHEM [id number] 09:12:0084[facility] [id number] 09:12:000.6 [facility]ann[facility] [id number] 09:12:0013[facility] HermannCHEM PANEL 2019-04-07 09:12:43910Fxdaztac HermannCHEM [id number] 09:12:90481Zpiatuxv HermannCHEM [id number] 09:12:001.17[facility]annCHEM [id number] 09:12:003.8[facility]annCHEM [id number] 09:12:80903Jlalwgjn HermannCHEM [id number] 09:12:0082[facility]annCHEM [id number] 09:12:0016 [facility]annCHE[facility] [id number] 09:12:0027[facility]annCHEM PANEL 2019-04-07 09:12:003.3[facility]annCHEM [id number] 09:12:0026[facility]annCHEM [id number] 09:12:008.5[facility]annCHEM [id number] 09:12:006.9[facility]annCHEM [id number] 09:12:00 Test Item Value Reference Range Interpretation Comments A/G Ratio (test code = A/G Ratio) 0.9 1 0.7-1.6 [facility]ann[facility] [id number] 09:12:00 Test Item Value Reference Range Interpretation Comments B/C Ratio (test code = B/C Ratio) 14 1 6-25 [facility]ann[facility] [id number] 09:12:0012.8[facility] HermannCHEM PANEL 2019-04-07 09:12:003.6[facility] MskpooyQDNWNNPYDY6105-91-08 09:12:005.9[facility] UulriaiLXPSEGCKTJ1285-24-77 09:12:0013.2[facility]orial FmdeqilNWKLQFATOM5507-32-42 09:12:004.29[facility]orial HrutbftKMTGRVUHCQ7073-44-07 09:12:0014.1[facility] [id number] 09:12:0034.5[facility] [id number] 09:12:00 Test Item Value Reference Range Interpretation Comments MCH (test code = MCH) 30.7 pg 27.0-31.0 Memorial XfpzdmiNNQXSUDFOO5852-20-67 09:12:0089.2[facility] HermannHEMATOLOGY 2019-04-07 09:12:0038.2[facility] YeqfittFHZAENUWLY4840-77-28 09:12:008.6[facility]orial VvplqsxRLYNQUAGAZ8405-61-86 09:12:55856Bwuaoyfm EszvikbUGYSRKMSIO2780-49-97 09:12:002.6[facility]orial IzefqcoBUTMKXQQWG5784-39-35 09:12:000.7[facility] Mir UANSJENXBG4933-32-12 09:12:005.5[facility]orial XfbanmfESMJYOJRES9267-61-97 09:12:002.3 Memorial XzpaemaYMXYIVBQWN6299-89-26 09:12:000.3[facility] HermannHEMATOLOGY 2019-04-07 09:12:000.7[facility]orial YqwfzwxITYTDLLAZP1551-80-12 09:12:0038.7[facility]orial IhthycoYNOACXWRYL9561-73-95 09:12:0011.4[facility]orial GzcvilxQXHFAWSXLA0525-19-10 09:12:0043.7[facility] Mir
--- NOTE | 2020-04-04 19:23 | ER ---
Nurse's Notes [facility] Name: Vince Blackmon Age: 49 yrs Sex: Male : 1970 Arrival Date: 04/04/2020 Time: 18:23 Bed Waiting Private MD: Diagnosis: ED Course: 04/04 18:23 Patient arrived in ED. ag5 19:11 Efra Velez MD is Attending Physician. rn 19:12 Patient's name was called from ER lobby. No response. Unable to locate patient. Will lp1 disposition as left without being seen by a provider. Administered Medications: No medications were administered Outcome: 19:22 Patient left the ED. lp1 Signatures: Efra Velez MD MD rn Pena, Laura, RN RN lp1 Tree Cooley ag5
--- NOTE | 2020-04-04 19:23 | EDPHYS ---
Physician Documentation [facility] Name: Vince Blackmon Age: 49 yrs Sex: Male : 1970 Arrival Date: 04/04/2020 Time: 18:23 Bed Waiting Private MD: ED Physician Administered Medications: No medications were administered Disposition: 04/04/20 19:22 Patient left the facility Before Triage. - Patient left due to unknown. Signatures: Efra Velez MD MD rn Pena, Laura, RN RN lp1 Corrections: (The following items were deleted from the chart) 04/04 19:15 19:11 Patient medically screened. rn rn
== END 2020-04-04 19:22 | disposition left against medical advice (07) ==
LOC: ER 18:22
DX: Z02.9 Encounter for administrative examinations, unspecified (principal)

== ENCOUNTER 2020-06-23 08:12 | Emergency (ER) | payer SELFPAY ==
--- OUTSIDE RECORDS SUMMARY | 2020-06-23 08:14 | XMS REPORT | Clinical Summary ---
:1970 Author Organization [facility] Address [address] [place] [address] Care Team Providers Name Role Phone Unavailable [...] Specialty Care Team Description 09/08/2019 Anesthesia Event Herman Edge MD Chan, Toi Nei, RAIL GRINDER 09/08/2019 Surgery Manuel Larose CYSTOSCOPY,BA ROOSEVELT Arana MD DILATION URETER AL STRICTURE 09/08/2019 Orders Only General Internal Medicine 09/08/2019 Travel 09/07/2019 - Hospital Encounter General Internal Neo Meek MD Stricture of male urethra, unspecified s tricture type; 09/08/2019 Medicine Hortencia Mckeon, Urinary rete ntjaime CRYSTAL after 06/23/2019 Social History Tobacco Use Types Packs/Day Years [...] Assigned at Date Recorded Not on file Last Filed Vital Signs Vital Sign Reading Time Taken Comments Blood Pressure 166/81 09/08/2019 8:30 AM DAYTIME CAREGIVER Pulse 77 09/08/2019 8:30 AM DAYTIME CAREGIVER Temperature 35 C (95 F) 09/08/2019 8:30 AM DAYTIME CAREGIVER Respiratory Rate 18 09/08/2019 8:30 AM DAYTIME CAREGIVER Oxygen Saturation 100% 09/08/2019 8:30 AM DAYTIME CAREGIVER Inhaled Oxygen Concentration - - Weight 117.9 kg (260 lb) 09/08/2019 12:00 AM DAYTIME CAREGIVER Height 175.3 cm (5' 9") 09/08/2019 12:00 AM DAYTIME CAREGIVER Body Mass Index 38.4 09/08/2019 12:00 AM DAYTIME CAREGIVER Plan of Treatment Not on file Procedures Procedure Name Priority Date/Time Associated Diagnosis Comme nts RHYTHM STRIP - SCAN 09/12/2019 10:50 AM DAYTIME CAREGIVER FL FLUORO STAT 09/08/2019 7:15 AM Results for this NON-SPECIFIC UP TO DAYTIME CAREGIVER procedure are in 1 HOUR the results section. CYSTOSCOPY,DIRECT 09/08/2019 5:45 AM Ureteral strictu re VISION INTERNAL DAYTIME CAREGIVER URETHROTOMY/DVIU Special Needs REQ 0530AM;REQ 24 Fr Balloon Dilator(ureteral),Amplatz Dilator Set(straight),Amplatz Dilato r Set(curved),C-Arm,Resectoscope, Peoictric Cystoscope,Flexible Cystosco pe,5 Dw-Xvuc-Ptuwe,Sersorwire CYSTOSCOPY,BALLOON DILATION URETERAL 09/08/2019 5:45 AM DAYTIME CAREGIVER Ureteral stricture STRICTURE Special Needs REQ 0530AM;REQ 24 Fr Balloon Dilator(ureteral),Amplatz Dilator Set(straight),Amplatz Dilato r Set(curved),C-Arm,Resectoscope, Peoictric Cystoscope,Flexible Cystosco pe,5 Qk-Tlqs-Bjijh,Sersorwire ECG 12-LEAD Routine 09/08/2019 4:22 AM DAYTIME CAREGIVER Procedure Note - Interface, External Ris In - 09/08/2019 4:22 AM DAYTIME CAREGIVER Ventricular Rate 74 BPM Atrial Rate 74 BPM P-R Interval 148 ms QRS Duration 86 ms Q-T Interval 380 ms QTC Calculation(Bazett) 421 ms P [place] 75 degrees R [place] 4 degrees T [place] -1 degrees Normal sinus rhythm Normal ECG No previous ECGs available ECG 12-LEAD Routine 09/08/2019 4:22 AM DAYTIME CAREGIVER Resu lts for this procedure are i n the results section . CBC W/PLT COUNT & AUTO STAT 09/08/2019 1:27 AM DAYTIME CAREGIVER Results for this DIFFERENTIAL procedure are i n the results section . PROTHROMBIN TIME/INR STAT 09/08/2019 1:27 AM DAYTIME CAREGIVER Results for this procedure are i n the results section . HEPATIC FUNCTION PANEL STAT 09/08/2019 1:27 AM DAYTIME CAREGIVER Results for this procedure are i n the results section . CBC W/PLT COUNT & AUTO STAT 09/08/2019 1:27 AM DAYTIME CAREGIVER Results for this DIFFERENTIAL procedure are i n the results section . BASIC METABOLIC PANEL (7) STAT 09/08/2019 1:27 AM DAYTIME CAREGIVER Results for this procedure are i n the results section . after 06/23/2019 Results RHYTHM STRIP - SCAN (09/12/2019 10:50 AM DAYTIME CAREGIVER) Narrative Performed At This result has an attachment that is no t available. FL fluoro non-specific up to 1 hour (09/08/2019 7:15 AM DAYTIME CAREGIVER) Specimen Narrative Performed At FINAL REPORT [facility] A fluoroscopic unit was utilized for a p rocedure performed in the operating room. No interpretation was re quested. Please refer to the operative report regarding findings. Ple ase refer to PACS for patient radiation dose information. Signed: JR Velázquez Robert MD Report Verified Date/Time: 09/08/2019 07:34:46 Reading Location: [facility] Reading Room Procedure Note Interface, External Ris In - 09/08/2019 7:36 AM DAYTIME CAREGIVER FINAL REPORT A fluoroscopic unit was utilized for a p rocedure performed in the operating room. No interpretation was re quested. Please refer to the operative report regarding findings. Ple ase refer to PACS for patient radiation dose information. Signed: JR Velázquez Robert MD Report Verified Date/Time: 09/08/2019 0 7:34:46 [facility] Reading Room Performing Organization Address City/State/Zipcode Phone Number [employer] RIS ECG 12 lead (09/08/2019 4:22 AM DAYTIME CAREGIVER) Specimen Narrative Performed At Ventricular Rate 74 BPM GE MUSE Atrial Rate 74 BPM P-R Interval 148 ms QRS Duration 86 ms Q-T Interval 380 ms QTC Calculation(Bazett) 421 ms P [place] 75 degrees R [place] 4 degrees T [place] -1 degrees Normal sinus rhythm Normal ECG No previous ECGs available Confirmed by MD PARRA MAJID ([id number]) on 09/08/19 8:34:50 AM Procedure Note Interface, External Ris In - 09/08/2019 8:34 AM DAYTIME CAREGIVER Ventricular Rate 74 BPM Atrial Rate 74 BPM P-R Interval 148 ms QRS Duration 86 ms Q-T Interval 380 ms QTC Calculation(Bazett) 421 ms P [place] 75 degrees R [place] 4 degrees T [place] -1 degrees Normal sinus rhythm Normal ECG No previous ECGs available Confirmed by MD PARRA MAJID ( [id number]) on 09/08/2019 8:34:50 AM Performing Organization Address City/State/[facility] Phone Number GE MUSE CBC with platelet count + automated diff (09/08/2019 1:27 AM DAYTIME CAREGIVER) Pathologist Sig nature WBC 6.9 3.5 - 10.5 [facility] K/L [facility] RBC 4.25 (L) 4.63 - 6.08 [facility] M/L [facility] Hemoglobin 12.8 (L) 13.7 - 17.5 [facility] GM/DL [facility] Hematocrit 38.8 (L) 40.1 - 51.0 % [facility] MCV 91.3 79.0 - 92.2 fL [facility] MCH 30.1 25.7 - 32.2 pg [facility] MCHC 33.0 32.3 - 36.5 [facility] GM/DL [facility] RDW 14.3 11.6 - 14.4 % [facility] Platelets 418 150 - 450 K/CU [facility] MPV 10.3 9.4 - 12.4 fL [facility] nRBC 0 0 - 0 /100 WBC [facility] % Neutros 45 % [facility] % Lymphs 42 % [facility] % Monos 10 % [facility] % Eos 3 % [facility] % Baso 1 % [facility] # Neutros 3.06 1.78 - 5.38 [facility] # Lymphs 2.84 1.32 - 3.57 [facility] # Monos 0.70 0.30 - 0.82 [facility] # Eos 0.18 0.04 - 0.54 [facility] # Baso 0.05 0.01 - 0.08 [facility] Immature 0 0 - 1 % [facility] Granulocytes-Relative [facility] Specimen Blood Performing Organization Address City/State/Zipcode Phone Number [facility] [address] [place] [address] CENTER Prothrombin time/INR (09/08/2019 1:27 AM DAYTIME CAREGIVER) Pathologist Sig nature Protime 13.0 11.9 - 14.2 seconds [facility] INR 1.0 <=5.9 [facility] Specimen Blood Narrative Performed At Effective 02/01/2019: PT Reference Range [facility] Change New: 11.9-14.2 Previous: 11.7-14.7 RECOMMENDED COUMADIN/WARFARIN INR THERAPY RANGES STANDARD DOSE: 2.0-3.0 Includes: PROPHYLAXIS for venous thrombosis, systemic embolization; TREATMENT for venous thrombosis and/or pulmonary embolus. HIGH RISK: Target INR is 2.5-3.5 for patients wiht mechanical heart valves. Performing Organization Address [facility] Centercode Phone Number [address] [address] [place] Hepatic function panel (09/08/2019 1:27 AM DAYTIME CAREGIVER) Pathologist Sig nature Protein, Total 7.5 6.0 - 8.3 gm/dL [facility] Albumin 4.3 3.5 - 5.0 g/dL [facility] Total Bilirubin 0.3 0.2 - 1.2 mg/dL [facility] Bilirubin, Direct 0.1 0.1 - 0.5 mg/dL [facility] Alkaline Phosphatase 95 40 - 150 U/L [facility] AST 28 5 - 34 U/L [facility] ALT 29 6 - 55 U/L [facility] Specimen Blood Performing Organization Address City/[facility]/Zipcode Phone Number [address] [address] [place] Basic Metabolic Panel (09/08/2019 1:27 AM DAYTIME CAREGIVER) Sodium 139 136 - 145 meq/L [facility] Potassium 4.0 3.5 - 5.1 meq/L [facility] Chloride 104 98 - 107 meq/L [facility] CO2 26 22 - 29 meq/L [facility] BUN 18 7 - 21 mg/dL [facility] Creatinine 1.42 (H) 0.57 - 1.25 [facility] mg/[facility] Glucose 89 70 - 105 mg/dL [facility] Calcium 9.2 8.4 - 10.2 [facility] mg/dL [facility] EGFR 64Comment: ESTIMATED mL/min/1.73 sq [facility] GFR IS NOT m [facility] ACCURATE [place] CREATININE CLEARANCE IN PREDICTING GLOMERULAR FILTRATION RATE. ESTIMATED GFR IS NOT APPLICABLE FOR DIALYSIS PATIENTS. Specimen Blood Performing Organization Address City/State/Zipcode Phone Number [facility] [address] [place] [address] CENTER after 06/23/2019 Advance Directives For more information, please contact: [phone] Code Status Date Activated Date Inactivated Comments Full Code 09/08/2019 8:25 AM 09/08/2019 11:52 AM This code status was determined by: Patient Full Code 09/08/2019 12:06 AM 09/08/2019 8:25 AM This code status was determined by: Patient
--- OUTSIDE RECORDS SUMMARY | 2020-06-23 08:15 | XMS REPORT | Continuity of Care Document ---
:1970 Author Organization [facility] Care Team Providers Name Role Phone [facility] Unavailable Un available Problems Problem Status Onset [...] 05/06/19 9:00:00 CDT, 0 Dilantin Notes: Inactive [facility] (Same as: 019 [facility] Dilantin) Center Do not open, crush, or chew. Ibuprofen Notes: No Longer [facility] (Same as: Active [address] [place] [address] Motrin) Center "Do Not Crush" Give with food. Dextrose 50% 25 gm, 50 [facility] Sy[facility] mL, Route: Active 019 Medical [...] ibuprofen Assertion Drug Active [place] allergy [facility] Tylenol Assertion Drug Active Shay as allergy [facility] Immunizations No Data Provided for This Section [...] Bili Total 0.6 0.2 - 1.[address] CHEM PANEL AST 13 0 - [address] CHEM PANEL Alk Phos 104 39 - [address] CHEM PANEL Sodium Lvl 139 135 - [address] CHEM PANEL Creatinine 1.17 0.50 - 1.40 [facility] as [address] CHEM PANEL Potassium Lvl 3.8 3.5 - 5.[address] CHEM PANEL Chloride Lvl 104 95 - [address] CHEM PANEL Glucose Lvl 82 70 - [address] CHEM PANEL BUN 16 7 - [address] CHEM PANEL ALT 27 0 - [address] CHEM PANEL Albumin Lvl 3.3 3.5 - 5.[address] CHEM PANEL CO2 26 24 - [address] CHEM PANEL Calcium Lvl 8.5 8.5 - 10.[address] CHEM PANEL Total Protein 6.9 6.4 - 8.[address] CHEM PANEL A/G Ratio 0.9 0.7 - 1.[address] CHEM PANEL B/C Ratio 14 6 - [address] CHEM PANEL AGAP 12.8 10.0 - 20.[address] CHEM PANEL Globulin 3.6 2.7 - 4.[address] HEMATOLOGY WBC 5.9 3.7 - 10.[address] HEMATOLOGY Hgb 13.2 14.0 - 18.[address] HEMATOLOGY RBC 4.29 4.70 - 6.[address] HEMATOLOGY RDW 14.1 11.5 - 14.[address] HEMATOLOGY MCHC 34.5 32.0 - 36.[address] HEMATOLOGY MCH 30.7 27.0 - 31.[address] HEMATOLOGY MCV 89.2 80.0 - 94.[address] HEMATOLOGY Hct 38.2 42.0 - 54.[address] HEMATOLOGY MPV 8.6 7.4 - 10.[address] HEMATOLOGY Platelet 346 133 - [address] HEMATOLOGY Neutrophils # 2.6 1.5 - 8.[address] HEMATOLOGY Basophils 0.7 0.0 - 1.[address] HEMATOLOGY Eosinophils 5.5 0.0 - 4.[address] HEMATOLOGY Lymphocytes # 2.3 1.0 - 5.[address] HEMATOLOGY Eosinophils # 0.3 0.0 - 0.[address] HEMATOLOGY Monocytes # 0.7 0.0 - 0.[address] HEMATOLOGY Lymphocytes 38.7 20.0 - 40.[address] HEMATOLOGY Monocytes 11.4 2.0 - 12.[address] HEMATOLOGY Segs 43.7 45.0 - 75.[address] Pathology Reports No Data Provided for This Section Diagnostic Reports No Data Provided for This Section Consultation Notes No Data Provided for This Section Discharge Summaries No Data Provided for This Section History and Physicals No Data Provided for This Section Vital Signs Vital Sign Value Date Comments Source Heart Rate 70 04/07/2019 [facility] Respitory Rate 18 04/07/2019 [facility] Temperature Oral (F) 97.1 F 04/07/2019 [facility] Systolic (mm Hg) 135 04/07/2019 [facility] Diastolic (mm Hg) 96 04/07/2019 [facility] Respitory Rate 18 04/07/2019 [facility] Heart Rate 73 04/07/2019 [facility] Temperature Oral (F) 97.8 F 04/07/2019 [facility] Systolic (mm Hg) 137 04/07/2019 [facility] Diastolic (mm Hg) 86 04/07/2019 [facility] Systolic (mm Hg) 148 04/07/2019 [facility] Diastolic (mm Hg) 93 04/07/2019 [facility] Respitory Rate 18 04/07/2019 [facility] Heart Rate 69 04/07/2019 [facility] Temperature Oral (F) 96.6 F 04/07/2019 [facility] Weight 122.727 04/06/2019 [facility] BMI Calculated 39.96 04/06/2019 [facility] Height 175.26 cm 04/06/2019 [facility] Encounters Location Location Encounter Encounter Reason Attending ADM DC Stat us Source Details Type Number For Provider Date Date Visit [facility] [id number] D[facility] Procedures No Data Provided for This Section Assessment and Plan Assessment and Plan Date Source Extracted from:Title: History and Physical 04/07/2019 [facility] Author: Luisa Ramsey MD Date: [...] bedside SPT placement. 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 - Bedside catheter placement attempted, patient was unable to tolerate placement and refused any further intervention from urology team at bedside - Recommend IR consult for evaluation of SPT placement under sedation Terry Quiroga MD PGY-2 Urology Plan of Care No Data Provided for This Section Social History Social History Date Source Social History TypeResponse 04/06/2019 [facility] Substance Abuse Use: Current. Type: Cocaine. Alcohol Alcohol use interferes with work or home: No. 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
--- OUTSIDE RECORDS SUMMARY | 2020-06-23 08:16 | XMS REPORT | Continuity of Care Document ---
:1970 Author Organization [facility] t Address [address] [place] [address] Care Team Providers Name Role Phone Fantasma CRYSTAL Attending Clinician Linda CRYSTAL Attending Clinician Ramiro Edge MD Attending Clinician Madeleine Rice CRNA Attending Clinician Sumit Larose MD Attending Clinician FANTASMA Attending Clinician Unavailable Harshil Escobar Attending Clinician FANTASMA Admitting Clinician Unavailable Harshil Escobar Admitting Clinician Problems Condition Condition Condition Status Onset Resolution Last Treating Co mments Source Name Details Category Date Date Treatment Clinician Date 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 - 00:[facility] [address] Center ACUTE Diagnosis Active 2019-04-17 [facility] URINARY 04-06 22:22:00 l RETENTION ACUTE 00:00: Ever n URINARY 00 RETENTION Active 04/06/[address] [facility] Hypertensi Problem Active 2019-04-09 M emoria ve 21:51:20 l disorder, Mir systemic Hypertensi arterial ve (disorder) disorder, systemic arterial (disorder) Active Problem 04/09/[address] [facility] OTHER Diagnosis Active 2019-04-17 Mem oria RETENTION 22:22:00 l OF URINE OTHER Mir RETENTION OF URINE Active [facility] Allergies, Adverse Reactions, Alerts Allergy Allergy Status Severity Reaction(s) Onset Inactive Treating Comm ents Source Name Type Date Date Clinician Acetamin Drug Active Itching Pt gets [facility] ophen Allergy 09-07 itchy [facility] - [facility]: Medical 00 Center ibuprofe ibuprofe Active [facility] [place] Tylenol Tylenol Active Memoria l Mir Social History Social Habit Start Date Stop Date Quantity Comments Source History [facility] - Alcohol Std Drinks Medica l Center History [facility] - Alcohol Binge Medical [facility] Tobacco use and 2019-09-08 2019-09-08 Never used [facility] kes - exposure 00:00:00 00:00:00 [facility] Alcohol intake 2019-09-08 2019-09-08 [facility] 00:00:00 non-drinker of Medical Ce nter alcohol (finding) History [facility] 2019-09-08 2019-09-08 [address] [facility] - Alcohol Frequency 00:00:00 00:00:00 [facility] Social History 2019-04-06 2019-04-06 [facility] surinder 18:26:15 18:26:15 Smoking Status Start Date Stop Date Source Never smoker [facility] M edical Patriot Medications Ordered Filled Start Stop Current Ordering Indication Dosage Frequency Signature Comments Components Source Medication Medication Date Date Medication? Clinician (SIG) Name Name Missing or Yes . BANG Rodrigues Non-Formula 09-08 [facility] - ry 09:52: Medical Medication 12 Center traMADol 2020- No 100mg Take 2 [facility] (ULTRAM) 50 09-08 tablets Luke s - mg tablet 00:00: 23:59 (100 mg Medi shannon 00 :00 total) by Center mouth every 6 (six) hours as needed for up to 10 days. Max Daily Amount: 400 mg docusate 2020- No 100mg Q.5D Take 1 [facility] sodium 09-08 capsule [facility] - (COLACE) 00:00: 23:59 (100 mg Medic al 100 MG 00 :00 total) by Center capsule mouth 2 (two) times daily for 10 days. sulfamethox 2020- No 80mg{tr Q.5D Take 1 [facility] azole-trime 09-08 imethop tablet (80 [facility] - thoprim 00:00: 23:59 rim} mg of Medical (BACTRIM,SE 00 :00 trimethopr Ce nter PTRA) im total) 400-80 mg by mouth 2 per tablet (two) times daily for 10 days. metoprolol 2018-0 No 50 mg, 1 Mem oria extended 04-07 tab, l release 14:00: Route: PO, Drug form: ERTAB, Daily, Start date: 04/07/19 9:00:00 CDT, Duration: 30 day, Stop date: 05/06/19 9:00:00 CDT, 0 Dilantin 2019-0 No Notes: Memoria 04-07 (Same as: l 05:00: Dilantin) Do not open, crush, or chew. Ibuprofen 0 No Notes: Memori a 04-07 (Same as: l 03:05: Motrin) "Do Not Crush" Give with food. Dextrose 2018-0 No 25 gm, 50 Rowdy chela 50% Syringe 04-07 mL, Route: l 00:17: IVP, Drug Form: INJ, Dosing Weight 122.727, kg, PRN, PRN Blood Glucose Results, Start date: 04/06/19 19:17:00 CDT, Duration: 30 day, Stop date: 05/06/19 19:16:00 CDT, 0 Glucagon 2018-0 No 1 mg, Memoria 04-07 Route: IM, l 00:17: Drug form: Mir 00 PDR/INJ, PRN, Dosing Weight 122.727, kg, PRN Blood Glucose Results, Start date: 04/06/19 19:17:00 CDT, Duration: 30 day, Stop date: 05/06/19 19:16:00 CDT, 0 morphine 2019-0 No 4 mg, Memoria 0.5 mg/mL 04-06 Route: l preservativ 23:30: IVP, ONCE, Mir e- Dosing injectable Weight solution 122.727, kg, Priority: STAT, Start date: 04/06/19 18:30:00 CDT, Stop date: 04/06/19 18:30:00 CDT Epinephrine 2019-0 No 20 mL, Rowdy chela 0.01 MG/ML 04-06 Route: l / Lidocaine 21:00: SUB-Q, Herm braeden Hydrochlori 00 Drug Form: de 10 MG/ML INJ, Injectable Dosing Solution Weight 122.727, kg, ONCALL, Start date: 04/06/19 16:00:00 CDT, Duration: 30 day, Stop date: 05/06/19 15:59:00 CDT, 0 EPINEPHrine 2019 No 20 mL, Rowdy chela -lidocaine 04-06 Route: l 1:100,000-2 20:09: SUB-Q, Herm braeden % 00 Dosing injectable Weight solution 122.727, kg, ONCALL, PRN Procedure, Start date: 04/06/19 15:09:00 CDT, Duration: 30 day, Stop date: 05/06/19 15:08:00 CDT Vital Signs Vital Name Observation Time Observation Value Comments Source Systolic blood 2019-09-08 08:30:00 166 mm[Hg] [facility] Diastolic blood 2019-09-08 08:30:00 81 mm[Hg] [facility] Heart rate 2019-09-08 08:30:00 77 /min [facility] Body temperature 2019-09-08 08:30:00 35 [facility] Respiratory rate 2019-09-08 08:30:00 18 /min [facility] Oxygen saturation in 2019-09-08 08:30:00 100 /min [facility] - Arterial blood by Medical Ce nter Pulse oximetry Body height 2019-09-08 00:00:00 175.3 cm [facility] Body weight 2019-09-08 00:00:00 117.935 kg [facility] BMI 2019-09-08 00:00:00 38.40 kg/m2 [facility] Heart Rate 2019-04-07 16:18:00 [facility] [place] Respitory Rate 2019-04-07 16:18:00 [facility] [place] Temperature Oral (F) 2019-04-07 16:18:00 97.1 F [facility] Systolic (mm Hg) 2019-04-07 16:18:00 Rowdy rial [place] Diastolic (mm Hg) 2019-04-07 16:18:00 Mem orial Mir Respitory Rate 2019-04-07 12:21:00 Memori al Mir Heart Rate 2019-04-07 12:21:00 [facility] Temperature Oral (F) 2019-04-07 12:21:00 97.8 F [facility] [place] Systolic (mm Hg) 2019-04-07 12:21:00 Rowdy chelal [place] Diastolic (mm Hg) 2019-04-07 12:21:00 Mem orial Mir Systolic (mm Hg) 2019-04-07 09:04:00 Rowdy rial [place] Diastolic (mm Hg) 2019-04-07 09:04:00 Mem orial Mir Respitory Rate 2019-04-07 09:04:00 Memori al Mir Heart Rate 2019-04-07 09:04:00 [facility] Temperature Oral (F) 2019-04-07 09:04:00 96.6 F [facility] [place] Weight 2019-04-06 17:55:00 [facility] Calculated 2019-04-06 17:55:00 [facility] Mir Height 2019-04-06 17:55:00 175.26 cm [facility] Procedures Procedure Date / Time Performed Performing Clinician [facility] e RHYTHM STRIP - SCAN 2019-09-12 10:50:46 Provider, Bhumi [facility] FL FLUORO NON-SPECIFIC 2019-09-08 07:15:00 Manuel Larose [facility] UP TO 1 HOUR [facility] CYSTOSCOPY,BALLOON 2019-09-08 05:45:00 Manuel Larose [facility] - DILATION URETERAL [facility] STRICTURE CYSTOSCOPY,DIRECT VISION 2019-09-08 05:45:00 Manuel Larose [facility] INTERNAL [facility] URETHROTOMY/DVIU ECG 12-LEAD 2019-09-08 04:22:34 Unknown, Hl7 Doctor BANG [facility] BASIC METABOLIC PANEL 2019-09-08 01:27:00 Rudy Walden [facility] () [facility] HEPATIC FUNCTION PANEL 2019-09-08 01:27:00 Rudy Walden [facility] PROTHROMBIN TIME/INR 2019-09-08 01:27:00 Rudy Walden [facility] CBC W/PLT COUNT & AUTO 2019-09-08 01:27:00 Rud[facility] Walden [facility] Encounters Start End Encounter Admission Attending Care Care Encounter Source Date/Time Date/Time Type Type Clinicians Facility Department ID 2019-04-06 2019-04-07 Outpatient Shawn [facility] [id number] 11:15:00 14:45:00 Fabian Chua 2019-04-06 2019-04-06 Outpatient E [facility] [id number] [facility] 11:15:00 11:15:00 Results Test Description Test Time Test Comments Results Result Sourc e Comments ECG 12 lead Interface, External Ris [facility] In - 09/08/2019 8:34 Sania es - 08:34:51 AM CSTVentricular Rate Me dical 74 BPMAtrial Rate 74 Cent er BPMP-R Interval 148 msQRS Duration 86 msQ-T Interval 380 msQTC Calculation(Bazett) 421 msP Yale 75 degreesR Yale 4 degreesT Yale -1 degreesNormal sinus rhythmNormal ECGNo previous ECGs availableConfirmed by MD PARRA MAJID ([id number]) on 09/08/2019 8:34:50 AM FL, FLUORO, Reason for FINAL REPORT PATIENT NON-SPECIFIC, UP 3 exam:->Cystos ID: [id number] A TO 1 HOUR 07:34:00 copy, direct fluoroscopic unit was vision utilized for a internal procedure performed in the operating room. No interpretation was requested. Please refer to the operative report regarding findings. Please refer to PACS for patient radiation dose information. Signed: JR Velázquez Robert MDReport Verified Date/Time: 09/08/2019 07:34:46 Reading Location: [facility] Radiology Reading Room fluoro Interface, External [...] for patient radiation dose information. Signed: JR Melania, Najma Stephens Verified Date/Time: 09/08/2019 07:34:46 Reading Location: [facility] Radiology Reading Room Basic Metabolic Panel 2019-09-08 01:57:00 Test Item Value Reference Range Interpretation Comme nts Sodium (test code = 2951-2) 139 meq/L 136-145 Potassium (test code = 2823-3) 4.0 meq/L 3.5-5.1 Chloride (test code = 2075-0) 104 meq/L 98-107 CO2 (test code = 8-9) 26 meq/L 22-29 BUN (test code = 3094-0) 18 mg/dL 7-21 Creatinine (test code = 1.42 mg/dL 0.57-1.25 H 2160-0) Glucose (test code = 2345-7) 89 mg/dL 70-105 Calcium (test code = 86873-4) 9.2 mg/dL 8.4-10.2 EGFR (test code = 86143-7) 64 mL/min/1.73 sq m ESTIMATED GFR IS NOT ACCURATE CRE ATININE CLEARANCE IN [place] EDICTING GLOMERULAR FILT RATION RATE. ESTIMATED GFR IS NOT APPLICABLE FOR DIALYSIS PATIEN TS. Lab Interpretation (test code Abnormal = 28098-4) [facility] [id number] 01:57:00 Test Item Value Reference Range Interpretation Comments Protein, Total (test code = 2885-2) 7.5 6.0- 8.3 gm/dL Albumin (test code = 35898-5) 4.3 g/dL 3.5-5 Total Bilirubin (test code = 0.3 mg/dL 0.2-1.2 1974-2) Bilirubin, Direct (test code = 0.1 mg/dL 0.1-0.5 1967-7) Alkaline Phosphatase (test code = 95 U/L 40-150 6768-6) AST (test code = 1920-8) 28 U/L 5-34 ALT (test code = 1742-6) 29 U/L 6-55 Lab Interpretation (test code = Normal 48999-3) [facility] [id number] 01:57:00 Test Item Value Reference Range Interpretation [...] = 29 U/L 6-55 347) BASIC METABOLIC [id number] 01:57:00 Test Item Value Reference Range Interpretation [...] NOT APPLICABLE FOR DIALYSIS PATIEN TS. Prothrombin time/[id number] 01:55:00 Test Item Value Reference Range Interpretation [...] valves. Lab Interpretation Normal (test code = 34690-8) [facility]/[id number] 01:55:00 Test Item Value Reference Range Interpretation [...] heart valves.CBC with platelet count + automated [id number] 01:33:00 Test Item Value Reference Range Interpretation [...] 450 K/CU MM MPV (test code = 42558-4) 10.3 fL 9.4-12.4 nRBC (test code = [...] 2801) Lab Interpretation (test code = Abnormal 69123-9) [facility] W/PLT COUNT & AUTO [id number] 01:33:00 Test Item Value Reference Range Interpretation [...] PERCENT (BEAKER) (test code = 2801) CHEM [id number] 09:12:0084[facility]annCHEM [id number] 09:12:000.6 [facility]annCHEM [id number] 09:12:0013[facility] HermannCHEM PANEL 2019-04-07 09:12:23407Sbgxxyjq HermannCHEM [id number] 09:12:75475Xydmazal HermannCHEM [id number] 09:12:001.17[facility] HermannCHEM [id number] 09:12:003.8[facility] HermannCHEM [id number] 09:12:43389Dbfnhugc HermannCHEM [id number] 09:12:0082[facility] HermannCHEM [id number] 09:12:0016 [facility]annCHEM [id number] 09:12:0027[facility] HermannCHEM PANEL 2019-04-07 09:12:003.3[facility] HermannCHEM [id number] 09:12:0026[facility] HermannCHEM [id number] 09:12:008.5[facility] HermannCHEM [id number] 09:12:006.9[facility] HermannCHEM [id number] 09:12:00 Test Item Value Reference Range Interpretation Comments A/G Ratio (test code = A/G Ratio) 0.9 1 0.7-1.6 [facility]annCHEM [id number] 09:12:00 Test Item Value Reference Range Interpretation Comments B/C Ratio (test code = B/C Ratio) 14 1 6-25 [facility]annCHEM [id number] 09:12:0012.8[facility] HermannCHEM PANEL 2019-04-07 09:12:003.6[facility]orial HpbkcxkEUNKAJGFBB8006-21-61 09:12:005.9[facility] BqyofzpAJJEXKOUNI2912-00-20 09:12:0013.2[facility]orial GgtdjpyXLTQATWUDI7802-51-64 09:12:004.29[facility] OkfudnvZDHFNREBGF2183-92-19 09:12:0014.1[facility] Mir [id number] 09:12:0034.5[facility] AmgajhqPGGNBCATTF8724-06-34 09:12:00 Test Item Value Reference Range Interpretation Comments MCH (test code = MCH) 30.7 pg 27.0-31.0 Memorial [id number] 09:12:0089.2[facility] HermannHEMATOLOGY 2019-04-07 09:12:0038.2[facility] WknvlswUIVYZPKHUQ6312-12-20 09:12:008.6[facility]orial CftxdwfMWSVCYYKUD0800-02-68 09:12:95336Uvpkfyti JdtyvvnKXVFZZGDII8572-36-33 09:12:002.6[facility] UftxbdfWUMUMUXXXY9034-96-34 09:12:000.7[facility] [place] IIHDTDJBBP4368-51-54 09:12:005.5[facility] OadocplATBRHFFHJB1421-83-49 09:12:002.3 [facility] TwchmnpOOOSLEECEQ6618-26-02 09:12:000.3[facility] HermannHEMATOLOGY 2019-04-07 09:12:000.7Memorial XeikkpmOBOZUGRBDD4942-72-17 09:12:0038.7[facility] SympadhRYZZADRHXJ2468-43-08 09:12:0011.4[facility]orial ZcziepiEQJXYMVBCQ3842-41-91 09:12:0043.7Menjrial Mir
--- NOTE | 2020-06-23 08:32 | EDPHYS ---
Physician Documentation [facility] Name: Vince Blackmon Age: 49 yrs Sex: Male : 1970 Arrival Date: 06/23/2020 Time: 08:13 Bed 8 Private MD: ED Physician Efra Velez HPI: 06/23 08:26 This 49 yrs old Black Male presents to ER via Unassigned with complaints of Breathing rn Difficulty, Urinary Retention. 08:26 The patient presents with urinary symptoms, retention, unable to void. Onset: The rn symptoms/episode began/occurred last night. Modifying factors: The symptoms are alleviated by nothing, the symptoms are aggravated by nothing. The patient has experienced similar episodes in the past. Reports urinary retention, unable to urinate since last night, has happened multiple times in past, no trauma. Also here for sob. No fever or cough. . Historical: - Allergies: 08:16 ACETAMINOPHEN; rb1 08:16 Aspirin; rb1 08:16 Ibuprofen; rb1 08:16 Toradol; rb1 - Home Meds: 08:16 Dilantin Oral [Active]; rb1 - PMHx: 08:16 drug abuse - cocaine; epilepsy; Hypertension; Seizures; urinary stricture; rb1 - Family history:: not pertinent. - Hospitalizations: : No recent hospitalization is reported. ROS: 08:26 Constitutional: Negative for fever, chills, and weight loss, Cardiovascular: Negative rn for chest pain, palpitations, and edema, Respiratory: Negative for cough, wheezing, and pleuritic chest pain, Abdomen/GI: Negative for abdominal pain, nausea, vomiting, diarrhea, and constipation, : Negative for injury, bleeding, discharge, and swelling, MS/Extremity: Negative for injury and deformity, Skin: Negative for injury, rash, and discoloration, Neuro: Negative for headache, weakness, numbness, tingling, and seizure. Exam: 08:26 Constitutional: This is a well developed, well nourished patient who is awake, alert, rn and in no acute distress. Ambulatory to room ENT: Mild pharyngeal erythema Cardiovascular: Regular rate and rhythm. No pulse deficits. Respiratory: Speaking full sentences. No increased work of breathing, no retractions or nasal flaring. Abdomen/GI: soft, non-tender Skin: Warm, dry MS/ Extremity: Pulses equal, no cyanosis. Neuro: Awake and alert, GCS 15, oriented to person, place, time, and situation. Cranial nerves II-XII grossly intact. Motor strength 5/5 in all extremities. Sensory grossly intact. Cerebellar exam normal. Normal gait. MDM: 08:17 Patient medically screened. rn 08:26 Differential diagnosis: urinary retention. Data reviewed: vital signs, nurses notes. rn Refusal of service: The patient/guardian displays adequate decision making capability and despite a detailed discussion of alternatives, benefits, risks, and consequences refuses: all lab tests, thurman, transfer. ED course: Pt refuses thurman, w/u, transfer because does not want to leave his car here, after discussion, patient reports that he is just going to drive himself to another ER instead of wasting his time here. . Administered Medications: No medications were administered Disposition: 06/23/20 08:32 Patient left the facility before being seen by provider. Preliminary diagnosis is Urinary retention. - Patient left due to other. - Condition is Stable. - Problem is an acute exacerbation. Signatures: Efra Velez MD MD rn Barber, Rebecca, RN RN rb1 Corrections: (The following items were deleted from the chart) 08:36 08:32 06/23/2020 08:32 Patient left the facility before being seen by provider. rb1 Preliminary diagnosis is Urinary retention. Reason stated they are leaving due to other. Condition is Stable. Problem is an acute exacerbation. rn
--- NOTE | 2020-06-23 08:38 | ER ---
Nurse's Notes [facility] Name: Vince Blackmon Age: 49 yrs Sex: Male : 1970 Arrival Date: 06/23/2020 Time: 08:13 Bed 8 Private MD: Diagnosis: Urinary retention Presentation: 06/23 08:16 Chief complaint: Patient states: Is unable to urinate since 10-11:00 last night. rb1 Reports shortness of breath since 3-4:00 this morning. 08:16 Coronavirus screen: Client denies travel out of the [place] in the last 14 days. [facility] 08:16 Method Of Arrival: Ambulatory [facility] Triage Assessment: 08:16 General: Appears in no apparent distress. comfortable, Behavior is calm, cooperative, rb1 Denies fever, feeling ill. Neuro: Level of Consciousness is awake, alert, obeys commands, Oriented to person, place, time, situation. Cardiovascular: Capillary refill Patient's skin is warm and dry. Respiratory: Reports shortness of breath Airway is patent Respiratory effort is even, unlabored, Respiratory pattern is regular, symmetrical, Onset: The symptoms/episode began/occurred this morning, the patient has mild shortness of breath. : Reports inability to void. Historical: - Allergies: 08:16 ACETAMINOPHEN; [facility] 08:16 Aspirin; [facility] 08:16 Ibuprofen; [facility] 08:16 Toradol; [facility] - Home Meds: 08:16 Dilantin Oral [Active]; rb1 - PMHx: 08:16 drug abuse - cocaine; epilepsy; Hypertension; Seizures; urinary stricture; rb1 - Family history:: not pertinent. - Hospitalizations: : No recent hospitalization is reported. Assessment: 08:16 General: See triage assessment. rb1 08:20 Reassessment: Pt. did not want us to do anything here, requested to be transferred to [address], but wanted to drive his own vehicle because he didn't want to leave his vehicle here and go by ambulance. Dr. Velez explained that in order to be transferred, he would have to go by ambulance. The pt. refused and eloped from the exam room. ED Course: 08:13 Patient arrived in ED. ag5 08:17 Efra Velez MD is Attending Physician. rn 08:31 Isabel Duckworth, ALVIN is Primary Nurse. [facility] Administered Medications: No medications were administered Outcome: 08:36 Patient left the ED. rb1 Signatures: Efra Velez MD MD rn Isabel Duckworth RN RN rb1 [place] ag5 Corrections: (The following items were deleted from the chart) 08:42 08:20 Reassessment: Pt. eloped from the exam room rb1 rb1
== END 2020-06-23 08:36 | disposition left against medical advice (07) ==
LOC: ER 08:12
DX: Z53.21 Procedure and treatment not carried out due to patient leaving prior to being seen by health care provider (principal)
CPT/HCPCS: 99281

== ENCOUNTER 2021-11-17 15:15 | Emergency (ER) | payer SELFPAY ==
--- OUTSIDE RECORDS SUMMARY | 2021-11-17 15:19 | XMS REPORT | Continuity of Care Document ---
:1970 Author Organization [facility] t Address [address] [place] [address] Care Team Providers Name Role Phone Jena CRYSTAL Attending Clinician JENA Attending Clinician Unavailable Ehsan RESERVATION CLERK, G Attending Clinician Quincy GARCIA, S Attending Clinician QUINCY S Attending Clinician Unavailable KIERAN Attending Clinician Unavailable Jena CRYSTAL Admitting Clinician JENA Admitting Clinician Unavailable KIERAN Admitting Clinician Unavailable Payers Payer Name Policy Type Policy Number Effective Date Expiration Date S ource Problems Condition Condition Condition Status Onset Resolution Last Treating Co mments Source Name Details Category Date Date Treatment Clinician Date Urinary Urinary Disease Active Univers retention retention 4-06 ity of 00:: [address] No known No known Disease Unive rs active active ity of problems problems [facility] Allergies, Adverse Reactions, Alerts Allergy Allergy Status Severity Reaction(s) Onset Inactive Treating Comm ents Source Name Type Date Date Clinician ACETAMIN Allergy Active Med Itching [facility] [place] [address] [facility] ACETAMIN DRUG Active Swelling 2015-09 Univer s OPHEN INGREDI 0-23 ity of 00:00: [address] Acetamin Propensi Active Swelling 2015-09 Univ ers ophen ty to 0-23 ity of adverse 00:00: [place] reaction [address] [place] [address] Social History Social Habit Start Date Stop Date Quantity Comments Source Exposure to Unable to assess Univers ity of [facility] ([facility] [place] Tobacco use and 2020-12-10 2020-12-10 Never used Universit y of exposure 00:00:00 00:00:00 [facility] Sex Ass[birth year] [facility] y of 00:00:00 00:00:00 [facility] Smoking Status Start Date Stop Date Source Unknown if ever smoked [facility] Never smoker [facility] Medications Ordered Filled Start Stop Current Ordering Indication Dosage Frequency Signature Comments Components Source Medication Medication Date Date Medication? Clinician (SIG) Name Name phenytoin Yes Take by Univ ers sodium 4-07 mouth. ity of extended 12:02: [place] (DILANTIN 48 Medical ORAL) [place] LISINOPRIL Yes Take by Uni vers ORAL 4-07 mouth. ity of 12:02: [address] phenytoin Yes Take by Univ ers sodium 4-07 mouth. ity of extended 12:02: [place] (DILANTIN 48 Medical ORAL) [place] LISINOPRIL Yes Take by Uni vers ORAL 4-07 mouth. ity of 12:02: [address] tamsulosin Yes .4mg 0.4 mg, Univ ers (FLOMAX) 4-07 Oral, QHS, ity o f capsule 0.4 02:00: First dose [place] mg 00 on [facility] 12/10/20 at [place] 2100, Until Discontinu ed, Routine tamsulosin 2020- No .4mg 0.4 mg, Uni vers (FLOMAX) 4-07 04-07 Oral, QHS, ity of capsule 0.4 02:00: 14:07 First dose [place] mg 00 :50 on [facility] 12/10/20 at Branch 2100, Until Discontinu ed, Routine lactated 2020- Yes 1000mL at 75 Univer s ringers IV 4-06 mL/hr, ity of infusion 14:15: 1,000 [place] 1[place]000 [place] 00 IV Medical Infusion, Branch CONTINUOUS , Starting Wed12/10/20 at 0915, Until Discontinu ed, Routine, PACU lactated 2020-2020- No 1000mL at 75 Unive rs ringers IV 4-06 04-07 mL/hr, ity of infusion 14:15: 14:07 1,000 mL, Shay as 1,000 mL 00 :50 IV Medical Infusion, Branch CONTINUOUS , Starting Wed12/10/20 at 0915, Until Wed12/11/20 at 0907, Routine, PACU ibuprofen 2020-0 Yes 800mg 800 mg, Univ ers (IBU) 4-06 Oral, PRN, ity of tablet 800 14:14: 1 dose, [place] mg 26 Starting Medical Wed12/10/20 Branch at 0914, Until Discontinu ed, Routine, Pain (scale 1-3), DSU Recovery ondansetron 2020-0 Yes 4mg 4 mg, Slow Univers (ZOFRAN 4-06 IV Push, ity of (PF)) 14:14: Q4HPRN, 1 [place] injection 4 26 dose, Medical mg Starting Branch Wed12/10/20 at 0914, Until Discontinu ed, Routine, Nausea and Vomiting (N/V), DSU Recovery ibuprofen 2020-0 2020- No 800mg 800 mg, Uni vers (IBU) 4 04-07 Oral, PRN, ity of tablet 800 14:14: 14:07 1 dose, [place] mg 26 :50 Starting Medical Wed12/10/20 Branch at 0914, Until Wed12/11/20 at 0907, Routine, Pain (scale 1-3), DSU Recovery ondansetron 2020-0 2020- No 4mg 4 mg, Slow Univers (ZOFRAN 12-10 04-07 IV Push, ity of (PF)) 14:14: 14:07 Q4HPRN, 1 [place] injection 4 26 :50 dose, Medical mg Starting Branch Wed12/10/20 at 0914, Until Wed12/11/20 at 0907, Routine, Nausea and Vomiting (N/V), DSU Recovery FENTanyl PF 2020-0 Yes 25ug 25 mcg, Uni vers (SUBLIMAZE 06 Slow IV ity of (PF)) 14:08: Push, [place] injection 06 Q5MIN PRN, Medi shannon 25 mcg 4 doses, Branch Starting Wed12/10/20 at 0908, Until Discontinu ed, Routine, Pain (scale 4-6), PACU ondansetron 2020-0 Yes 4mg 4 mg, Slow Univers (ZOFRAN 4-06 IV Push, ity of (PF)) 14:08: PRN, 1 [place] injection 4 06 dose, Medical mg Starting Branch Wed12/10/20 at 0908, Until Discontinu ed, Routine, Nausea and Vomiting (N/V), PACU FENTanyl PF No 25ug 25 mcg, Un jl (SUBLIMAZE 12-10 Slow IV ity o f (PF)) 14:08: 14:07 Push, [place] injection 06 :50 Q5MIN PRN, Medi shannon 25 mcg 4 doses, Branch Starting Wed12/10/20 at 0908, Until Wed12/11/20 at 0907, Routine, Pain (scale 4-6), PACU ondansetron 2020- No 4mg 4 mg, Slow Univers (ZOFRAN 12-10 IV Push, ity of (PF)) 14:08: 14:07 PRN, 1 [place] injection 4 06 :50 dose, Medical mg Starting Branch Wed12/10/20 at 0908, Until Wed12/11/20 at 0907, Routine, Nausea and Vomiting (N/V), PACU sennosides Yes 8.6mg 8.6 mg, Uni vers (SENOKOT) 4-06 Oral, ity of tablet 8.6 14:00: DAILY, [place] mg 00 First dose Medical on Wed Branch 12/10/20 at 0900, Until Discontinu ed, Routine sennosides No 8.6mg 8.6 mg, Un jl (SENOKOT) 12-10-07 Oral, ity of tablet 8.6 14:00: 14:07 DAILY, [place] mg 00 :50 First dose Medical on Wed12/10/20 at 0900, Until Discontinu ed, Routine iohexoL Yes PRN, Univers (OMNIPAQUE 4-06 Starting ity o f 300-50 mL)) 13:59: Wed12/10/20 [place] injection 00 at 0859, Medica l Until Branch Discontinu ed, Routine, Intra-op iohexoL 2020- No PRN, Univers (OMNIPAQUE 12-10 04-07 Starting ity of 300-50 mL)) 13:59: 14:07 Wed12/10/20 [place] injection 00 :50 at 0859, Medica l Until Wed Branch 12/11/20 at 0907, Routine, Intra-op gabapentin Yes 300mg 300 mg, Uni vers (NEURONTIN) 4-06 Oral, TID, it y of capsule 300 13:00: First dose [place] mg 00 on [facility] 12/10/20 at Branch 0800, Until Discontinu ed, Routine gabapentin 2020- No 300mg 300 mg, Un jl (NEURONTIN) 12-10-07 Oral, TID, i ty of capsule 300 13:00: 14:07 First dose [place] mg 00 :50 on [facility] 12/10/20 at Branch 0800, Until Discontinu ed, Routine ondansetron Yes 4mg 4 mg, Slow Univers (ZOFRAN - IV Push, ity of (PF)) 07:42: Q4HPRN, [place] injection 4 07 Starting Medi shannon mg [facility] 12/10/20 Branch at 0242, Until Discontinu ed, Routine, Nausea and Vomiting (N/V) ondansetron 2020- No 4mg 4 mg, Slow Univers (ZOFRAN 12-10- IV Push, ity of (PF)) 07:42: 14:07 Q4HPRN, [place] injection 4 07 :50 Starting Medi shannon mg [facility] 12/10/20 Branch at 0242, Until Wed12/11/20 at 0907, Routine, Nausea and Vomiting (N/V) ondansetron 2020- No 4mg 4 mg, Slow Univers (ZOFRAN 12-10- IV Push, ity of (PF)) 06:15: 05:26 ONCE, 1 [place] injection 4 00 :00 dose, [facility] Med ical mg 12/10/20 at Branch 0115, NANCI morpHINE 2020- No 4mg 4 mg, Slow Un jl injection 4 12-10 04-06 IV Push, ity of mg 06:15: 05:26 ONCE, 1 [place] 00 :00 dose, [facility] 12/10/20 at Branch 0115, STAT phenytoin Yes Take by Univ ers sodium 4-06 mouth. ity of extended 05:43: [place] (DILANTIN 19 Medical ORAL) [place] LISINOPRIL Yes Take by Uni vers ORAL 4-06 mouth. ity of 05:43: [place] 19 Medical Branch hydralAZINE 2020- No 20mg 20 mg, Uni vers (APRESOLINE 12-10 Slow IV ity of ) injection 04:00: 03:20 [place], [place] 20 mg 00 :00 ONCE, 1 Medical dose, Mon Branch 12/09/20 at 2300, STAT
In dication: Hypertensi ve Emergency ibuprofen 2020- No [id number] 600mg Take 1 Univers 600 mg 12-10 tablet by ity of tablet 00:00: 04:59 mouth [place] 00 :00 every 6 Medical (six) Branch hours as needed for Pain (scale 4-6) for up to 5 days. ibuprofen 2020- No [id number] 600mg Take 1 Univers 600 mg 12-10 tablet by ity of tablet 00:00: 04:59 mouth [place] 00 :00 every 6 Medical (six) Branch hours as needed for Pain (scale 4-6) for up to 5 days. levoFLOXaci 2015-09 No 500mg Take 1 Un jl n 005 tablet by ity of (LEVAQUIN) 00:00: 00:00 mouth [place] 500 mg 00 :00 every 24 Medical tablet (twenty-fo Branch ur) hours. Vital Signs Vital Name Observation Time Observation Value Comments Source Systolic blood 2020-12-10 15:00:00 159 mm[Hg[facility] Diastolic blood 2020-12-10 15:00:00 100 mm[Hg] [facility] Heart rate 2020-12-10 15:00:00 81 /min [facility] Respiratory rate 2020-12-10 15:00:00 31 /min [facility] Oxygen saturation in 2020-12-10 15:00:00 95 /min [facility] Arterial blood by [facility] Pulse oximetry [place] Body temperature 2020-12-10 14:11:00 36 Alisha [facility] Body weight 2020-12-10 06:46:00 124.739 kg [facility] BMI 2020-12-10 06:46:00 40.61 kg/m2 [facility] Heart rate 2020-12-10 10:36:00 82 /min [facility] [place] [facility] Respiratory rate 2020-12-10 10:36:00 19 /min [facility] [place] [facility] Oxygen saturation in 2020-12-10 10:36:00 96 /min University of Arterial blood by [facility] Pulse oximetry Branch Systolic blood 2020-12-10 10:36:00 166 mm[Hg] Univer sity of pressure [place] [facility] Diastolic blood 2020-12-10 10:36:00 97 mm[Hg] Unive rsity of pressure [place] [facility] Body temperature 2020-12-10 06:46:00 37.11 Alisha [facility] [place] [facility] Body weight 2020-12-10 06:46:00 124.739 kg [facility] [place] [facility] BMI 2020-12-10 06:46:00 40.61 kg/m2 [facility] [place] [facility] Systolic blood 2020-12-10 05:28:00 169 mm[Hg] Univer sity of pressure [place] [facility] Diastolic blood 2020-12-10 05:28:00 95 mm[Hg] Unive rsity of pressure [place] [facility] Heart rate 2020-12-10 05:28:00 96 /min [facility] [place] [facility] Respiratory rate 2020-12-10 05:28:00 18 /min [facility] [place] [facility] Oxygen saturation in 2020-12-10 05:28:00 99 /min University of Arterial blood by [place] [facility] Pulse oximetry Branch Body temperature 2020-12-09 22:57:00 37.17 Alisha [facility] [place] [facility] Body height 2020-12-09 22:57:00 175.3 cm [facility] [place] [facility] Body weight 2020-12-09 22:57:00 124.739 kg [facility] [place] [facility] BMI 2020-12-09 22:57:00 40.61 kg/m2 [facility] [place] [facility] Procedures Procedure Date / Time Performing Clinician Source Performed [place] TIME OR 2020-12-10 13:59:00 [facility] o [facility] (NON-REPORTABLE) Medical Branch [place] TIME OR 2020-12-10 13:59:00 [facility] o [facility] (NON-REPORTABLE) Medical Branch URINE CULTURE 2020-12-10 13:58:24 Luis Eduardo Maldonado [facility] DIRECT VISUAL INTERNAL 2020-12-10 12:55:00 Jena [facility] URETHROTOMY [facility] Branch BASIC METABOLIC PANEL 2020-12-10 11:30:00 Bianchi, [facility] (NA, K, CL, CO2, GLUCOSE, Medica l Branch BUN, CREATININE, CA) CBC WITH DIFF 2020-12-10 11:30:[facility] 2020-12-10 11:30:00 Bianchi, [facility] (NA, K, CL, CO2, GLUCOSE, Medica l Branch BUN, CREATININE, CA) CBC WITH DIFF 2020-12-10 11:30:00 [facility] COVID-19 (ID NOW RAPID 2020-12-10 02:51:00 Deepthi Moser [facility] TESTING) [facility] CONSENT/REFUSAL FOR 2020-12-09 22:39:47 Doctor Unassigned, [facility] DIAGNOSIS AND TREATMENT [place] [facility] EMERGENCY SERVICES 2020-12-09 05:01:00 Doctor Unassigned, [facility] AGREEMENTS AND [place] [facility] AUTHORIZATIONS EMERGENCY SERVICES 2020-12-09 05:01:00 Doctor Unassigned, [facility] AGREEMENTS AND [place] [facility] AUTHORIZATIONS Encounters Start End Encounter Admission Attending Care Care Encounter Source Date/Time Date/Time Type Type Clinicians Facility Department ID 2021-06-11 Inpatient [facility] Urology [id number] St 01:05:38 [facility] 2020-12-10 2020-12-10 Emergency Heike Maldonado [id number] Univers 01:49:00 11:24:00 Luis Eduardo Triana [id number] [facility] [id number] Shay [place] [id number] [place] [address] Branch 2020-12-10 2020-12-10 Surgery Heike Maldonado [id number] Univers 07:30:00 08:51:00 Luis Eduardo Triana [id number] [facility] [id number] [facility] [id number] [facility] 103 Branch 2020-12-10 2020-12-10 Emergency X JENA [facility] ERT [id number] Univers 01:49:00 01:49:00 LUIS EDUARDO boudreaux [facility] [place] [facility] 2020-12-09 2020-12-10 Emergency Deepthi Moser [facility] [id number] Univers 18:07:00 01:13:00 Bouchra Walter Dalzell [id number] [facility] [id number] [facility] [id number] [facility] 084 Branch 2020-12-09 2020-12-09 Emergency X QUINCY [facility] ERT [id number] Univers 18:07:00 18:07:00 [facility] 2019-04[facility]06 2019-04-06 Outpatient E [facility] MED [id number] [facility] 11:15:00 11:15:00 Results Test Description Test Time Test Comments Results Result Comments Source URINE CULTURE 2020-12-11 13:21:42 Test Item Value Reference Range Interpretation Comme nts URINE CULTURE (test code = 630-4) No aerobic growth (< 1000 CFU/mL) [facility] TIME OR (NON-REPORTABLE)2020-12-10 14:09:59 These images do not require a Radiology diagnostic report.[facility] TIME OR (NON-REPORTABLE)2020-12-10 14:09:59These images do not require a Radiology diagnostic report.[facility] (NA, K, CL, CO2, Glucose, BUN, Creatinine, CA)2020-12-10 12:08:36 Test Item Value Reference Range Interpretation Comments NA (test code = 140 mmol/L 135-145 1332356682) K (test code = 4.3 mmol/L 3.5-5.0 4360029995) CL (test code = 106 mmol/L 98-108 8680756658) CO2 TOTAL (test code 28 mmol/L 23-31 = 3994600166) AGAP (test code = 2-16 7864475533) BUN (test code = 11 mg/dL 7-23 9720556245) GLUCOSE (test code = 91 mg/dL 70-110 6830381722) CREATININE (test code 1.05 mg/dL 0.60-1.25 = 3990377838) CALCIUM (test code = 9.2 mg/dL 8.6-10.6 6459686798) eGFR (test code = mL/min/1.73m2 1804454307) FILIBERTO (test code = FILIBERTO) Association of Glomerular Filtration Rate (GFR) and Staging of Kidney Disease* + + +- +| GFR (mL/min/1.73 m2) ?| With Kidney Damage ?| ?Without Kidney Damage+ ------+ ----+ ------+| ?>90 ?| ?Stage one ?| ? Normal ?+ -+ + -+| ?60-89 ?| ?Stage two ?| ? Decreased GFR ? + + +- +| ?30-59 ?| ?Stage three ?| ? Stage three ? + + +- +| ?15-29 ?| ?Stage four ? | ? Stage four ?+ -+ + -+| ?<15 (or dialysis) ? ?| ?Stage five ? | ? Stage five ?+ -+ + -+ *Each stage assumes the associated GFR level has been in effect for at least three months. ?Stages 1 to 5, with or without kidney disease, indicate chronic kidney disease. Notes: Determination of stages one and two (with eGFR >59mL/min/1.73 m2) requires estimation of kidney damage for at least three months as defined by structural or functional abnormalities of the kidney, manifested by either:Pathological abnormalities or Markers of kidney damage (including abnormalities in the composition of the blood or urine or abnormalities in imaging tests). [place] [facility] Metabolic Panel (NA, K, CL, CO2, Glucose, BUN, Creatinine, CA)2020-12-10 12:08:36 Test Item Value Reference Range Interpretation Comments NA (test code = 140 mmol/L 135-145 1431942059) K (test code = 4.3 mmol/L 3.5-5.0 5937731799) CL (test code = 106 mmol/L 98-108 9461795110) CO2 TOTAL (test code 28 mmol/L 23-31 = 6771028944) AGAP (test code = 2-16 3556158974) BUN (test code = 11 mg/dL 7-23 5892059541) GLUCOSE (test code = 91 mg/dL 70-110 6541315435) CREATININE (test code 1.05 mg/dL 0.60-1.25 = 8978183343) CALCIUM (test code = 9.2 mg/dL 8.6-10.6 0625311757) eGFR (test code = mL/min/1.73m2 7153828652) FILIBERTO (test code = FILIBERTO) Association of Glomerular Filtration Rate (GFR) and Staging of Kidney Disease* + + +- +| GFR (mL/min/1.73 m2) ?| With Kidney Damage ?| ?Without Kidney Damage+ ------+ ----+ ------+| ?>90 ?| ?Stage one ?| ? Normal ?+ -+ + -+| ?60-89 ?| ?Stage two ?| ? Decreased GFR ? + + +- +| ?30-59 ?| ?Stage three ?| ? Stage three ? + + +- +| ?15-29 ?| ?Stage four ? | ? Stage four ?+ -+ + -+| ?<15 (or dialysis) ? ?| ?Stage five ? | ? Stage five ?+ -+ + -+ *Each stage assumes the associated GFR level has been in effect for at least three months. ?Stages 1 to 5, with or without kidney disease, indicate chronic kidney disease. Notes: Determination of stages one and two (with eGFR >59mL/min/1.73 m2) requires estimation of kidney damage for at least three months as defined by structural or functional abnormalities of the kidney, manifested by either:Pathological abnormalities or Markers of kidney damage (including abnormalities in the composition of the blood or urine or abnormalities in imaging tests). [facility] with [id number] 11:58:56 Test Item Value Reference Range Interpretation Comments WBC (test code = See_Comment [Automated 0690-2) message] The sy stem which generated this result transmitted reference range : 4.20 - 10.70 10*3/?L. The reference range was not used to interpret this result as normal/abnormal . RBC (test code = See_Comment [Automated 789-8) message] The sy stem which generated this result transmitted reference range : 4.26 - 5.52 10*6/?L. The reference range was not used to interpret this result as normal/abnormal . HGB (test code = 13.1 g/dL 12.2-16.4 718-7) HCT (test code = 38.9 % 38.4-49.3 4544-3) MCV (test code = 88.6 fL 81.7-95.6 787-2) MCH (test code = 29.8 pg 26.1-32.7 785-6) MCHC (test code = 33.7 g/dL 31.2-35.0 786-4) RDW-SD (test code = 43.9 fL 38.5-51.6 89128-1) RDW-CV (test code = 13.5 % 12.1-15.4 788-0) PLT (test code = See_Comment H [Automated 777-3) message] The sy stem which generated this result transmitted reference range : 150 - 328 10*3/ ?L. The reference r ken was not used to interpret this result as normal/abnormal . MPV (test code = 10.2 fL 9.8-13.0 37969-0) NRBC/100 WBC (test See_Comment [Automat ed code = 4219471591) message] The system which generated this result transmitted reference range : 0.0 - 10.0 /100 WBCs. The refer ence range was not u sed to interpret th is result as normal/abnormal . NRBC x10^3 (test code <0.01 See_Comment [Auto mated = 7492075342) message] The s ystem which generated this result transmitted reference range : 10*3/?L. The reference range was not used to interpret this result as normal/abnormal . GRAN MAT (NEUT) % 48.8 % (test code = 770-8) IMM GRAN % (test code 0.20 % = 8944917634) LYMPH % (test code = 33.6 % 736-9) MONO % (test code = 12.0 % 5905-5) EOS % (test code = 5.0 % 713-8) BASO % (test code = 0.4 % 706-2) GRAN MAT x10^3(ANC) 2.61 10*3/uL 1.99-6.95 (test code = 1640787358) IMM GRAN x10^3 (test <0.03 0.00-0.06 code = 2199909273) LYMPH x10^3 (test code 1.80 10*3/uL 1.09-3.23 = 731-0) MONO x10^3 (test code 0.64 10*3/uL 0.36-1.02 = 742-7) EOS x10^3 (test code = 0.27 10*3/uL 0.06-0.53 711-2) BASO x10^3 (test code <0.03 0.01-0.09 = 704-7) Lab Interpretation Abnormal (test code = 34969-2) [facility] with [id number] 11:58:56 Test Item Value Reference Range Interpretation Comments WBC (test code = See_Comment [Automated 6690-2) message] The sy stem which generated this result transmitted reference range : 4.20 - 10.70 10*3/?L. The reference range was not used to interpret this result as normal/abnormal . RBC (test code = See_Comment [Automated 139-8) message] The sy stem which generated this result transmitted reference range : 4.26 - 5.52 10*6/?L. The reference range was not used to interpret this result as normal/abnormal . HGB (test code = 13.1 g/dL 12.2-16.4 718-7) HCT (test code = 38.9 % 38.4-49.3 4544-3) MCV (test code = 88.6 fL 81.7-95.6 787-2) MCH (test code = 29.8 pg 26.1-32.7 785-6) MCHC (test code = 33.7 g/dL 31.2-35.0 786-4) RDW-SD (test code = 43.9 fL 38.5-51.6 49844-3) RDW-CV (test code = 13.5 % 12.1-15.4 788-0) PLT (test code = See_Comment H [Automated 777-3) message] The sy stem which generated this result transmitted reference range : 150 - 328 10*3/ ?L. The reference r ken was not used to interpret this result as normal/abnormal . MPV (test code = 10.2 fL 9.8-13.0 26747-2) NRBC/100 WBC (test See_Comment [Automat ed code = 6989345792) message] The system which generated this result transmitted reference range : 0.0 - 10.0 /100 WBCs. The refer ence range was not u sed to interpret th is result as normal/abnormal . NRBC x10^3 (test code <0.01 See_Comment [Auto mated = 1140919084) message] The s ystem which generated this result transmitted reference range : 10*3/?L. The reference range was not used to interpret this result as normal/abnormal . GRAN MAT (NEUT) % 48.8 % (test code = 770-8) IMM GRAN % (test code 0.20 % = 0661501902) LYMPH % (test code = 33.6 % 736-9) MONO % (test code = 12.0 % 5905-5) EOS % (test code = 5.0 % 713-8) BASO % (test code = 0.4 % 706-2) GRAN MAT x10^3(ANC) 2.61 10*3/uL 1.99-6.95 (test code = 9014013539) IMM GRAN x10^3 (test <0.03 0.00-0.06 code = 1781180778) LYMPH x10^3 (test code 1.80 10*3/uL 1.09-3.23 = 731-0) MONO x10^3 (test code 0.64 10*3/uL 0.36-1.02 = 742-7) EOS x10^3 (test code = 0.27 10*3/uL 0.06-0.53 711-2) BASO x10^3 (test code <0.03 0.01-0.09 = 704-7) Lab Interpretation Abnormal (test code = 61115-7) [facility] RAPID [facility])2020-12-10 04:13:25 Test Item Value Reference Range Interpretation Comments SARS-CoV-2 Rapid ID NOW Not Detected Not Detected (test code = 58052-1) FILIBERTO (test code = FILIBERTO) ID NOW COVID-19 Assay is an isothermal nucleic acid amplification test intended for the qualitative detection of nucleic acid from SARS-CoV-2 viral RNA in nasopharyngeal (RESERVATION CLERK) specimens. It is used under Emergency Use Authorization (EUA) by FDA. The limit of detection (LOD) of the assay is 125 Genome Equivalents/mL. A positive result is indicative of the presence of SARS-CoV-2 RNA. ?Clinical correlation with patient history and other diagnostic information is necessary to determine patient infection status. A negative (Not Detected) result does not preclude SARS-CoV-2 infection. In patients with clinical symptoms and other tests that are consistent with SARS-CoV-2 infection, negative results should be treated as presumptive negative and a new specimen should be tested with alternative PCR molecular test. Invalid: Please collect a new specimen for repeat patient testing if clinically indicated. Lab Interpretation Normal (test code = 77402-7) [facility]ORO, NON-SPECIFIC, UP TO 1 HOUR 2019-09-08 07:34:00Reason for exam:->Cystoscopy, direct vision internalFINAL REPORT A fluoroscopic unit was utilized for a procedure performed in the operating room. No interpretation was requested. Please refer to the operative report regarding findings. Please refer to PACS for patient radiation dose information. Signed: JR Melania, Najma [facility] Verified Date/Time: 09/08/2019 07:34:46 Reading Location: [facility] Radiology Reading Room HEPATIC FUNCTION [id number] 01:57:00 Test Item Value Reference Range Interpretation [...] = 29 U/L 6-55 347) BASIC METABOLIC [id number] 01:57:00 Test Item Value Reference Range Interpretation [...] S NOT APPLICABLE FOR DIALYSIS PATIEN TS. PROTHROMBIN [id number] 01:55:00 Test Item Value Reference Range Interpretation [...] mechanical heart valves.CBC W/PLT COUNT & AUTO [id number] 01:33:00 Test Item Value Reference Range Interpretation [...] % 0-1 PERCENT (BEAKER) (test code = 2801)"
--- NOTE | 2021-11-17 15:41 | ER ---
Nurse's Notes [facility] Name: Vince Blackmon Age: 51 yrs Sex: Male : 1970 Arrival Date: 11/17/2021 Time: 15:19 Bed 5 Private MD: Diagnosis: Other urethral stricture Presentation: 11/17 15:27 Chief complaint: Patient states: he is having difficulty urinating. He reports a weak ap3 flow, with slow "dribbling". He states he was evaluated by another facility's ED Wednesday11/15/2021, and wants to be revaluated here in hopes that he can return to work. He states this is an issue he has experienced in the past, and it required removal of scar tissue to resolve the issue. He states he is trying to avoid having the procedure unless it is necessary. Coronavirus screen: At this time, the client does not indicate any symptoms associated with coronavirus-19. Ebola Screen: No symptoms or risks identified at this time. Initial Sepsis Screen: Does the patient meet any 2 criteria? No. Patient's initial sepsis screen is negative. Does the patient have a suspected source of infection? No. Patient's initial sepsis screen is negative. Risk Assessment: Do you want to hurt yourself or someone else? Patient reports no desire to harm self or others. Onset of symptoms was November 14, 2021. 15:27 Method Of Arrival: Ambulatory ap3 15:27 Acuity: COBY 3 ap3 Triage Assessment: 15:31 General: Appears in no apparent distress. comfortable, Behavior is calm, cooperative, ap3 appropriate for age. Pain: Complains of pain in groin Pain currently is 1 out of 10 on a pain scale. at worst was 2 out of 10 on a pain scale. Quality of pain is described as crampy, Aggravated by urinating. Neuro: Level of Consciousness is awake, alert, obeys commands, Oriented to person, place, time, situation, Appropriate for age Gait is steady, Speech is normal. Respiratory: Airway Respiratory effort is even, unlabored. : Reports inability to void, reports he is only able to get out a few dribbles at a time. Historical: - Allergies: 15:30 ACETAMINOPHEN; ap3 15:30 Aspirin; ap3 15:30 Ibuprofen; ap3 15:30 Toradol; ap3 - Home Meds: 15:30 Dilantin Oral [Active]; ap3 - PMHx: 15:30 drug abuse - cocaine; epilepsy; Hypertension; Seizures; urinary stricture; ap3 - Immunization history:: Client reports having NOT received the Covid vaccine. Flu vaccine is not up to date. - Social history:: Smoking status: Patient denies any tobacco usage or history of. Patient uses street drugs, cocaine, marijuana. Screenin:32 Abuse screen: Denies threats or abuse. Nutritional screening: No deficits noted. ap3 Tuberculosis screening: No symptoms or risk factors identified. 15:40 Fall Risk None identified. jg9 Assessment: 15:40 Reassessment: No changes from previously documented assessment. jg9 Vital Signs: 15:27 Pulse 84; Resp 17; Temp 98.8; Pulse Ox 99% ; Weight 129.27 kg; Height 5 ft. 9 in. ap3 (175.26 cm); Pain 2/10; 15:31 BP 145 / 96; ap3 15:27 Body Mass Index 42.09 (129.27 kg, 175.26 cm) ap3 ED Course: 15:19 Patient arrived in ED. ja2 15:30 Triage completed. ap3 15:33 Arm band placed on right wrist. ap3 15:34 [facility]ael Gama PA [facility] jr8 15:34 Daryl Ashley MD is Attending Physician. jr8 15:39 Oliverio Kunz MD is Referral Physician. jr8 15:45 No provider procedures requiring assistance completed. jg9 15:46 Patient has correct armband on for positive identification. Bed in low position. Call jg9 light in reach. 15:46 Patient did not have IV access during this emergency room visit. jg9 Administered Medications: No medications were administered Outcome: 15:40 Discharge ordered by . jr8 15:45 Discharged to home ambulatory. jg9 15:45 Condition: stable 15:45 Discharge instructions given to patient, Instructed on discharge instructions, follow up and referral plans. Demonstrated understanding of instructions, follow-up care. 15:47 Patient left the ED. jg9 Signatures: Rocael Gama PA PA jr8 Rebecca Gibson RN RN ap3 Latoya Giordano 2 Melissa Muhammad RN RN jg9
[2021-11-17 16:02] VITALS: TEMP 98.8; O2SAT 99
[2021-11-17 16:03] VITALS: BP 145/96
--- NOTE | 2021-11-18 15:47 | EDPHYS ---
Physician Documentation [facility] Name: Vince Blackmon Age: 51 yrs Sex: Male : 1970 Arrival Date: 11/17/2021 Time: 15:19 Bed 5 Private MD: ED Physician Daryl Ashley HPI: 11/17 15:52 This 51 yrs old Black Male presents to ER via Ambulatory with complaints of Urinary jr8 Problem. 15:52 Associated signs and symptoms: The patient has no apparent associated signs or jr8 symptoms. Severity of symptoms: At their worst the symptoms were mild. The patient has experienced similar episodes in the past, several times. The patient has been recently seen by a physician:. This is a 51-year-old male patient that presented to the emergency room for a work note for work. Patient has a history of urethral stricture. Stated that he is still able to urinate at this time but that work is needing a clearance for him to go back. Had a catheter placed 2 weeks ago and has been discontinued since then but still able to urinate appropriately for his baseline. Patient to follow-up with urology soon as well.. Historical: - Allergies: 15:30 ACETAMINOPHEN; ap3 15:30 Aspirin; ap3 15:30 Ibuprofen; ap3 15:30 Toradol; ap3 - Home Meds: 15:30 Dilantin Oral [Active]; ap3 - PMHx: 15:30 drug abuse - cocaine; epilepsy; Hypertension; Seizures; urinary stricture; ap3 - Immunization history:: Client reports having NOT received the Covid vaccine. Flu vaccine is not up to date. - Social history:: Smoking status: Patient denies any tobacco usage or history of. Patient uses street drugs, cocaine, marijuana. ROS: 15:52 Constitutional: Negative for fever, chills, and weight loss, Cardiovascular: Negative jr8 for chest pain, palpitations, and edema, Respiratory: Negative for shortness of breath, cough, wheezing, and pleuritic chest pain, Abdomen/GI: Negative for abdominal pain, nausea, vomiting, diarrhea, and constipation, Back: Negative for injury and pain. 15:52 : Positive for difficulty urinating. 15:52 All other systems are negative. Exam: 15:52 Constitutional: This is a well developed, well nourished patient who is awake, alert, jr8 and in no acute distress. Cardiovascular: Regular rate and rhythm with a normal S1 and S2. No gallops, murmurs, or rubs. Normal PMI, no JVD. No pulse deficits. Respiratory: Lungs have equal breath sounds bilaterally, clear to auscultation and percussion. No rales, rhonchi or wheezes noted. No increased work of breathing, no retractions or nasal flaring. Abdomen/GI: Soft, non-tender, with normal bowel sounds. No distension or tympany. No guarding or rebound. No evidence of tenderness throughout. Back: No spinal tenderness. No costovertebral tenderness. Full range of motion. Skin: Warm, dry with normal turgor. Normal color with no rashes, no lesions, and no evidence of cellulitis. MS/ Extremity: Pulses equal, no cyanosis. Neurovascular intact. Full, normal range of motion. Neuro: Awake and alert, GCS 15, oriented to person, place, time, and situation. Cranial nerves II-XII grossly intact. Motor strength 5/5 in all extremities. Sensory grossly intact. Vital Signs: 15:27 Pulse 84; Resp 17; Temp 98.8; Pulse Ox 99% ; Weight 129.27 kg; Height 5 ft. 9 in. ap3 (175.26 cm); Pain 2/10; 15:31 BP 145 / 96; ap3 15:27 Body Mass Index 42.09 (129.27 kg, 175.26 cm) ap3 MDM: 15:34 Patient medically screened. jr8 15:52 Data reviewed: vital signs, nurses notes. Data interpreted: Pulse oximetry: on room air jr8 is 99 %. Interpretation: normal. Counseling: I had a detailed discussion with the patient and/or guardian regarding: the historical points, exam findings, and any diagnostic results supporting the discharge/admit diagnosis, the need for outpatient follow up, a urologist, to return to the emergency department if symptoms worsen or persist or if there are any questions or concerns that arise at home. ED course: Ensured patient was able to urinate at his baseline before leaving department. No acute physical exam findings to suggest urinary retention as well. Patient denies dysuria, burning or any other urinary complaints at this time. Patient understands that he needs to follow-up with urology in the near future and that if he does have acute retention that he needs to immediately come back so we can help him. Patient good with this at this time.. Administered Medications: No medications were administered Disposition: 19:30 Co-signature as Attending Physician, Daryl Ashley MD I agree with the assessment and kdr plan of care. Disposition Summary: 11/17/21 15:40 Discharge Ordered Location: Home jr8 Problem: new jr8 Symptoms: are unchanged jr8 Condition: Stable jr8 Diagnosis - Other urethral stricture jr8 Followup: jr8 - With: Oliverio Kunz MD - When: 2 - 3 days - Reason: Recheck today's complaints, Continuance of care, Re-evaluation by your physician Discharge Instructions: - Discharge Summary Sheet jr8 - Urethrotomy jr8 Forms: - Medication Reconciliation Form jr8 - Thank You Letter jr8 - Antibiotic Education jr8 - Work release form jr8 - Prescription Opioid Use jr8 Signatures: Daryl Ashley MD MD kdr Roszak, Josh, PA PA jr8 Rebecca Gibson RN RN ap3
== END 2021-11-17 15:47 | disposition home or self-care (01) ==
LOC: ER 15:15
DX: Z02.79 Encounter for issue of other medical certificate (principal); N35.819 Other urethral stricture, male, unspecified site
CPT/HCPCS: 99281

== ENCOUNTER 2021-12-03 17:37 | Emergency (ER) | payer SELFPAY ==
--- OUTSIDE RECORDS SUMMARY | 2021-12-03 17:40 | XMS REPORT | Continuity of Care Document ---
:1970 Author Organization [facility] t Address [address] [place] [address] Care Team Providers Name Role Phone Jena CRYSTAL Attending Clinician JENA Attending Clinician Unavailable Ehsan VP [employer], G Attending Clinician Quincy GARCIA, S Attending [...] Univers retention retention 4-06 ity of 00:: [address] No known No known Disease Unive rs active active ity of problems problems [facility] Allergies, Adverse Reactions, Alerts Allergy Allergy Status Severity Reaction(s) Onset Inactive Treating Comm ents Source Name Type Date Date Clinician ACETAMIN Allergy Active Med Itching [facility]: [place] [address] [facility] ACETAMIN DRUG Active Swelling 2015-09 Univer s OPHEN INGREDI 0-23 ity of 00:00: [address] Acetamin Propensi Active Swelling 2015-09 Univ ers ophen ty to 0-23 ity of adverse 00:00: [place] reaction [address] [place] [address] Social History Social Habit Start Date Stop Date Quantity Comments Source Exposure to Unable to assess Univers ity of SARS-CoV-2 [facility] (event) [place] Tobacco use and 2020-12-10 2020-12-10 Never used Universit y of exposure 00:00:00 00:00:00 [facility] Sex Ass[birth year] [facility] y of 00:00:00 00:00:00 [facility] Smoking Status Start Date Stop Date Source Unknown if ever smoked [facility] Never smoker [facility] Medications Ordered Filled Start Stop Current Ordering Indication Dosage Frequency Signature Comments Components Source Medication Medication Date Date Medication? Clinician (SIG) Name Name phenytoin Yes Take by Univ ers sodium 4-07 mouth. ity of extended 12:02: [place] (DILANTIN 48 Medical ORAL) [place] LISINOPRIL Yes Take by Uni vers ORAL 4-07 mouth. ity of 12:02: [address] phenytoin Yes Take by Univ ers sodium 4-07 mouth. ity of extended 12:02: [place] (DILANTIN 48 Medical ORAL) [place] LISINOPRIL Yes Take by Uni vers ORAL 4-07 mouth. ity of 12:02: [address] tamsulosin Yes .4mg 0.4 mg, Univ ers (FLOMAX) 4-07 Oral, QHS, ity o f capsule 0.4 02:00: First dose [place] mg 00 on [facility] 12/10/20 at [place] 2100, Until Discontinu ed, Routine tamsulosin 2020- No .4mg 0.4 mg, Uni vers (FLOMAX) 4-07 04-07 Oral, QHS, ity of capsule 0.4 02:00: 14:07 First dose [place] mg 00 :50 on [facility] 12/10/20 at Branch 2100, Until Discontinu ed, [...] 13:00: First dose [place] mg 00 on [facility] 12/10/20 at Branch 0800, Until Discontinu ed, Routine gabapentin 2020- No 300mg 300 mg, Un jl (NEURONTIN) 12-10-07 Oral, TID, i ty of capsule 300 13:00: 14:07 First dose [place] mg 00 :50 on [facility] 12/10/20 at Branch 0800, Until Discontinu ed, Routine ondansetron Yes 4mg 4 mg, Slow Univers (ZOFRAN - IV Push, ity of (PF)) 07:42: Q4HPRN, [place] injection 4 07 Starting Medi shannon mg [facility] 12/10/20 Branch at 0242, Until Discontinu ed, Routine, Nausea and Vomiting (N/V) ondansetron 2020- No 4mg 4 mg, Slow Univers (ZOFRAN 12-10- IV Push, ity of (PF)) 07:42: 14:07 Q4HPRN, [place] injection 4 07 :50 Starting Medi shannon mg [facility] 12/10/20 Branch at 0242, Until Wed12/11/20 at 0907, Routine, Nausea and Vomiting (N/V) ondansetron 2020- No 4mg 4 mg, Slow Univers (ZOFRAN 12-10- IV Push, ity of (PF)) 06:15: 05:26 ONCE, 1 [place] injection 4 00 :00 dose, [facility] Med ical mg 12/10/20 at Branch 0115, NANCI morpHINE 2020- No 4mg 4 mg, Slow Un jl injection 4 12-10 04-06 IV Push, ity of mg 06:15: 05:26 ONCE, 1 [place] 00 :00 dose, [facility] 12/10/20 at Branch 0115, STAT phenytoin Yes Take by Univ ers sodium 4-06 mouth. ity of extended 05:43: [place] (DILANTIN 19 Medical ORAL) [place] LISINOPRIL Yes Take by Uni vers ORAL 4-06 mouth. ity of 05:43: [place] 19 Medical Branch hydralAZINE 2020- No 20mg 20 mg, Uni vers (APRESOLINE 12-10 Slow IV ity of ) injection 04:00: 03:20 [place], [place] 20 mg 00 :00 ONCE, 1 Medical dose, Mon Branch 12/09/20 at 2300, STAT
In dication: Hypertensi ve Emergency ibuprofen 2020- No [id number] 600mg Take 1 Univers 600 mg 12-10 tablet by ity of tablet 00:00: 04:59 mouth [place] 00 :00 every 6 Medical (six) Branch hours as needed for Pain (scale 4-6) for up to 5 days. ibuprofen 2020- No [id number] 600mg Take 1 Univers 600 mg 12-10 [...] Source Systolic blood 2020-12-10 15:00:00 159 mm[Hg] [facility] [place] [facility] Diastolic blood 2020-12-10 15:00:00 100 mm[Hg] [facility] Heart rate 2020-12-10 15:00:00 81 /min [facility] Respiratory rate 2020-12-10 15:00:00 31 /min [facility] Oxygen saturation in 2020-12-10 15:00:00 95 /min [facility] Arterial blood by [facility] [place] [facility] Pulse oximetry [place] Body temperature 2020-12-10 14:11:00 36 Alisha [facility] Body weight 2020-12-10 06:46:00 124.739 kg [facility] BMI 2020-12-10 06:46:00 40.61 kg/m2 [facility] Heart rate 2020-12-10 10:36:00 82 /min [facility] [place] [facility] Respiratory rate 2020-12-10 10:36:00 19 /min [facility] [place] [facility] Oxygen saturation in 2020-12-10 10:36:00 96 /min University of Arterial blood by [facility] [place] [facility] Pulse oximetry Branch Systolic blood 2020-12-10 10:36:00 166 mm[Hg] Univer sity of pressure [place] [facility] Diastolic blood 2020-12-10 10:36:00 97 mm[Hg] Unive rsity of pressure [place] [facility] Body temperature 2020-12-10 06:46:00 37.11 Alisha [facility] [place] [facility] Body weight 2020-12-10 06:46:00 124.739 kg [facility] [place] [facility] BMI 2020-12-10 06:46:00 40.61 kg/m2 [facility] [place] [facility] Systolic blood 2020-12-10 05:28:00 169 mm[Hg] Univer sity of pressure [place] [facility] Diastolic blood 2020-12-10 05:28:00 95 mm[Hg] Unive rsity of pressure [place] [facility] Heart rate 2020-12-10 05:28:00 96 /min [facility] [place] [facility] Respiratory rate 2020-12-10 05:28:00 18 /min [facility] [place] [facility] Oxygen saturation in 2020-12-10 05:28:00 99 /min University of Arterial blood by [facility] [place] [facility] Pulse oximetry Branch Body temperature 2020-12-09 22:57:00 37.17 Alisha [facility] [place] [facility] Body height 2020-12-09 22:57:00 175.3 cm [facility] [place] [facility] Body weight 2020-12-09 22:57:00 124.739 kg [facility] [place] [facility] BMI 2020-12-09 22:57:00 40.61 kg/m2 [facility] [place] [facility] Procedures Procedure Date / Time Performing Clinician Source Performed [place] TIME OR 2020-12-10 13:59:00 [facility] (NON-REPORTABLE) Medical Branch [place] TIME OR 2020-12-10 13:59:00 [facility] (NON-REPORTABLE) Medical Branch URINE CULTURE 2020-12-10 13:58:24 Luis Eduardo Maldonado [facility] DIRECT VISUAL INTERNAL 2020-12-10 12:55:00 Jena [facility] URETHROTOMY [facility] Branch BASIC METABOLIC PANEL 2020-12-10 11:30:00 Bianchi, [facility] (NA, K, CL, CO2, GLUCOSE, Medica l Branch BUN, CREATININE, CA) CBC WITH DIFF 2020-12-10 11:30:[address] [facility] BASIC METABOLIC PANEL 2020-12-10 11:30:00 Bianchi, [facility] (NA, K, CL, CO2, GLUCOSE, Medica l Branch BUN, CREATININE, CA) CBC WITH DIFF 2020-12-10 11:30:00 [facility] COVID-19 (ID NOW RAPID 2020-12-10 02:51:00 Deepthi Moser [facility] TESTING) [facility] CONSENT/REFUSAL FOR 2020-12-09 22:39:47 Doctor Unassigned, [facility] DIAGNOSIS AND TREATMENT [place] [facility] EMERGENCY SERVICES 2020-12-09 05:01:00 Doctor Unassigned, [facility] AGREEMENTS AND [place] [facility] AUTHORIZATIONS EMERGENCY SERVICES 2020-12-09 05:01:00 Doctor Unassigned, [facility] AGREEMENTS AND [place] [facility] AUTHORIZATIONS Encounters Start End Encounter Admission Attending Care Care Encounter Source Date/Time Date/Time Type Type Clinicians Facility Department ID 2021-06-11 Inpatient [facility] Urology [id number] [facility] St 01:05:38 [facility] 2020-12-10 2020-12-10 Emergency Heike Maldonado [id number] Univers 01:49:00 11:24:00 Luis Eduardo Triana [id number] [facility] [id number] Shay as [id number] [place] [address] Branch 2020-12-10 2020-12-10 Surgery Heike Maldonado [id number] Univers 07:30:00 08:51:00 Luis Eduardo Triana [id number] [facility] [id number] [facility] [id number] [facility] 103 Branch 2020-12-10 2020-12-10 Emergency X [facility] ERT [id number] Univers 01:49:00 01:49:00 LUIS EDUARDO boudreaux [facility] 2020-12-09 2020-12-10 Emergency Deepthi [facility]oser [facility] [id number] Univers 18:07:00 01:13:00 Bouchra [facility] [place] [id number] [facility] [id number] [facility] [id number] [facility] 084 Branch 2020-12-09 2020-12-09 Emergency X [facility] ERT [id number] Univers 18:07:00 18:07:00 [facility] 2019-04-06 2019-04-06 Outpatient E [facility] MED [id number] [facility] 11:15:00 11:15:00 Results Test Description Test Time Test Comments Results Result Comments Source URINE CULTURE 2020-12-11 13:21:42 Test Item Value Reference Range Interpretation Comme nts URINE CULTURE (test code = 630-4) No aerobic growth (< 1000 CFU/mL) [facility] TIME OR (NON-REPORTABLE)2020-12-10 14:09:59 These images do not require a Radiology diagnostic report.[facility] TIME OR (NON-REPORTABLE)2020-12-10 14:09:59These images do not require a Radiology diagnostic report.[facility] (NA, K, CL, CO2, Glucose, BUN, Creatinine, CA)2020-12-10 12:08:36 Test Item Value Reference Range Interpretation Comments NA (test code = 140 mmol/L 135-145 0816009436) K (test code = 4.3 mmol/L 3.5-5.0 2571738860) CL (test code = 106 mmol/L 98-108 0578062625) CO2 TOTAL (test code 28 mmol/L 23-31 = 1143841228) AGAP (test code = 2-16 2394957506) BUN (test code = 11 mg/dL 7-23 1012762823) GLUCOSE (test code = 91 mg/dL 70-110 8157601323) CREATININE (test code 1.05 mg/dL 0.60-1.25 = 7664727656) CALCIUM (test code = 9.2 mg/dL 8.6-10.6 9561774124) eGFR (test code = mL/min/1.73m2 8932145350) FILIBERTO (test code = FILIBERTO) Association of [...] or urine or abnormalities in imaging tests). [facility] Metabolic Panel (NA, K, CL, CO2, Glucose, BUN, Creatinine, CA)2020-12-10 12:08:36 Test Item Value Reference Range Interpretation Comments NA (test code = 140 mmol/L 135-145 9619016178) K (test code = 4.3 mmol/L 3.5-5.0 3577459296) CL (test code = 106 mmol/L 98-108 4953331688) CO2 TOTAL (test code 28 mmol/L 23-31 = 5525049238) AGAP (test code = 2-16 9004546290) BUN (test code = 11 mg/dL 7-23 2173119036) GLUCOSE (test code = 91 mg/dL 70-110 9876482326) CREATININE (test code 1.05 mg/dL 0.60-1.25 = 4418638809) CALCIUM (test code = 9.2 mg/dL 8.6-10.6 9933278866) eGFR (test code = mL/min/1.73m2 6964638959) FILIBERTO (test code = FILIBERTO) Association of [...] or urine or abnormalities in imaging tests). [facility] with [id number] 11:58:56 Test Item Value Reference Range Interpretation Comments WBC (test code = See_Comment [Automated 1590-2) message] The sy stem which generated this [...] RDW-SD (test code = 43.9 fL 38.5-51.6 70701-6) RDW-CV (test code = 13.5 % 12.1-15.4 788-0) PLT (test code = See_Comment H [Automated 777-3) message] The sy stem which generated this result transmitted reference range : 150 - 328 10*3/ ?L. The reference r ken was not used to interpret this result as normal/abnormal . MPV (test code = 10.2 fL 9.8-13.0 79359-9) NRBC/100 WBC (test See_Comment [Automat ed code = 0876879948) message] The system which generated this result transmitted reference range : 0.0 - 10.0 /100 WBCs. The refer ence range was not u sed to interpret th is result as normal/abnormal . NRBC x10^3 (test code <0.01 See_Comment [Auto mated = 9953798763) message] The s ystem which generated this result transmitted reference range : 10*3/?L. The reference range was not used to interpret this result as normal/abnormal . GRAN MAT (NEUT) % 48.8 % (test code = 770-8) IMM GRAN % (test code 0.20 % = 0757954470) LYMPH % (test code = 33.6 % 736-9) MONO % (test code = 12.0 % 5905-5) EOS % (test code = 5.0 % 713-8) BASO % (test code = 0.4 % 706-2) GRAN MAT x10^3(ANC) 2.61 10*3/uL 1.99-6.95 (test code = 6835169909) IMM GRAN x10^3 (test <0.03 0.00-0.06 code = 0429980008) LYMPH x10^3 (test code 1.80 10*3/uL 1.09-3.23 = 731-0) MONO x10^3 (test code 0.64 10*3/uL 0.36-1.02 = 742-7) EOS x10^3 (test code = 0.27 10*3/uL 0.06-0.53 711-2) BASO x10^3 (test code <0.03 0.01-0.09 = 704-7) Lab Interpretation Abnormal (test code = 97488-3) [facility] with [id number] 11:58:56 Test Item Value Reference Range Interpretation Comments WBC (test code = See_Comment [Automated 6690-2) message] The sy stem which generated this result transmitted reference range : 4.20 - 10.70 10*3/?L. The reference range was not used to interpret this result as normal/abnormal . RBC (test code = See_Comment [Automated 409-8) message] The sy stem which generated this [...] RDW-SD (test code = 43.9 fL 38.5-51.6 97478-6) RDW-CV (test code = 13.5 % 12.1-15.4 788-0) PLT (test code = See_Comment H [Automated 777-3) message] The sy stem which generated this result transmitted reference range : 150 - 328 10*3/ ?L. The reference r ken was not used to interpret this result as normal/abnormal . MPV (test code = 10.2 fL 9.8-13.0 76007-2) NRBC/100 WBC (test See_Comment [Automat ed code = 7551751545) message] The system which generated this result transmitted reference range : 0.0 - 10.0 /100 WBCs. The refer ence range was not u sed to interpret th is result as normal/abnormal . NRBC x10^3 (test code <0.01 See_Comment [Auto mated = 3343516953) message] The s ystem which generated this result transmitted reference range : 10*3/?L. The reference range was not used to interpret this result as normal/abnormal . GRAN MAT (NEUT) % 48.8 % (test code = 770-8) IMM GRAN % (test code 0.20 % = 0442782325) LYMPH % (test code = 33.6 % 736-9) MONO % (test code = 12.0 % 5905-5) EOS % (test code = 5.0 % 713-8) BASO % (test code = 0.4 % 706-2) GRAN MAT x10^3(ANC) 2.61 10*3/uL 1.99-6.95 (test code = 4924324578) IMM GRAN x10^3 (test <0.03 0.00-0.06 code = 8684815819) LYMPH x10^3 (test code 1.80 10*3/uL 1.09-3.23 = 731-0) MONO x10^3 (test code 0.64 10*3/uL 0.36-1.02 = 742-7) EOS x10^3 (test code = 0.27 10*3/uL 0.06-0.53 711-2) BASO x10^3 (test code <0.03 0.01-0.09 = 704-7) Lab Interpretation Abnormal (test code = 89885-1) [facility] NOW RAPID TESTING)2020-12-10 04:13:25 Test Item Value Reference Range Interpretation Comments SARS-CoV-2 Rapid ID NOW Not Detected Not Detected (test code = 80849-9) FILIBERTO (test code = FILIBERTO) ID NOW COVID-19 Assay is an isothermal nucleic acid amplification test intended for the qualitative detection of nucleic acid from SARS-CoV-2 viral RNA in nasopharyngeal ([employer]) specimens. It is used under Emergency Use [...] indicated. Lab Interpretation Normal (test code = 39789-8) [facility], [facility]ORO, NON-SPECIFIC, UP TO 1 HOUR 2019-09-08 07:34:00Reason for exam:->Cystoscopy, direct vision internalFINAL REPORT A fluoroscopic unit was utilized for a procedure performed in the operating room. No interpretation was requested. Please refer to the operative report regarding findings. Please refer to PACS for patient radiation dose information. Signed: JR Melania, Najma [facility] Verified Date/Time: 09/08/2019 07:34:46 Reading Location: [facility] Radiology Reading Room HEPATIC FUNCTION [id number] 01:57:00 Test Item Value Reference Range Interpretation [...] = 29 U/L 6-55 347) BASIC METABOLIC [id number] 01:57:00 Test Item Value Reference Range Interpretation [...] NOT APPLICABLE FOR DIALYSIS PATIEN TS. PROTHROMBIN TIME/[id number] 01:55:00 Test Item Value Reference Range Interpretation [...] mechanical heart valves.CBC W/PLT COUNT & AUTO [id number] 01:33:00 Test Item Value Reference Range Interpretation [...]
--- NOTE | 2021-12-03 18:06 | ER ---
Nurse's Notes [facility] Name: Vince Blackmon Age: 51 yrs Sex: Male : 1970 Arrival Date: 12/03/2021 Time: 17:39 Bed Waiting Private MD: Diagnosis: Other urethral stricture Presentation: 12/03 17:59 Chief complaint: Patient states: Took out his own urinary catheter two days ago. Needs ll1 work release. Coronavirus screen: Vaccine status: Patient reports being unvaccinated. Client denies travel out of the [place] in the last 14 days. At this time, the client does not indicate any symptoms associated with coronavirus-19. Ebola Screen: Patient denies travel to an Ebola-affected area in the 21 days before illness onset. Initial Sepsis Screen: Does the patient meet any 2 criteria? No. Patient's initial sepsis screen is negative. Does the patient have a suspected source of infection? Yes: Dysuria/Frequency/Urgency/UTI. Risk Assessment: Do you want to hurt yourself or someone else? Patient reports no desire to harm self or others. Onset of symptoms was December 01, 2021. 17:59 Method Of Arrival: Ambulatory ll1 17:59 Acuity: COBY 4 ll1 Triage Assessment: 18:08 General: Appears in no apparent distress. Behavior is calm, cooperative. Pain: Denies ll1 pain. Historical: - Allergies: 17:48 ACETAMINOPHEN; ss 17:48 Aspirin; ss 17:48 Ibuprofen; ss 17:48 Toradol; ss - PMHx: 17:48 drug abuse - cocaine; epilepsy; Hypertension; Seizures; urinary stricture; ss - PSHx: 17:58 None; ll1 - Immunization history:: Adult Immunizations up to date, Client reports having NOT received the Covid vaccine. - Social history:: Smoking status: Patient denies any tobacco usage or history of. Screenin:09 Abuse screen: Denies threats or abuse. Nutritional screening: No deficits noted. ll1 Tuberculosis screening: No symptoms or risk factors identified. Fall Risk Total [place] Fall Scale indicates No Risk (0-24 pts). Vital Signs: 17:59 BP 144 / 97; Pulse 86; Resp 17; Temp 97.9; Pulse Ox 97% ; Height 5 ft. 9 in. (175.26 ll1 cm); Pain 6/10; ED Course: 17:39 Patient arrived in ED. rg4 17:49 Arm band placed on. 18:01 Triage completed. ll1 18:02 Rocael Gama PA is PHCP. jr8 18:02 Johnson Soto DO is Attending Physician. jr8 18:09 Patient has correct armband on for positive identification. ll1 18:09 No provider procedures requiring assistance completed. Patient did not have IV access ll1 during this emergency room visit. Administered Medications: No medications were administered Outcome: 18:05 Discharge ordered by MD. jr8 18:09 Discharged to home ambulatory. ll1 18:09 Condition: stable 18:09 Discharge instructions given to patient, Instructed on discharge instructions, follow up and referral plans. Demonstrated understanding of instructions, follow-up care. 18:09 Patient left the ED. ll1 Signatures: Brooklyn Colon, RN RN Rocael Gama PA PA jr8 Dior Garcia rg4 Naren Savage RN RN 1
--- NOTE | 2021-12-03 18:06 | EDPHYS ---
Physician Documentation [facility] Name: Vince Blackmon Age: 51 yrs Sex: Male : 1970 Arrival Date: 12/03/2021 Time: 17:39 Bed Waiting Private MD: ED Physician Johnson Soto HPI: 12/03 18:19 This 51 yrs old Black Male presents to ER via Ambulatory with complaints of Urinary jr8 Problem. 18:19 Associated signs and symptoms: The patient has no apparent associated signs or jr8 symptoms. The patient has experienced similar episodes in the past, several times. The patient has been recently seen by a physician:. Patient seen here approximately 14 days ago for urinary stricture. Was sent home at that time for follow-up with urology which he had done and had another urethrotomy. Came back today for work excuse as catheter has been discontinued as of 2 days ago and is doing much better. Denies any other complaints at this time.. Historical: - Allergies: 17:48 ACETAMINOPHEN; ss 17:48 Aspirin; ss 17:48 Ibuprofen; ss 17:48 Toradol; ss - PMHx: 17:48 drug abuse - cocaine; epilepsy; Hypertension; Seizures; urinary stricture; ss - PSHx: 17:58 None; ll1 - Immunization history:: Adult Immunizations up to date, Client reports having NOT received the Covid vaccine. - Social history:: Smoking status: Patient denies any tobacco usage or history of. ROS: 18:19 Eyes: Negative for injury, pain, redness, and discharge, ENT: Negative for injury, jr8 pain, and discharge, Neck: Negative for injury, pain, and swelling, Cardiovascular: Negative for chest pain, palpitations, and edema, Respiratory: Negative for shortness of breath, cough, wheezing, and pleuritic chest pain, Abdomen/GI: Negative for abdominal pain, nausea, vomiting, diarrhea, and constipation, Back: Negative for injury and pain, : Negative for injury, bleeding, discharge, and swelling, or urinary symptoms MS/Extremity: Negative for injury and deformity, Skin: Negative for injury, rash, and discoloration, Neuro: Negative for headache, weakness, numbness, tingling, and seizure. Exam: 18:19 Constitutional: This is a well developed, well nourished patient who is awake, alert, jr8 and in no acute distress. Cardiovascular: Regular rate and rhythm with a normal S1 and S2. No gallops, murmurs, or rubs. Normal PMI, no JVD. No pulse deficits. Respiratory: Lungs have equal breath sounds bilaterally, clear to auscultation and percussion. No rales, rhonchi or wheezes noted. No increased work of breathing, no retractions or nasal flaring. Abdomen/GI: Soft, non-tender, with normal bowel sounds. No distension or tympany. No guarding or rebound. No evidence of tenderness throughout. Back: No spinal tenderness. No costovertebral tenderness. Full range of motion. Skin: Warm, dry with normal turgor. Normal color with no rashes, no lesions, and no evidence of cellulitis. MS/ Extremity: Pulses equal, no cyanosis. Neurovascular intact. Full, normal range of motion. Neuro: Awake and alert, GCS 15, oriented to person, place, time, and situation. Motor strength 5/5 in all extremities. Sensory grossly intact. Vital Signs: 17:59 BP 144 / 97; Pulse 86; Resp 17; Temp 97.9; Pulse Ox 97% ; Height 5 ft. 9 in. (175.26 ll1 cm); Pain 6/10; MDM: 18:05 Patient medically screened. jr8 18:21 Data reviewed: vital signs, nurses notes, and as a result, I will discharge patient. jr8 Data interpreted: Pulse oximetry: on room air is 97 %. Interpretation: normal. Counseling: I had a detailed discussion with the patient and/or guardian regarding: the historical points, exam findings, and any diagnostic results supporting the discharge/admit diagnosis, the need for outpatient follow up, a urologist, to return to the emergency department if symptoms worsen or persist or if there are any questions or concerns that arise at home. Administered Medications: No medications were administered Disposition: 12/04 13:48 Co-signature as Attending Physician, Johnson Soto DO I was immediately available on-site ms3 in the Emergency Department for consultation in the care of the patient.. Disposition Summary: 12/03/21 18:05 Discharge Ordered Location: Home jr8 Problem: new jr8 Symptoms: have improved jr8 Condition: Stable jr8 Diagnosis - Other urethral stricture jr8 Followup: jr8 - With: Private Physician - When: As needed - Reason: Recheck today's complaints, Continuance of care, Re-evaluation by your physician Discharge Instructions: - Urethrotomy jr8 - Discharge Summary Sheet ll1 Forms: - Medication Reconciliation Form jr8 - Thank You Letter jr8 - Antibiotic Education jr8 - Prescription Opioid Use jr8 - Work release form ll1 Signatures: Brooklyn Colon RN RN Rocael Gama PA PA jr8 Naren Savage RN RN ll1 Johnson Soto DO DO ms3
[2021-12-03 18:33] VITALS: BP 144/97; TEMP 97.9; O2SAT 97
== END 2021-12-03 18:09 | disposition home or self-care (01) ==
LOC: ER 17:37
DX: N35.819 Other urethral stricture, male, unspecified site (principal); I10 Essential (primary) hypertension; Z88.5 Allergy status to narcotic agent; Z88.6 Allergy status to analgesic agent
CPT/HCPCS: 99281

== ENCOUNTER 2022-02-10 13:48 | Emergency (ER) | payer SELFPAY ==
--- OUTSIDE RECORDS SUMMARY | 2022-02-10 13:51 | XMS REPORT | Continuity of Care Document ---
:1970 Author Organization [facility] t Address [address] [place] [address] Care Team Providers Name Role Phone Jena CRYSTAL Attending Clinician JENA Attending Clinician Unavailable Ehsan DIRECTOR CHEMISTRY, G Attending Clinician Quincy GARCIA, S Attending [...] Active Univers retention retention 4-06 ity of 00:00: [address] No known No known Disease Unive rs active active ity of problems problems [facility] Allergies, Adverse Reactions, Alerts Allergy Allergy Status Severity Reaction(s) Onset Inactive Treating Comm ents Source Name Type Date Date Clinician ACETAMIN Allergy Active Med Itching [facility] [place] [address] [facility] ACETAMIN DRUG Active Swelling 2015-09 Univer s OPHEN INGREDI 0-23 ity of 00:00: [address] Acetamin Propensi Active Swelling 2015-09 Univ ers ophen ty to 0-23 ity of adverse 00:00: [place] reaction [address] [place] [address] Social History Social Habit Start Date Stop Date Quantity Comments Source Exposure to Unable to assess Univers ity of SARS-CoV-2 [facility] (event) [place] Tobacco use and 2020-12-10 2020-12-10 Never used Universit y of exposure 00:00:00 00:00:00 [facility] Sex Ass[birth year] Universit y of 00:00:00 00:00:00 [facility] Smoking Status Start Date Stop Date Source Unknown if ever smoked [facility] Never smoker [facility] Medications Ordered Filled Start Stop Current Ordering Indication Dosage Frequency Signature Comments Components Source Medication Medication Date Date Medication? Clinician (SIG) Name Name phenytoin Yes Take by Univ ers sodium 4-07 mouth. ity of extended 12:02: [place] (DILANTIN 48 Medical ORAL) [place] LISINOPRIL Yes Take by Uni vers ORAL 4-07 mouth. ity of 12:02: [address] phenytoin Yes Take by Univ ers sodium 4-07 mouth. ity of extended 12:02: [place] (DILANTIN 48 Medical ORAL) [place] LISINOPRIL Yes Take by Uni vers ORAL 4-07 mouth. ity of 12:02: [address] tamsulosin Yes .4mg 0.4 mg, Univ ers (FLOMAX) 4-07 Oral, QHS, ity o f capsule 0.4 02:00: First dose [place] mg 00 on [facility] 12/10/20 at Branch 2100, Until Discontinu ed, Routine tamsulosin 2020- No .4mg 0.4 mg, Uni vers (FLOMAX) 4-07 04-07 Oral, QHS, ity of capsule 0.4 02:00: 14:07 First dose [place] mg 00 :50 on [facility] 12/10/20 at Branch 2100, Until Discontinu ed, [...] Yes 800mg 800 mg, Univ ers (IBU) 406 Oral, PRN, ity of tablet 800 14:14: [...] 0907, Routine, Pain (scale 4-6), PACU ondansetron No 4mg 4 mg, Slow Univers (ZOFRAN [...] at 0859, Medica l Until Wed Branch 4/7/21 at 0907, Routine, Intra-op gabapentin Yes 300mg 300 mg, Uni vers (NEURONTIN) 4-06 Oral, TID, it y of capsule 300 13:00: First dose [place] mg 00 on [facility] 12/10/20 at Branch 0800, Until Discontinu ed, Routine gabapentin 202- No 300mg 300 mg, Un jl (NEURONTIN) 12-10-07 Oral, TID, i ty of capsule 300 13:00: 14:07 First dose [place] mg 00 :50 on [facility] 12/10/20 at Branch 0800, Until Discontinu ed, Routine ondansetron Yes 4mg 4 mg, Slow Univers (ZOFRAN 12-10 IV Push, ity of (PF)) 07:42: Q4HPRN, [place] injection 4 07 Starting Medi shannon mg [facility] 12/10/20 Branch at 0242, Until Discontinu ed, Routine, Nausea and Vomiting (N/V) ondansetron 2020- No 4mg 4 mg, Slow Univers (ZOFRAN 12-10- IV Push, ity of (PF)) 07:42: 14:07 Q4HPRN, [place] injection 4 07 :50 Starting Medi shannon mg [facility] 12/10/20 Branch at 0242, Until Wed12/11/20 at 0907, Routine, Nausea and Vomiting (N/V) ondansetron 2020-0 2020- No 4mg 4 mg, Slow Univers (ZOFRAN 12-10- IV Push, ity of (PF)) 06:15: 05:26 ONCE, 1 [place] injection 4 00 :00 dose, [facility] Med ical mg 12/10/20 at Branch 0115, NANCI morpHINE 0 2020- No 4mg 4 mg, Slow Un jl injection 4 12-10-06 IV Push, ity of mg 06:15: 05:26 ONCE, 1 [place] 00 :00 dose, [facility] 12/10/20 at Branch 0115, STAT phenytoin Yes Take by [facility] ers sodium 4-06 mouth. ity of extended 05:43: [place] (DILANTIN 19 Medical ORAL) [place] LISINOPRIL Yes Take by Uni vers ORAL 4-06 mouth. ity of 05:43: [place] 19 Medical Branch hydralAZINE 2020- No 20mg 20 mg, Uni vers (APRESOLINE 12-10 Slow IV ity of ) injection 04:00: 03:20 [place], [place] 20 mg 00 :00 ONCE, 1 Medical dose, Mon Branch 12/09/20 at 2300, STAT
In dication: Hypertensi ve Emergency ibuprofen 2020- No [id number] 600mg Take 1 Univers 600 mg 12-10 tablet by ity of tablet 00:00: 04:59 mouth [place] 00 :00 every 6 Medical (six) Branch hours as needed for Pain (scale 4-6) for up to 5 days. ibuprofen 2020- No [id number] 600mg Take 1 Univers 600 mg 12-10 tablet by ity of tablet 00:00: 04:59 mouth [place] 00 :00 every 6 Medical (six) Branch hours as needed for Pain (scale 4-6) for up to 5 days. levoFLOXaci 2015-09 No 500mg Take 1 Un jl n 0-24 05 tablet by ity of (LEVAQUIN) 00:00: 00:00 mouth [place] 500 mg 00 :00 every 24 Medical tablet (twenty-fo Branch ur) hours. Vital Signs Vital Name Observation Time Observation Value Comments Source Systolic blood 2020-12-10 15:00:00 159 mm[Hg] Univer sity [facility] Diastolic blood 2020-12-10 15:00:00 100 mm[Hg] [facility] Heart rate 2020-12-10 15:00:00 81 /min [facility] Respiratory rate 2020-12-10 15:00:00 31 /min [facility] Oxygen saturation in 2020-12-10 15:00:00 95 /min [facility] Arterial blood by [facility] Pulse oximetry [place] Body temperature 2020-12-10 14:11:00 36 Alisha [facility] Body weight 2020-12-10 06:46:00 124.739 kg [facility] BMI 2020-12-10 06:46:00 40.61 kg/m2 [facility] Heart rate 2020-12-10 10:36:00 82 /min [facility] [place] [facility] Respiratory rate 2020-12-10 10:36:00 19 /min [facility] [place] [facility] Oxygen saturation in 2020-12-10 10:36:00 96 /min University of Arterial blood by [facility] Pulse oximetry Branch Systolic blood 2020-12-10 10:36:00 [...] 99 /min University of Arterial blood by [facility] Pulse oximetry Branch Body temperature 2020-12-09 22:57:00 [...] Source Performed [place] TIME OR 2020-12-10 13:59:00 [facility] o [facility] (NON-REPORTABLE) Medical Branch [place] TIME OR 2020-12-10 13:59:00 [facility] o f [place] (NON-REPORTABLE) Medical Branch URINE CULTURE 2020-12-10 13:58:24 Luis Eduardo Maldonado [facility] DIRECT VISUAL INTERNAL 2020-12-10 12:55:00 Luis Eduardo Maldonado [facility] URETHROTOMY [facility] BASIC METABOLIC PANEL 2020-12-10 11:30:00 Bianchi, [facility] (NA, K, CL, CO2, GLUCOSE, Medica l Branch BUN, CREATININE, CA) CBC WITH DIFF 2020-12-10 11:30:[facility]IC PANEL 2020-12-10 11:30:00 Bianchi, [facility] (NA, K, CL, CO2, GLUCOSE, Medica l Branch BUN, CREATININE, CA) CBC WITH DIFF 2020-12-10 11:30:00 [facility] COVID-19 (ID NOW RAPID 2020-12-10 02:51:00 Deepthi Moser [facility] TESTING) [facility] CONSENT/REFUSAL FOR 2020-12-09 22:39:47 Doctor Unassigned, [facility] DIAGNOSIS AND TREATMENT [place] [facility] EMERGENCY SERVICES 2020-12-09 05:01:00 Doctor Unassigned, [facility] AGREEMENTS AND [place] [facility] AUTHORIZATIONS EMERGENCY SERVICES 2020-12-09 05:01:00 Doctor Unassigned, [facility] AGREEMENTS AND [place] [facility] AUTHORIZATIONS Encounters Start End Encounter Admission Attending Care Care Encounter Source Date/Time Date/Time Type Type Clinicians Facility Department ID 2021-06-11 Inpatient [facility] Urology [id number] [facility] St 01:05:38 [facility] 2020-12-10 2020-12-10 Emergency Heike Maldonado [id number] Univers 01:49:00 11:24:00 Luis Eduardo Triana [id number] [facility] [id number] Shay as [id number] [place] [address] Branch 2020-12-10 2020-12-10 Surgery Heike Maldonado [id number] Univers 07:30:00 08:51:00 Luis Eduardo Triana [id number] [facility] [id number] [facility] [id number] [facility] 103 Branch 2020-12-10 2020-12-10 Emergency X JENA [facility] ERT [id number] Univers 01:49:00 01:49:00 LUIS EDUARDO boudreaux [facility] 2020-12-09 2020-12-10 Emergency Deepthi Moser [facility] [id number] Univers 18:07:00 01:13:00 Santos Walterya Pierre [place] [id number] [facility] [id number] [facility] [id number] [facility] 084 Branch 2020-12-09 2020-12-09 Emergency X QUINCY [facility] ERT [id number] Univers 18:07:00 18:07:00 BOUCHRA boudreaux [facility] 2019-04-06 2019-04-06 Outpatient E [facility] MED [id number] [facility] 11:15:00 11:15:00 Results Test Description Test Time Test Comments Results Result Comments Source URINE CULTURE 2020-12-11 13:21:42 Test Item Value Reference Range Interpretation Comme nts URINE CULTURE (test code = 630-4) No aerobic growth (< 1000 CFU/mL) [facility] TIME OR (NON-REPORTABLE)2020-12-10 14:09:59 These images do not require a Radiology diagnostic report.[facility] TIME OR (NON-REPORTABLE)2020-12-10 14:09:59These images do not require a Radiology diagnostic report.[facility] (NA, K, CL, CO2, Glucose, BUN, Creatinine, CA)2020-12-10 12:08:36 Test Item Value Reference Range Interpretation Comments NA (test code = 140 mmol/L 135-145 1058166398) K (test code = 4.3 mmol/L 3.5-5.0 0531062749) CL (test code = 106 mmol/L 98-108 5469338740) CO2 TOTAL (test code 28 mmol/L 23-31 = 5977189999) AGAP (test code = 2-16 4057911596) BUN (test code = 11 mg/dL 7-23 9579489708) GLUCOSE (test code = 91 mg/dL 70-110 8246020360) CREATININE (test code 1.05 mg/dL 0.60-1.25 = 2976325455) CALCIUM (test code = 9.2 mg/dL 8.6-10.6 1333295728) eGFR (test code = mL/min/1.73m2 4489221588) FILIBERTO (test code = FILIBERTO) Association of [...] or urine or abnormalities in imaging tests). [facility] Metabolic Panel (NA, K, CL, CO2, Glucose, BUN, Creatinine, CA)2020-12-10 12:08:36 Test Item Value Reference Range Interpretation Comments NA (test code = 140 mmol/L 135-145 9917507618) K (test code = 4.3 mmol/L 3.5-5.0 5386365881) CL (test code = 106 mmol/L 98-108 6810610005) CO2 TOTAL (test code 28 mmol/L 23-31 = 5886620948) AGAP (test code = 2-16 6325829300) BUN (test code = 11 mg/dL 7-23 5977449650) GLUCOSE (test code = 91 mg/dL 70-110 3598055816) CREATININE (test code 1.05 mg/dL 0.60-1.25 = 8691122861) CALCIUM (test code = 9.2 mg/dL 8.6-10.6 2481973410) eGFR (test code = mL/min/1.73m2 8917373719) FILIBERTO (test code = FILIBERTO) Association of [...] or urine or abnormalities in imaging tests). [facility] with [id number] 11:58:56 Test Item Value Reference Range Interpretation Comments WBC (test code = See_Comment [Automated 2090-2) message] The sy stem which generated this [...] RDW-SD (test code = 43.9 fL 38.5-51.6 65530-7) RDW-CV (test code = 13.5 % 12.1-15.4 788-0) PLT (test code = See_Comment H [Automated 777-3) message] The sy stem which generated this result transmitted reference range : 150 - 328 10*3/ ?L. The reference r ken was not used to interpret this result as normal/abnormal . MPV (test code = 10.2 fL 9.8-13.0 34167-1) NRBC/100 WBC (test See_Comment [Automat ed code = 2345901842) message] The system which generated this result transmitted reference range : 0.0 - 10.0 /100 WBCs. The refer ence range was not u sed to interpret th is result as normal/abnormal . NRBC x10^3 (test code <0.01 See_Comment [Auto mated = 2943619327) message] The s ystem which generated this result transmitted reference range : 10*3/?L. The reference range was not used to interpret this result as normal/abnormal . GRAN MAT (NEUT) % 48.8 % (test code = 770-8) IMM GRAN % (test code 0.20 % = 4439940775) LYMPH % (test code = 33.6 % 736-9) MONO % (test code = 12.0 % 5905-5) EOS % (test code = 5.0 % 713-8) BASO % (test code = 0.4 % 706-2) GRAN MAT x10^3(ANC) 2.61 10*3/uL 1.99-6.95 (test code = 9376347439) IMM GRAN x10^3 (test <0.03 0.00-0.06 code = 8684659566) LYMPH x10^3 (test code 1.80 10*3/uL 1.09-3.23 = 731-0) MONO x10^3 (test code 0.64 10*3/uL 0.36-1.02 = 742-7) EOS x10^3 (test code = 0.27 10*3/uL 0.06-0.53 711-2) BASO x10^3 (test code <0.03 0.01-0.09 = 704-7) Lab Interpretation Abnormal (test code = 05297-0) [facility] with [id number] 11:58:56 Test Item Value Reference Range Interpretation Comments WBC (test code = See_Comment [Automated 4590-2) message] The sy stem which generated this result transmitted reference range : 4.20 - 10.70 10*3/?L. The reference range was not used to interpret this result as normal/abnormal . RBC (test code = See_Comment [Automated 419-8) message] The sy stem which generated this [...] RDW-SD (test code = 43.9 fL 38.5-51.6 68655-1) RDW-CV (test code = 13.5 % 12.1-15.4 788-0) PLT (test code = See_Comment H [Automated 777-3) message] The sy stem which generated this result transmitted reference range : 150 - 328 10*3/ ?L. The reference r ken was not used to interpret this result as normal/abnormal . MPV (test code = 10.2 fL 9.8-13.0 34417-4) NRBC/100 WBC (test See_Comment [Automat ed code = 8908458923) message] The system which generated this result transmitted reference range : 0.0 - 10.0 /100 WBCs. The refer ence range was not u sed to interpret th is result as normal/abnormal . NRBC x10^3 (test code <0.01 See_Comment [Auto mated = 3023514432) message] The s ystem which generated this result transmitted reference range : 10*3/?L. The reference range was not used to interpret this result as normal/abnormal . GRAN MAT (NEUT) % 48.8 % (test code = 770-8) IMM GRAN % (test code 0.20 % = 1733684388) LYMPH % (test code = 33.6 % 736-9) MONO % (test code = 12.0 % 5905-5) EOS % (test code = 5.0 % 713-8) BASO % (test code = 0.4 % 706-2) GRAN MAT x10^3(ANC) 2.61 10*3/uL 1.99-6.95 (test code = 8064038978) IMM GRAN x10^3 (test <0.03 0.00-0.06 code = 3134615908) LYMPH x10^3 (test code 1.80 10*3/uL 1.09-3.23 = 731-0) MONO x10^3 (test code 0.64 10*3/uL 0.36-1.02 = 742-7) EOS x10^3 (test code = 0.27 10*3/uL 0.06-0.53 711-2) BASO x10^3 (test code <0.03 0.01-0.09 = 704-7) Lab Interpretation Abnormal (test code = 49556-1) [facility] NOW RAPID TESTING)2020-12-10 04:13:25 Test Item Value Reference Range Interpretation Comments SARS-CoV-2 Rapid ID NOW Not Detected Not Detected (test code = 36657-1) FILIBERTO (test code = FILIBERTO) ID NOW COVID-19 Assay is an isothermal nucleic acid amplification test intended for the qualitative detection of nucleic acid from SARS-CoV-2 viral RNA in nasopharyngeal (DIRECTOR CHEMISTRY) specimens. It is used under Emergency Use [...] indicated. Lab Interpretation Normal (test code = 09733-0) [facility], FLUORO, NON-SPECIFIC, UP TO 1 HOUR 2019-09-08 07:34:00Reason for exam:->Cystoscopy, direct vision internalFINAL REPORT A fluoroscopic unit was utilized for a procedure performed in the operating room. No interpretation was requested. Please refer to the operative report regarding findings. Please refer to PACS for patient radiation dose information. Signed: JR Melania, Najma [facility] Verified Date/Time: 09/08/2019 07:34:46 Reading Location: [facility] Radiology Reading Room HEPATIC FUNCTION [id number] 01:57:00 Test Item Value Reference Range Interpretation [...] = 29 U/L 6-55 347) BASIC METABOLIC [id number] 01:57:00 Test Item Value Reference Range Interpretation [...] NOT APPLICABLE FOR DIALYSIS PATIEN TS. PROTHROMBIN TIME/[id number] 01:55:00 Test Item Value Reference Range Interpretation [...] mechanical heart valves.CBC W/PLT COUNT & AUTO [id number] 01:33:00 Test Item Value Reference Range Interpretation [...] 417) IMMATURE GRANULOCYTES-RELATIVE 0 % 0-1 PERCENT (KELYA) (test code = 2801)"
--- NOTE | 2022-02-10 14:38 | EDPHYS ---
Physician Documentation [facility] Name: Vince Blackmon Age: 51 yrs Sex: Male : 1970 Arrival Date: 02/10/2022 Time: 13:50 Bed 12 Private MD: ED Physician Efra Velez HPI: 02/10 14:30 This 51 yrs old Black Male presents to ER via Ambulatory with complaints of Need Note cp to Return to Work. 14:30 The patient presents with history of thurman catheter placement by physician in [place]. cp Patient reports removing catheter himself and is requesting note to return to work. 14:30 Associated signs and symptoms: The patient has no apparent associated signs or cp symptoms. Patient denies any symptoms of urinary retention, denies pain with urination. Historical: - Allergies: 14:06 ACETAMINOPHEN; ap3 14:06 Aspirin; ap3 14:06 Ibuprofen; ap3 14:06 Toradol; ap3 - PMHx: 14:06 drug abuse - cocaine; epilepsy; Hypertension; Seizures; urinary stricture; ap3 - Immunization history:: Client reports having NOT received the Covid vaccine. - Social history:: Smoking status: Patient denies any tobacco usage or history of. ROS: 14:34 Eyes: Negative for injury, pain, redness, and discharge. cp 14:34 Constitutional: Negative for body aches, chills, fever, poor PO intake. 14:34 Cardiovascular: Negative for chest pain, palpitations. 14:34 Respiratory: Negative for cough, shortness of breath, wheezing. 14:34 Abdomen/GI: Negative for abdominal pain, nausea, vomiting, and diarrhea, constipation. 14:34 : Negative for urinary symptoms, difficulty urinating, testicular pain urine retention. 14:34 Neuro: Negative for altered mental status, headache, weakness. 14:34 All other systems are negative. Exam: 14:36 Head/Face: Normocephalic, atraumatic. cp 14:36 Constitutional: The patient appears in no acute distress, alert, awake, comfortable, non-toxic, well developed, well nourished. 14:36 Cardiovascular: Rate: tachycardic, Rhythm: regular. 14:36 Respiratory: the patient does not display signs of respiratory distress, Respirations: normal, no use of accessory muscles, no retractions, labored breathing, is not present. 14:36 Abdomen/GI: Inspection: obese Palpation: abdomen is soft and non-tender, in all quadrants. Vital Signs: 14:03 Pulse 101; Resp 17; Temp 98.2; Pulse Ox 100% ; Weight 124.74 kg; Height 5 ft. 9 in. ap3 (175.26 cm); 14:07 BP 170 / 97; ap3 14:03 Body Mass Index 40.61 (124.74 kg, 175.26 cm) ap3 MDM: 14:08 Patient medically screened. cp 14:38 Patient medically screened. cp 14:38 Data reviewed: vital signs, nurses notes, and as a result, I will discharge patient. cp Administered Medications: No medications were administered Disposition: 18:50 Co-signature as Attending Physician, Efra Velez MD. rn Disposition Summary: 02/10/22 14:38 Discharge Ordered Location: Home cp Problem: an ongoing problem cp Symptoms: have improved cp Condition: Stable cp Diagnosis - Encounter for administrative examinations, unspecified cp Followup: cp - With: Private Physician - When: 1 - 2 days - Reason: Worsening of condition Discharge Instructions: - Discharge Summary Sheet cp - Form - Return To Work cp Forms: - Medication Reconciliation Form cp - Thank You Letter cp - Antibiotic Education cp - Work release form cp - Prescription Opioid Use cp Signatures: Efra Velez MD MD rn Nato Villavicencio PA PA cp Rebecca Gibson, RN RN ap3
--- NOTE | 2022-02-10 14:38 | ER ---
Nurse's Notes [facility] Name: Vince Blackmon Age: 51 yrs Sex: Male : 1970 Arrival Date: 02/10/2022 Time: 13:50 Bed 12 Private MD: Diagnosis: Encounter for administrative examinations, unspecified Presentation: 02/10 14:03 Chief complaint: Patient states: he had a urinary catheter placed Sunday February 06, 2022. ap3 Patient reports that he removed the catheter himself this morning, because he is ready to go back to work. However the patient states his employer needs a "back to work" note in order for him to return. Patient denies having any difficulty urinating at this time. Coronavirus screen: At this time, the client does not indicate any symptoms associated with coronavirus-19. Ebola Screen: No symptoms or risks identified at this time. Initial Sepsis Screen: Does the patient meet any 2 criteria? No. Patient's initial sepsis screen is negative. Does the patient have a suspected source of infection? No. Patient's initial sepsis screen is negative. Risk Assessment: Do you want to hurt yourself or someone else? Patient reports no desire to harm self or others. Onset of symptoms was February 10, 2022. 14:03 Method Of Arrival: Ambulatory ap3 14:03 Acuity: COBY 4 ap3 Triage Assessment: 14:06 General: Appears in no apparent distress. Behavior is calm, cooperative. Pain: Denies ap3 pain. Neuro: Level of Consciousness is awake, alert, obeys commands, Oriented to person, place, time, situation, Gait is steady, Speech is normal. Cardiovascular: Patient's skin is warm and dry. Respiratory: Airway is patent Respiratory effort is even, unlabored. : Denies incontinence. Historical: - Allergies: 14:06 ACETAMINOPHEN; ap3 14:06 Aspirin; ap3 14:06 Ibuprofen; ap3 14:06 Toradol; ap3 - PMHx: 14:06 drug abuse - cocaine; epilepsy; Hypertension; Seizures; urinary stricture; ap3 - Immunization history:: Client reports having NOT received the Covid vaccine. - Social history:: Smoking status: Patient denies any tobacco usage or history of. Screenin:07 Abuse screen: Denies threats or abuse. Nutritional screening: No deficits noted. ap3 Tuberculosis screening: No symptoms or risk factors identified. Fall Risk None identified. Assessment: 14:49 Neuro: Level of Consciousness is awake, alert, obeys commands, Oriented to person, aa5 place, time, situation. Respiratory: Airway is patent Respiratory effort is even, unlabored, Respiratory pattern is regular, symmetrical. Derm: Skin is dry, Skin is normal, Skin temperature is warm. Vital Signs: 14:03 Pulse 101; Resp 17; Temp 98.2; Pulse Ox 100% ; Weight 124.74 kg; Height 5 ft. 9 in. ap3 (175.26 cm); 14:07 BP 170 / 97; ap3 14:03 Body Mass Index 40.61 (124.74 kg, 175.26 cm) ap3 ED Course: 13:50 Patient arrived in ED. rg4 13:56 Nato Villavicencio PA is PHCP. cp 13:56 Efra Velez MD is Attending Physician. cp 14:06 Triage completed. ap3 14:07 Arm band placed on left wrist. ap3 14:49 No provider procedures requiring assistance completed. Patient did not have IV access aa5 during this emergency room visit. Administered Medications: No medications were administered Medication: 14:07 VIS not applicable for this client. ap3 Outcome: 14:38 Discharge ordered by . cp 14:49 Discharged to home ambulatory. aa5 14:49 Condition: good 14:49 Discharge instructions given to patient, Instructed on discharge instructions, follow up and referral plans. Demonstrated understanding of instructions, follow-up care. 14:49 Patient left the ED. aa5 Signatures: Karely Madera RN RN aa5 Naot Villavicencio PA PA cp Garcia, Rubi rg4 Rebecca Gibson RN RN ap3
[2022-02-10 14:58] VITALS: TEMP 98.2; O2SAT 100
[2022-02-10 15:00] VITALS: BP 170/97
== END 2022-02-10 14:49 | disposition home or self-care (01) ==
LOC: ER 13:48
DX: Z02.89 Encounter for other administrative examinations (principal)
CPT/HCPCS: 99281

== ENCOUNTER 2022-07-12 08:11 | Emergency (ER) | payer SELFPAY ==
--- OUTSIDE RECORDS SUMMARY | 2022-07-12 08:15 | XMS REPORT | Continuity of Care Document ---
:1970 Author Organization [facility] t Address [address] [place] [address] Care Team Providers Name Role Phone Luis Eduardo Bella MD Attending Clinician LUIS EDUARDO BELLA Attending Clinician Unavailable Deepthi Moser NP Attending Clinician Bouchra Rizzo Attending Clinician BOUCHRA MATHEW Attending Clinician Unavailable LIBBY ALCARAZ Attending Clinician Unavailable Luis Eduardo Bella MD Admitting Clinician LUIS EDUARDO BELLA Admitting Clinician Unavailable LIBBY ALCARAZ Admitting Clinician Unavailable Payers Payer Name Policy Type Policy Number Effective Date Expiration Date S ource Problems Condition Condition Condition Status Onset Resolution Last Treating Co mments Source Name Details Category Date Date Treatment Clinician Date Urinary Urinary Disease Active Univers retention retention 4-06 ity of 00:00: [address] 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 [facility] 00:00: Medical 00 [place] No known No known Disease Unive rs active active ity of problems problems [facility] Allergies, Adverse Reactions, Alerts Allergy Allergy Status Severity Reaction(s) Onset Inactive Treating Comm ents Source Name Type Date Date Clinician Acetamin Drug Active Itching Pt gets [facility] All[facility] - [facility] 00 Center ACETAMIN Allergy Active Med Itching [facility] 1-02 [facility] 00:00: Medical 00 [place] ACETAMIN DRUG Active Swelling 2015-09 Univer s OPHEN INGREDI 0-23 ity of 00:00: [place] 00 [facility] Branch Acetamin Propensi Active Swelling 2016- Univ ers ophen ty to 0-23 ity of adverse 00:00: [place] reaction 00 Medical s Branch Social History Social Habit Start Date Stop Date Quantity Comments Source Exposure to Unable to assess Univers ity of SARS-CoV-2 [place] Medical (event) Branch History SDOH [facility] Alcohol Std Medical Cente r Drinks History SDOH [facility] Alcohol Binge Medical Kilo [facility] History SDOH [facility] Alcohol Comment Medical C enter Tobacco use and 2019-09-08 2019-09-[address] [facility] kes exposure 00:00:00 00:00:00 [facility] Center Alcohol intake 2019-09-08 2019-09-[address] [facility] 00:00:00 00:00:00 non-drinker of Medical Ce nter alcohol (finding) History SDOH 2019-09-08 2019-09-[address] [facility] Alcohol Frequency 00:00:00 00:00:00 [facility] Sex Assigned At [address] [facility] 00:00:00 00:00:00 [facility] Center Smoking Status Start Date Stop Date Source Unknown if ever smoked Universit y [facility] Never smoker [facility] Medications Ordered Filled Start Stop Current Ordering Indication Dosage Frequency Signature Comments Components Source Medication Medication Date Date Medication? Clinician (SIG) Name Name phenytoin Yes Take by [facility] [employer] sodium 4-07 mouth. ity of extended 12:02: [place] (DILANTIN 48 Medical ORAL) [place] LISINOPRIL Yes Take by [facility] [employer] ORAL 4-07 mouth. ity of 12:02: [address] phenytoin Yes Take by [facility] rs sodium 4-07 mouth. ity of extended 12:02: [place] (DILANTIN 48 Medical ORAL) [place] LISINOPRIL Yes Take by [employer] ORAL 4-07 mouth. ity of 12:02: [address] tamsulosin Yes .4mg 0.4 mg, [facility] ers (FLOMAX) 4-07 Oral, QHS, ity o f capsule 0.4 02:00: First dose [place] mg 00 on [facility] 12/10/20 at Branch 2100, Until Discontinu ed, Routine tamsulosin 2020- No .4mg 0.4 mg, Uni vers (FLOMAX) 4 04-07 Oral, QHS, ity of capsule 0.4 02:00: 14:07 First dose [place] mg 00 :50 on [facility] 12/10/20 at Branch 2100, Until Discontinu ed, Routine lactated 2020- Yes 1000mL at 75 Univer s ringers IV 4-06 mL/hr, ity of infusion 14:15: 1,000 mL, [place] 1,000 mL 00 IV Medical Infusion, Branch CONTINUOUS , Starting [facility] 12/10/20 at 0915, Until Discontinu ed, Routine, PACU lactated 2020-2020- No 1000mL at 75 Unive rs ringers IV 4 04-07 mL/hr, ity of infusion 14:15: 14:07 1,000 mL, Shay as 1,000 mL 00 :50 IV Medical Infusion, Branch CONTINUOUS , Starting 12/10/20 at 0915, Until Wed12/11/20 at 0907, Routine, PACU ibuprofen Yes 800mg 800 mg, Univ ers (IBU) 4-06 Oral, PRN, ity of tablet 800 14:14: 1 dose, [place] mg 26 Starting Medical [facility] 12/10/20 Branch at 0914, Until Discontinu ed, Routine, Pain (scale 1-3), DSU Recovery ondansetron Yes 4mg 4 mg, Slow Univers (ZOFRAN 4-06 IV Push, ity of (PF)) 14:14: Q4HPRN, 1 [place] injection 4 26 dose, Medical mg Starting Branch [facility] 12/10/20 at 0914, Until Discontinu ed, Routine, Nausea and Vomiting (N/V), DSU Recovery ibuprofen 2020- No 800mg 800 mg, Uni vers (IBU) 4- 04-07 Oral, PRN, ity of tablet 800 14:14: 14:07 1 dose, [place]ay [place] mg 26 :50 Starting Medical [facility] 12/10/20 Branch at 0914, Until Wed12/11/20 at 0907, Routine, Pain (scale 1-3), DSU Recovery ondansetron 2020- No 4mg 4 mg, Slow Univers (ZOFRAN 12-10-07 IV Push, ity of (PF)) 14:14: 14:07 Q4HPRN, 1 [place] injection 4 26 :50 dose, Medical mg Starting Branch Wed12/10/20 at 0914, Until Wed12/11/20 at 0907, Routine, Nausea and Vomiting (N/V), DSU Recovery FENTanyl PF 2020-0 Yes 25ug 25 mcg, Uni vers (SUBLIMAZE -06 Slow IV ity of (PF)) 14:08: Push, [place] injection 06 Q5MIN PRN, Medi shannon 25 mcg 4 doses, Branch Starting Wed12/10/20 at 0908, Until Discontinu ed, Routine, Pain (scale 4-6), PACU ondansetron 2020-0 Yes 4mg 4 mg, Slow Univers (ZOFRAN 12-10 IV Push, ity of (PF)) 14:08: PRN, 1 [place] injection 4 06 dose, Medical mg Starting Branch Wed12/10/20 at 0908, Until Discontinu ed, Routine, Nausea and Vomiting (N/V), PACU FENTanyl PF 2020-0 2020- No 25ug 25 mcg, Un jl (SUBLIMAZE 12-10-07 Slow IV ity o f (PF)) 14:08: 14:07 Push, [place] injection 06 :50 Q5MIN PRN, Medi shannon 25 mcg 4 doses, Branch Starting Wed12/10/20 at 0908, Until Wed12/11/20 at 0907, Routine, Pain (scale 4-6), PACU ondansetron 2020-0 2020- No 4mg 4 mg, Slow Univers (ZOFRAN 12-10-07 IV Push, ity of (PF)) 14:08: 14:07 PRN, 1 [place] injection 4 06 :50 dose, Medical mg Starting Branch Wed12/10/20 at 0908, Until Wed12/11/20 at 0907, Routine, Nausea and Vomiting (N/V), PACU sennosides 2020-0 Yes 8.6mg 8.6 mg, Uni vers (SENOKOT) 4-06 Oral, ity of tablet 8.6 14:00: DAILY, [place] mg 00 First dose Medical on Wed21 at 0900, Until Discontinu ed, Routine sennosides 2020- No 8.6mg 8.6 mg, Un jl (SENOKOT) 12-10- Oral, ity of tablet 8.6 14:00: 14:07 DAILY, [place] mg 00 :50 First dose Medical on [facility] 12/10/20 at 0900, Until Discontinu ed, Routine iohexoL Yes PRN, Univers (OMNIPAQUE 12-10 Starting ity o f 300-50 mL)) 13:59: 12/10/20 [place] injection 00 at 0859, Medica l Until [place] Discontinu ed, Routine, Intra-op iohexoL 2020- No PRN, Univers (OMNIPAQUE 12-10- Starting ity of 300-50 mL)) 13:59: 14:07 [facility] 12/10/20 [place] injection 00 :50 at 0859, Medica l Until [facility] 12/11/20 at 0907, Routine, Intra-op gabapentin Yes 300mg 300 mg, Uni vers (NEURONTIN) 12-10 Oral, TID, it y of capsule 300 13:00: First dose [place] mg 00 on [facility] 12/10/20 at Branch 0800, Until Discontinu ed, Routine gabapentin 2020- No 300mg 300 mg, Un jl (NEURONTIN) 12-10- Oral, TID, i ty of capsule 300 13:00: 14:07 First dose [place] mg 00 :50 on [facility] 12/10/20 at Branch 0800, Until Discontinu ed, Routine ondansetron Yes 4mg 4 mg, Slow Univers (ZOFRAN -06 IV Push, ity of (PF)) 07:42: Q4HPRN, [place] injection 4 07 Starting Medi shannon mg [facility] 12/10/20 Branch at 0242, Until Discontinu ed, Routine, Nausea and Vomiting (N/V) ondansetron 2020- No 4mg 4 mg, Slow Univers (ZOFRAN 12-10- IV Push, ity of (PF)) 07:42: 14:07 Q4HPRN, [place] injection 4 07 :50 Starting Medi shannon mg [facility] 12/10/20 Branch at 0242, Until Wed12/11/20 at 0907, Routine, Nausea and Vomiting (N/V) ondansetron 2020- No 4mg 4 mg, Slow Univers (ZOFRAN 12-10- IV Push, ity of (PF)) 06:15: 05:26 ONCE, 1 [place] injection 4 00 :00 dose, [facility] Med ical mg 12/10/20 at Branch 0115, NANCI morpHINE 2020- No 4mg 4 mg, Slow Un jl injection 4 12-10-06 IV Push, ity of mg 06:15: 05:26 ONCE, 1 [place] 00 :00 dose, [facility] 12/10/20 at Branch 0115, STAT phenytoin Yes Take by [facility] rs sodium 4-06 mouth. ity of extended 05:43: [place] (DILANTIN 19 Medical ORAL) [place] LISINOPRIL Yes Take by [facility] ers ORAL 4-06 mouth. ity of 05:43: [place] 19 Medical Branch hydralAZINE 2020- No 20mg 20 mg, Uni vers (APRESOLINE 12-10- Slow IV ity of ) injection 04:00: 03:20 [place], [place] 20 mg 00 :00 ONCE, 1 Medical dose, [facility] 12/09/20 at 2300, STAT
In dication: Hypertensi ve Emergency ibuprofen 2020- No [id number] 600mg Take 1 Univers 600 mg 12-10-12 tablet by ity of tablet 00:00: 04:59 mouth [place] 00 :00 every 6 Medical (six) Branch hours as needed for Pain (scale 4-6) for up to 5 days. ibuprofen 2020- No [id number] 600mg Take 1 Univers 600 mg 12-10-12 tablet by ity of tablet 00:00: 04:59 mouth [place] 00 :00 every 6 Medical (six) Branch hours as needed for Pain (scale 4-6) for up to 5 days. Missing or Yes . [facility] Non-Formula 09-08 [facility] ry 09:52: Medical Medication [address] [place] [address] levoFLOXaci 2016-1 2021- No 500mg Take 1 Un jl n 0-24 04-05 tablet by [place]ana of (LEVAQUIN) 00:00: 00:00 mouth [place] 500 mg 00 :00 every 24 Medical tablet (twenty-fo Branch ur) hours. Vital Signs Vital Name Observation Time Observation Value Comments Source Systolic blood 2020-12-10 15:00:00 159 mm[Hg] Univer sity of pressure [facility] Branch Diastolic blood 2020-12-10 15:00:00 100 mm[Hg] Unive rsity of pressure [facility] Branch Heart rate 2020-12-10 15:00:00 81 /min Universi ty of [facility] Branch Respiratory rate 2020-12-10 15:00:00 31 /min Univ ersity of [facility] Branch Oxygen saturation in 2020-12-10 15:00:00 95 /min University of Arterial blood by [facility] Pulse oximetry Branch Body temperature 2020-12-10 14:11:00 36 Alisha Univ ersity of [facility] Body weight 2020-12-10 06:46:00 124.739 kg Universi ty of [facility] Branch BMI 2020-12-10 06:46:00 40.61 kg/m2 Universi ty [facility] Branch Systolic blood 2020-12-10 10:36:00 166 mm[Hg] Univer sity of [facility] Branch Diastolic blood 2020-12-10 10:36:00 97 mm[Hg] Unive rsity of [facility] Branch Heart rate 2020-12-10 10:36:00 82 /min Universi ty of [facility] Branch Respiratory rate 2020-12-10 10:36:00 19 /min Univ ersity of [facility] Branch Oxygen saturation in 2020-12-10 10:36:00 96 /min University of Arterial blood by [facility] Pulse oximetry Branch Body weight 2020-12-10 06:46:00 124.739 kg Universi ty of [facility] Branch BMI 2020-12-10 06:46:00 40.61 kg/m2 Universi ty of [facility] Body temperature 2020-12-10 06:46:00 37.11 Alisha Univ ersity of [facility] Branch Systolic blood 2020-12-10 05:28:00 169 mm[Hg] Univer sity of pressure [facility] Branch Diastolic blood 2020-12-10 05:28:00 95 mm[Hg] [facility] of pressure [facility] Heart rate 2020-12-10 05:28:00 96 /min [facility] Respiratory rate 2020-12-10 05:28:00 18 /min [facility] Oxygen saturation in 2020-12-10 05:28:00 99 /min [facility] Arterial blood by [facility] Pulse oximetry [place] Body temperature 2020-12-09 22:57:00 37.17 Alisha [facility] Body height 2020-12-09 22:57:00 175.3 cm [facility] Body weight 2020-12-09 22:57:00 124.739 kg [facility] BMI 2020-12-09 22:57:00 40.61 kg/m2 [facility] Procedures Procedure Date / Time Performing Clinician Source Performed [place] TIME OR 2020-12-10 13:59:00 [facility] (NON-REPORTABLE) [facility] [place] TIME OR 2020-12-10 13:59:00 [facility] (NON-REPORTABLE) [facility] URINE CULTURE 2020-12-10 13:58:24 [facility] DIRECT VISUAL INTERNAL 2020-12-10 12:55:00 [facility]ardo [facility] URETHROTOMY [facility] BASIC METABOLIC PANEL 2020-12-10 11:30:00 [facility] (NA, K, CL, CO2, GLUCOSE, Medica l Branch BUN, CREATININE, CA) CBC WITH DIFF 2020-12-10 11:30:00 [facility] [place] [facility] BASIC METABOLIC PANEL 2020-12-10 11:30[facility] ([facility], K, CL, CO2, GLUCOSE, Medica l [place] BUN, CREATININE, CA) CBC WITH DIFF 2020-12-10 11:30:00 [facility] [place] [facility] COVID-19 (ID NOW RAPID 2020-12-10 02:51:00 Deepthi [facility] TESTING) [facility] CONSENT/REFUSAL FOR 2020-12-09 22:39:47 Doctor Unassigned, [facility] DIAGNOSIS AND TREATMENT [facility] EMERGENCY SERVICES 2020-12-09 05:01:00 Doctor Unassigned, [facility] AGREEMENTS AND [facility] AUTHORIZATIONS EMERGENCY SERVICES 2020-12-09 05:01:00 Doctor Unassigned, [facility] AGREEMENTS AND [facility] AUTHORIZATIONS Plan of Care Planned Activity Planned Date Details Comments Source Future Scheduled 2022-05-07 INFLUENZA VACCINE (#1) [facility] 00:00:00 [code = INFLUENZA Medical Ce nter VACCINE (#1)] Future Scheduled 2021-09-[address] [facility] Test 00:00:00 (12+) [code = Medical Center DEPRESSION SCREENING (12+)] Future Scheduled 2019 SHINGLES VACCINES ([address] [facility] Test 00:00:00 2) [code = SHINGLES Medical Center VACCINES (1 of 2)] Future Scheduled 2004 Lipid panel (procedure) [facility] Test 00:00:00 [code = 85371717] Medical Ce nter Future Scheduled 1988 DTAP/TDAP/TD VACCINES [facility] Test 00:00:00 (1 - Tdap) [code = Medical C enter DTAP/TDAP/TD VACCINES (1 - Tdap)] Future Scheduled 1987 HEPATITIS C [facility]CRE[facility]ING [facility] Test 00:00:00 [code = HEPATITIS C Medical Center SCREENING] Future Scheduled 1970-02-01 COVID-19 VACCINE (#1) [facility] Test 00:00:00 [code = COVID-[address] VACCINE (#1)] Future Scheduled 1969 CT Colonography (combo) [facility] Test 00:00:00 [code = CT Colonography [facility] (combo)] Future Scheduled 1969 Screening for malignant [facility] Test 00:00:00 neoplasm of colon Medical Ce nter (procedure) [code = 987662509] Future Scheduled 1969 Screening for malignant [facility] Test 00:00:00 neoplasm of colon Medical Ce nter (procedure) [code = 062779854] Future Scheduled 1969 Screening for malignant [facility] Test 00:00:00 neoplasm of colon Medical Ce nter (procedure) [code = 975755874] Future Scheduled 1969 Screening for malignant [facility] Test 00:00:00 neoplasm of colon Medical Ce nter (procedure) [code = 014650762] Future Scheduled 1970 Sigmoidoscopy [code = [facility] Test 00:00:00 Sigmoidoscopy] Medical Cente r Encounters Start End Encounter Admission Attending Care Care Encounter Source Date/Time Date/Time Type Type Clinicians Facility Department ID 2021-06-[address] [facility] Urology [id number] [facility] 01[facility]38 [facility] 2020-12-10 2020-12-10 [facility] [id number] Univers 01:49:00 11:24:00 Luis Eduardo Chinchillay [id number] it y of [facility] [id number] Shay as [id number] [facility] 104 Branch 2020-12-10 2020-12-10 [facility] [id number] Univers 07:30:00 08:51:00 uLis Eduardo Triana [id number] it y of [facility] [id number] Shay as [id number] [facility] 103 Branch 2020-12-10 2020-12-10 Emergency X [facility] ERT [id number] Univers 01:49:00 01:49:00 LUIS EDUARDO boudreaux [facility] 2020-12-09 2020-12-10 Emergency Deepthi Moser [facility] [id number] Univers 18:07:00 01:13:00 Bouchra [id number] [facility] [id number] [place] [facility] [id number] [facility] 084 Branch 2020-12-09 2020-12-09 [email or web address] ERT [id number] Univers 18:07:00 18:07:00 BOUCHRA boudreaux [facility] 2019-04-06 2019-04-[address] [facility] [id number] [facility] 11:15:00 11:15:00 Results Test Description Test Time Test Comments Results Result Comments Source URINE CULTURE 2020-12-11 13:21:42 Test Item Value Reference Range Interpretation Comme nts URINE CULTURE (test code = 630-4) No aerobic growth (< 1000 CFU/mL) [facility] TIME OR (NON-REPORTABLE)2020-12-10 14:09:59 These images do not require a Radiology diagnostic report.[facility] TIME OR (NON-REPORTABLE)2020-12-10 14:09:59These images do not require a Radiology diagnostic report.[facility] Metabolic Panel (NA, K, CL, CO2, Glucose, BUN, Creatinine, CA)2020-12-10 12:08:36 Test Item Value Reference Range Interpretation Comments NA (test code = 140 mmol/L 135-145 8194763468) K (test code = 4.3 mmol/L 3.5-5.0 1439668178) CL (test code = 106 mmol/L 98-108 5510540132) CO2 TOTAL (test code 28 mmol/L 23-31 = 3765414293) AGAP (test code = 2-16 9674999511) BUN (test code = 11 mg/dL 7-23 4368922818) GLUCOSE (test code = 91 mg/dL 70-110 9690253156) CREATININE (test code 1.05 mg/dL 0.60-1.25 = 1673681281) CALCIUM (test code = 9.2 mg/dL 8.6-10.6 0771905752) eGFR (test code = mL/min/1.73m2 1082662297) FILIBERTO (test code = FILIBERTO) Association of [...] or urine or abnormalities in imaging tests). [facility] Metabolic Panel (NA, K, CL, CO2, Glucose, BUN, Creatinine, CA)2020-12-10 12:08:36 Test Item Value Reference Range Interpretation Comments NA (test code = 140 mmol/L 135-145 6055515693) K (test code = 4.3 mmol/L 3.5-5.0 4648845528) CL (test code = 106 mmol/L 98-108 2728771553) CO2 TOTAL (test code 28 mmol/L 23-31 = 2002688830) AGAP (test code = 2-16 8622337303) BUN (test code = 11 mg/dL 7-23 2525340186) GLUCOSE (test code = 91 mg/dL 70-110 9355020816) CREATININE (test code 1.05 mg/dL 0.60-1.25 = 5708223278) CALCIUM (test code = 9.2 mg/dL 8.6-10.6 4717146486) eGFR (test code = mL/min/1.73m2 1198354159) FILIBERTO (test code = FILIBERTO) Association of [...] or urine or abnormalities in imaging tests). [facility] with [id number] 11:58:56 Test Item Value Reference Range Interpretation Comments WBC (test code = See_Comment [Automated 0620-2) message] The sy stem which generated this result transmitted reference range : 4.20 - 10.70 10*3/?L. The reference range was not used to interpret this result as normal/abnormal . RBC (test code = See_Comment [Automated 813-8) message] The sy stem which generated this [...] RDW-SD (test code = 43.9 fL 38.5-51.6 03085-3) RDW-CV (test code = 13.5 % 12.1-15.4 788-0) PLT (test code = See_Comment H [Automated 777-3) message] The sy stem which generated this result transmitted reference range : 150 - 328 10*3/ ?L. The reference r ken was not used to interpret this result as normal/abnormal . MPV (test code = 10.2 fL 9.8-13.0 93043-6) NRBC/100 WBC (test See_Comment [Automat ed code = 9333656994) message] The system which generated this result transmitted reference range : 0.0 - 10.0 /100 WBCs. The refer ence range was not u sed to interpret th is result as normal/abnormal . NRBC x10^3 (test code <0.01 See_Comment [Auto mated = 3556431730) message] The s ystem which generated this result transmitted reference range : 10*3/?L. The reference range was not used to interpret this result as normal/abnormal . GRAN MAT (NEUT) % 48.8 % (test code = 770-8) IMM GRAN % (test code 0.20 % = 0085763541) LYMPH % (test code = 33.6 % 736-9) MONO % (test code = 12.0 % 5905-5) EOS % (test code = 5.0 % 713-8) BASO % (test code = 0.4 % 706-2) GRAN MAT x10^3(ANC) 2.61 10*3/uL 1.99-6.95 (test code = 6761819424) IMM GRAN x10^3 (test <0.03 0.00-0.06 code = 8070988376) LYMPH x10^3 (test code 1.80 10*3/uL 1.09-3.23 = 731-0) MONO x10^3 (test code 0.64 10*3/uL 0.36-1.02 = 742-7) EOS x10^3 (test code = 0.27 10*3/uL 0.06-0.53 711-2) BASO x10^3 (test code <0.03 0.01-0.09 = 704-7) Lab Interpretation Abnormal (test code = 39665-8) [facility] with [id number] 11:58:56 Test Item Value Reference Range Interpretation [...] RDW-SD (test code = 43.9 fL 38.5-51.6 21194-1) RDW-CV (test code = 13.5 % 12.1-15.4 788-0) PLT (test code = See_Comment H [Automated 777-3) message] The sy stem which generated this result transmitted reference range : 150 - 328 10*3/ ?L. The reference r ken was not used to interpret this result as normal/abnormal . MPV (test code = 10.2 fL 9.8-13.0 03159-6) NRBC/100 WBC (test See_Comment [Automat ed code = 4502303724) message] The system which generated this result transmitted reference range : 0.0 - 10.0 /100 WBCs. The refer ence range was not u sed to interpret th is result as normal/abnormal . NRBC x10^3 (test code <0.01 See_Comment [Auto mated = 9516537470) message] The s ystem which generated this result transmitted reference range : 10*3/?L. The reference range was not used to interpret this result as normal/abnormal . GRAN MAT (NEUT) % 48.8 % (test code = 770-8) IMM GRAN % (test code 0.20 % = 3999548907) LYMPH % (test code = 33.6 % 736-9) MONO % (test code = 12.0 % 5905-5) EOS % (test code = 5.0 % 713-8) BASO % (test code = 0.4 % 706-2) GRAN MAT x10^3(ANC) 2.61 10*3/uL 1.99-6.95 (test code = 5456757161) IMM GRAN x10^3 (test <0.03 0.00-0.06 code = 1710479739) LYMPH x10^3 (test code 1.80 10*3/uL 1.09-3.23 = 731-0) MONO x10^3 (test code 0.64 10*3/uL 0.36-1.02 = 742-7) EOS x10^3 (test code = 0.27 10*3/uL 0.06-0.53 711-2) BASO x10^3 (test code <0.03 0.01-0.09 = 704-7) Lab Interpretation Abnormal (test code = 10756-6) [facility]ID [facility]2020-12-10 04:13:25 Test Item Value Reference Range Interpretation Comments SARS-CoV-2 Rapid ID NOW Not Detected Not Detected (test code = 41148-8) FILIBERTO (test code = FILIBERTO) ID NOW COVID-19 Assay is an isothermal nucleic acid amplification test intended for the qualitative detection of nucleic acid from SARS-CoV-2 viral RNA in nasopharyngeal (HOP SEPARATOR) specimens. It is used under Emergency Use [...] indicated. Lab Interpretation Normal (test code = 55595-8) [facility]O, NON-SPECIFIC, UP TO 1 HOUR 2019-09-08 07:34:00Reason for exam:->Cystoscopy, direct vision internalFINAL REPORT A fluoroscopic unit was utilized for a procedure performed in the operating room. No interpretation was requested. Please refer to the operative report regarding findings. Please refer to PACS for patient radiation dose information. Signed: JR Melania, Najma Stephens Verified Date/Time: 09/08/2019 07:34:46 Reading Location: [facility] Radiology Reading Room TIC FUNCTION [id number] 01:57:00 Test Item Value Reference Range Interpretation [...] = 29 U/L 6-55 347) BASIC METABOLIC [id number] 01:57:00 Test Item Value Reference Range Interpretation [...] NOT APPLICABLE FOR DIALYSIS PATIEN TS. PROTHROMBIN [id number] 01:55:00 Test Item Value Reference Range Interpretation [...] is 2.5-3.5 for patients wiht mechanical heart valves.CBC W/PLT COUNT & AUTO [id number] 01:33:00 Test Item Value Reference Range Interpretation [...] % 0-1 PERCENT (BEAKER) (test code = 4896)"
[2022-07-12] MEDS ORDERED: LIDOCAINE VISCOUS 2% SOLN 15 ML UDC ONE (09:06)
[2022-07-12 09:34] LABS: Absolute Lymphocytes (CBC) 1.6 K/uL (0.7-4.9); Hematocrit 39.9 % (39.6-49.0); MCV 86.6 fL (80-100); MPV 7.4 fL (7.6-11.3); RBC Red Blood Cell Count 4.61 M/uL (4.33-5.43)
--- NOTE | 2022-07-12 09:38 | EDPHYS ---
Physician Documentation [facility] Name: Vince Blackmon Age: 51 yrs Sex: Male : 1970 Arrival Date: 07/12/2022 Time: 08:13 Bed 4 Private MD: ED Physician Johnson Soto HPI: 07/12 08:24 This 51 yrs old Black Male presents to ER via Unassigned with complaints of Urinary snw Problem. 08:24 The patient presents with urinary retention. Onset: The symptoms/episode began/occurred snw acutely. Associated signs and symptoms: Pertinent positives: last voided at 2300 yest. Severity of symptoms: At their worst the symptoms were mild, moderate. The patient has experienced similar episodes in the past, chronically. The patient has not recently seen a physician. pt has not seen urologist in years. Seeks out ED for tx.. Historical: - Allergies: 08:27 ACETAMINOPHEN; ph 08:27 Aspirin; ph 08:27 Ibuprofen; ph 08:27 Toradol; ph - PMHx: 08:27 drug abuse - cocaine; epilepsy; Hypertension; Seizures; urinary stricture; ph - Immunization history:: Adult Immunizations not up to date. - Social history:: Smoking status: unknown. ROS: 08:23 Constitutional: Negative for fever, chills, and weight loss, Eyes: Negative for injury, snw pain, redness, and discharge, ENT: Negative for injury, pain, and discharge, Neck: Negative for injury, pain, and swelling, Cardiovascular: Negative for chest pain, palpitations, and edema, Respiratory: Negative for shortness of breath, cough, wheezing, and pleuritic chest pain, Abdomen/GI: Negative for abdominal pain, nausea, vomiting, diarrhea, and constipation, Back: Negative for injury and pain, MS/Extremity: Negative for injury and deformity, Skin: Negative for injury, rash, and discoloration, Neuro: Negative for headache, weakness, numbness, tingling, and seizure. 08:23 : Positive for urinary symptoms, retention, pt with long standing hx of urethral stricture. Exam: 08:23 Constitutional: This is a well developed, well nourished patient who is awake, alert, snw and in no acute distress. Head/Face: Normocephalic, atraumatic. Eyes: Pupils equal round and reactive to light, extra-ocular motions intact. Lids and lashes normal. Conjunctiva and sclera are non-icteric and not injected. Cornea within normal limits. Periorbital areas with no swelling, redness, or edema. ENT: Nares patent. No nasal discharge, no septal abnormalities noted. Tympanic membranes are normal and external auditory canals are clear. Oropharynx with no redness, swelling, or masses, exudates, or evidence of obstruction, uvula midline. Mucous membranes moist. Neck: Trachea midline, no thyromegaly or masses palpated, and no cervical lymphadenopathy. Supple, full range of motion without nuchal rigidity, or vertebral point tenderness. No Meningismus. Chest/axilla: Normal chest wall appearance and motion. Nontender with no deformity. No lesions are appreciated. Cardiovascular: Regular rate and rhythm with a normal S1 and S2. No gallops, murmurs, or rubs. Normal PMI, no JVD. No pulse deficits. Respiratory: Lungs have equal breath sounds bilaterally, clear to auscultation and percussion. No rales, rhonchi or wheezes noted. No increased work of breathing, no retractions or nasal flaring. Abdomen/GI: Soft, non-tender, with normal bowel sounds. No distension or tympany. No guarding or rebound. No evidence of tenderness throughout. Back: No spinal tenderness. No costovertebral tenderness. Full range of motion. Skin: Warm, dry with normal turgor. Normal color with no rashes, no lesions, and no evidence of cellulitis. MS/ Extremity: Pulses equal, no cyanosis. Neurovascular intact. Full, normal range of motion. Neuro: Awake and alert, GCS 15, oriented to person, place, time, and situation. Cranial nerves II-XII grossly intact. Motor strength 5/5 in all extremities. Sensory grossly intact. Cerebellar exam normal. Normal gait. Vital Signs: 08:29 BP 146 / 91 RA Sitting (auto/lg); Pulse 92; Resp 18 S; Temp 97.7(O); Pulse Ox 100% on kc6 R/A; Weight 120.2 kg (R); Height 5 ft. 9 in. (175.26 cm) (R); Pain 7/10; 09:32 BP 151 / 99; Pulse 88; Resp 18 S; Pulse Ox 100% on R/A; Pain 7/10; kc6 10:32 BP 127 / 88; Pulse 84; Resp 18 S; Pulse Ox 100% on R/A; kc6 11:30 BP 143 / 79; Pulse 85; Resp 16 S; Pulse Ox 100% on R/A; kc6 08:29 Body Mass Index 39.13 (120.20 kg, 175.26 cm) kc6 MDM: 08:15 Patient medically screened. snw 09:21 ED course: Nursing attempted to place 12 Fr coud catheter and were unable.. ms3 10:01 Data reviewed: vital signs, nurses notes. Data interpreted: Pulse oximetry: on room air snw is 100 %. Interpretation: normal. Counseling: I had a detailed discussion with the patient and/or guardian regarding: the historical points, exam findings, and any diagnostic results supporting the discharge/admit diagnosis, the presence of at least one elevated blood pressure reading (>120/80) during this emergency department visit, lab results, the need to transfer to another facility, [facility] does not immediately have the required specialist. Physician consultation: Dr Tidwell was called at 10:02, was contacted at 10:02, regarding regarding transfer, to [facility]. Special discussion:. 12:00 Response to treatment: the patient's symptoms have markedly improved after treatment, snw Pt had overflow incontinence. Then voided x 1 in urinal.. 07/12 08:50 Order name: CBC with Diff; Complete Time: 09:37 ms3 07/12 08:50 Order name: BMP; Complete Time: 09:49 ms3 07/12 08:23 Order name: Bladder Scanner; Complete Time: 08:37 snw 07/12 09:41 Order name: SARS RAPID; Complete Time: 10:34 eb 07/12 11:36 Order name: Urine Dipstick-Ancillary; Complete Time: 11:40 EDMS 07/12 08:50 Order name: Urine Dipstick-Ancillary (obtain specimen); Complete Time: 11:36 ms3 Administered Medications: No medications were administered Disposition: 17:11 Co-signature as Attending Physician, Johnson RICARDO was immediately available onsite ms3 in the emergency department for consultation in the care of the patient. Disposition Summary: 07/12/22 09:38 Transfer Ordered Reason: Higher level of care ms3 Condition: Stable ms3 Problem: new ms3 Symptoms: are unchanged ms3 Transfer Location: Other Acute Care Facility(07/12/22 09:38) ms3 Accepting Physician: Alejo Stubbs [facility](07/12/22 12:51) ph Diagnosis - Retention of urine, unspecified ms3 - Other urethral stricture ms3 Forms: - Medication Reconciliation Form ms3 - SBAR form ms3 Signatures: Dispatcher [employer] EDMS Charlette Norton, HOSPICE CARE SALES CONSULTANT-C HOSPICE CARE SALES CONSULTANT-Csnw Aylin Naranjo, RN RN ph Ashlee Andre Johnson Soto DO DO ms3 Antoinette Sanhcez, RN RN kc6 Corrections: (The following items were deleted from the chart) 09:38 09:38 Dr ms3 ms3 09:38 09:38 [facility] ms3 ms3 09:39 08:50 Walter ordered. ms3 kc6 11:45 08:50 URINALYSIS+U.LAB.BRZ ordered. EDMS EDMS 11:54 09:38 ms3 eb 12:51 11:[address] [facility] eb ph
--- NOTE | 2022-07-12 09:38 | ER ---
Nurse's Notes [facility] Name: Vince Blackmon Age: 51 yrs Sex: Male : 1970 Arrival Date: 07/12/2022 Time: 08:13 Bed 4 Private MD: Diagnosis: Retention of urine, unspecified;Other urethral stricture Presentation: 07/12 08:29 Chief complaint: Patient states: he has been unable to urinate since 11pm last night. [facility] Coronavirus screen: Vaccine status: Patient reports being unvaccinated. At this time, the client does not indicate any symptoms associated with coronavirus-19. Ebola Screen: No symptoms or risks identified at this time. Initial Sepsis Screen: Does the patient meet any 2 criteria? No. Patient's initial sepsis screen is negative. Does the patient have a suspected source of infection? No. Patient's initial sepsis screen is negative. Risk Assessment: Do you want to hurt yourself or someone else? Patient reports no desire to harm self or others. Onset of symptoms was July 11, 2022 at 23:00. 08:29 Method Of Arrival: Ambulatory [facility] 08:29 Acuity: COBY 3 kc6 Triage Assessment: 08:29 General: Appears in no apparent distress. comfortable, Behavior is calm, cooperative, kc6 appropriate for age. Pain: Complains of pain in suprapubic area Pain does not radiate. Pain currently is 7 out of 10 on a pain scale. Quality of pain is described as crampy, Pain began 1 day ago. Is continuous, Alleviated by nothing. Also complains of no other associated symptoms. EENT: No signs and/or symptoms were reported regarding the EENT system. Neuro: Walker Agitation-Sedation Scale (RASS): 0 - Alert and Calm Level of Consciousness is awake, alert, obeys commands, Oriented to person, place, time, situation, Appropriate for age. Cardiovascular: Heart tones S1 S2 present Capillary refill < 3 seconds. Respiratory: Airway is patent Trachea midline Respiratory effort is even, unlabored, Respiratory pattern is regular, symmetrical, Breath sounds are clear bilaterally. GI: No signs and/or symptoms were reported involving the gastrointestinal system. : Urine is clear, Last void was July 11, 2022. at 23:00. Reports inability to void, since yesterday at 11pm. pain in suprapubic area. Derm: No signs and/or symptoms reported regarding the dermatologic system. Skin is intact, Skin is pink, warm \\T\\ dry. Musculoskeletal: No signs and/or symptoms reported regarding the musculoskeletal system. Circulation, motion, and sensation intact. Capillary refill < 3 seconds, Range of motion: intact in all extremities. Historical: - Allergies: 08:27 ACETAMINOPHEN; ph 08:27 Aspirin; ph 08:27 Ibuprofen; ph 08:27 Toradol; ph - PMHx: 08:27 drug abuse - cocaine; epilepsy; Hypertension; Seizures; urinary stricture; ph - Immunization history:: Adult Immunizations not up to date. - Social history:: Smoking status: unknown. Screenin:36 Abuse screen: Denies threats or abuse. Denies injuries from another. Nutritional kc6 screening: No deficits noted. Tuberculosis screening: No symptoms or risk factors identified. Fall Risk No fall in past 12 months (0 pts). No secondary diagnosis (0 pts). No IV (0 pts). Ambulatory Aid- None/Bed Rest/Nurse Assist (0 pts). Gait- Normal/Bed Rest/Wheelchair (0 pts) Mental Status- Oriented to own ability (0 pts). Total Dutton Fall Scale indicates No Risk (0-24 pts). Assessment: 08:35 Reassessment: please see triage assessment. 6 09:22 Reassessment: missed attempt at coude insertion. resistance met, client tolerated kc6 poorly. Dr. Soto notified. 09:35 Reassessment: Patient appears in no apparent distress at this time. No changes from 6 previously documented assessment. Patient and/or family updated on plan of care and expected duration. Pain level reassessed. Patient is alert, oriented x 3, equal unlabored respirations, skin warm/dry/pink. 10:25 Reassessment: client voided clear, yellow urine on himself. stated, "I felt the urge to kc6 go, so I stood up and when I pushed it just came out." stated he feels "so much better." urinal provided. client verbalized understanding to call when he's voided again. 10:31 Reassessment: Patient appears in no apparent distress at this time. No changes from 6 previously documented assessment. Patient and/or family updated on plan of care and expected duration. Pain level reassessed. Patient is alert, oriented x 3, equal unlabored respirations, skin warm/dry/pink. 11:29 Reassessment: Patient appears in no apparent distress at this time. No changes from kc6 previously documented assessment. Patient and/or family updated on plan of care and expected duration. Pain level reassessed. Patient is alert, oriented x 3, equal unlabored respirations, skin warm/dry/pink. client notified that he will be transferred to [facility]. Verbalized understanding. Vital Signs: 08:29 BP 146 / 91 RA Sitting (auto/lg); Pulse 92; Resp 18 S; Temp 97.7(O); Pulse Ox 100% on kc6 R/A; Weight 120.2 kg (R); Height 5 ft. 9 in. (175.26 cm) (R); Pain 7/10; 09:32 BP 151 / 99; Pulse 88; Resp 18 S; Pulse Ox 100% on R/A; Pain 7/10; kc6 10:32 BP 127 / 88; Pulse 84; Resp 18 S; Pulse Ox 100% on R/A; kc6 11:30 BP 143 / 79; Pulse 85; Resp 16 S; Pulse Ox 100% on R/A; kc6 08:29 Body Mass Index 39.13 (120.20 kg, 175.26 cm) kc6 ED Course: 08:13 Patient arrived in ED. rg4 08:15 Charlette Norton FNP-C is PHCP. snw 08:15 Johnson Soto DO is Attending Physician. snw 08:28 Arm band placed on Patient placed in an exam room, on a stretcher. ph 08:29 Antoinette Sanchez, RN is Primary Nurse. kc6 08:31 Triage completed. kc6 08:37 Bladder scan completed. 409 mL. kc6 09:21 BMP Sent. kc6 09:21 CBC with Diff Sent. kc6 09:21 Inserted saline lock: 20 gauge in left antecubital area, using aseptic technique. Blood kc6 collected. 09:40 Transfer initiated with EZIO Sandoval from the [facility] [place]. eb 09:49 SARS RAPID Sent. ph 10:[address] Perez the hospitalist satellite project site monitor for [facility] with Charlette Quintero for patient eb transfer consultation. 10:42 administrative approval given by EZIO Sandoval/ patient has been accepted to [facility] 4th floor room 407/ Dr. Fabian Perez has accepted the patient in transfer. report to be called to [phone]. 13:05 No provider procedures requiring assistance completed. Patient transferred, IV remains kc6 in place. 13:06 Patient has correct armband on for positive identification. Placed in gown. Bed in low kc6 position. Call light in reach. Side rails up X 1. Administered Medications: No medications were administered Medication: 09:10 VIS not applicable for this client. ph Outcome: 09:38 ER care complete, transfer ordered by MD. ms3 12:51 Patient left the ED. ph 13:05 Transferred by ground EMS Transfer form completed. Note: [facility] kc6 13:05 Condition: stable 13:05 Instructed on the need for transfer. Signatures: Charlette Norton, CAR CLEANING SUPERVISOR-C CAR CLEANING SUPERVISOR-Csnw Aylin Naranjo, RN RN Dior Garcia rg4 Ashlee Andre Marcus, DO DO ms3 Antoinette Sanchez, RN RN kc6 Corrections: (The following items were deleted from the chart) 08:36 08:36 Fall Risk No fall in past 12 months (0 pts). No secondary diagnosis (0 pts). No kc6 IV (0 pts). Ambulatory Aid- None/Bed Rest/Nurse Assist (0 pts). Gait- Normal/Bed Rest/Wheelchair (0 pts) Mental Status- Oriented to own ability (0 pts). kc6 10:32 10:25 Reassessment: client voided clear, yellow urine on himself. stated, "I felt the kc6 urge to go, so I stood up and when I pushed it just came out." urinal provided. client verbalized understanding to call when he's voided again. kc6 10:55 10:[address] Cannon the hospitalist satellite project site monitor for [facility] with Charlette Quintero for eb patient transfer consultation. 11:45 11:36 URINALYSIS+U.LAB.BRZ drawn and sent. [facility] EDMS
[2022-07-12 09:40] LABS: Potassium 4.1 mmol/L (3.5-5.1)
[2022-07-12 10:32] LABS: SARS-CoV-2 Antigen Rapid Res Negative (Negative)
[2022-07-12 11:36] LABS: Urine Blood 1+ (Negative); Urine Glucose Negative (Negative); Urine Protein 1+ (Negative)
[2022-07-12 13:02] VITALS: TEMP 97.7; O2SAT 100
[2022-07-12 13:17] VITALS: BP 143/79
== END 2022-07-12 12:51 ==
LOC: ER 08:11
DX: R33.9 Retention of urine, unspecified (principal); N35.819 Other urethral stricture, male, unspecified site
CPT/HCPCS: 36415; 80048; 81003; 85025; 87811; 99285

== ENCOUNTER 2023-02-13 08:57 | Emergency (ER) | payer SELFPAY ==
--- OUTSIDE RECORDS SUMMARY | 2023-02-13 09:03 | XMS REPORT | Continuity of Care Document ---
:1970 Author Organization [facility] t Address [address] [place] [address] [place] [id number] Care Team Providers Name Role Phone No, Pcp [facility] Primary Care Physician Unavailable Daniella Rivers RN Attending Clinician DREW SCHULZ Attending Clinician Unavailable Drew Schulz MD Attending Clinician Rahul Diaz MD Attending Clinician Edu Reis MD Attending Clinician [phone] Luis Eduardo Bella MD Attending Clinician Tri Mendoza LVN Attending Clinician Doctor Unassigned, [place] Attending Clinician Unavailable TASHA CAGE Attending Clinician Unavailable Tasha Cage DO Attending Clinician Glenan Mary MD Attending Clinician [phone] GLENNA MARY Attending Clinician Unavailable LUIS EDUARDO BELLA Attending Clinician Unavailable Deepthi Moser NP Attending Clinician Bouchra Rizzo Attending Clinician BOUCHRA MATHEW Attending Clinician Unavailable LIBBY ALCARAZ Attending Clinician Unavailable DREW SCHULZ Admitting Clinician Unavailable Drew Schulz MD Admitting Clinician GLENNA MARY Admitting Clinician Unavailable Luis Eduardo Bella MD Admitting Clinician LUIS EDUARDO BELLA Admitting Clinician Unavailable LIBBY ALCARAZ Admitting Clinician Unavailable Payers Payer Name Policy Type Policy Number Effective Date Expiration Date Pierre wolf [facility] [id number] 2020 SNF 00:00:00 Problems Condition Condition Condition Status Onset Resolution Last Treating Co mments Source Name Details Category Date Date Treatment Clinician Date Obesity Obesity Disease Active Univers (BMI (BMI 2-10 ity of 30-39.9) 30-39.9) 00:00: [address] Acute Acute Disease Active 2021-[address] [facility]06 [facility] obstructio obstructio 00:00: Ri dical n n [place] Urinary Urinary Disease Active Univers retention retention 4-06 ity of 00:00: [address] 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 00:[facility]: Medical 00 [place] No known No known Disease Unive rs active active ity of problems problems [facility] Allergies, Adverse Reactions, Alerts Allergy Allergy Status Severity Reaction(s) Onset Inactive Treating Comm ents Source Name Type Date Date Clinician IBUPROFE DRUG Active Hives Univers N INGREDI 2-10 ity of 00:00: [address] Ibuprofe Propensi Active Hives Univer s n ty to 2-10 ity of adverse 00:00: [place] reaction 00 [facility] ASPIRIN Allergy Active High Hives 2021-[address] [facility] [address] 1-06 [facility] 00:[facility] Medical 00 Center IBUPROFE Allergy Active High Swelling 2021-09 [facility] Medical [facility] Center KETOROLA Allergy Active High Hives 2021-[address] [facility] C 1-06 [facility] 00:00: Medical 00 Center MELOXICA Allergy Active High Hives 2021-[address] [facility] M 1-06 [facility] 00:00: Medical 00 Center PSEUDOEP Allergy Active High Hives 2021-[address] [facility] HEDRINE 1-06 [facility] 00:[facility]: Medical 00 Center Aspirin Drug Active Hives 2021-[address] [facility] Allergy 06 [facility] 00:[facility]: Medical 00 Center Ibuprofe Propensi Active Swelling 2021-[address] [facility] n ty to 09-11 [facility] adverse 00:00: Medical reaction 00 Center s Ketorola Propensi Active Hives 2021-[address] c ty to 09-11 [facility] adverse 00:00: Medical reaction 00 Center s Meloxica Propensi Active Hives 2021-[address] m ty to 09-11 [facility] adverse 00:00: Medical reaction 00 Center s Pseudoep Propensi Active Hives 2021-[address] hedrine ty to 09-11 [facility] adverse 00:00: Medical reaction 00 Center s ACETAMIN Allergy Active High Hives 2019-0 [facility] OPHEN 09-07 00:00: 00 Acetamin Drug Active Hives 2020-[address] [facility] ophen Allergy 09-07 itchy [facility] 00:[facility]: Medical 00 Center ACETAMIN DRUG Active Hives 2015-09 Univers OPHEN INGREDI 0-23 ity of 00:00: [place] 00 Medical Branch Acetamin Propensi Active Swelling 2015-09 Univ ers ophen ty to 0-23 ity of adverse 00:00: [place] reaction 00 Medical s Branch Social History Social Habit Start Date Stop Date Quantity Comments Source History SDOH [facility] Alcohol Comment Medical C enter History of tobacco Cigarette Smoker University of use [place] [facility] History SDOH Social Unive rsity of Connections [facility] Med ical Together Branch History SDOH Social Unive rsity of Connections [facility] Medical Branch History SDOH Social Unive rsity of Connections [place] [facility] Membership Branch History SDOH Social Unive rsity of Connections [place] [facility] Meetings Branch History SDOH [facility] Alcohol Std Drinks Medica l Center History SDOH [facility] Alcohol Binge Medical Kilo ter History SDOH [facility] Transport [facility]Med Medical [facility] Exposure to 2022-10-06 2022-10-16 Not sure University of SARS-CoV-2 (event) 00:00:00 01:08:00 [place] [facility] History SDOH Social 2022-10-16 2022-10-16 3 Unive rsity of Connections Phone 00:00:00 00:00:00 [place] edical Branch History SDOH Social 2022-10-16 2022-10-16 5 Unive rsity of Connections Living 00:00:00 00:00:00 [place] [facility] History SDOH 2022-10-16 2022-10-16 0 University o f Physical Activity 00:00:00 00:00:00 [place] M edical DPW Branch History SDOH 2022-10-16 2022-10-16 0 University o f Physical Activity 00:00:00 00:00:00 [place] M edical MPS Branch History SDOH 2022-10-16 2022-10-16 5 University o f Financial 00:00:00 00:00:00 [place] [facility] History SDOH Food 2022-10-16 2022-10-16 1 Univers ity of Worry 00:00:00 00:00:00 [place] [facility] History SDKS Food 2022-10-16 2022-10-16 1 Univers ity of Scarcity 00:00:00 00:00:[address] [facility] Tobacco use and 2022-10-16 2022-10-16 Smokeless Universit y of exposure 00:00:00 00:00:00 tobacco non-user [facility] dical Branch History [facility] 2022-07-12 2022-07-[address] [facility] Transport Med 00:00:00 00:00:[address] History [facility] 2022-07-12 2022-07-[address] [facility] Housing Unable to 00:00:00 00:00:00 Medical Center Pay History [facility] 2022-07-12 2022-07-[address] [facility] Housing Places 00:00:00 00:00:00 Medical Ce nter Lived History [facility] 2022-07-12 2022-07-[address] [facility] Housing Homeless 00:00:00 00:00:00 Medical Center Last Year Alcohol intake 2019-09-08 2019-09-[address] [facility] 00:00:00 00:00:00 non-drinker of Medical Ce nter alcohol (finding) History [facility] 2019-09-08 2019-09-[address] [facility] Alcohol Frequency 00:00:00 00:00:00 Medical Center Sex Assigned At [address] [facility] 00:00:00 00:00:00 Medical Center Smoking Status Start Date Stop Date Source Smokes tobacco daily 2022-10-16 00:00:[address] [facility] Unknown if ever smoked Universit y [facility] Never smoked tobacco [facility] Medications Ordered Filled Start Stop Current Ordering Indication Dosage Frequency Signature Comments Components Source Medication Medication Date Date Medication? Clinician (SIG) Name Name traMADoL Yes 50mg 50 mg, Univers (ULTRAM) 2-10 Oral, PRN, ity o f tablet 50 20:16: 1 dose, [place] mg 16 Starting Medical on Wed Branch 10/16/22 at 1416, Until Discontinu ed, Routine, Pain (scale 7-10), DSU Recovery traMADoL Yes 50mg 50 mg, Univers (ULTRAM) 2-10 Oral, PRN, ity o f tablet 50 20:16: 1 dose, [place] mg 16 Starting Medical on Wed10/16/22 at 1416, Until Discontinu ed, Routine, Pain (scale 4-6), DSU Recovery traMADoL Yes 50mg 50 mg, Univers (ULTRAM) 2-10 Oral, PRN, ity o f tablet 50 20:16: 1 dose, [place] mg 16 Starting Medical on Wed Branch 10/16/22 at 1416, Until Discontinu ed, Routine, Pain (scale 1-3), DSU Recovery ondansetron Yes 4mg 4 mg, Slow Univers (ZOFRAN 2-10 IV Push, ity of (PF)) 20:16: Q4HPRN, 1 [place] injection 4 16 dose, Medical mg Starting Branch on Wed10/16/22 at 1416, Until Discontinu ed, Routine, Nausea and Vomiting (N/V), DSU Recovery traMADoL 2022- No 50mg 50 mg, Univer s (ULTRAM) 10-16 Oral, PRN, ity of tablet 50 20:16: 03:24 1 dose, [place] mg 16 :45 Starting Medical on Wed10/16/22 at 1416, Until Wed10/16/22 at 2124, Routine, Pain (scale 7-10), DSU Recovery traMADoL 2022- No 50mg 50 mg, Univer s (ULTRAM) 10-1611 Oral, PRN, ity of tablet 50 20:16: 03:24 1 dose, [place] mg 16 :45 Starting Medical on Wed Branch 10/16/22 at 1416, Until Wed10/16/22 at 2123, Routine, Pain (scale 4-6), DSU Recovery traMADoL 2022- No 50mg 50 mg, Univer s (ULTRAM) 10-1611 Oral, PRN, ity of tablet 50 20:16: 03:24 1 dose, [place] mg 16 :45 Starting Medical on Wed Branch 10/16/22 at 1416, Until Wed10/16/22 at 2123, Routine, Pain (scale 1-3), DSU Recovery ondansetron 2022- No 4mg 4 mg, Slow Univers (ZOFRAN 10-1611 IV Push, ity of (PF)) 20:16: 03:24 Q4HPRN, 1 [place] injection 4 16 :45 dose, Medical mg Starting Branch on Wed10/16/22 at 1416, Until Wed10/16/22 at 2123, Routine, Nausea and Vomiting (N/V), DSU Recovery lactated 2022-0 Yes 1000mL at 75 Univer s ringers IV 2-10 mL/hr, ity of infusion 20:15: 1,000 mL, [place] 1,000 mL 00 IV Medical Infusion, Branch CONTINUOUS , Starting on Wed10/16/22 at 1415, Until Discontinu ed, Routine, PACU lactated 2022-0 2022- No 1000mL at 75 Unive rs ringers IV 2-11 mL/hr, ity of infusion 20:15: 03:24 1,000 mL, [place] as 1,000 mL 00 :45 IV Medical Infusion, Branch CONTINUOUS , Starting on Wed10/16/22 at 1415, Until Wed10/16/22 at 2123, Routine, PACU HYDROmorphO 2022-0 Yes .2mg 0.2 mg, Uni vers ne 2-10 Slow IV ity of (DILAUDID) 20:09: Push, [place] injection 19 Q5MIN PRN, Medi shannon 0.2 mg 10 doses, Branch Starting on Wed10/16/22 at 1409, Until Discontinu ed, Routine, Pain (scale 7-10), PACU
Us e approved by (Faculty): PACU USE -ANESTHESI A SERVICE-HY DROMORPHON E INJECTIONS FENTanyl PF 2022-0 Yes 25ug 25 mcg, Uni vers (SUBLIMAZE 2-10 Slow IV ity of (PF)) 20:09: Push, [place] injection 19 Q5MIN PRN, Medi shannon 25 mcg 4 doses, Branch Starting on Wed10/16/22 at 1409, Until Discontinu ed, Routine, Pain (scale 4-6), PACU proMETHazin 2022-0 Yes 12.5mg 12.5 mg, Univers e 2-10 IV ity of (PHENERGAN) 20:09: Piggyback, [place] 12.5 mg in 19 at 200 Medical NS 50 mL IV mL/hr Branch piggyback Administer (CNR) over 15 Minutes, PRN, 1 dose, Starting on Wed10/16/22 at 1409, Until Discontinu ed, Routine, Nausea and Vomiting (N/V), PACU HYDROmorphO 2022-0 2022- No .2mg 0.2 mg, Un jl ne 10-16 Slow IV ity of (DILAUDID) 20:09: 03:24 Push, [place] injection 19 :45 Q5MIN PRN, Medi shannon 0.2 mg 10 doses, Branch Starting on Wed10/16/22 at 1409, Until Wed10/16/22 at 2124, Routine, Pain (scale 7-10), PACU
Us e approved by (Faculty): PACU USE -ANESTHESI A SERVICE-HY DROMORPHON E INJECTIONS FENTanyl PF 2022-0 2022- No 25ug 25 mcg, Un jl (SUBLIMAZE 10-16 Slow IV ity o f (PF)) 20:09: 03:24 Push, [place] injection 19 :45 Q5MIN PRN, Medi shannon 25 mcg 4 doses, Branch Starting on Wed10/16/22 at 1409, Until Wed10/16/22 at 2124, Routine, Pain (scale 4-6), PACU proMETHazin 2022-0 2023- No 12.5mg 12.5 mg, Univers e 10-16-11 IV ity of (PHENERGAN) 20:09: 03:24 Piggyback, [place] 12.5 mg in 19 :45 at 200 Medical NS 50 mL IV mL/hr Branch piggyback Administer (CNR) over 15 Minutes, PRN, 1 dose, Starting on Wed10/16/22 at 1409, Until Wed10/16/22 at 2124, Routine, Nausea and Vomiting (N/V), PACU phenylephri 2022- No Slow IV Un jl ne 10-16-10 Push, ONCE ity of (VAZCULEP) 19:42: 20:24 INTRA [place] injection 00 :09 PROCEDURE, Medi shannon Starting Branch on Wed10/16/22 at 1342, Until Wed10/16/22 at 1424, Routine, Intra-op HYDROmorphO 2022- No Slow IV Un jl ne 10-16- Push, ONCE ity of (DILAUDID) 19:42: 20:24 INTRA [place] injection 00 :09 PROCEDURE, Medi shannon Starting Branch on Wed10/16/22 at 1342, Until Wed10/16/22 at 1424, Routine, Intra-op ePHEDrine 2022- No Slow IV Univ ers 25 mg/5 mL 10-16 Push, ONCE it y of (5 mg/mL) 19:40: 20:24 INTRA [place] syringe 00 :09 PROCEDURE, Medica l Starting Branch on Wed10/16/22 at 1340, Until Wed10/16/22 at 1424, Routine, Intra-op gentamicin 2022- No IV Univer s in NS 80 10-16 Piggyback, ity of mg/100 mL 19:20: 20:24 ONCE INTRA [place] RTU IV 00 :09 PROCEDURE, Medical piggyback Starting Branch on Wed10/16/22 at 1320, Until Wed10/16/22 at 1424, Administer over 30 Minutes, Intra-op phenytoin Yes Take by Unive rs sodium 2-10 mouth. ity of extended 19:19: [place] (DILANTIN 39 Medical ORAL) Branch LISINOPRIL Yes Take by Univ ers ORAL 2-10 mouth. ity of 19:19: [place] 39 Medical Branch phenytoin Yes Take by Unive rs sodium 2-10 mouth. ity of extended 19:19: [place] (DILANTIN 39 Medical ORAL) Branch LISINOPRIL 2023-0 Yes Take by Univ ers ORAL 2-10 mouth. ity of 19:19: [place] [address] Medical Branch phenytoin 0 Yes Take by Unive rs sodium 2-10 mouth. ity of extended 19:19: [place] (DILANTIN 39 Medical ORAL) Branch LISINOPRIL 0 Yes Take by Univ ers ORAL 2-10 mouth. ity of 19:19: [address] Branch phenytoin 0 Yes Take by Unive rs sodium 2-10 mouth. ity of extended 19:19: [place] (DILANTIN 39 Medical ORAL) Branch LISINOPRIL Yes Take by Univ ers ORAL 2-10 mouth. ity of 19:19: [place] [address] Medical Branch phenytoin 0 Yes Take by Unive rs sodium 2-10 mouth. ity of extended 19:19: [place] (DILANTIN 39 Medical ORAL) Branch LISINOPRIL Yes Take by Univ ers ORAL 2-10 mouth. ity of 19:19: [address] Branch phenytoin Yes Take by Unive rs sodium 2-10 mouth. ity of extended 19:19: [place] (DILANTIN 39 Medical ORAL) Branch LISINOPRIL Yes Take by Univ ers ORAL 2-10 mouth. ity of 19:19: [address] Branch propofoL IV 2022- No Slow IV Un jl infusion 2-06 07-10 Push, ONCE ity of 19:17: 20:24 INTRA [place] 00 :09 PROCEDURE, Medical Starting Branch on Wed10/16/22 at 1317, Until Wed10/16/22 at 1424, Routine, Intra-op FENTanyl PF 2022- No Slow IV Un jl (SUBLIMAZE 10-16-10 Push, ONCE it y of (PF)) 19:12: 20:24 INTRA [place] injection 00 :09 PROCEDURE, Medi shannon Starting Branch on Wed10/16/22 at 1312, Until Discontinu ed, Routine, Intra-op midazolam 2022- No IV Push, Uni vers (VERSED) 2-06 07-10 ONCE INTRA ity of injection 19:03: 20:24 PROCEDURE, [place] 00 :09 Starting Medical on Wed Branch 10/16/22 at 1303, Until Discontinu ed, Routine, Intra-op lactated 0 3- No IV Univers ringers IV 2-10 -10 Infusion, ity of infusion 19:00: 20:24 CONTINUOUS [place] 00 :09 PRN, Medical Starting Branch on Wed10/16/22 at 1300, Until Wed10/16/22 at 1424, Routine, Intra-op phenytoin 0 Yes Take by Unive rs sodium 2-10 mouth. ity of extended 14:18: [place] (DILANTIN 43 Medical ORAL) Branch LISINOPRIL Yes Take by Univ ers ORAL 2-10 mouth. ity of 14:18: [place] [address] Medical Branch ondansetron 0 Yes 4mg 4 mg, Slow Univers (ZOFRAN 2-10 IV Push, ity of (PF)) 09:18: Q4HPRN, [place] injection 4 22 Starting Medi shannon mg on Fri Branch 10/16/22 at 0318, Until Discontinu ed, Routine, Nausea and Vomiting (N/V) ondansetron 2022-0 2022- No 4mg 4 mg, Slow Univers (ZOFRAN 2-10 02-11 IV Push, ity of (PF)) 09:18: 03:24 Q4HPRN, [place] injection 4 22 :45 Starting Medi shannon mg on Fri Branch 10/16/22 at 0318, Until Wed10/16/22 at 2124, Routine, Nausea and Vomiting (N/V) ondansetron 2022-0 2022- No 4mg 4 mg, Slow Univers (ZOFRAN 2-10 02-10 IV Push, ity of (PF)) 05:00: 04:57 ONCE, 1 [place] injection 4 00 :00 dose, On Medi shannon mg María 10/15/22 Branch at 2300, NANCI morpHINE (4 2022-0 202- No 4mg 4 mg, Slow Univers mg/mL) 2-10 02-10 IV Push, ity of injection 4 05:00: 04:57 ONCE, 1 [place] mg 00 :00 dose, On Medical María 10/15/22 Branch at 2300, STAT phenytoin 0 Yes Take by Unive rs sodium 2-10 mouth. ity of extended 04:32: [place] (DILANTIN 54 Medical ORAL) Branch LISINOPRIL 2023-0 Yes Take by Univ ers ORAL 2-10 mouth. ity of 04:32: [place] 54 Medical Branch tamsulosin 2023-0 2023- No [id number] .4mg Take 1 Univers 0.4 mg 24 2-10 -12 capsule by ity of hr capsule 00:00: 04:59 mouth in [place] 00 :00 the Medical morning Branch for 60 days. tamsulosin 2023-0 3- No [id number] .4mg Take 1 Univers 0.4 mg 24 2-10 -12 capsule by ity of hr capsule 00:00: 04:59 mouth in [place] 00 :00 the Medical morning Branch for 60 days. tamsulosin 2023-0 3- No [id number] .4mg Take 1 Univers 0.4 mg 24 2-10 -12 capsule by ity of hr capsule 00:00: 04:59 mouth in [place] 00 :00 the Medical morning Branch for 60 days. tamsulosin 2023-0 2022- No [id number] .4mg Take 1 Univers 0.4 mg 24 2-10 -12 capsule by ity of hr capsule 00:00: 04:59 mouth in [place] 00 :00 the Medical morning Branch for 60 days. tamsulosin 2023-0 2022- No [id number] .4mg Take 1 Univers 0.4 mg 24 2-10 -12 capsule by ity of hr capsule 00:00: 04:59 mouth in [place] 00 :00 the Medical morning Branch for 60 days. tamsulosin 2023-0 3- No [id number] .4mg Take 1 Univers 0.4 mg 24 2-10 -12 capsule by ity of hr capsule 00:00: 04:59 mouth in [place] 00 :00 the Medical morning Branch for 60 days. sulfamethox 2023-0 3- No [id number] 1{tbl} Take 1 Univers azole-trime 2-10 02-16 tablet by it y of thoprim 00:00: 05:59 mouth in [place] (BACTRIM 00 :00 the Medical ) 800-160 morning Branc h mg per and 1 tablet tablet in the evening. Do all this for 5 days. sulfamethox 2023-0 3- No [id number] 1{tbl} Take 1 Univers azole-trime 2-10 02-16 tablet by it y of thoprim 00:00: 05:59 mouth in [place] (BACTRIM 00 :00 the Medical DS) 800-160 morning Branc h mg per and 1 tablet tablet in the evening. Do all this for 5 days. sulfamethox 2022-0 3- No [id number] 1{tbl} Take 1 Univers azole-trime 2-10 02-16 tablet by it y of thoprim 00:00: 05:59 mouth in [place] (BACTRIM 00 :00 the Medical DS) 800-160 morning Branc h mg per and 1 tablet tablet in the evening. Do all this for 5 days. sulfamethox 2022-0 3- No [id number] 1{tbl} Take 1 Univers azole-trime 2-10 02-16 tablet by it y of thoprim 00:00: 05:59 mouth in [place] (BACTRIM 00 :00 the Medical DS) 800-160 morning Branc h mg per and 1 tablet tablet in the evening. Do all this for 5 days. sulfamethox 2022-0 3- No [id number] 1{tbl} Take 1 Univers azole-trime 2-10 02-16 tablet by it y of thoprim 00:00: 05:59 mouth in [place] (BACTRIM 00 :00 the Medical DS) 800-160 morning Branc h mg per and 1 tablet tablet in the evening. Do all this for 5 days. phenytoin 2021-09 Yes 100mg QD Take [address] [facility] (DILANTIN) 1-07 mg by [facility] 100 MG ER 12:37: mouth Medical capsule 14 daily. [place] phenytoin 2021-09 Yes 200mg QD Take [address] extended 1-07 mg by [facility] (DILANTIN) 12:37: mouth Medica l 200 MG ER 14 nightly. [place] capsule NIFEDIPINE 2021-09 Yes QD Take by [facility] ORAL 1-07 mouth [facility] 12:37: daily. [facility] 14 [place] phenytoin 2021-09 Yes 200mg QD Take [address] extended 1-07 mg by [facility] (DILANTIN) 12:37: mouth Medica l 200 MG ER 14 nightly. [place] capsule NIFEDIPINE 2021-09 Yes QD Take by [facility] ORAL 1-07 mouth [facility] 12:37: daily. [facility] 14 [place] phenytoin 2021-09 Yes 100mg QD Take [address] (DILANTIN) 1-07 mg by [facility] 100 MG ER 12:37: mouth Medical capsule 14 daily. [place] phenytoin 2021-09 Yes 200mg QD Take [address] extended 1-07 mg by [facility] (DILANTIN) 12:37: mouth Medica l 200 MG ER 14 nightly. [place] capsule NIFEDIPINE 2021-09 Yes QD Take by [facility] ORAL 1-07 mouth [facility] 12:37: daily. Medical 14 [place] phenytoin 2021-09 Yes 100mg QD Take [address] (DILANTIN) 1-07 mg by [facility] 100 MG ER 12:37: mouth Medical capsule 14 daily. [place] phenytoin 2021-09 Yes 200mg QD Take [address] extended 1-07 mg by [facility]ukes (DILANTIN) 12:37: mouth Medica l 200 MG ER 14 nightly. [place] capsule NIFEDIPINE 2021-09 Yes QD Take by [facility] ORAL 1-07 mouth [facility] 12:37: daily. Medical 14 [place] phenytoin 2021-09 Yes 100mg QD Take [address] (DILANTIN) 1-07 mg by [facility] 100 MG ER 12:37: mouth Medical capsule 14 daily. [place] phenytoin 2021-09- No 100mg Q.5D Take [address] (DILANTIN) 1-06 11-06 mg by [facility] 50 mg 14:53: 00:00 mouth 2 Medical tablet 30 :00 (two) Center times daily. phenytoin 2021-09- No 100mg Q.5D Take [address] (DILANTIN) 1-06 11-06 mg by [facility] 50 mg 14:53: 00:00 mouth 2 Medical tablet 30 :00 (two) Center times daily. phenytoin 2021-09- No 100mg Q.5D Take [address] (DILANTIN) 1-06 11-06 mg by [facility] 50 mg 14:53: 00:00 mouth 2 Medical tablet 30 :00 (two) Center times daily. phenytoin 2021-09- No 100mg Q.5D Take [address] (DILANTIN) 1-06 11-06 mg by [facility] 50 mg 14:53: 00:00 mouth 2 Medical tablet 30 :00 (two) Center times daily. Missing or 2021-09- No . [facility] Non-Formula 09-11 [facility] ry 14:53: 00:00 Medical Medication 27 :00 Center Missing or 2021-09- No . [facility] Non-Formula 09-11 [facility] ry 14:53: 00:00 Medical Medication 27 :00 Center Missing or 2021-09- No . [facility] Non-Formula 09-11 [facility] ry 14:53: 00:00 Medical Medication 27 :00 Center Missing or 2021-09- No . [facility] Non-Formula 09-11 [facility] ry 14:53: 00:00 Medical Medication 27 :00 Center phenytoin Yes Take by Unive rs sodium 4-07 mouth. ity of extended 12:02: [place] (DILANTIN 48 Medical ORAL) [place] LISINOPRIL Yes Take by Univ ers ORAL 4-07 mouth. ity of 12:02: [address] phenytoin Yes Take by Unive rs sodium 4-07 mouth. ity of extended 12:02: [place] (DILANTIN 48 Medical ORAL) [place] LISINOPRIL Yes Take by Univ ers ORAL 4-07 mouth. ity of 12:02: [address] phenytoin Yes Take by Unive rs sodium 4-07 mouth. ity of extended 07:02: [place] (DILANTIN 48 Medical ORAL) [place] LISINOPRIL Yes Take by Univ ers ORAL 4-07 mouth. ity of 07:02: [address] tamsulosin Yes .4mg 0.4 mg, Univ ers (FLOMAX) 4-07 Oral, QHS, ity o f capsule 0.4 02:00: First dose [place] mg 00 on [facility] 12/10/20 at Branch 2100, Until Discontinu ed, Routine tamsulosin 2020- No .4mg 0.4 mg, Uni vers (FLOMAX) 4-07 04-07 Oral, QHS, ity of capsule 0.4 02:00: 14:07 First dose [place] mg 00 :50 on [facility] 12/10/20 at Branch 2100, Until Discontinu ed, Routine lactated Yes 1000mL at 75 Univer s ringers IV 4-06 mL/hr, ity of infusion 14:15: 1,000 mL, [place] 1,000 mL 00 IV Medical Infusion, Branch CONTINUOUS , Starting e 12/10/20 at 0915, Until Discontinu ed, Routine, PACU lactated 2020- No 1000mL at 75 Unive rs ringers [...] No 4mg 4 mg, Slow Univers (ZOFRAN 4- 04-07 IV Push, ity of (PF)) 14:14: 14:07 Q4HPRN, 1 [place] injection 4 26 :50 dose, Medical mg Starting Branch Wed12/10/20 at 0914, Until Wed12/11/20 at 0907, Routine, Nausea and Vomiting (N/V), DSU Recovery FENTanyl PF 2021-0 Yes 25ug 25 mcg, Uni vers (SUBLIMAZE 4-06 Slow IV ity of (PF)) 14:08: Push, [place] injection 06 Q5MIN PRN, Medi shannon 25 mcg 4 doses, Branch Starting Wed12/10/20 at 0908, Until Discontinu ed, Routine, Pain (scale 4-6), PACU ondansetron 0 Yes 4mg 4 mg, Slow Univers (ZOFRAN 4-06 IV Push, ity of (PF)) 14:08: PRN, 1 [place] injection 4 06 dose, Medical mg Starting Branch Wed12/10/20 at 0908, Until Discontinu ed, Routine, Nausea and Vomiting (N/V), PACU FENTanyl PF 2020-2020- No 25ug 25 mcg, Un jl (SUBLIMAZE [...] [place] mg 00 First dose Medical on Wed12/10/20 at 0900, Until Discontinu ed, Routine sennosides 2020-2020- No 8.6mg 8.6 mg, Un jl (SENOKOT) 12-10-07 Oral, ity of tablet 8.6 14:00: 14:07 DAILY, [place] mg 00 :50 First dose Medical on Wed12/10/20 at 0900, Until Discontinu ed, Routine iohexoL 2021-0 Yes PRN, Univers (OMNIPAQUE 4-06 Starting ity o f 300-50 mL)) 13:59: 12/10/20 [place] injection 00 at 0859, Medica l Until Branch Discontinu ed, Routine, Intra-op iohexoL 2020- No PRN, Univers (OMNIPAQUE - 04-07 Starting ity of 300-50 mL)) 13:59: 14:07 [facility] 12/10/20 [place] injection 00 :50 at 0859, Medica l Until Wed12/11/20 at 0907, Routine, Intra-op gabapentin Yes 300mg 300 mg, Uni vers (NEURONTIN) 06 Oral, TID, it y of capsule 300 13:00: First dose [place] mg 00 on [facility] 12/10/20 at Branch 0800, Until Discontinu ed, Routine gabapentin 2020- No 300mg 300 mg, Un jl (NEURONTIN) 12-10-07 Oral, TID, i ty of capsule 300 13:00: 14:07 First dose [place] mg 00 :50 on [facility] 12/10/20 at Branch 0800, Until Discontinu ed, Routine ondansetron Yes 4mg 4 mg, Slow Univers (ZOFRAN 06 IV Push, ity of (PF)) 07:42: Q4HPRN, [place] injection 4 07 Starting Medi shannon mg 12/10/20 Branch at 0242, Until Discontinu ed, Routine, Nausea and Vomiting (N/V) ondansetron 2020-0 2020- No 4mg 4 mg, Slow Univers (ZOFRAN 12-10- IV Push, ity of (PF)) 07:42: 14:07 Q4HPRN, [place] injection 4 07 :50 Starting Medi shannon mg [facility] 12/10/20 Branch at 0242, Until Wed12/11/20 at 0907, Routine, Nausea and Vomiting (N/V) ondansetron 2020-0 2020- No 4mg 4 mg, Slow Univers (ZOFRAN 12-10-06 IV Push, ity of (PF)) 06:15: 05:26 ONCE, 1 [place] injection 4 00 :00 dose, Tue Med ical mg 12/10/20 at Branch 0115, NANCI morpHINE 2020- No 4mg 4 mg, Slow Un jl injection 4 12-10-06 IV Push, ity of mg 06:15: 05:26 ONCE, 1 [place] 00 :00 dose, Tue Medical 12/10/20 at Branch 0115, STAT phenytoin Yes Take by [facility] rs sodium 4-06 mouth. ity of extended 05:43: [place] (DILANTIN 19 Medical ORAL) [place] LISINOPRIL Yes Take by [facility] ers ORAL 4-06 mouth. ity of 05:43: [place] 19 [facility] Branch hydralAZINE 2020- No 20mg 20 mg, Uni vers (APRESOLINE 12-10 04-06 Slow IV ity of ) injection 04:00: 03:20 [place] 20 mg 00 :00 ONCE, 1 Medical dose, [facility] 12/09/20 at 2300, STAT
In dication: Hypertensi ve Emergency ibuprofen 2020- No [id number] 600mg Take 1 Univers 600 mg 12-10-12 tablet by ity of tablet 00:00: 04:59 mouth [place] 00 :00 every 6 Medical (six) Branch hours as needed for Pain (scale 4-6) for up to 5 days. ibuprofen 2020- No [id number] 600mg Take 1 Univers 600 mg 12-10 04-12 tablet by ity of tablet 00:00: 04:59 mouth [place] 00 :00 every 6 Medical (six) Branch hours as needed for Pain (scale 4-6) for up to 5 days. Missing or Yes . [facility] 09:52: Medical Medication 12 Center levoFLOXaci 2015-09- No 500mg Take 1 Un jl n 0-24 04-05 tablet by ity of (LEVAQUIN) 00:00: 00:00 mouth [place] 500 mg 00 :00 every 24 Medical tablet (twenty-fo Branch ur) hours. Vital Signs Vital Name Observation Time Observation Value Comments Source Systolic blood 2022-10-16 22:00:00 158 mm[Hg] [facility] sity of pressure [facility] Diastolic blood 2022-10-16 22:00:00 98 mm[Hg] Unive rsity of pressure [place] [facility] Heart rate 2022-10-16 22:00:00 84 /min [facility] [place] [facility] Body temperature 2022-10-16 22:00:00 36.44 Alisha Univ ersity of [place] [facility] Oxygen saturation in 2022-10-16 22:00:00 100 /min University of Arterial blood by [facility] shannon Pulse oximetry Branch Respiratory rate 2022-10-16 20:45:00 21 /min Univ ersity of [place] [facility] Body height 2022-10-16 11:08:00 175.3 cm [facility] [place] [facility] Body weight 2022-10-16 11:08:00 120.203 kg [facility] [place] [facility] BMI 2022-10-16 11:08:00 39.13 kg/m2 [facility] [place] [facility] Systolic blood 2022-10-16 16:51:00 157 mm[Hg] Univer sity of pressure [place] [facility] Diastolic blood 2022-10-16 16:51:00 98 mm[Hg] Unive rsity of pressure [place] [facility] Heart rate 2022-10-16 16:51:00 70 /min [facility] [place] [facility] Body temperature 2022-10-16 16:51:00 36.39 Alisha Univ [facility] [place] [facility] Respiratory rate 2022-10-16 16:51:00 18 /min Univ ersity of [place] [facility] Oxygen saturation in 2022-10-16 16:51:00 98 /min University of Arterial blood by [facility] Pulse oximetry Branch Body height 2022-10-16 11:08:00 175.3 cm [facility] [place] [facility] Body weight 2022-10-16 11:08:00 120.203 kg [facility] [place] [facility] BMI 2022-10-16 11:08:00 39.13 kg/m2 [facility] [place] [facility] Systolic blood 2022-10-16 05:00:00 187 mm[Hg] Univer sity of pressure [place] [facility] Diastolic blood 2022-10-16 05:00:00 129 mm[Hg] Unive rsity of pressure [place] [facility] Heart rate 2022-10-16 05:00:00 125 /min [facility] [place] [facility] Respiratory rate 2022-10-16 05:00:00 22 /min Univ ersity [facility] [place] [facility] Oxygen saturation in 2022-10-16 05:00:00 100 /min University of Arterial blood by [place] [employer] shannon Pulse oximetry Branch Body temperature 2022-10-16 03:34:00 37 Alisha Univ [facility] [place] [facility] Body height 2022-10-16 03:34:00 175.3 cm [facility] [place] [facility] Body weight 2022-10-16 03:34:00 122.471 kg [facility] [place] [facility] BMI 2022-10-16 03:34:00 39.87 kg/m2 [facility] [place] [facility] Systolic blood 2020-12-10 15:00:00 159 mm[Hg] Univer sity of pressure [place] [facility] Diastolic blood 2020-12-10 15:00:00 100 mm[Hg] Unive rsity of pressure [place] [facility] Heart rate 2020-12-10 15:00:00 81 /min [facility] [place] [facility] Respiratory rate 2020-12-10 15:00:00 31 /min Univ ers[facility] [place] [facility] Oxygen saturation in 2020-12-10 15:00:00 95 /min University of Arterial blood by [place] [employer] shannon Pulse oximetry Branch Body temperature 2020-12-10 14:11:00 36 Alisha Univ [facility] [place] [facility] Body weight 2020-12-10 06:46:00 124.739 kg [facility] [place] [facility] BMI 2020-12-10 06:46:00 40.61 kg/m2 [facility] [place] [facility] Systolic blood 2020-12-10 10:36:00 166 mm[Hg] Univer sity of pressure [place] [facility] Diastolic blood 2020-12-10 10:36:00 97 mm[Hg] Unive rsity of pressure [place] [facility] Heart rate 2020-12-10 10:36:00 82 /min [facility] [place] [facility] Respiratory rate 2020-12-10 10:36:00 19 /min Univ [facility] [place] [facility] Oxygen saturation in 2020-12-10 10:36:00 96 /min University of Arterial blood by [place] [employer] shannon Pulse oximetry Branch Body temperature 2020-12-10 06:46:00 37.11 Alisha Univ [facility] [place] [facility] Body weight 2020-12-10 06:46:00 124.739 kg [facility] BMI 2020-12-10 06:46:00 40.61 kg/m2 [facility] Systolic blood 2020-12-10 05:28:00 169 mm[Hg] Univer sity of pressure [facility] Diastolic blood 2020-12-10 05:28:00 95 mm[Hg] Unive rsity [facility] Heart rate 2020-12-10 05:28:00 96 /min [facility] Respiratory rate 2020-12-10 05:28:00 18 /min [facility] Oxygen saturation in 2020-12-10 05:28:00 99 /min [facility] Arterial blood by [facility] Pulse oximetry Branch Body temperature 2020-12-09 22:57:00 37.17 Alisha [facility] Body height 2020-12-09 22:57:00 175.3 cm [facility] Body weight 2020-12-09 22:57:00 124.739 kg [facility] BMI 2020-12-09 22:57:00 40.61 kg/m2 [facility] Systolic blood 2022-07-13 08:10:00 135 mm[Hg] recheck [facility] Diastolic blood 2022-07-13 08:10:00 89 mm[Hg] recheck [facility] Heart rate 2022-07-13 08:10:00 88 /min [facility] Body temperature 2022-07-13 07:51:00 36.44 Alisha [facility] Respiratory rate 2022-07-13 07:51:00 18 /min [facility] Oxygen saturation in 2022-07-13 07:51:00 98 /min [facility] Arterial blood by Medical Ce nter Pulse oximetry Procedures Procedure Date / Time Performing Clinician Source Performed URINE CULTURE 2022-10-16 19:57:00 Luis Eduardo Bella [facility] INTUBATION 2022-10-16 19:13:00 Ricky Monae [facility] DIRECT VISUAL INTERNAL 2022-10-16 18:47:00 Luis Eduardo Bella [facility] URETHROTOMY Medical Branch EXTRA TUBE LT. BLUE 2022-10-16 11:31:00 Drew Schulz [facility] Medical Branch EXTRA TUBE LT. BLUE 2022-10-16 11:31:00 Drew Schulz [facility] Medical Branch EXTRA TUBE LAV 2022-10-16 11:10:00 Drew Schulz [facility] Medical Branch EXTRA TUBE LAV 2022-10-16 11:10:00 Drew Schulz [facility] Medical Branch BASIC METABOLIC PANEL 2022-10-16 11:04:[facility], CO2, GLUCOSE, Medica l Branch BUN, CREATININE, CA) BASIC METABOLIC PANEL 2022-10-16 11:04:00 [facility], CL, CO2, GLUCOSE, Medica l Branch BUN, CREATININE, CA) HOSPITAL ADMISSION 2022-10-16 06:01:00 Doctor Aniyah [facility] [place] [facility] NOTICE OF PRIVACY 2022-10-16 03:28:08 [facility] [place] [facility] CONSENT/REFUSAL FOR 2022-10-16 03:27:19 Doctor Aniyah [facility] DIAGNOSIS AND TREATMENT [place] [facility] EMERGENCY DEPARTMENT 2022-10-15 06:01:00 [facility] DOCUMENTS [place] [facility] AGREEMENTS AUTHORIZATIONS 2022-10-15 06:01:00 Doctor Aniyah, [facility] AND IRREVOCABLE [place] [facility] ASSIGNMENTS (FORM 2001) EMERGENCY DEPARTMENT 2022-10-15 06:01:00 Doctor Aniyah [facility] DOCUMENTS [place] [facility] AGREEMENTS AUTHORIZATIONS 2022-10-15 06:01:00 Doctor Aniyah, [facility] AND IRREVOCABLE [place] [facility] ASSIGNMENTS (FORM 2001) CBC W/PLT COUNT & AUTO 2022-07-13 04:45:00 Glenna Mary [facility] DIFFERENTIAL [facility] BASIC METABOLIC PANEL 2022-07-13 04:45:00 Glenna Mary [facility] CBC W/PLT COUNT & AUTO 2022-07-13 04:45:00 Glenna [facility] DIFFERENTIAL [facility] FL TIME OR 2020-12-10 13:59:00 [facility] (NON-REPORTABLE) Medical Branch FL TIME OR 2020-12-10 13:59:00 [facility] (NON-REPORTABLE) [facility] Branch URINE CULTURE 2020-12-10 13:58[facility] 2020-12-10 12:55:00 [facility] URETHROTOMY [facility] Branch BASIC METABOLIC PANEL 2020-12-10 11:30:00 [facility], K, CL, CO2, GLUCOSE, Medica l Branch BUN, CREATININE, CA) CBC WITH DIFF 2020-12-10 11:30:00 [facility] BASIC METABOLIC PANEL 2020-12-10 11:30:00 Bianchi, [facility] (NA, K, CL, CO2, GLUCOSE, Medica l Branch BUN, CREATININE, CA) CBC WITH DIFF 2020-12-10 11:30:00 [facility] COVID-19 (ID NOW RAPID 2020-12-10 02:51:00 Deepthi Moser [facility] TESTING) Medical Branch CONSENT/REFUSAL FOR 2020-12-09 22:39:47 Doctor Unassigned, [facility] DIAGNOSIS AND TREATMENT [place] [facility] EMERGENCY SERVICES 2020-12-09 05:01:00 Doctor Unassigned, [facility] AGREEMENTS AND [place] [facility] AUTHORIZATIONS EMERGENCY SERVICES 2020-12-09 05:01:00 Doctor Unassigned, [facility] AGREEMENTS AND [place] [facility] AUTHORIZATIONS Plan of Care Planned Activity Planned Date Details Comments Source Future Scheduled 2023-05-[address] [facility] 00:00:00 (Season Ended) [code = [facility] INFLUENZA VACCINE (Season Ended)] Future Scheduled 2023-05-[address] [facility] 00:00:00 (Season Ended) [code = [facility] INFLUENZA VACCINE (Season Ended)] Future Scheduled 2023-05-[address] [facility] 00:00:00 (Season Ended) [code = Medic al Center INFLUENZA VACCINE (Season Ended)] Future Scheduled 2023-05-[address] [facility] 00:00:00 (Season Ended) [code = Medic al Center INFLUENZA VACCINE (Season Ended)] Future Scheduled 2022-09-[address] [facility] Test 00:00:00 (12+) [code = Medical Center DEPRESSION SCREENING (12+)] Future Scheduled 2022-09-[address] [facility] Test 00:00:00 (12+) [code = Medical Center DEPRESSION SCREENING (12+)] Future Scheduled 2022-09-[address] [facility] 00:00:00 (12+) [code = Medical Center DEPRESSION SCREENING (12+)] Future Scheduled 2022-09-[address] [facility] 00:00:00 (12+) [code = Medical Center DEPRESSION SCREENING (12+)] Future Scheduled 2022-05-07 INFLUENZA VACCINE (#1) [facility] 00:00:00 [code = INFLUENZA Medical Ce nter VACCINE (#1)] Future Scheduled 2021-09-[address] [facility] 00:00:00 (12+) [code = Medical Center DEPRESSION SCREENING (12+)] Future Scheduled 2019 SHINGLES VACCINES ([address] [facility] 00:00:00 2) [code = SHINGLES Medical Center VACCINES (1 of 2)] Future Scheduled 2019 SHINGLES VACCINES ([address] [facility] 00:00:00 2) [code = SHINGLES Medical Center VACCINES (1 of 2)] Future Scheduled 2019 SHINGLES VACCINES ([address] [facility] 00:00:00 2) [code = SHINGLES Medical Center VACCINES (1 of 2)] Future Scheduled 2019 SHINGLES VACCINES ([address] [facility] 00:00:00 2) [code = SHINGLES Medical Center VACCINES (1 of 2)] Future Scheduled 2019 SHINGLES VACCINES ([address] [facility] 00:00:00 2) [code = SHINGLES Medical Center VACCINES (1 of 2)] Future Scheduled 2004 Lipid panel (procedure) [facility] 00:00:00 [code = 59320694] Medical Ce nter Future Scheduled 2004 Lipid panel (procedure) [facility] 00:00:00 [code = 22081460] Medical Ce nter Future Scheduled 2004 Lipid panel (procedure) [facility] 00:00:00 [code = 21275437] Medical Ce nter Future Scheduled 2004 Lipid panel (procedure) [facility] 00:00:00 [code = 66373869] Medical Ce nter Future Scheduled 2004 Lipid panel (procedure) [facility] 00:00:00 [code = 27070467] Medical Ce nter Future Scheduled 1988 DTAP/TDAP/TD VACCINES [facility] 00:00:00 (1 - Tdap) [code = Medical C enter DTAP/TDAP/TD VACCINES (1 - Tdap)] Future Scheduled 1988 DTAP/TDAP/TD VACCINES [facility] 00:00:00 (1 - Tdap) [code = Medical C enter DTAP/TDAP/TD VACCINES (1 - Tdap)] Future Scheduled 1988 DTAP/TDAP/TD VACCINES [facility] 00:00:00 (1 - Tdap) [code = Medical C enter DTAP/TDAP/TD VACCINES (1 - Tdap)] Future Scheduled 1988 DTAP/TDAP/TD VACCINES [facility] 00:00:00 (1 - Tdap) [code = Medical C enter DTAP/TDAP/TD VACCINES (1 - Tdap)] Future Scheduled 1988 DTAP/TDAP/TD VACCINES [facility] 00:00:00 (1 - Tdap) [code = Medical C enter DTAP/TDAP/TD VACCINES (1 - Tdap)] Future Scheduled 1987 HEPATITIS C [facility]CREENING [facility] 00:00:00 [code = HEPATITIS C Medical Center SCREENING] Future Scheduled 1987 HEPATITIS C [facility]CRE[facility]ING [facility] 00:00:00 [code = HEPATITIS C Medical Center SCREENING] Future Scheduled 1987 HEPATITIS C [facility]CRE[facility]ING [facility] 00:00:00 [code = HEPATITIS C Medical Center SCREENING] Future Scheduled 1987 HEPATITIS C [facility]CRE[facility]ING [facility] 00:00:00 [code = HEPATITIS C Medical Center SCREENING] Future Scheduled 1987 HEPATITIS C [facility]CRE[facility]ING [facility] 00:00:00 [code = HEPATITIS C Medical Center SCREENING] Future Scheduled [address] [facility] 00:00:00 Counseling and Medical Cente r Screening (12+) [code = Tobacco Cessation Counseling and Screening (12+)] Future Scheduled [address] [facility] 00:00:00 Counseling and Medical Cente r Screening (12+) [code = Tobacco Cessation Counseling and Screening (12+)] Future Scheduled [address] [facility] 00:00:00 Counseling and Medical Cente r Screening (12+) [code = Tobacco Cessation Counseling and Screening (12+)] Future Scheduled [address] [facility] 00:00:00 Counseling and Medical Cente r Screening (12+) [code = Tobacco Cessation Counseling and Screening (12+)] Future Scheduled 1970-02-01 COVID-19 VACCINE (#1) [facility] 00:00:00 [code = COVID-[address] VACCINE (#1)] Future Scheduled 1970-02-01 COVID-19 VACCINE (#1) [facility] 00:00:00 [code = COVID-[address] VACCINE (#1)] Future Scheduled 1970-02-01 COVID-19 VACCINE (#1) [facility] 00:00:00 [code = COVID-[address] VACCINE (#1)] Future Scheduled 1970-02-01 COVID-19 VACCINE (#1) [facility] 00:00:00 [code = COVID-[address] VACCINE (#1)] Future Scheduled 1970-02-01 COVID-19 VACCINE (#1) [facility] 00:00:00 [code = COVID-[address] VACCINE (#1)] Future Scheduled 1969 CT Colonography (combo) [facility] 00:00:00 [code = CT [facility] (combo)] Future Scheduled 1969 Screening for malignant [facility] 00:00:00 neoplasm of colon Medical Ce nter (procedure) [code = 152111720] Future Scheduled 1969 Screening for malignant [facility] 00:00:00 neoplasm of colon Medical Ce nter (procedure) [code = 102685791] Future Scheduled 1969 Screening for malignant [facility] 00:00:00 neoplasm of colon Medical Ce nter (procedure) [code = 133290775] Future Scheduled 1969 Screening for malignant [facility] 00:00:00 neoplasm of colon Medical Ce nter (procedure) [code = 192735001] Future Scheduled 1969 Sigmoidoscopy [code = [facility]:00 Sigmoidoscopy] Medical Cente r Future Scheduled 1969 CT Colonography (combo) [facility] 00:00:00 [code = CT Colonography [facility] (combo)] Future Scheduled 1969 Screening for malignant [facility] 00:00:00 neoplasm of colon Medical Ce nter (procedure) [code = 525332086] Future Scheduled 1969 Screening for malignant [facility] 00:00:00 neoplasm of colon Medical Ce nter (procedure) [code = 727967354] Future Scheduled 1969 Screening for malignant [facility] 00:00:00 neoplasm of colon Medical Ce nter (procedure) [code = 450204725] Future Scheduled 1969 Screening for malignant [facility] 00:00:00 neoplasm of colon Medical Ce nter (procedure) [code = 731738895] Future Scheduled 1969 Sigmoidoscopy [code = [facility] 00:[facility] Sigmoidoscopy] Medical Cente r Future Scheduled 1969 CT Colonography (combo) [facility] 00:00:00 [code = CT [facility] (combo)] Future Scheduled 1969 Screening for malignant [facility] 00:00:00 neoplasm of colon Medical Ce nter (procedure) [code = 382730257] Future Scheduled 1969 Screening for malignant [facility] 00:00:00 neoplasm of colon Medical Ce nter (procedure) [code = 835179366] Future Scheduled 1969 Screening for malignant [facility] 00:00:00 neoplasm of colon Medical Ce nter (procedure) [code = 924036588] Future Scheduled 1969 Screening for malignant [facility] 00:00:00 neoplasm of colon Medical Ce nter (procedure) [code = 156920552] Future Scheduled 1969 Sigmoidoscopy [code = [facility] 00:[facility] Sigmoidoscopy] Medical Cente r Future Scheduled 1969 CT Colonography (combo) [facility] 00:00:00 [code = CT Colonography [facility] (combo)] Future Scheduled 1969 Screening for malignant [facility] 00:00:00 neoplasm of colon Medical Ce nter (procedure) [code = 275093414] Future Scheduled 1969 Screening for malignant [facility] 00:00:00 neoplasm of colon Medical Ce nter (procedure) [code = 965776817] Future Scheduled 1969 Screening for malignant [facility] 00:00:00 neoplasm of colon Medical Ce nter (procedure) [code = 233608946] Future Scheduled 1969 Screening for malignant [facility] 00:00:00 neoplasm of colon Medical Ce nter (procedure) [code = 593995509] Future Scheduled 1969 Sigmoidoscopy [code = [facility] 00:00:[facility] Sigmoidoscopy] Medical Cente r Future Scheduled 1969 CT Colonography (combo) [facility] 00:00:00 [code = CT Colonography [facility] (combo)] Future Scheduled 1969 Screening for malignant [facility] 00:00:00 neoplasm of colon Medical Ce nter (procedure) [code = 118166933] Future Scheduled 1969 Screening for malignant [facility] 00:00:00 neoplasm of colon Medical Ce nter (procedure) [code = 268297516] Future Scheduled 1969 Screening for malignant [facility] 00:00:00 neoplasm of colon Medical Ce nter (procedure) [code = 767159554] Future Scheduled 1969 Screening for malignant [facility] 00:00:00 neoplasm of colon Medical Ce nter (procedure) [code = 976063701] Future Scheduled 1969 Sigmoidoscopy [facility]code [facility] 00:[facility] Sigmoidoscopy] Medical Cente r Encounters Start End Encounter Admission Attending Care Care Encounter Source Date/Time Date/Time Type Type Clinicians Facility Department ID 2021-06-11 Inpatient [facility] Urology [id number] [facility] 2023-02-11 2023-02-11 Outpatient [facility] [id number] Drew 14:30:03 14:30:03 0608 [place] 2022-12-31 2022-12-31 Outpatient [facility] [id number] Drew 14:30:28 14:30:28 0427 F [place] 2022-12-23 2022-12-23 Outpatient [facility] [id number] Drew 16:01:19 16:01:19 0419 [facility] 2022-10-19 2022-10-19 Patient Daniella Rivers [id number] Univers 00:00:00 00:00:00 Outreach E JAMES [id number] i [place] [phone] [facility] 403 Branch 2022-10-19 2022-10-19 Patient Daniella Rivers [id number] Univers 00:00:00 00:00:00 Outreach E JAMES [id number] [place] [id number] [facility] 403 Branch 2022-10-16 2022-10-16 [facility] [id number] Univers 01:15:00 19:15:00 DREW boudreaux of [facility] 2022-10-16 2022-10-16 Emergency ASHLEY Schulz 1.2.840.114 [id number] Univers 01:15:00 19:15:00 Drew [facility].10 [facility] 4.2.7.2.686 [place] [phone] [place] [id number] Branch 2022-10-16 2022-10-16 Anesthesia Rahul Diaz 1.2.840.114 [id number] Univers 13:03:00 14:16:00 Event Edu Reis CARINE 350.1. 13.10 ity of HOSPITAL 4.2.7.2.686 Shay as [id number] [facility] 103 Branch 2022-10-16 2022-10-16 Surgery ASHLEY Bella [id number] Univers 12:00:00 13:29:00 Luis Eduardo CARINE [id number] it y of HOSPITAL 4.2.7.2.686 Shay as [id number] [facility] 103 Branch 2022-10-16 2022-10-16 Patient Daniella Rivers 1.2.840.114 [id number] Univers 00:00:00 00:00:00 Outreach E ERIKA [id number] [place] [id number] [facility] 403 Branch 2022-10-16 2022-10-16 Transition MendozaDANNY talley 1.2.840.114 [id number] Univers 00:00:00 00:00:00 of Care Tri JAMES 350.1.13.10 [place] [phone] [facility] 403 Branch 2022-10-16 2022-10-16 Orders Doctor AMBER 1.2.840.114 [id number] Univers 00:00:00 00:00:00 Only Unassigned, CARINE 350.1.13.10 ity of [place] [facility] 4.2.7.2.686 Shay as [id number] [facility] 009 Branch 2022-10-15 2022-10-15 Emergency X ASPEN CAGE ERT [id number] Univers 21:38:00 23:35:00 TASHA boudreaux [facility] 2022-10-15 2022-10-15 Emergency ASPEN Cage [id number] Univers 21:38:00 23:35:00 Tasha PIEDRA 350.1.13.10 i ty of [place] 4.2.7.2.686 [facility] [id number] [facility] 084 Branch 2022-07-12 2022-07-13 [facility] [id number] 14:12:00 12:30:00 Encounter Glenna talley [facility] 2022-07-12 2022-07-13 Hospital [facility] [id number] 14:12:00 12:30:00 Encounter Glenna talley [facility] 2022-07-12 2022-07-13 Outpatient ER USMAN, [facility] Urology [id number] [facility] 14:12:00 12:30:00 GLENNA 2022-07-12 2022-07-12 Travel [facility] [id number] [facility] 00:[facility]00 00:00:00 [facility] 2022-07-12 2022-07-12 Travel [facility] [id number] [facility] 00:[facility]00 00:00:00 [facility] 2020-12-10 2020-12-10 Emergency Ashley Bella 1.2.840.114 [id number] Univers 01:49:00 11:24:00 Luis Eduardo Hawk 350.1.13.10 it y [facility] 4.2.7.2.686 Shay as [id number] [facility] 104 Branch 2020-12-10 2020-12-10 Surgery Ashley Bella [id number] Univers 07:30:00 08:51:00 Luis Eduardo Hawk 350.1.13.10 it y [facility] 4.2.7.2.686 Shay as [id number] [facility] 103 Branch 2020-12-10 2020-12-10 Emergency X [facility] ERT [id number] Univers 01:49:00 01:49:00 LUIS EDUARDO boudreaux [facility] 2020-12-09 2020-12-10 Emergency Deepthi Moser [facility] 1.2.840 .114 [id number] Univers 18:07:00 01:13:00 Bouchra Mathew 350.1.13.10 ity Day [facility] [id number] [facility] [phone] [facility] [address] 2020-12-09 2020-12-09 Emergency X [facility] ERT [id number] [facility] 18:07:00 18:07:00 BOUCHRA boudreaux [facility] 2019-04-06 2019-04-06 Outpatient E [facility] 9213 [facility] 11:15:00 11:15:00 Results Test Description Test Time Test Comments Results Result Comments Source URIC ACID 2022-12-25 09:36:55 Test Item Value Reference Range Interpretation Comme nts URIC ACID (test code = 8.4 MG/DL 3.7-8.0 H [facility] has important pathology staff 2233) changes effecti ve 11/04/2022. New pathology staff will provide uninterrupted, excellent patient care and clinical consul tation. See URL: [email or web address]. UNLESS OTHERWISE INDIC ATED, [facility], [id number] [place] [address] DIRECTOR: Magdalena CARRILLO RAFIA NUMBER [id number] CAP ACCREDITATION N O. [id number] BASIC METABOLIC PANEL (NA, K, CL, CO2, GLUCOSE, BUN, CREATININE, CA)2022-10-16 12:03:57 Test Item Value Reference Range Interpretation Comments NA (test code = 138 mmol/L 135-145 6053995205) K (test code = 3.8 mmol/L 3.5-5.0 0005950093) CL (test code = 104 mmol/L 98-108 7914539677) CO2 TOTAL (test code 28 mmol/L 23-31 = 6578674893) AGAP (test code = 6 2-16 5109682097) BUN (test code = 14 mg/dL 7-23 5594934455) GLUCOSE (test code = 98 mg/dL 70-110 3544441158) CREATININE (test code 1.16 mg/dL 0.60-1.25 = 1673470134) CALCIUM (test code = 9.0 mg/dL 8.6-10.6 8453363050) eGFR (test code = 65.9 mL/min/1.73m2 9930270130) FILIBERTO (test code = FILIBERTO) Association of [...] or urine or abnormalities in imaging tests). [facility] METABOLIC PANEL (NA, K, CL, CO2, GLUCOSE, BUN, CREATININE, CA)2022-10-16 12:03:57 Test Item Value Reference Range Interpretation Comments NA (test code = 138 mmol/L 135-145 5132349020) K (test code = 3.8 mmol/L 3.5-5.0 1308993025) CL (test code = 104 mmol/L 98-108 4718857161) CO2 TOTAL (test code 28 mmol/L 23-31 = 2735447985) AGAP (test code = 6 2-16 1835955128) BUN (test code = 14 mg/dL 7-23 6155271338) GLUCOSE (test code = 98 mg/dL 70-110 2689505905) CREATININE (test code 1.16 mg/dL 0.60-1.25 = 6174460421) CALCIUM (test code = 9.0 mg/dL 8.6-10.6 5380022768) eGFR (test code = 65.9 mL/min/1.73m2 7805404400) FILIBERTO (test code = FILIBERTO) Association of [...] or urine or abnormalities in imaging tests). [facility] METABOLIC [id number] 05:49:28 Test Item Value Reference Range Interpretation Comments SODIUM (BEAKER) 139 meq/L 135-148 (test code = 381) POTASSIUM 4.1 meq/L 3.6-5.5 (BEAKER) (test code = 379) CHLORIDE (BEAKER) 104 meq/L 98-106 (test code = 382) CO2 (BEAKER) 25 meq/L 20-29 (test code = 355) BLOOD UREA 15 mg/dL 10-26 NITROGEN (BEAKER) (test code = 354) CREATININE 0.92 mg/dL 0.50-1.20 (BEAKER) (test code = 358) GLUCOSE RANDOM 90 mg/dL 70-110 (BEAKER) (test code = 652) CALCIUM (BEAKER) 9.4 mg/dL 8.5-10.5 (test code = 697) EGFR (BEAKER) 101 Interpretatio n of eGFR (test code = mL/min/1.73 values Stage De scription 1092) sq m Result G1 Suzi l or high >=90 G2 Mildly decreased 60-89 G3a Mildl y to moderately 45-5 9 G3b Moderately to s everely 30-44 G4 Severl y decreased 15-29 G5 Kidney failure <15Reported eGF R is based on the CKD-EPI 2020 equation that d oes not use a race coefficientEsti mated GFR is not as accur ate as Creatinine Marion milana in predicting glom erular filtration rate . Estimated GFR is not appl icable for dialysis patien ts [employer] Superintendent ID - LEVIOTAOperator ID - LEVIOTAOperator ID - LEVIOTAOperator ID - LEVIOTAOperator ID - LEVIOTAOperator ID - LEVIOTAOperator ID - LEVIOTAOperator ID - LEVIOTAOperator ID - LEVIOTAOperator ID - LEVIOTAOperator ID - LEVIOTAOperator ID - LEVIOTACBC W/PLT COUNT & AUTO [id number] 05:24:41 Test Item Value Reference Range Interpretation Comments WHITE BLOOD CELL COUNT (BEAKER) 5.4 K/ L 4.0-10.0 (test code = 775) RED BLOOD CELL COUNT (BEAKER) 4.28 M/ L 4.20-5.80 (test code = 761) HEMOGLOBIN (BEAKER) (test code = 12.4 GM/DL 13.0-16.8 L 410) HEMATOCRIT (BEAKER) (test code = 38.2 % 36.0-50.0 411) MEAN CORPUSCULAR VOLUME (BEAKER) 89 fL 82-99 (test code = 753) MEAN CORPUSCULAR HEMOGLOBIN 29.0 pg 27.0-33.0 (BEAKER) (test code = 751) MEAN CORPUSCULAR HEMOGLOBIN CONC 32.5 GM/DL 32.0-36.0 (BEAKER) (test code = 752) RED CELL DISTRIBUTION WIDTH 13.3 % 12.0-15.0 (BEAKER) (test code = 412) PLATELET COUNT (BEAKER) (test 468 K/CU MM 150-430 H code = 756) MEAN PLATELET VOLUME (BEAKER) 9.7 fL 6.0-11.5 (test code = 754) NUCLEATED RED BLOOD CELLS 0 /100 WBC 0-0 (BEAKER) (test code = 413) NEUTROPHILS RELATIVE PERCENT 51 % (BEAKER) (test code = 429) LYMPHOCYTES RELATIVE PERCENT 30 % (BEAKER) (test code = 430) MONOCYTES RELATIVE PERCENT 14 % (BEAKER) (test code = 431) EOSINOPHILS RELATIVE PERCENT 4 % (BEAKER) (test code = 432) BASOPHILS RELATIVE PERCENT 1 % (BEAKER) (test code = 437) NEUTROPHILS ABSOLUTE COUNT 2.75 K/ L 1.80-8.00 (BEAKER) (test code = 670) LYMPHOCYTES ABSOLUTE COUNT 1.63 K/ L 1.48-4.50 (BEAKER) (test code = 414) MONOCYTES ABSOLUTE COUNT (BEAKER) 0.74 K/ L 0.00-1.30 (test code = 415) EOSINOPHILS ABSOLUTE COUNT 0.22 K/ L 0.00-0.50 (BEAKER) (test code = 416) BASOPHILS ABSOLUTE COUNT (BEAKER) 0.03 K/ L 0.00-0.20 (test code = 417) IMMATURE GRANULOCYTES-RELATIVE 0.60 % 0.00-0.00 H PERCENT (BEAKER) (test code = 2801) URINE [id number] 13:21:42 Test Item Value Reference Range Interpretation Comments URINE CULTURE (test No aerobic growth (< code = 630-4) 1000 CFU/mL) [facility] TIME OR (NON-REPORTABLE)2020-12-10 14:09:59 These images do not require a Radiology diagnostic report.[facility] TIME OR (NON-REPORTABLE)2020-12-10 14:09:59These images do not require a Radiology diagnostic report.[facility] (NA, K, CL, CO2, Glucose, BUN, Creatinine, CA)2020-12-10 12:08:36 Test Item Value Reference Range Interpretation Comments NA (test code = 140 mmol/L 135-145 2905042319) K (test code = 4.3 mmol/L 3.5-5.0 2470204457) CL (test code = 106 mmol/L 98-108 9642790136) CO2 TOTAL (test code 28 mmol/L 23-31 = 0864133174) AGAP (test code = 2-16 7759741652) BUN (test code = 11 mg/dL 7-23 7772197429) GLUCOSE (test code = 91 mg/dL 70-110 8916613735) CREATININE (test code 1.05 mg/dL 0.60-1.25 = 3567436959) CALCIUM (test code = 9.2 mg/dL 8.6-10.6 5166545988) eGFR (test code = mL/min/1.73m2 1061656013) FILIBERTO (test code = FILIBERTO) Association of [...] or urine or abnormalities in imaging tests). [facility] Met[facility] (NA, K, CL, CO2, Glucose, BUN, Creatinine, CA)2020-12-10 12:08:36 Test Item Value Reference Range Interpretation Comments NA (test code = 140 mmol/L 135-145 4047010788) K (test code = 4.3 mmol/L 3.5-5.0 2819798965) CL (test code = 106 mmol/L 98-108 5358751740) CO2 TOTAL (test code 28 mmol/L 23-31 = 8628167453) AGAP (test code = 2-16 6162759280) BUN (test code = 11 mg/dL 7-23 8828040439) GLUCOSE (test code = 91 mg/dL 70-110 6067475534) CREATININE (test code 1.05 mg/dL 0.60-1.25 = 1708870549) CALCIUM (test code = 9.2 mg/dL 8.6-10.6 2499116853) eGFR (test code = mL/min/1.73m2 7610398596) FILIBERTO (test code = FILIBERTO) Association of [...] or urine or abnormalities in imaging tests). [facility] with [id number] 11:58:56 Test Item Value Reference Range Interpretation [...] RDW-SD (test code = 43.9 fL 38.5-51.6 69910-9) RDW-CV (test code = 13.5 % 12.1-15.4 788-0) PLT (test code = See_Comment H [Automated 777-3) message] The sy stem which generated this result transmitted reference range : 150 - 328 10*3/ ?L. The reference r ken was not used to interpret this result as normal/abnormal . MPV (test code = 10.2 fL 9.8-13.0 07107-7) NRBC/100 WBC (test See_Comment [Automat ed code = 6428489416) message] The system which generated this result transmitted reference range : 0.0 - 10.0 /100 WBCs. The refer ence range was not u sed to interpret th is result as normal/abnormal . NRBC x10^3 (test code <0.01 See_Comment [Auto mated = 3280736916) message] The s ystem which generated this result transmitted reference range : 10*3/?L. The reference range was not used to interpret this result as normal/abnormal . GRAN MAT (NEUT) % 48.8 % (test code = 770-8) IMM GRAN % (test code 0.20 % = 0695239068) LYMPH % (test code = 33.6 % 736-9) MONO % (test code = 12.0 % 5905-5) EOS % (test code = 5.0 % 713-8) BASO % (test code = 0.4 % 706-2) GRAN MAT x10^3(ANC) 2.61 10*3/uL 1.99-6.95 (test code = 3016588702) IMM GRAN x10^3 (test <0.03 0.00-0.06 code = 6284621614) LYMPH x10^3 (test code 1.80 10*3/uL 1.09-3.23 = 731-0) MONO x10^3 (test code 0.64 10*3/uL 0.36-1.02 = 742-7) EOS x10^3 (test code = 0.27 10*3/uL 0.06-0.53 711-2) BASO x10^3 (test code <0.03 0.01-0.09 = 704-7) Lab Interpretation Abnormal (test code = 90333-4) [facility] with [id number] 11:58:56 Test Item Value Reference Range Interpretation Comments WBC (test code = See_Comment [Automated 3374-2) message] The sy stem which generated this result transmitted reference range : 4.20 - 10.70 10*3/?L. The reference range was not used to interpret this result as normal/abnormal . RBC (test code = See_Comment [Automated 329-8) message] The sy stem which generated this [...] RDW-SD (test code = 43.9 fL 38.5-51.6 05545-4) RDW-CV (test code = 13.5 % 12.1-15.4 788-0) PLT (test code = See_Comment H [Automated 777-3) message] The sy stem which generated this result transmitted reference range : 150 - 328 10*3/ ?L. The reference r ken was not used to interpret this result as normal/abnormal . MPV (test code = 10.2 fL 9.8-13.0 27181-5) NRBC/100 WBC (test See_Comment [Automat ed code = 2609554141) message] The system which generated this result transmitted reference range : 0.0 - 10.0 /100 WBCs. The refer ence range was not u sed to interpret th is result as normal/abnormal . NRBC x10^3 (test code <0.01 See_Comment [Auto mated = 8591822242) message] The s ystem which generated this result transmitted reference range : 10*3/?L. The reference range was not used to interpret this result as normal/abnormal . GRAN MAT (NEUT) % 48.8 % (test code = 770-8) IMM GRAN % (test code 0.20 % = 7124552083) LYMPH % (test code = 33.6 % 736-9) MONO % (test code = 12.0 % 5905-5) EOS % (test code = 5.0 % 713-8) BASO % (test code = 0.4 % 706-2) GRAN MAT x10^3(ANC) 2.61 10*3/uL 1.99-6.95 (test code = 2590501110) IMM GRAN x10^3 (test <0.03 0.00-0.06 code = 3407872333) LYMPH x10^3 (test code 1.80 10*3/uL 1.09-3.23 = 731-0) MONO x10^3 (test code 0.64 10*3/uL 0.36-1.02 = 742-7) EOS x10^3 (test code = 0.27 10*3/uL 0.06-0.53 711-2) BASO x10^3 (test code <0.03 0.01-0.09 = 704-7) Lab Interpretation Abnormal (test code = 46525-2) [facility]ID [facility]2020-12-10 04:13:25 Test Item Value Reference Range Interpretation Comments SARS-CoV-2 Rapid ID NOW Not Detected Not Detected (test code = 91545-3) FILIBERTO (test code = FILIBERTO) ID NOW COVID-19 Assay is an isothermal nucleic acid amplification test intended for the qualitative detection of nucleic acid from SARS-CoV-2 viral RNA in nasopharyngeal (NETWORK IN[employer]RA[employer]URE ARCHITECT) specimens. It is used under Emergency Use [...] indicated. Lab Interpretation Normal (test code = 50078-5) [facility], NON-SPECIFIC, UP TO 1 HOUR 2019-09-08 07:34:00Reason for exam:->Cystoscopy, direct vision internalFINAL REPORT A fluoroscopic unit was utilized for a procedure performed in the operating room. No interpretation was requested. Please refer to the operative report regarding findings. Please refer to PACS for patient radiation dose information. Signed: JR Velázquez Robert MDReport Verified Date/Time: 09/08/2019 07:34:46 Reading Location: [facility] Radiology Reading Room TIC FUNCTION [id number] 01:57:00 Test Item Value Reference Range Interpretation [...] = 29 U/L 6-55 347) BASIC METABOLIC [id number] 01:57:00 Test Item Value Reference Range Interpretation [...] NOT APPLICABLE FOR DIALYSIS PATIEN TS. PROTHROMBIN TIME/[id number] 01:55:00 Test Item Value Reference Range Interpretation [...] mechanical heart valves.CBC W/PLT COUNT & AUTO [id number] 01:33:00 Test Item Value Reference Range Interpretation [...] % 0-1 PERCENT (BEAKER) (test code = 2803)"
[2023-02-13 10:07] LABS: Absolute Lymphocytes (CBC) 1.6 K/uL (0.7-4.9); Hematocrit 39.3 % (39.6-49.0); Lymphocytes % 30.4 % (15.3-44.8); MCV 88.1 fL (80-100); MPV 7.6 fL (7.6-11.3); RBC Red Blood Cell Count 4.46 M/uL (4.33-5.43)
[2023-02-13 10:09] LABS: Protime INR 0.98
[2023-02-13] MEDS ORDERED: AMLODIPINE 5 MG TAB ONE (10:27)
[2023-02-13] MEDS ORDERED: NA CHLORIDE 0.9% 1,000 ML ONE (10:28)
[2023-02-13] MEDS ORDERED: TRAMADOL HCL 50 MG TAB ONE (10:28)
--- NOTE | 2023-02-13 11:05 | RAD REPORT ---
EXAM DESCRIPTION: CT - Head Brain Wo Cont - 02/13/2023 10:51 am CLINICAL HISTORY: HEADACHE COMPARISON: Head angio dated 02/13/2023; Head Brain Wo Cont dated 01/03/2018; Brain Wo Cont dated 2017 TECHNIQUE: All CT scans are performed using dose optimization technique as appropriate and may inclu de automated exposure control or mA/KV adjustment according to patient size. FINDINGS: No intracranial hemorrhage, hydrocephalus or extra-axial fluid collection.No areas of brai n edema or evidence of midline shift. Nonspecific periventricular and subcortical white matter hypoat tenuation typically attributable to chronic small vessel ischemic changes. Partially imaged mucous retention cyst in the right maxillary sinus. The calvarium is intact. IMPRESSION: No acute intracranial abnormality. Nonspecific white matter hypoattenuation likely refl ecting chronic small vessel ischemic changes.
--- NOTE | 2023-02-13 11:07 | RAD REPORT ---
EXAM DESCRIPTION: CT - Head angio - 02/13/2023 10:51 am CLINICAL HISTORY: HEADACHE COMPARISON: Head Brain Wo Cont dated 01/03/2018; Head Brain Wo Cont dated 12/08/2017 TECHNIQUE: CT angiography of the head was performed with maximum intensity reformatted images. All CT scans are performed using dose optimization technique as appropriate and may include automated exposure control or mA/KV adjustment according to patient size. FINDINGS: Anterior circulation: No aneurysm or large vessel occlusion. No hemodynamically significant stenosis. No arteriovenous malf ormation identified. Posterior circulation: No aneurysm or large vessel occlusion. No hemodynamically significant stenosis. No arteriovenous malf ormation identified. IMPRESSION: No significant flow abnormality is detected.
[2023-02-13] MEDS ORDERED: MORPHINE 4 MG/ML SYR ONE ×2 (11:42→15:09)
[2023-02-13] MEDS ORDERED: cloNIDine HCL 0.1 MG TAB ONE (13:28)
--- NOTE | 2023-02-13 14:47 | EDPHYS ---
Physician Documentation [facility] Name: Vince Blackmon Age: 52 yrs Sex: Male : 1970 Arrival Date: 02/13/2023 Time: 08:57 Bed 15 Private MD: ED Physician Efra Velez HPI: 02/13 10:38 This 52 yrs old Black Male presents to ER via Ambulatory with complaints of Headache > rn 24hrs Old, High Blood Pressure. 10:38 The patient complains of pain to the forehead, right samaritan and left samaritan. The rn patient describes the headache as aching. Onset: The symptoms/episode began/occurred 2 day(s) ago. Associated signs and symptoms: Pertinent positives: This patient does not have any pertinent positive signs or symptoms associated with a headache. Pertinent negatives: fever, neck stiffness, rash, vision changes, vision loss, vomiting, weakness, vertigo. Severity of symptoms: At its worst the pain was moderate, in the emergency department the pain is unchanged. Headache History: Denies prior headaches. The symptoms are alleviated by nothing. the symptoms are aggravated by nothing. The patient has not experienced similar symptoms in the past. The patient has not recently seen a physician. Reports off his BP meds "for a while". NO head injury. NO focal neuro complaint. . Historical: - Allergies: 09:20 ACETAMINOPHEN; bp 09:20 Aspirin; bp 09:20 Ibuprofen; bp 09:20 Toradol; bp - Home Meds: 09:20 None [Active]; bp - PMHx: 09:20 drug abuse - cocaine; epilepsy; Hypertension; Seizures; urinary stricture; bp - Immunization history:: Adult Immunizations up to date. - Social history:: Smoking status: . - Family history:: not pertinent. - Hospitalizations: : No recent hospitalization is reported. ROS: 10:38 Constitutional: Negative for fever, chills, and weight loss, Eyes: Negative for injury, rn pain, redness, and discharge, Neck: Negative for injury, pain, and swelling, Cardiovascular: Negative for chest pain, palpitations, and edema, Respiratory: Negative for shortness of breath, cough, wheezing, and pleuritic chest pain, Abdomen/GI: Negative for abdominal pain, nausea, vomiting, diarrhea, and constipation, Back: Negative for injury and pain, MS/Extremity: Negative for injury and deformity, Skin: Negative for injury, rash, and discoloration, Neuro: Negative for weakness, numbness, tingling, and seizure. Exam: 10:38 Constitutional: This is a well developed, well nourished patient who is awake, alert, rn and in no acute distress. Head/Face: Normocephalic, atraumatic. Eyes: Pupils equal round and reactive to light, extra-ocular motions intact. Cardiovascular: Regular rate and rhythm. No pulse deficits. Respiratory: No increased work of breathing, no retractions or nasal flaring. Abdomen/GI: Soft, non-tender Skin: Warm, dry MS/ Extremity: Pulses equal, no cyanosis. Neuro: Awake and alert, GCS 15, oriented to person, place, time, and situation. Cranial nerves II-XII grossly intact. Motor strength 5/5 in all extremities. Sensory grossly intact. Cerebellar exam normal. Normal gait. Vital Signs: 09:18 BP 159 / 108; Pulse 65; Resp 17; Temp 98.4; Pulse Ox 100% ; Weight 117.93 kg; Height 5 bp ft. 9 in. ; 10:00 BP 163 / 103; Pulse 61; Resp 18; Pulse Ox 95% on R/A; eh3 10:30 BP 173 / 105; Pulse 60; Resp 18; Pulse Ox 95% on R/A; eh3 11:00 BP 163 / 104; Pulse 70; Resp 18; Pulse Ox 92% on R/A; eh3 11:30 BP 181 / 106; Pulse 72; Resp 18; Pulse Ox 90% on R/A; eh3 12:00 BP 186 / 117; Pulse 68; Resp 18; Pulse Ox 96% on R/A; eh3 12:30 BP 192 / 102; Pulse 65; Resp 18; Pulse Ox 95% on R/A; eh3 13:00 BP 177 / 110; Pulse 65; Resp 18; Pulse Ox 97% on R/A; eh3 13:30 BP 179 / 112; Pulse 68; Resp 18; Pulse Ox 98% on R/A; eh3 14:00 BP 176 / 117; Pulse 64; Resp 18; Pulse Ox 96% on R/A; eh3 14:30 BP 152 / 103; Pulse 61; Resp 18; Pulse Ox 96% on R/A; eh3 14:44 BP 159 / 100; rn 09:18 Body Mass Index 38.39 (117.93 kg, 175.26 cm) bp Anil Coma Score: 14:44 Eye Response: spontaneous(4). Motor Response: obeys commands(6). Verbal Response: rn oriented(5). Total: 15. MDM: 09:12 Patient medically screened. rn 14:44 Differential diagnosis: hypertensive headache, intracerebral hemorrhage, migraine, rn tension headache, vasomotor headache. Data reviewed: vital signs, nurses notes, lab test result(s), EKG, radiologic studies, CT scan, and as a result, I will discharge patient. Care significantly affected by the following chronic conditions: Hypertension. Counseling: I had a detailed discussion with the patient and/or guardian regarding: the historical points, exam findings, and any diagnostic results supporting the discharge/admit diagnosis, the presence of at least one elevated blood pressure reading (>120/80) during this emergency department visit, lab results, radiology results, the need for outpatient follow up, to return to the emergency department if symptoms worsen or persist or if there are any questions or concerns that arise at home. Response to treatment: the patient's symptoms have markedly improved after treatment, and as a result, I will discharge patient. Special discussion: I discussed with the patient/guardian in detail that at this point there is no indication for admission to the hospital. It is understood, however, that if the symptoms persist or worsen the patient needs to return immediately for re-evaluation. Based on the history and exam findings, there is no indication for further emergent testing or inpatient evaluation. I discussed with the patient/guardian the need to see the algorithm developer for further evaluation of the symptoms. I discussed with the patient/guardian the need to see the primary care provider for further evaluation of the symptoms. ED course: Pt with neg ct head and no acute kidney injury. Normal neuro exam. Will dc home with prescription for HTN medication. Return precautions given and understood. Pt nervous about his blood pressure, explained how BP management and further/rapid correction can actually be harmful now that we know it is not causing damage. Pt expressed understanding, just really wants to make sure number is better so that he can work. Overall feels much better. . 02/13 09:24 Order name: CBC with Diff; Complete Time: :34 rn 02/13 09:24 Order name: Basic Metabolic Panel; Complete Time: :34 rn 02/13 09:24 Order name: Protime (+inr); Complete Time: 10:34 rn 02/13 09:24 Order name: Ptt, Activated; Complete Time: 10:34 rn 02/13 09:24 Order name: CT Head Brain wo Cont; Complete Time: 11:12 rn 02/13 09:24 Order name: CT Head Angio; Complete Time: 11:12 rn 02/13 09:24 Order name: IV Start; Complete Time: 09:52 rn Administered Medications: 10:20 Drug: NS 0.9% IV 1000 ml Route: IV; Rate: 1000 ml; Site: right antecubital; eh3 12:30 Follow up: IV Status: Completed infusion; IV Intake: 1000ml eh3 10:20 Drug: amLODIPine PO 5 mg Route: PO; eh3 11:30 Follow up: Response: No adverse reaction eh3 10:20 Drug: traMADol PO 50 mg Route: PO; eh3 11:30 Follow up: Response: No adverse reaction eh3 11:30 Drug: morphine IVP or IV 4 mg Route: IVP; Infused Over: 4 mins; Site: right antecubital;eh3 12:30 Follow up: Response: No adverse reaction; Pain is decreased eh3 13:24 Drug: cloNIDine PO 0.1 mg Route: PO; eh3 14:30 Follow up: Response: No adverse reaction eh3 15:07 Drug: morphine IVP or IV 4 mg Route: IVP; Infused Over: 4 mins; Site: right antecubital;eh3 15:08 Follow up: Response: Medication administered at discharge. 3 Disposition Summary: 02/13/23 14:47 Discharge Ordered Location: Home rn Problem: chronic rn Symptoms: have improved rn Condition: Stable rn Diagnosis - Essential (primary) hypertension rn - Headache rn Followup: rn - With: Private Physician - When: As needed - Reason: Recheck today's complaints, Re-evaluation by your physician Discharge Instructions: - Discharge Summary Sheet rn - General Headache Without Cause rn - Hypertension, Adult rn - Managing Your Hypertension rn Forms: - Medication Reconciliation Form rn - Thank You Letter rn - Antibiotic financial services internship - Prescription Opioid Use rn Prescriptions: - amlodipine 10 mg Oral tablet - take 1 tablet by ORAL route daily; 60 tablet; Refills: 0, Product Selection rn Permitted Signatures: Dispatcher [employer] EDClarassance Velez, Efra, MD MD rn Speedy Salgado, RN RN bp Hawa Naranjo RN RN eh3
--- NOTE | 2023-02-13 14:47 | ER ---
Nurse's Notes [facility] Name: Vince Blackmon Age: 52 yrs Sex: Male : 1970 Arrival Date: 02/13/2023 Time: 08:57 Bed 15 Private MD: Diagnosis: Essential (primary) hypertension;Headache Presentation: 02/13 09:18 Chief complaint: Patient states: 2 DAYS SOTO AND HTN. Coronavirus screen: At this time, bp the client does not indicate any symptoms associated with coronavirus-19. Ebola Screen: No symptoms or risks identified at this time. Initial Sepsis Screen: Does the patient meet any 2 criteria? No. Patient's initial sepsis screen is negative. Does the patient have a suspected source of infection? No. Patient's initial sepsis screen is negative. Risk Assessment: Do you want to hurt yourself or someone else? Patient reports no desire to harm self or others. Onset of symptoms is unknown. 09:18 Method Of Arrival: Ambulatory bp 09:18 Acuity: COBY 3 bp Triage Assessment: 09:20 Headache History: The patient has had previous headaches and this one is similar to bp previous episodes. General: Appears in no apparent distress. uncomfortable, Behavior is calm, cooperative, appropriate for age. Pain: Complains of pain in head Pain currently is 7 out of 10 on a pain scale. Pain began 2-3 days ago. Also complains of no other associated symptoms. EENT: No deficits noted. Neuro: Level of Consciousness is awake, alert, obeys commands, Oriented to Appropriate for age. Cardiovascular: No deficits noted. Respiratory: No deficits noted. GI: No signs and/or symptoms were reported involving the gastrointestinal system. : No signs and/or symptoms were reported regarding the genitourinary system. Derm: No deficits noted. Musculoskeletal: No deficits noted. Historical: - Allergies: 09:20 ACETAMINOPHEN; bp 09:20 Aspirin; bp 09:20 Ibuprofen; bp 09:20 Toradol; bp - Home Meds: 09:20 None [Active]; bp - PMHx: 09:20 drug abuse - cocaine; epilepsy; Hypertension; Seizures; urinary stricture; bp - Immunization history:: Adult Immunizations up to date. - Social history:: Smoking status: . - Family history:: not pertinent. - Hospitalizations: : No recent hospitalization is reported. Screenin:21 [facility] ED Fall Risk Assessment (Adult) History of falling in the last 3 months, bp including since admission. Abuse screen: Denies threats or abuse. Denies injuries from another. Nutritional screening: No deficits noted. Tuberculosis screening: No symptoms or risk factors identified. Assessment: 09:21 General: SEE TRIAGE NOTE. bp 09:45 General: Appears in no apparent distress. comfortable, Behavior is calm, cooperative, eh3 appropriate for age. Pain: Complains of pain in head. Neuro: Level of Consciousness is awake, alert, obeys commands, Oriented to person, place, time, situation. Cardiovascular: Capillary refill < 3 seconds Patient's skin is warm and dry. Respiratory: Airway is patent Respiratory effort is even, unlabored, Respiratory pattern is regular, symmetrical. GI: Abdomen is round non-distended. : No signs and/or symptoms were reported regarding the genitourinary system. EENT: No signs and/or symptoms were reported regarding the EENT system. Derm: Skin is pink, warm \T\ dry. Musculoskeletal: No signs and/or symptoms reported regarding the musculoskeletal system. 10:30 Reassessment: Patient appears in no apparent distress at this time. Patient and/or eh3 family updated on plan of care and expected duration. Pain level reassessed. Patient is alert, oriented x 3, equal unlabored respirations, skin warm/dry/pink. 11:30 Reassessment: Patient appears in no apparent distress at this time. Patient and/or eh3 family updated on plan of care and expected duration. Pain level reassessed. Patient is alert, oriented x 3, equal unlabored respirations, skin warm/dry/pink. 12:30 Reassessment: Patient appears in no apparent distress at this time. Patient and/or eh3 family updated on plan of care and expected duration. Pain level reassessed. Patient is alert, oriented x 3, equal unlabored respirations, skin warm/dry/pink. 13:30 Reassessment: Patient appears in no apparent distress at this time. Patient and/or eh3 family updated on plan of care and expected duration. Pain level reassessed. Patient is alert, oriented x 3, equal unlabored respirations, skin warm/dry/pink. 14:30 Reassessment: Patient appears in no apparent distress at this time. Patient and/or eh3 family updated on plan of care and expected duration. Pain level reassessed. Patient is alert, oriented x 3, equal unlabored respirations, skin warm/dry/pink. Vital Signs: 09:18 BP 159 / 108; Pulse 65; Resp 17; Temp 98.4; Pulse Ox 100% ; Weight 117.93 kg; Height 5 bp ft. 9 in. ; 10:00 BP 163 / 103; Pulse 61; Resp 18; Pulse Ox 95% on R/A; eh3 10:30 BP 173 / 105; Pulse 60; Resp 18; Pulse Ox 95% on R/A; eh3 11:00 BP 163 / 104; Pulse 70; Resp 18; Pulse Ox 92% on R/A; eh3 11:30 BP 181 / 106; Pulse 72; Resp 18; Pulse Ox 90% on R/A; eh3 12:00 BP 186 / 117; Pulse 68; Resp 18; Pulse Ox 96% on R/A; eh3 12:30 BP 192 / 102; Pulse 65; Resp 18; Pulse Ox 95% on R/A; eh3 13:00 BP 177 / 110; Pulse 65; Resp 18; Pulse Ox 97% on R/A; eh3 13:30 BP 179 / 112; Pulse 68; Resp 18; Pulse Ox 98% on R/A; eh3 14:00 BP 176 / 117; Pulse 64; Resp 18; Pulse Ox 96% on R/A; eh3 14:30 BP 152 / 103; Pulse 61; Resp 18; Pulse Ox 96% on R/A; eh3 14:44 BP 159 / 100; rn 09:18 Body Mass Index 38.39 (117.93 kg, 175.26 cm) bp Anil Coma Score: 14:44 Eye Response: spontaneous(4). Motor Response: obeys commands(6). Verbal Response: rn oriented(5). Total: 15. ED Course: 09:00 Patient arrived in ED. im 09:12 Efra Velez MD is Attending Physician. rn 09:19 Triage completed. bp 09:20 Arm band placed on. bp 09:21 Patient has correct armband on for positive identification. bp 09:45 Hawa Naranjo, RN is Primary Nurse. eh3 09:45 Client placed on continuous cardiac and pulse oximetry monitoring. NIBP monitoring eh3 applied. Door closed. Noise minimized. Lights dimmed. Warm blanket given. 09:50 Initial lab(s) drawn, by me, sent to lab. Inserted saline lock: 20 gauge in right aa5 antecubital area, using aseptic technique. Blood collected. 10:53 CT Head Brain wo Cont In Process Unspecified. EDMS 10:53 CT Head Angio In Process Unspecified. EDMS 14:54 No provider procedures requiring assistance completed. IV discontinued, intact, eh3 bleeding controlled, No redness/swelling at site. Pressure dressing applied. Administered Medications: 10:20 Drug: NS 0.9% IV 1000 ml Route: IV; Rate: 1000 ml; Site: right antecubital; eh3 12:30 Follow up: IV Status: Completed infusion; IV Intake: 1000ml eh3 10:20 Drug: amLODIPine PO 5 mg Route: PO; eh3 11:30 Follow up: Response: No adverse reaction eh3 10:20 Drug: traMADol PO 50 mg Route: PO; eh3 11:30 Follow up: Response: No adverse reaction eh3 11:30 Drug: morphine IVP or IV 4 mg Route: IVP; Infused Over: 4 mins; Site: right antecubital;eh3 12:30 Follow up: Response: No adverse reaction; Pain is decreased eh3 13:24 Drug: cloNIDine PO 0.1 mg Route: PO; eh3 14:30 Follow up: Response: No adverse reaction eh3 15:07 Drug: morphine IVP or IV 4 mg Route: IVP; Infused Over: 4 mins; Site: right antecubital;eh3 15:08 Follow up: Response: Medication administered at discharge. eh3 Medication: 09:21 VIS not applicable for this client. bp Intake: 12:30 IV: 1000ml; Total: 1000ml. eh3 Outcome: 14:47 Discharge ordered by . rn 15:13 Discharged to home ambulatory, with friend. eh3 15:13 Condition: stable 15:13 Discharge instructions given to patient, Instructed on discharge instructions, follow up and referral plans. medication usage, Demonstrated understanding of instructions, follow-up care, medications, Prescriptions given X 1. 15:13 Patient left the ED. eh3 Signatures: Dispatcher [employer] EDMS Efra Velez MD MD rn Calderon, Audri RN RN aa5 Speedy Salgado RN RN bp Hall, Erin, RN RN eh3 Lisa Ge Corrections: (The following items were deleted from the chart) 14:53 10:18 Hawa Naranjo RN is Primary Nurse. eh3 eh3
[2023-02-13 16:27] VITALS: O2SAT 96
[2023-02-13 16:30] VITALS: BP 159/100
== END 2023-02-13 15:13 | disposition home or self-care (01) ==
LOC: ER 08:57
DX: I10 Essential (primary) hypertension (principal)
CPT/HCPCS: 36415; 70450; 70496; 80048; 85025; 85610; 85730; 96361; 96374; 99284; J7030; Q9967